=== PATIENT | male | born 1950 | race Hispanic/Latino ===

== ENCOUNTER → 2022-09-16 | Outpatient (CLI) | payer OTHER ==
[~2022-09-16] MED LIST: ATOR40TA71 PO; CARB1DRO40 OP; DIATR MEGLU/DIATRIZOATE SODIUM 30 ML BOTTLE ONE; ERGO500093 PO; FINA5TAB41 PO; IOHEXOL-350 50ML VIAL IV ONE; TAMS-1 PO
== END | disposition home or self-care (01) ==
LOC: RAH 10:24
PROVIDERS: ATTEND Internal Medicine
DX: K57.80 Diverticulitis of intestine, part unspecified, with perforation and abscess without bleeding (principal); K40.20 Bilateral inguinal hernia, without obstruction or gangrene, not specified as recurrent; N28.1 Cyst of kidney, acquired; M47.815 Spondylosis without myelopathy or radiculopathy, thoracolumbar region; Z90.49 Acquired absence of other specified parts of digestive tract
CPT/HCPCS: 74178; Q9963; Q9967

== ENCOUNTER 2024-11-08 08:50 | Inpatient (IN) | payer OTHER ==
[~2024-11-08] VITALS: Ht 167.6 cm; Wt 93.0 kg
[~2024-11-08 08:50] MED LIST changes: -CARB1DRO40 OP; +CARV3.12 PO; -DIATR MEGLU/DIATRIZOATE SODIUM 30 ML BOTTLE ONE; -ERGO500093 PO; -IOHEXOL-350 50ML VIAL IV ONE; -TAMS-1 PO; +TAMS-55 PO
--- NOTE | 2024-11-08 09:43 | ERN ---
ED Note History of Present Illness Stated Complaint: RLE AND FOOT PAIN Chief Complaint: Lower Extremity Pain/Injury Time Seen by MD: 08:53 Dictation: 74-year-old male with a history of DM and HTN presents to the ED for evaluation of chronic right foot ulcer. Patient reports right foot pain, erythema, but denies any other associated symptoms at this time. As per patient he has poor circulation to his right foot which has been causing a lot of pain and states he has had labs and radiology studies performed at the [facility] which are still pending results. Allergies: Coded Allergies: No Allergy Information Available (Verified Allergy, Unknown, 02/11/16) No Known Drug Allergies (Unverified Allergy, Unknown, 02/18/24) Home Meds Active Scripts Carvedilol (Carvedilol) 3.125 Mg Tablet, 3.125 MG PO BID, #60 TAB 0 Refills Prov:RICA ALANIZ 10/27/23 Reported Medications Tamsulosin HCl (Flomax) 0.4 Mg Cap.er.24h, 0.4 MG PO AM, CAPSULE.DR 08/24/22 Finasteride (Finasteride) 5 Mg Tablet, 5 MG PO DAILY, TAB 08/24/22 Atorvastatin Calcium (Atorvastatin Calcium) 40 Mg Tablet, 40 MG PO AM for CHOLESTEROL, TAB 08/24/22 Past Medical History Past Medical History: A-Fib, Diabetes-Type II, High Cholesterol, Heart Disease, Hypertension, Hypotension Additional Past Medical Hx: HARD OF HEARING Surgical History: None Surgical History Other: R FOOT AMPUTATION, L AKA Review of System Dictation Constitutional: Negative for fever,chills, and weight loss Eyes: Negative for injury, pain,redness, and discharge ENT: Negative for injury,pain or swelling Cardiovascular: Negative for chest pain, palpitations, and edema Respiratory: Negative for shortness of breath, cough, and wheezing, Abdomen/GI: Negative for abdominal pain, nausea, vomiting, diarrhea, and constipation Back: Negative for injury and pain : Negative for injury, bleeding and discharge MS/Extremity: Positive for right foot erythema, pain Skin: Negative for rash, and discoloration Neuro: Negative for headache, weakness, numbness, tingling, and seizure Psych: Negative for suicide ideation, homicidal ideation, and hallucinations Initial Vital Sign VS Vital Signs Date Time Temp Pulse Resp B/P (MAP) Pulse Ox O2 Delivery O2 Flow Rate FiO2 11/08/24 08:53 99.3 104 20 143/75 99 Room Air 11/08/24 09:01 0 21 Physical Exam Dictation General: awake, alert, NAD Head/Face: Normocephalic, atraumatic Eyes: PERRL, EOMI, vision at baseline ENT: oral cavity clear, TMs clear, no signs of infection Neck: Trachea midline, supple, no nuchal rigidity Cardiovascular: Borderline tachycardia No MRGs, no JVD Respiratory: CTAB, no respiratory distress, No rales or wheezes Abdomen: Soft, non-tender, non-distended, normal bowel sounds, no guarding or rebound. Skin: Warm, dry, normal turgor, no rash MS/Extremity: Left AKA, nonhealing ulcer to right foot, right transmetatarsal amputation Neuro: COAx4, GCS 15, strength 5/5, CN 2-12 intact, normal cerebellar exam, normal gait, Psych: Normal behavior, mood, and affect normal Results (Laboratory/Radiology) Laboratory/Radiology Laboratory Tests Test 11/08/24 09:28 White Blood Count 7.9 K/uL (4.8-10.8) Red Blood Count 4.22 MIL/uL (4.50-6.20) L Hemoglobin 11.2 g/dL (14.0-18.0) L Hematocrit 36.6 % (42-54) L Mean Corpuscular Volume 86.7 fL (79-99) Mean Corpuscular Hemoglobin 26.5 pg (27.0-33.0) L Mean Corpuscular Hemoglobin Concent 30.6 g/dL (32.0-36.0) L Red Cell Distribution Width 15.7 % (11.0-15.5) H Platelet Count 295 K/uL (130-400) Mean Platelet Volume 10.5 fL (7.5-10.5) Immature Granulocyte % (Auto) 0.9 % (0-1) Neutrophils (%) (Auto) 75.6 % (40.0-77.0) Lymphocytes (%) (Auto) 17.3 % (21.0-51.0) L Monocytes (%) (Auto) 5.2 % (3.0-13.0) Eosinophils (%) (Auto) 0.6 % (0.0-8.0) Basophils (%) (Auto) 0.4 % (0.0-5.0) Neutrophils # (Auto) 6.0 K/uL (1.8-7.7) Lymphocytes # (Auto) 1.4 K/uL (1.0-4.8) Monocytes # (Auto) 0.4 K/uL (0.1-1.0) Eosinophils # (Auto) 0.05 K/uL (0.00-0.70) Basophils # (Auto) 0.03 K/uL (0.00-0.20) Absolute Immature Granulocyte (auto 0.07 K/uL (0-1) Nucleated Red Blood Cells 0.0 % (0.0-0.19) Red Blood Cell Morphology See comments Prothrombin Time 10.8 SEC (9.6-11.6) Prothromb Time International Ratio 1.02 (0.85-1.15) Activated Partial Thromboplast Time 28.9 SEC (26.3-35.5) Urine Color LIGHT-YELLOW (YELLOW) Urine Appearance CLEAR (CLEAR) Urine pH 5.0 (5.0-8.0) Urine Specific [place] 1.028 (1.001-1.031) Urine Protein NEGATIVE mg/dL (NEGATIVE) Urine Glucose (UA) >=1000 mg/dL (NEGATIVE) H Urine Ketones NEGATIVE mg/dL (NEGATIVE) Urine Occult Blood NEGATIVE (NEGATIVE) Urine Nitrate NEGATIVE (NEGATIVE) Urine Bilirubin NEGATIVE mg/dL (NEGATIVE) Urine Urobilinogen 0.2 mg/dL (0.2-1.0) Urine Leukocyte Esterase NEGATIVE Mainor/uL Urine RBC 0-1 /HPF (0-1) Urine WBC 0-1 /HPF (0-1) Urine Bacteria None /HPF (None Seen) Sodium Level 141 mmol/L (136-145) Potassium Level 4.2 mmol/L (3.5-5.1) Chloride Level 103 mmol/L (101-111) Carbon Dioxide Level 27 mmol/L (21-32) Blood Urea Nitrogen 17 mg/dL (7-18) Creatinine 1.1 mg/dL (0.5-1.3) Glomerular Filtration Rate Calc 70 mL/min (>90) Random Glucose 242 mg/dL (70-105) H Lactic Acid Level 2.6 mmol/L (0.8-2.5) H Total Calcium 8.4 mg/dL (8.5-10.1) L Total Bilirubin 0.3 mg/dL (0.2-1.0) Direct Bilirubin 0.1 mg/dL (0.0-0.3) Aspartate Amino Transf (AST/SGOT) 22 U/L (10-37) Alanine Aminotransferase (ALT/SGPT) 22 U/L (12-78) Alkaline Phosphatase 145 U/L (50-136) H Troponin I High Sensitivity 7 ng/L (4-75) Total Protein 7.0 g/dL (6.0-8.3) Albumin 3.0 g/dL (3.5-5.0) L Labs Reviewed?: Yes EKG Comment: EKG 11/08/2024 time 9:46 a.m. ventricular rate 103, WA 188, QRS D 75, QT 397. Sinus or ectopic atrial tachycardia, sinus pause, left axis deviation, prolonged QT interval. No STEMI ED Course ED Course Orders Procedure Category Date Status Time 12 Lead Ekg Tracing- EKG 11/08/24 Complete Technical 09:23 Basic Metabolic Panel LAB 11/08/24 Complete 09:23 Blood Cult GHADA 11/08/24 In Process 09:23 Cbc With Differential LAB 11/08/24 Complete 09:23 Lactic Acid LAB 11/08/24 Complete 09:23 Hepatic Function Panel LAB 11/08/24 Complete 09:23 Pt And Ptt LAB 11/08/24 Complete 09:23 Urinalysis Profile LAB 11/08/24 Complete 09:23 Troponin I High LAB 11/08/24 Complete Sensitivity 09:23 Chest 1vw RAD 11/08/24 Resulted 09:23 Foot Comp 3+Vws Rt RAD 11/08/24 Resulted 09:23 Zosyn 3.375gm+Ns 50ml PHA 11/08/24 Complete (Zosyn 3.375gm+Ns 09:30 Morphine 4mg Syg PHA 11/08/24 Complete (Morphine 4mg Syg) 09:30 Ondansetron 4mg Inj PHA 11/08/24 Complete (Zofran 4mg Inj) 09:30 Aerobic Culture GHADA 11/08/24 In Process 09:40 Anaerobic Culture GHADA 11/08/24 In Process 09:40 Current Medications Medications (Trade) Dose Ordered Sig/Jermain Route PRN Reason Start Time Stop Time Status Last Admin Dose Admin Morphine Sulfate (morPHINE 4MG SYG) 4 mg ONCE ONCE IVP 4/16/25 09:30 11/08/24 09:31 DC 11/08/24 10:04 Ondansetron HCl (zoFRAN 4MG INJ) 4 mg ONCE ONCE IVP 11/08/24 09:30 11/08/24 09:31 DC 11/08/24 10:03 Piperacillin Sod/ Tazobactam Sod (Zosyn 3.375gm+NS 50ml) 3.375 gm ONCE ONCE IVPB 11/08/24 09:30 11/08/24 09:31 DC 11/08/24 10:03 Vital Signs Date Time Temp Pulse Resp B/P (MAP) Pulse Ox O2 Delivery O2 Flow Rate FiO2 11/08/24 09:01 99.3 104 20 143/75 99 Room Air* 0 21 11/08/24 08:53 99.3 104 20 143/75 99 Room Air Medical Decision Making MDM MDM: Differential diagnosis: Failure of outpatient therapy, Chronic cellulitis of right foot, osteomyelitis 1128- Hospitalist consult, accepts patient for admission Rationale: Tests considered and ordered secondary to shared decision making include: labs, ECG and radiology Risk of complication and/or morbidity or mortality of patient management: None Medications-Per medication reconciliation Need for hospitalization: Patient does meet criteria for hospitalization. Need for emergency major/minor surgery: No There are no social concerns with this patient. I independently interpreted the test that were performed, results were reviewed by me and considered findings on radiology if ordered. Medical management and examination interpretation discussions were had by me with other qualified healthcare professionals as indicated for the patient's care. DX & DISP Disposition: Inpatient Decision to Admit Date: Nov 08, 2024 Decision to Admit Time: 11:27 Departure Impression: Primary Impression: Chronic cellulitis of right foot Additional Impression: Failure of outpatient treatment Condition: Stable Referrals: SELF,REFERRAL (PCP) MARCELLUS WEST MD Nov 08, 2024 09:43
[2024-11-08 09:51] LABS: BASOPHILS # (AUTO) 0.03 K/uL (0.00-0.20); BASOPHILS % (AUTO) 0.4 % (0.0-5.0); EOSINOPHILS # (AUTO) 0.05 K/uL (0.00-0.70); EOSINOPHILS % (AUTO) 0.6 % (0.0-8.0); HEMATOCRIT 36.6 % (42-54); IMMATURE GRANULOCYTE ABSOLUTE 0.07 K/uL (0-1); LYMPHOCYTES # (AUTO) 1.4 K/uL (1.0-4.8); LYMPHOCYTES % (AUTO) 17.3 % (21.0-51.0); MEAN CORPUSCULAR HEMOGLOBIN 26.5 pg (27.0-33.0); MEAN CORPUSCULAR HGB CONC 30.6 g/dL (32.0-36.0); MEAN CORPUSCULAR VOLUME 86.7 fL (79-99); MONOCYTES # (AUTO) 0.4 K/uL (0.1-1.0); MONOCYTES % (AUTO) 5.2 % (3.0-13.0); NEUTROPHILS % (AUTO) 75.6 % (40.0-77.0); PLATELET COUNT (AUTO) 295 K/uL (130-400); RED BLOOD CELL COUNT(AUTO) 4.22 MIL/uL (4.50-6.20); RED CELL DISTRIBUTION WIDTH 15.7 % (11.0-15.5); WHITE BLOOD COUNT (AUTO) 7.9 K/uL (4.8-10.8)
[2024-11-08 09:59] LABS: CREATININE 1.1 mg/dL (0.5-1.3); POTASSIUM 4.2 mmol/L (3.5-5.1)
--- NOTE | 2024-11-08 09:59 | EKG ---
[facility] Test Date: 2024-11-08 Test Time: 09:46:56 Pat Name: MAGALI KEENAN Department: [facility] Room: 310 Gender: M Tour Escort: [id number] : 1950 Requested By: MARCELLUS WEST Order Number: [id number] Reading MD: Lynda Dow Measurements Intervals [place] Rate: 103 P: 208 NC: 198 QRS: -37 QRSD: 75 T: 45 QT: 397 QTc: 534 Interpretive Statements Sinus or ectopic atrial tachycardia Sinus pause Left axis deviation Prolonged QT interval Compared to ECG 07/02/2024 08:25:57 Sinus pause or arrest now present Left-axis deviation now present Prolonged QT interval now present Second-degree AV block, Mobitz type I (Wenckebach) no longer present Electronically Signed On 11-10-2024 09:32:56 CDT by Lynda Dow Please click the below link to view image of tracing.
[2024-11-08] MEDS: ZOSYN 3.375GM +NS 50ML IVPB ONE (10:03)
[2024-11-08] MEDS: ondanSETRON 4MG INJ IVP ONE (10:03)
[2024-11-08] MEDS: morPHINE 4 MG SYG IVP ONE (10:04)
[2024-11-08 10:09] LABS: BILIRUBIN,DIRECT 0.1 mg/dL (0.0-0.3); BILIRUBIN,TOTAL 0.3 mg/dL (0.2-1.0)
[2024-11-08 10:13] LABS: INR 1.02 (0.85-1.15); PROTHROMBIN TIME 10.8 SEC (9.6-11.6)
[2024-11-08 10:14] LABS: PARTIAL THROMBOPLASTIN TIME 28.9 SEC (26.3-35.5)
[2024-11-08 10:19] LABS: APPEARANCE,URINE CLEAR (CLEAR); BILIRUBIN,URINE NEGATIVE (NEGATIVE); COLOR,URINE LIGHT-YELLOW (YELLOW); GLUCOSE, URINE (UA) >=1000 mg/dL (NEGATIVE); KETONES,URINE NEGATIVE (NEGATIVE); LEUKOCYTE ESTERASE ,URINE NEGATIVE Leu/uL (NEGATIVE); NITRATE,URINE NEGATIVE (NEGATIVE); OCCULT BLOOD,URINE NEGATIVE (NEGATIVE); PROTEIN,URINE NEGATIVE (NEGATIVE); UROBILINOGEN,URINE 0.2 mg/dL (0.2-1.0)
[2024-11-08 10:31] LABS: ADD UA MICROSCOPIC YES
[2024-11-08 10:35] LABS: MUCUS,URINE RARE LPF (None Seen); RBC,URINE 0-1 /HPF (0-1); WBC,URINE 0-1 /HPF (0-1)
--- NOTE | 2024-11-08 10:47 | HMCIMG ---
RIGHT FOOT RADIOGRAPHS - 3 VIEWS INDICATION: GBW? COMPARISON: None FINDINGS: AP, lateral, and oblique views. Transmetatarsal amputation changes noted. No acute fracture or subluxation identified. No evidence for periosteal reaction, cortical erosive changes, or any abnormal subperiosteal bone resorption. Midfoot alignment is well maintained. 1 cm plantar calcaneal spur. Subcentimeter traction enthesophyte arises off the posterior calcaneus at the Achilles tendon attachment. Mild calcific plaque along the runoff arterial rivera and their respective branches. IMPRESSION: D degenerative changes and arteriosclerotic disease as described, without evidence for fracture or osteomyelitis.
--- NOTE | 2024-11-08 10:48 | HMCIMG ---
PORTABLE CHEST RADIOGRAPH INDICATION: gbw COMPARISON: 07/02/2024 FINDINGS: Shallow inspiration. Heart size is normal. The pulmonary vascularity and kelsey appear normal. No abnormal pulmonary parenchymal opacity or consolidation identified. No significant pleural effusion noted. No pneumothorax detected. IMPRESSION: Shallow inspiration without radiographic evidence for any acute cardiopulmonary process.
[2024-11-08] MEDS ORDERED: VANCOMYCIN KIT 1 GM/250 ML IV.KIT IV SCH (12:00)
[2024-11-08] MEDS ORDERED: PoTASSium chl 10% ELIXIR 20MEQ 20 MEQ/15 ML UDCUP PO PRN (12:00)
[2024-11-08] MEDS ORDERED: LACTULOSE 20 GM/30 ML UDCUP PO PRN (12:00)
--- NOTE | 2024-11-08 12:12 | HP ---
[facility] HISTORY AND PHYSICAL Date of Service: Nov 08, 2024 Time of Service: 11:41 HISTORY OF PRESENT ILLNESS: [ ] This is a 74-year-old male that presents in ED with chief complaints of right foot pain. Patient has a chronic open wound to his right foot status post TMA five years ago. Patient sees a marketing technology specialist outpatient setting. Pain scale 10/10. Aggravated factors movement, alleviating factors none. There is redness noted eschar to open wound with minimal drainage. there is no surrounding edema no foul odor noted. Reports having fevers subjective. Patient was seen in ED 14 patient is in severe pain To his right lower extremity. Patient stated that his family doctor told him most likely he will need amputation surgeon assistant consulted. All questions were addressed REVIEW OF SYSTEMS a 14 ROS obtained all relevant positive documented otherwise ROS negative PAST MEDICAL HISTORY: [ ] refer to HPI PAST SURGICAL HISTORY: [ ] Left AKA right TMA PAST SOCIAL HISTORY: [ ] Denies smoking tobacco products and alcohol use patient is a [place]. Lives with brother FAMILY HISTORY: [ ] noncontributory Coded Allergies: No Allergy Information Available (Verified Allergy, Unknown, 02/11/16) No Known Drug Allergies (Unverified Allergy, Unknown, 02/18/24) PHYSICAL EXAM GENERAL APPEARANCE: The patient is awake, alert, and oriented, in no acute cardiopulmonary distress. NEUROLOGICAL: Cranial nerves II-XII grossly intact. Motor is 5/5 in bilateral upper and lower extremities proximal to distal. No sensory deficits. HEENT: Face is symmetric. Pupils are equal and reactive. Extraocular movements are intact. NECK: Supple. No JVD. No thyromegaly. No submental, submandibular, pre- /postauricular, occipital or supraclavicular lymphadenopathy. CHEST: Normal chest expansion. No Telemetry. LUNGS: Absence of any rales, rhonchi or any wheezing. CARDIOVASCULAR: Regular. S1 and S2 normal. No appreciable rubs, murmurs or gallops. ABDOMEN: Soft, nontender, and nondistended. There is no rebound, voluntary guarding, or rigidity. : Deferred. No Jaramillo. EXTREMITIES: Non-edematous and not cyanotic. No clubbing. Good capillary refill. Right foot; TMA open wound with eschar, minimal drainage SKIN: No skin breakdown. Vital Sign (Last 24 Hours) 11/08/24 09:01 Temp 99.3 Pulse 104 Resp 20 B/P (MAP) 143/75 Pulse Ox 99 O2 Delivery Room Air* O2 Flow Rate 0 FiO2 21 LABS: Laboratory: Test 11/08/24 09:28 Range/Units White Blood Count 7.9 4.8-10.8 K/uL Red Blood Count 4.22 L 4.50-6.20 MIL/uL Hemoglobin 11.2 L 14.0-18.0 g/dL Hematocrit 36.6 L 42-54 % Mean Corpuscular Volume 86.7 79-99 fL Mean Corpuscular Hemoglobin 26.5 L 27.0-33.0 pg Mean Corpuscular Hemoglobin Concent 30.6 L 32.0-36.0 g/dL Red Cell Distribution Width 15.7 H 11.0-15.5 % Platelet Count 295 130-400 K/uL Mean Platelet Volume 10.5 7.5-10.5 fL Immature Granulocyte % (Auto) 0.9 0-1 % Neutrophils (%) (Auto) 75.6 40.0-77.0 % Lymphocytes (%) (Auto) 17.3 L 21.0-51.0 % Monocytes (%) (Auto) 5.2 3.0-13.0 % Eosinophils (%) (Auto) 0.6 0.0-8.0 % Basophils (%) (Auto) 0.4 0.0-5.0 % Neutrophils # (Auto) 6.0 1.8-7.7 K/uL Lymphocytes # (Auto) 1.4 1.0-4.8 K/uL Monocytes # (Auto) 0.4 0.1-1.0 K/uL Eosinophils # (Auto) 0.05 0.00-0.70 K/uL Basophils # (Auto) 0.03 0.00-0.20 K/uL Absolute Immature Granulocyte (auto 0.07 0-1 K/uL Nucleated Red Blood Cells 0.0 0.0-0.19 % Red Blood Cell Morphology See comments Prothrombin Time 10.8 9.6-11.6 SEC Prothromb Time International Ratio 1.02 0.85-1.15 Activated Partial Thromboplast Time 28.9 26.3-35.5 SEC Urine Color LIGHT-YELLOW YELLOW Urine Appearance CLEAR CLEAR Urine pH 5.0 5.0-8.0 Urine Specific [place] 1.028 1.001-1.031 Urine Protein NEGATIVE NEGATIVE mg/dL Urine Glucose (UA) >=1000 H NEGATIVE mg/dL Urine Ketones NEGATIVE NEGATIVE mg/dL Urine Occult Blood NEGATIVE NEGATIVE Urine Nitrate NEGATIVE NEGATIVE Urine Bilirubin NEGATIVE NEGATIVE mg/dL Urine Urobilinogen 0.2 0.2-1.0 mg/dL Urine Leukocyte Esterase NEGATIVE NEGATIVE Mainor/uL Urine RBC 0-1 0-1 /HPF Urine WBC 0-1 0-1 /HPF Urine Bacteria None None Seen /HPF Sodium Level 141 136-145 mmol/L Potassium Level 4.2 3.5-5.1 mmol/L Chloride Level 103 101-111 mmol/L Carbon Dioxide Level 27 21-32 mmol/L Blood Urea Nitrogen 17 7-18 mg/dL Creatinine 1.1 0.5-1.3 mg/dL Glomerular Filtration Rate Calc 70 >90 mL/min Random Glucose 242 H 70-105 mg/dL Lactic Acid Level 2.6 H 0.8-2.5 mmol/L Total Calcium 8.4 L 8.5-10.1 mg/dL Total Bilirubin 0.3 0.2-1.0 mg/dL Direct Bilirubin 0.1 0.0-0.3 mg/dL Aspartate Amino Transf (AST/SGOT) 22 10-37 U/L Alanine Aminotransferase (ALT/SGPT) 22 12-78 U/L Alkaline Phosphatase 145 H 50-136 U/L Troponin I High Sensitivity 7 4-75 ng/L Total Protein 7.0 6.0-8.3 g/dL Albumin 3.0 L 3.5-5.0 g/dL DIAGNOSTICS / RADIOLOGY: [ ] REASON: gbw ORDERING PHYSICIAN: MARCELLUS WEST MD PROCEDURE: FT 3VW RT - FOOT COMP 3+VWS RT RIGHT FOOT RADIOGRAPHS - 3 VIEWS INDICATION: GBW? COMPARISON: None FINDINGS: AP, lateral, and oblique views. Transmetatarsal amputation changes noted. No acute fracture or subluxation identified. No evidence for periosteal reaction, cortical erosive changes, or any abnormal subperiosteal bone resorption. Midfoot alignment is well maintained. 1 cm plantar calcaneal spur. Subcentimeter traction enthesophyte arises off the posterior calcaneus at the Achilles tendon attachment. Mild calcific plaque along the runoff arterial rivera and their respective branches. IMPRESSION: D degenerative changes and arteriosclerotic disease as described, without evidence for fracture or osteomyelitis. DICTATED BY: CARMELITA DUNBAR MD DATE: 11/08/24 104 ELECTRONICALLY SIGNED BY: CARMELITA DUNBAR MD DATE: 11/08/24 104 ASSESSMENT: Sepsis: POA 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, drainage POA intractable pain right foot POA Suspecting osteomyelitis POA Severe PAD Poa Uncontrolled diabetes type 2 POA Obesity BMI: 33 Immobility secondary to left AKA, and limited functional to right foot: POA PLAN: [ ] Admit: Medical-surgical condition: Guarded Status: Full code IVF: NS at 75 mL/hour Consultants surgeon assistant / marketing technology specialist Antibiotics: Zosyn 3.375 g IV every8 hours, vancomycin1 g every24 hours Imaging: xray right foot, venous doppler to right lower ext Test: Wound culture blood cultures obtained follow-up results ac/hs monitoring with SSRI coverage Labs cbc, cmp, mag+ Replace electrolytes as needed as per protocol to keep potassium above 4.0 magnesium 2.0. Home medications pending to be reviewed by RN nurse. PRN: MEDICATIONS Tylenol 650 mg po every 4 hrs for fever Zofran 4 mg IV every 6 hrs for n/v Hydralazine 5 mg IV every 4 hrs systolic pressure > 160 bowel regiment: lactulose 20 gm PO BID PRN constipation Pain management: Dilaudid 0.5 mg IV every 4 hours Supportive measures: DVT ppx, GI ppx all questions answered time spent: > 35 min Supervising MD: Dr. vicente c/d This document was generated in part using voice recognition software, occasional wrong word or sound alike substitutions may have occurred due to the inherent limitations of voice recognition software. Read the chart carefully and recognize using context, where the substitutions have occurred. Although every effort was made to edit the content, label cutter and typing errors may occur ATTESTATION BY PHYSICIAN I have seen and examined the patient. I reviewed the documentation, medical decision making, and treatment plan as noted by the mid-level provider above. I agree with the findings and plan of care. ANDREAS VICENTE MD, ELIZABETH NP Nov 08, 2024 12:12
[2024-11-08] MEDS: 0.9%NACL 1000ML 1,000 ML IV SCH (12:24)
[2024-11-08] MEDS: hydroMORPHone 0.5 MG SYG (0.5MG/0.5ML) IVP PRN (12:25)
[2024-11-08] MEDS: HEParin 5,000 UNIT VIAL SQ SCH (12:35)
--- NOTE | 2024-11-08 13:00 | NUR ---
PODIATRY DR MAHMOOD MADE AWARE OF PT.
--- NOTE | 2024-11-08 13:05 | NUR ---
[facility] MADE AWARE OF PT.
--- NOTE | 2024-11-08 13:10 | NUR ---
1ST ATTEMPT AT CALLING REPORT.
--- NOTE | 2024-11-08 13:12 | NUR ---
PT DOES NOT HAVE HIS HOME MEDICATIONS HERE.
--- NOTE | 2024-11-08 13:37 | NUR ---
REPORT GIVEN TO LEONOR RAO.PT IS GOING TO 310.
--- NOTE | 2024-11-08 13:52 | HMCIMG ---
ULTRASOUND VENOUS DOPPLER RIGHT LOWER EXTREMITY INDICATION: Pain and swelling. TECHNIQUE: Routine grayscale and color Doppler ultrasound of the right lower extremity veins performed. COMPARISON: None. FINDINGS: The demonstrated veins of the right lower extremity including the common femoral vein, femoral vein, and popliteal vein are associated with normal compressibility, augmentation, and flow. Normal respiratory variation was identified. No evidence for echogenic intraluminal thrombus. IMPRESSION: No evidence for deep venous thrombosis.
[2024-11-08 14:21] VITALS: BP 120/71; PULSE 99; RESP 17; TEMP 98.2
[2024-11-08 14:50] VITALS: O2SAT 98
--- NOTE | 2024-11-08 15:13 | HMCIMG ---
MRI RIGHT HINDFOOT/ANKLE WITHOUT CONTRAST INDICATION: Infected transmetatarsal indentation COMPARISON: None TECHNIQUE: Long and short axis fat and water weighted sequences were obtained through the right ankle. FINDINGS: Diagnostic sensitivity of this examination is limited by patient motion artifact. Transmetatarsal indentation changes identified. Subtle coalescent low T1 signal encroaches upon the second metatarsal stump and reactive marrow edema noted at the same level, but no significant obscuration of the cortices. Similar changes noted at the first metatarsal stump. No evidence for any organized/drainable fluid collection. Anterior and posterior talofibular ligaments are intact. Anterior and medial tendon group, including the posterior tibial tendon, are intact. Lateral peroneal complex is intact, and not subluxed. Achilles tendon and plantar fascia are intact. Kager's fat pad is well maintained. Miniscule plantar calcaneal spur without plantar fasciitis. No significant joint effusion identified. No abnormal soft tissue mass or ganglion noted. Talar dome is intact without osteochondral lesion. Ankle mortise and tibial plafond are well maintained. Sinus canal is patent. No evidence for coalition. Moderate talocalcaneal joint osteoarthropathy and mild tibiotalar joint osteoarthropathy. No evidence for muscle atrophy or myoedema. No evidence for fracture. IMPRESSION: Limitations as reported. Findings suggesting early acute osteomyelitis involving the first and second metatarsal stumps.
[2024-11-08 16:00] VITALS: BP 119/71; PULSE 98; RESP 17; TEMP 97.5
[2024-11-08] MEDS: INSULIN humuLIN R 100 UNIT/ML 3ML SQ SCH (16:30)
[2024-11-08] MEDS: ZOSYN 3.375GM +NS 50ML IVPB SCH (18:48)
[2024-11-08 19:09] VITALS: O2SAT 96
[2024-11-08 20:00] VITALS: BP 119/69; PULSE 64; RESP 18; TEMP 98.8
--- NOTE | 2024-11-08 20:20 | CONS ---
HISTORY OF PRESENT ILLNESS: The patient is a very pleasant 74-year-old diabetic, [place] male who has a [id number] amputation on the left. He has a transmetatarsal amputation on the right. He states 5 years ago, I performed a transmetatarsal amputation on the right and it is not healed. He states he has been followed by the [facility] and has been receiving local wound care, essentially for the past 5 years without improvement. He states he recently went to [place] and was told by the doctors in [place] that he had no circulation and needed a leg amputation, which he refused. He has a past medical history that significant for diabetes and peripheral vascular disease, status post transmetatarsal amputation on the right, now with a necrotic wound to the transmetatarsal amputation stump on the right and an MRI showing osteomyelitis of the stump of the first and second metatarsals. He has been followed for problems list that includes diabetes, peripheral vascular disease, chronic right transmetatarsal amputation stump osteomyelitis, peripheral vascular disease, peripheral neuropathy, obesity. White count 7.9, H and H of 11 and 36, platelets 295, neutrophils 75.6. The patient has a T-max of 99.3, pulse 94, respiration 17, blood pressure 119/71. X-ray is negative for osseous destructive changes. MRI positive for osteomyelitis to the stump of the first and second metatarsals on the right. Venous studies, no DVT. Arterial Doppler study is pending. FAMILY HISTORY: The patient's family history is unremarkable. ALLERGIES: No known drug allergies. MEDICATIONS: Including Zosyn, insulin, Dilaudid, lactulose. PHYSICAL EXAMINATION: Today shows I could not palpate his pedal pulses. He has pitting edema to the right foot. He has a necrotic wound to the stump of the transmetatarsal amputation 11 x 4 cm. There is fibrosis in the wound bed. There is exposed bone of the first and second metatarsal stumps in the wound bed. There is edema, erythema, foul-smelling drainage. There is localized cellulitis. ASSESSMENT: Chronic nonhealing wound to the transmetatarsal amputation on the right, osteomyelitis, first and second metatarsal stumps per MRI, intractable pain, suspected severe peripheral vascular disease, arterial Doppler studies pending, uncontrolled diabetes, obesity, immobility secondary to a left [id number] amputation. The patient does not have a prosthesis currently for the left lower extremity [id number] amputation. PLAN: Awaiting results of the arterial Doppler studies on that right side. I would recommend Cardiology evaluation of his circulation status. I feel the patient would benefit from a revision of his transmetatarsal amputation, possibly to a Chopart's level of amputation on the right side. The patient is currently refusing leg amputation on that right side. We will continue with the [place]. We will use Medihoney dressings to the right foot wound. We will continue to follow the patient closely while in-house. TID: [id number] RECEIPT: [id number]
[2024-11-08] MEDS ORDERED: 0.9%NACL 50ML IV SCH (21:00)
[2024-11-08] MEDS ORDERED: CARV3.12 PO (21:01)
[2024-11-08] MEDS ORDERED: TAMS-55 PO (21:01)
[2024-11-08] MEDS ORDERED: PIOG30TA70 PO (21:01)
[2024-11-08] MEDS ORDERED: METF-446 PO (21:01)
[2024-11-08] MEDS ORDERED: LISI5TAB21 PO (21:01)
[2024-11-08] MEDS ORDERED: CLOP75TA32 PO (21:01)
[2024-11-08] MEDS ORDERED: AEC81 PO (21:01)
[2024-11-08] MEDS ORDERED: ATOR40TA71 PO (21:01)
[2024-11-08] MEDS ORDERED: FINA1TAB13 PO (21:01)
[2024-11-08] MEDS ORDERED: EMPA25TA PO (21:01)
[2024-11-08] MEDS ORDERED: FERS325 PO (21:01)
[2024-11-08] MEDS: ondanSETRON 4MG INJ IVP PRN (23:06)
[2024-11-08 23:56] VITALS: BP 146/78; PULSE 98; RESP 20; TEMP 98.5
[2024-11-09] VITALS (7 sets, daily range): BP systolic 111–133; BP diastolic 56–73; PULSE 64–102; RESP 17–19; TEMP 98–98.3; O2SAT 97
--- NOTE | 2024-11-09 05:59 | PN ---
SUBJECTIVE: The patient is a very pleasant 74-year-old diabetic male who was seen and followed up for a diabetic ulcer, transmetatarsal amputation stump on the right, he states he has had for 5 years, been followed by the [place]. T-max 98.2, pulse 102, respirations 19, blood pressure 133/73. He has a white count that is 7.9, H and H 11.2 and 36.6, platelets 295. MRI suggested osteomyelitis to stump of the first and second metatarsals on the right. The patient's arterial Doppler studies are pending. Venous Doppler showed no DVT. REVIEW OF SYSTEMS: CONSTITUTIONAL: Having no chills, no fevers, no night sweats. No nausea, no vomiting, no diarrhea. HEENT: No problems with his eyes, ears, nose, or throat. CARDIOVASCULAR: Peripheral vascular disease. GENITOURINARY: He has a BUN and a creatinine level 17 and 1.1. PSYCHIATRIC: Denied any depression. MUSCULOSKELETAL: [id number] amputation on the left, transmetatarsal amputation on the right. INTEGUMENTARY: He has a wound to the transmetatarsal amputation stump on the right, it is measuring 11 x 4 cm. There is fibrosis in the wound bed. There is exposed bone in the first and second metatarsal stumps. There is necrosis of the soft tissue. There is edema, erythema, and foul smelling drainage. There is localized cellulitis. ASSESSMENT: Chronic nonhealing wound to the transverse metatarsal amputation stump on the right, osteomyelitis first and second metatarsal stumps per MRI. The patient with concern of severe pain, strong suspicion for peripheral vascular disease. Arterial Doppler studies pending. Uncontrolled diabetes, morbid obesity and mobility secondary to [id number] amputation on the left. The patient does not have a prosthesis currently for his left lower extremity [id number] amputation on that left side. PLAN: Awaiting arterial Doppler studies on the right. I would recommend Cardiology evaluation of his circulation status. I feel the patient would benefit from a revision of his transmetatarsal amputation to a possible Chopart's level of amputation. The patient is currently refusing leg amputation on the right side. We will continue with Zosyn, continue with Medihoney dressings to the right foot. We will follow the patient closely while in-house. TID: [id number] RECEIPT: [id number]
[2024-11-09 07:17] LABS: BASOPHILS # (AUTO) 0.01 K/uL (0.00-0.20); BASOPHILS % (AUTO) 0.1 % (0.0-5.0); EOSINOPHILS # (AUTO) 0.01 K/uL (0.00-0.70); EOSINOPHILS % (AUTO) 0.1 % (0.0-8.0); HEMATOCRIT 29.6 % (42-54); LYMPHOCYTES # (AUTO) 1.1 K/uL (1.0-4.8); LYMPHOCYTES % (AUTO) 13.5 % (21.0-51.0); MEAN CORPUSCULAR HEMOGLOBIN 26.7 pg (27.0-33.0); MEAN CORPUSCULAR HGB CONC 31.1 g/dL (32.0-36.0); MEAN CORPUSCULAR VOLUME 85.8 fL (79-99); MONOCYTES # (AUTO) 0.3 K/uL (0.1-1.0); NEUTROPHILS # (AUTO) 6.4 K/uL (1.8-7.7); PLATELET COUNT (AUTO) 233 K/uL (130-400); RED BLOOD CELL COUNT(AUTO) 3.45 MIL/uL (4.50-6.20); RED CELL DISTRIBUTION WIDTH 15.5 % (11.0-15.5); WHITE BLOOD COUNT (AUTO) 7.8 K/uL (4.8-10.8)
[2024-11-09 07:27] LABS: ALBUMIN 2.3 g/dL (3.5-5.0); BILIRUBIN,TOTAL 0.5 mg/dL (0.2-1.0); CREATININE 1.1 mg/dL (0.5-1.3); HEMOGLOBIN A1C 9.2 % (4.0-6.0); MAGNESIUM 1.6 mg/dL (1.80-2.40); POTASSIUM 3.9 mmol/L (3.5-5.1)
[2024-11-09 07:48] LABS: % IRON SATURATION 6.4 % (30-44)
[2024-11-09] MEDS: FAMOTIDINE 20MG VIAL IV SCH (08:05)
[2024-11-09] MEDS ORDERED: IRON sUCROse COMPLEX 100 MG/5 ML VIAL IV STA (11:20)
[2024-11-09] MEDS ORDERED: VANCOMYCIN PROTOCOL PER PHARMACY IV SCH (11:30)
[2024-11-09] MEDS: VANCOMYCIN 2GM/500 ML BAG 500 ML IV ONE (12:01)
--- NOTE | 2024-11-09 12:03 | PN ---
[facility] PROGRESS NOTE Date of Service: Nov 09, 2024 Time of Service: 11:39 SUBJECTIVE: This is a 74-year-old male with PMH of Left BKA , Rt TMA(5 years ) , PAD, DM, HTN, bowel perforation s/p bowel repair in 07/18 presented to ED with chief complaints of right foot pain. Patient has a chronic open wound to his right foot TMA stump. Pain scale 10/10. Aggravated factors movement, alleviating factors none. There is redness noted with eschar to open wound with minimal drainage. There is no surrounding edema but redness extending to mid leg level . No foul odor noted. Reports having fevers subjective. At the time of presentation , Vitals : T 99.3,HR 104, R 20, BP 143/75/99%RA.He was admitted for further evaluation and management of his wound . 11.09.24: Patient has low grade fevers. He denies pain at the rt TMA site. Wound dressing in place. MRI foot showed rt stump 1 and 2 osteomyelitis .Podiatry recommended possible amputation. LE artery doppler studies pending .ID and Cardiology consults placed. REVIEW OF SYSTEMS a 14 ROS obtained all relevant positive documented otherwise ROS negative PHYSICAL EXAM GENERAL APPEARANCE: The patient is awake, alert, and oriented, in no acute cardiopulmonary distress. NEUROLOGICAL: Cranial nerves II-XII grossly intact. Motor is 5/5 in bilateral upper and lower extremities proximal to distal. No sensory deficits. HEENT: Face is symmetric. Pupils are equal and reactive. Extraocular movements are intact. NECK: Supple. No JVD. No thyromegaly. No submental, submandibular, pre- /postauricular, occipital or supraclavicular lymphadenopathy. CHEST: Normal chest expansion. No Telemetry. LUNGS: Absence of any rales, rhonchi or any wheezing. CARDIOVASCULAR: Regular. S1 and S2 normal. No appreciable rubs, murmurs or gallops. ABDOMEN: Soft, nontender, and nondistended. There is no rebound, voluntary guarding, or rigidity. : Deferred. No Jaramillo. EXTREMITIES: Right foot; TMA open wound with eschar, minimal drainage,redness extending to mid leg, left BKA status SKIN: No skin breakdown. Vital Signs (last 8hr) Date Time Temp Pulse Resp B/P (MAP) Pulse Ox O2 Delivery O2 Flow Rate FiO2 11/09/24 11:13 98.1 64 18 128/65 97 Room Air 11/09/24 07:41 98.1 99 17 119/69 97 Room Air 11/09/24 03:50 98.2 102 19 133/73 95 Room Air LABS: Laboratory: Test 11/09/24 10:49 11/09/24 07:08 11/08/24 09:28 Range/Units Whole Blood Glucose 189 H 70-110 MG/DL White Blood Count 7.8 4.8-10.8 K/uL Red Blood Count 3.45 L 4.50-6.20 MIL/uL Hemoglobin 9.2 L 14.0-18.0 g/dL Hematocrit 29.6 L 42-54 % Mean Corpuscular Volume 85.8 79-99 fL Mean Corpuscular Hemoglobin 26.7 L 27.0-33.0 pg Mean Corpuscular Hemoglobin Concent 31.1 L 32.0-36.0 g/dL Red Cell Distribution Width 15.5 11.0-15.5 % Platelet Count 233 130-400 K/uL Mean Platelet Volume 10.1 7.5-10.5 fL Immature Granulocyte % (Auto) 1.3 H 0-1 % Neutrophils (%) (Auto) 81.0 H 40.0-77.0 % Lymphocytes (%) (Auto) 13.5 L 21.0-51.0 % Monocytes (%) (Auto) 4.0 3.0-13.0 % Eosinophils (%) (Auto) 0.1 0.0-8.0 % Basophils (%) (Auto) 0.1 0.0-5.0 % Neutrophils # (Auto) 6.4 1.8-7.7 K/uL Lymphocytes # (Auto) 1.1 1.0-4.8 K/uL Monocytes # (Auto) 0.3 0.1-1.0 K/uL Eosinophils # (Auto) 0.01 0.00-0.70 K/uL Basophils # (Auto) 0.01 0.00-0.20 K/uL Absolute Immature Granulocyte (auto 0.10 0-1 K/uL Nucleated Red Blood Cells 0.0 0.0-0.19 % Sodium Level 138 136-145 mmol/L Potassium Level 3.9 3.5-5.1 mmol/L Chloride Level 102 101-111 mmol/L Carbon Dioxide Level 27 21-32 mmol/L Blood Urea Nitrogen 17 7-18 mg/dL Creatinine 1.1 0.5-1.3 mg/dL Glomerular Filtration Rate Calc 70 >90 mL/min Random Glucose 192 H 70-105 mg/dL Hemoglobin A1c 9.2 H 4.0-6.0 % Estimated Average Glucose (eAG) 217 H 70-126 mg/dL Lactic Acid Level 0.8 0.8-2.5 mmol/L Total Calcium 7.7 L 8.5-10.1 mg/dL Magnesium Level 1.60 L 1.80-2.40 mg/dL Iron Level 19 L 65-175 mcg/dL Total Iron Binding Capacity 293 250-450 mcg/dL Percent Iron Saturation 6.4 L 30-44 % Total Bilirubin 0.5 # 0.2-1.0 mg/dL Aspartate Amino Transf (AST/SGOT) 14 10-37 U/L Alanine Aminotransferase (ALT/SGPT) 15 # 12-78 U/L Alkaline Phosphatase 92 # 50-136 U/L C-Reactive Protein, Quantitative 34.30 H 0.5-3.0 mg/L Total Protein 6.0 6.0-8.3 g/dL Albumin 2.3 #L 3.5-5.0 g/dL Red Blood Cell Morphology See comments Prothrombin Time 10.8 9.6-11.6 SEC Prothromb Time International Ratio 1.02 0.85-1.15 Activated Partial Thromboplast Time 28.9 26.3-35.5 SEC Urine Color LIGHT-YELLOW YELLOW Urine Appearance CLEAR CLEAR Urine pH 5.0 5.0-8.0 Urine Specific Metcalf 1.028 1.001-1.031 Urine Protein NEGATIVE NEGATIVE mg/dL Urine Glucose (UA) >=1000 H NEGATIVE mg/dL Urine Ketones NEGATIVE NEGATIVE mg/dL Urine Occult Blood NEGATIVE NEGATIVE Urine Nitrate NEGATIVE NEGATIVE Urine Bilirubin NEGATIVE NEGATIVE mg/dL Urine Urobilinogen 0.2 0.2-1.0 mg/dL Urine Leukocyte Esterase NEGATIVE NEGATIVE Mainor/uL Urine RBC 0-1 0-1 /HPF Urine WBC 0-1 0-1 /HPF Urine Bacteria None None Seen /HPF Direct Bilirubin 0.1 0.0-0.3 mg/dL Troponin I High Sensitivity 7 4-75 ng/L Current Medications Medications (Trade) Dose Ordered Sig/Jermain Route PRN Reason Start Time Stop Time Status Last Admin Dose Admin Acetaminophen (TYLenol 325MG TAB) 650 mg Q4H PRN PO TEMPERATURE GREATER THAN 101.5 11/08/24 12:00 12/08/24 11:59 Aspirin (Aspirin 81mg Ec Tab) 81 mg DAILY PO 11/10/24 09:00 12/10/24 08:59 Atorvastatin Calcium (LIPItor 40MG) 40 mg DAILY PO 11/10/24 09:00 12/10/24 08:59 Carvedilol (Coreg 3.125MG) 3.125 mg BID PO 11/09/24 21:00 12/09/24 20:59 Clopidogrel Bisulfate (plaVIX 75MG) 75 mg DAILY PO 11/10/24 09:00 12/10/24 08:59 Empaglifozin (Jardiance 25mg) 25 mg DAILY PO 11/10/24 09:00 12/10/24 08:59 Famotidine (Pepcid 20mg Vial) 20 mg DAILY IV 11/09/24 09:00 12/09/24 08:59 11/09/24 08:05 20 MG Ferrous Sulfate (Ferrous Sulfate) 325 mg QODAY PO 11/11/24 09:00 12/11/24 08:59 Heparin Sodium (Porcine) (HEParin 5,000 UNIT VIAL) 5,000 unit Q12H SQ 11/08/24 12:30 12/08/24 12:29 11/08/24 23:24 5,000 UNIT Home Med (Home Medication) (Finasteride 1 MG)- HAIR LOSS DAILY PO 11/10/24 09:00 12/10/24 08:59 Hydromorphone HCl (DiLAUDid 0.5MG INJ) 0.5 mg Q4H PRN IVP SEVERE PAIN (7-10) 11/08/24 12:00 11/13/24 11:59 11/08/24 18:53 0.5 MG Insulin Human Regular (humuLIN R 100 UNIT/ML 3ML) INSULIN SLIDING SCAL... ACHS SQ 11/08/24 16:30 12/08/24 16:29 11/09/24 07:35 4 UNIT Iron Sucrose (VenoFER) 200 mg ONCE STAT IV 11/09/24 11:20 11/09/24 11:21 UNV Lactulose (Constulose 20gm/ 30ml Udcup) 20 gm BID PRN PO CONSTIPATION 11/08/24 12:00 12/08/24 11:59 Lisinopril (Prinivil 5mg) 5 mg DAILY PO 11/10/24 09:00 12/10/24 08:59 Magnesium Sulfate 50 ml @ 0 mls/hr PROTOCOL PRN IV low mag level 11/08/24 12:00 12/08/24 11:59 Metformin HCl (glucoPHAGE) 1,000 mg BIDMEALS PO 11/09/24 17:00 12/09/24 16:59 Ondansetron HCl (zoFRAN 4MG INJ) 4 mg Q6H PRN IVP NAUSEA/VOMITING 11/08/24 12:00 12/08/24 11:59 11/08/24 23:06 4 MG Pioglitazone HCl (Actos 30mg) 30 mg DAILY PO 11/10/24 09:00 12/10/24 08:59 Piperacillin Sod/ Tazobactam Sod (Zosyn 3.375gm+NS 50ml) 3.375 gm Q8H IVPB 11/08/24 17:30 11/18/24 17:29 11/09/24 08:05 3.375 GM Potassium Chloride 100 ml @ 100 mls/hr AD PRN IV POTASSIUM PROTOCOL 11/08/24 12:00 12/08/24 11:59 Potassium Chloride (K-Dur/Klor-Con 20meq) 20 meq AD PRN PO POTASSIUM PROTOCOL 11/08/24 12:00 12/08/24 11:59 Potassium Chloride (KCl 10% Elixir 20meq/15ml) 20 meq AD PRN PO POTASSIUM PROTOCOL 11/08/24 12:00 12/08/24 11:59 Sodium Chloride 1,000 ml @ 75 mls/hr [id number] IV 11/08/24 12:00 12/08/24 11:59 11/09/24 02:51 75 MLS/HR Sodium Chloride (NS 50ml) 50 ml AD IV 11/08/24 21:00 11/08/24 11:59 DC Tamsulosin HCl (FloMAX) 0.4 mg DAILY PO 11/10/24 09:00 12/10/24 08:59 Vancomycin HCl (Vancomycin Protocol) 1 each AD IV 11/09/24 11:30 11/23/24 11:29 UNV Vancomycin HCl (Vancomycin 1g/ 250ml Kit) 1 gm Q12H IV 11/08/24 12:00 11/08/24 11:59 DC DIAGNOSTICS / RADIOLOGY: PROCEDURE: FT RT WO - MR FOOT RIGHT WO MRI RIGHT HINDFOOT/ANKLE WITHOUT CONTRAST INDICATION: Infected transmetatarsal indentation COMPARISON: None TECHNIQUE: Long and short axis fat and water weighted sequences were obtained through the right ankle. FINDINGS: Diagnostic sensitivity of this examination is limited by patient motion artifact. Transmetatarsal indentation changes identified. Subtle coalescent low T1 signal encroaches upon the second metatarsal stump and reactive marrow edema noted at the same level, but no significant obscuration of the cortices. Similar changes noted at the first metatarsal stump. No evidence for any organized/drainable fluid collection. Anterior and posterior talofibular ligaments are intact. Anterior and medial tendon group, including the posterior tibial tendon, are intact. Lateral peroneal complex is intact, and not subluxed. Achilles tendon and plantar fascia are intact. Kager's fat pad is well maintained. Miniscule plantar calcaneal spur without plantar fasciitis. No significant joint effusion identified. No abnormal soft tissue mass or ganglion noted. Talar dome is intact without osteochondral lesion. Ankle mortise and tibial plafond are well maintained. Sinus canal is patent. No evidence for coalition. Moderate talocalcaneal joint osteoarthropathy and mild tibiotalar joint osteoarthropathy. No evidence for muscle atrophy or myoedema. No evidence for fracture. IMPRESSION: Limitations as reported. Findings suggesting early acute osteomyelitis involving the first and second metatarsal stumps. DICTATED BY: CARMELITA DUNBAR MD DATE: 11/08/24 1507 ELECTRONICALLY SIGNED BY: CARMELITA DUNBAR MD DATE: 11/08/24 1513 ASSESSMENT: Sepsis: POA Rt foot tma stump osteomyelitis,poa 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, drainage POA intractable pain right foot POA Suspecting osteomyelitis POA Severe PAD Poa Iron deficiency anemia with drop in hemoglobin , POA Uncontrolled diabetes type 2 POA Obesity BMI: 33 Immobility secondary to left AKA, and limited functional to right foot: POA Hypomagnesemia,POA PLAN: Sepsis: POA Tachycardia, CRP elevated ,subjective fevers started on Zosyn, Vancomycin (pharmacy to dose) ID consult pending Blood cultures pending Rt foot TMA stump osteomyelitis ,POA 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, drainage with cellulitis , POA Intractable pain right foot POA patient treated with IV Zosyn and IV vancomycin Podiatry recommends surgical exploration vs amputation Cardiology consulted - cardiovascular evaluation pending USarterial doppler study pending Severe PAD Poa -Possible rt LE angiogram vs amputtaion - cardiology recs pending -pain management with hydromorphone Uncontrolled diabetes type 2 POA HbA1C 9.2 resumed home medications insulin as per sliding scale Iron deficiency anemia with drop in hemoglobin , POA Startedon IV iron Tsat 6.4% Hb dropped from 11.2 to 9.2 DVT ppx with Heparin GI ppx with Famotidine ATTESTATION BY PHYSICIAN I have seen and examined the patient. I reviewed the documentation, medical decision making, and treatment plan as noted by the resident provider above. I agree with the findings and plan of care. RESHMA MEDEIROS MD, MD Nov 09, 2024 12:03
--- NOTE | 2024-11-09 12:22 | HMCIMG ---
US ARTERIAL UNILA LOW EXT DUPL HISTORY: Right foot wound COMPARISON: None TECHNIQUE: Right lower extremity arterial Doppler ultrasound study was performed. FINDINGS: Abnormal monophasic arterial waveforms are noted in the right common femoral, deep femoral, superficial femoral, popliteal, posterior tibial and dorsalis pedal arteries. On the right, the peak systolic velocity of the common femoral artery is 58 cm/s, the proximal femoral artery is 36 cm/s, the mid femoral artery is 21 cm/s, the distal femoral artery is 18 cm/s, the proximal popliteal artery is 24 cm/s, the distal popliteal artery is 44 cm/s, the anterior tibial artery is 20 cm/s, the posterior tibial artery artery is 25 cm/s,and the dorsalis pedal artery is 17 cm/s. IMPRESSION: 1. Atherosclerotic disease. 2. Abnormal monophasic arterial waveforms are noted in the right common femoral, deep femoral, superficial femoral, popliteal, posterior tibial and dorsalis pedal arteries.
--- NOTE | 2024-11-09 13:00 | NUR ---
DCP Patient states lives with Roosevelt Rider Brother [phone]/Ghazal Rider Sister in Law [phone] in a house with a ramp entrance and walk in shower. States he is disabled and [employer] , makes his own decisions and does not drive. States he needs assistance to complete ADL's. States he has a shower chair, wheelchair and hospital bed. Denies home health services, home care provider or dialysis. PCP - [facility] and Thomas Guthrie MD Pharmacy - [facility]. Upon discharge, Fawad Smither [phone]/Ghazal Rider Sister in Law [phone] and assist with care, as needed. Addendum: 11/09/24 at 1305 by ANITHA DIAZ RN CM Amended: Links added.
--- NOTE | 2024-11-09 13:01 | CONS ---
[facility] CARDIOLOGY CONSULTATION REPORT CARDIOLOGY CONSULTATION NOTE DICTATED FOR TIANNA KESSLER MD Date Patient Seen: Nov 09, 2024 Requesting Physician: Salvador Domínguez MD Reason for Consultation: PAD, osteomyelitis of the right lower extremity History of Present Illness: This is a 74-year-old male with a past medical history of hypertension, diabetes mellitus type 2, PAD s/p left AKA, right TMA 5 years ago, RLE peripheral angiograms x2 (unknown date), and chronic non-healing right TMA surgical site who presented to the ED for further evaluation of RLE pain, erythema and edema that has progressed in the last five days. Cardiology has been consulted for recommendations. The patient states he has had two peripheral interventions on his right lower extremity and was told he would not tolerate another attempt due to thinned vessel rivera. He does not recall when he had these procedures done but recalls t he physician's name to be Dr. Escalona from [place], [place]. BLE arterial Doppler reported monophasic arterial waveforms in the right common femoral, deep femoral, superficial femoral, popliteal, posterior tibial and dorsalis pedal arteries. MRI of the RLE resulted with osteomyelitis involving the first and second metatarsal stumps. A right lower extremity venous Doppler was negative for DVT. Past Medical History: As per HPI and summarized below Past Surgical History: Left AKA Right TMA Family History: Refer to chart Social History: Refer to chart Habits: Refer to chart Home Meds: Aspirin 81 mg daily Atorvastatin 40 mg daily Clopidogrel 75 mg daily Carvedilol 3.125 mg b.i.d. Lisinopril 5 mg daily Jardiance 25 mg daily Ferrous sulfate 325 mg every other day Finasteride 1 mg daily Metformin 1000 mg b.i.d. Pioglitazone 30 mg daily Flomax 0.4 mg daily Current Meds: Current Medications Medications Dose Ordered Sig/Jermain Start Time Stop Time Status Last Admin Acetaminophen 650 mg Q4H PRN 11/08/24 12:00 12/08/24 11:59 Ondansetron HCl 4 mg Q6H PRN 11/08/24 12:00 12/08/24 11:59 11/08/24 23:06 Lactulose 20 gm BID PRN 11/08/24 12:00 12/08/24 11:59 Famotidine 20 mg DAILY 11/09/24 09:00 12/09/24 08:59 11/09/24 08:05 Piperacillin Sod/ Tazobactam Sod 3.375 gm Q8H 11/08/24 17:30 11/18/24 17:29 11/09/24 08:05 Hydromorphone HCl 0.5 mg Q4H PRN 11/08/24 12:00 11/13/24 11:59 11/08/24 18:53 Insulin Human Regular INSULIN SLIDING SCAL... ACHS 11/08/24 16:30 12/08/24 16:29 11/09/24 11:59 Potassium Chloride 100 ml @ 100 mls/hr AD PRN 11/08/24 12:00 12/08/24 11:59 Potassium Chloride 20 meq AD PRN 11/08/24 12:00 12/08/24 11:59 Potassium Chloride 20 meq AD PRN 11/08/24 12:00 12/08/24 11:59 Magnesium Sulfate 50 ml @ 0 mls/hr PROTOCOL PRN 11/08/24 12:00 12/08/24 11:59 Sodium Chloride 1,000 ml @ 75 mls/hr [id number] 11/08/24 12:00 12/08/24 11:59 11/09/24 02:51 Heparin Sodium (Porcine) 5,000 unit Q12H 11/08/24 12:30 12/08/24 12:29 11/09/24 12:00 Aspirin 81 mg DAILY 11/10/24 09:00 12/10/24 08:59 Atorvastatin Calcium 40 mg DAILY 11/10/24 09:00 12/10/24 08:59 Carvedilol 3.125 mg BID 11/09/24 21:00 12/09/24 20:59 Clopidogrel Bisulfate 75 mg DAILY 11/10/24 09:00 12/10/24 08:59 Empaglifozin 25 mg DAILY 11/10/24 09:00 12/10/24 08:59 Lisinopril 5 mg DAILY 11/10/24 09:00 12/10/24 08:59 Pioglitazone HCl 30 mg DAILY 11/10/24 09:00 12/10/24 08:59 Tamsulosin HCl 0.4 mg DAILY 11/10/24 09:00 12/10/24 08:59 Ferrous Sulfate 325 mg QODAY 11/11/24 09:00 12/11/24 08:59 Home Med (Finasteride 1 MG)- HAIR LOSS DAILY 11/10/24 09:00 12/10/24 08:59 Metformin HCl 1,000 mg BIDMEALS 11/09/24 17:00 12/09/24 16:59 Iron Sucrose 200 mg ONCE ONCE 11/10/24 11:30 11/10/24 11:31 Vancomycin HCl 1 each AD 11/09/24 11:30 11/23/24 11:29 Vancomycin HCl 500 ml @ 250 mls/hr ONCE ONCE 11/09/24 12:00 11/09/24 13:59 11/09/24 12:01 Vancomycin HCl 250 ml @ 125 mls/hr Q24H 11/10/24 12:00 11/20/24 11:59 Review of Systems: CONST: No fever, fatigue, or weight changes. EYES: No recent vision problems. ENT: No congestion, ear pain, or sore throat. C/V: No chest pain, palpitations, or edema. RESP: No cough, congestion, wheezing or shortness of breath. GI: No abdominal pain, nausea, vomiting, constipation, or diarrhea. : No incontinence or dysuria. SKIN: The patient admits to right lower extremity discomfort, erythema, and a nonhealing wound. NEURO: No headache, focal numbness or weakness, dizziness, or seizures. PSYCH: No depression or anxiety. HEME: No abnormal bruising or bleeding. LYMPH: No swollen glands. Physical Examination: GENERAL: No acute distress. HEAD: Normal with no signs of head trauma. EYES: PERRLA, EOMI, conjunctiva and sclera normal. ENT: Hearing grossly intact, normal oropharynx. NECK: Supple without JVD. There is no tenderness, lymphadenopathy, or masses. No thyromegaly. Normal carotid upstrokes without bruits. LUNGS: Clear breath sounds bilaterally. No wheezes, or rhonchi. HEART: Normal rate and rhythm. Normal S1 and S2 without murmurs, gallop or rub. VASC: Unable to palpate right DP or PT pulse due to dressing in place. ABD: Bowel sounds normal, soft, nontender, no masses, no organomegaly. No audible bruits. : Not examined LYMPH: No lymphadenopathy noted. EXT: No clubbing or cyanosis . Erythema noted to the RLE with trace edema. SKIN: No rashes or lesions noted. NEURO: Awake, alert, and oriented x3. No focal sensory or strength deficits noted. Vital Signs (last 8hr) Date Time Temp Pulse Resp B/P (MAP) Pulse Ox O2 Delivery O2 Flow Rate FiO2 11/09/24 11:13 98.1 64 18 128/65 97 Room Air 11/09/24 07:41 98.1 99 17 119/69 97 Room Air Laboratory: Hematology Labs: Test 11/09/24 07:08 11/08/24 09:28 Range/Units White Blood Count 7.8 4.8-10.8 K/uL Red Blood Count 3.45 L 4.50-6.20 MIL/uL Hemoglobin 9.2 L 14.0-18.0 g/dL Hematocrit 29.6 L 42-54 % Mean Corpuscular Volume 85.8 79-99 fL Mean Corpuscular Hemoglobin 26.7 L 27.0-33.0 pg Mean Corpuscular Hemoglobin Concent 31.1 L 32.0-36.0 g/dL Red Cell Distribution Width 15.5 11.0-15.5 % Platelet Count 233 130-400 K/uL Mean Platelet Volume 10.1 7.5-10.5 fL Immature Granulocyte % (Auto) 1.3 H 0-1 % Neutrophils (%) (Auto) 81.0 H 40.0-77.0 % Lymphocytes (%) (Auto) 13.5 L 21.0-51.0 % Monocytes (%) (Auto) 4.0 3.0-13.0 % Eosinophils (%) (Auto) 0.1 0.0-8.0 % Basophils (%) (Auto) 0.1 0.0-5.0 % Neutrophils # (Auto) 6.4 1.8-7.7 K/uL Lymphocytes # (Auto) 1.1 1.0-4.8 K/uL Monocytes # (Auto) 0.3 0.1-1.0 K/uL Eosinophils # (Auto) 0.01 0.00-0.70 K/uL Basophils # (Auto) 0.01 0.00-0.20 K/uL Absolute Immature Granulocyte (auto 0.10 0-1 K/uL Nucleated Red Blood Cells 0.0 0.0-0.19 % Red Blood Cell Morphology See comments Chemistry Labs: Test 11/09/24 10:49 11/09/24 07:08 11/08/24 09:28 Range/Units Whole Blood Glucose 189 H 70-110 MG/DL Sodium Level 138 136-145 mmol/L Potassium Level 3.9 3.5-5.1 mmol/L Chloride Level 102 101-111 mmol/L Carbon Dioxide Level 27 21-32 mmol/L Blood Urea Nitrogen 17 7-18 mg/dL Creatinine 1.1 0.5-1.3 mg/dL Glomerular Filtration Rate Calc 70 >90 mL/min Random Glucose 192 H 70-105 mg/dL Hemoglobin A1c 9.2 H 4.0-6.0 % Estimated Average Glucose (eAG) 217 H 70-126 mg/dL Lactic Acid Level 0.8 0.8-2.5 mmol/L Total Calcium 7.7 L 8.5-10.1 mg/dL Magnesium Level 1.60 L 1.80-2.40 mg/dL Iron Level 19 L 65-175 mcg/dL Total Iron Binding Capacity 293 250-450 mcg/dL Percent Iron Saturation 6.4 L 30-44 % Total Bilirubin 0.5 # 0.2-1.0 mg/dL Aspartate Amino Transf (AST/SGOT) 14 10-37 U/L Alanine Aminotransferase (ALT/SGPT) 15 # 12-78 U/L Alkaline Phosphatase 92 # 50-136 U/L C-Reactive Protein, Quantitative 34.30 H 0.5-3.0 mg/L Total Protein 6.0 6.0-8.3 g/dL Albumin 2.3 #L 3.5-5.0 g/dL Direct Bilirubin 0.1 0.0-0.3 mg/dL Troponin I High Sensitivity 7 4-75 ng/L Coagulation Labs: Test 11/08/24 09:28 Range/Units Prothrombin Time 10.8 9.6-11.6 SEC Prothromb Time International Ratio 1.02 0.85-1.15 Activated Partial Thromboplast Time 28.9 26.3-35.5 SEC Diagnostics / Radiology: Impression and Plan: PAD, Berry category V of the RT TMA site RLE cellulitis and osteomyelitis Anemia HTN DM type II S/p left AKA Right TMA 5 years ago RLE peripheral angiograms x2 (unknown date) PAD, Cm category V of the RT TMA site RLE cellulitis and osteomyelitis -Continue Aspirin, Atorvastatin, and Plavix -The patient is in agreement of amputation to the RLE if needed and for further workup with angiogram -arterial lower extremity doppler with Abnormal monophasic arterial waveforms are noted in the right common femoral, deep femoral, superficial femoral, popliteal, posterior tibial and dorsalis pedal arteries. -consulted Dr Reilly as a PAD specialist KAITLYNN BOCANEGRA Nov 09, 2024 13:01 TIANNA KESSLER MD Nov 09, 2024 18:32
[2024-11-09] MEDS: metFORmin HCL 500 MG TABLET PO SCH (17:27)
[2024-11-09] MEDS: carVEDIlol 3.125 MG TABLET PO SCH (20:25)
[2024-11-09] MEDS: MAGNESIUM 2GM PREMIX 50ML 50 ML IV PRN (21:39)
[2024-11-10] VITALS (13 sets, daily range): BP systolic 118–151; BP diastolic 57–76; PULSE 62–91; RESP 16–20; TEMP 98–99.5; O2SAT 95
[2024-11-10 06:39] LABS: BASOPHILS # (AUTO) 0.02 K/uL (0.00-0.20); BASOPHILS % (AUTO) 0.4 % (0.0-5.0); EOSINOPHILS # (AUTO) 0.07 K/uL (0.00-0.70); EOSINOPHILS % (AUTO) 1.3 % (0.0-8.0); HEMATOCRIT 27.4 % (42-54); IMMATURE GRANULOCYTE ABSOLUTE 0.04 K/uL (0-1); LYMPHOCYTES % (AUTO) 19.5 % (21.0-51.0); MEAN CORPUSCULAR HEMOGLOBIN 26.5 pg (27.0-33.0); MEAN CORPUSCULAR VOLUME 85.4 fL (79-99); MONOCYTES # (AUTO) 0.4 K/uL (0.1-1.0); MONOCYTES % (AUTO) 6.6 % (3.0-13.0); NEUTROPHILS # (AUTO) 3.8 K/uL (1.8-7.7); NEUTROPHILS % (AUTO) 71.5 % (40.0-77.0); PLATELET COUNT (AUTO) 222 K/uL (130-400); RED BLOOD CELL COUNT(AUTO) 3.21 MIL/uL (4.50-6.20); RED CELL DISTRIBUTION WIDTH 15.4 % (11.0-15.5); WHITE BLOOD COUNT (AUTO) 5.3 K/uL (4.8-10.8)
[2024-11-10 06:56] LABS: POTASSIUM 3.3 mmol/L (3.5-5.1)
[2024-11-10 08:13] LABS: RETICULOCYTE % (AUTO) 2.05 % (0.42-2.23)
[2024-11-10] MEDS: PIOGLITAZONE 30MG TAB PO SCH (08:49)
[2024-11-10] MEDS: ASPIRIN 81 MG EC TAB PO SCH (08:49)
[2024-11-10] MEDS: EMPAGLIFLOZIN 25MG TABLET PO SCH (08:50)
[2024-11-10] MEDS: FINASTERIDE 1 MG PO SCH (08:50)
[2024-11-10] MEDS: LISINOPRIL 5 MG TABLET PO SCH (08:50)
[2024-11-10] MEDS: atorVAStatin 40 MG TABLET PO SCH (08:50)
[2024-11-10] MEDS: tamSULOsin HCL 0.4 MG CAP.ER.24H PO SCH (08:50)
[2024-11-10] MEDS: cloPIDOgrel 75MG TAB PO SCH (08:50)
[2024-11-10] MEDS ORDERED: IODIXANOL 320 MG/ML 100 ML VIAL ONE (09:22)
[2024-11-10] MEDS ORDERED: LIDOCAINE HCL 400MG/20ML VIAL ONE (09:22)
[2024-11-10] MEDS ORDERED: HEParin-NS 1,000 UNIT/500 ML 1,000 ML IV ONE (09:23)
[2024-11-10] MEDS ORDERED: NITROGLYCERIN 50MG VIAL ONE (09:23)
[2024-11-10] MEDS ORDERED: niCARDIpine 25MG INJ IV ONE (09:23)
[2024-11-10] MEDS ORDERED: HEParin 10,000 UNIT/10ML (1,000 UNIT/ML) VIAL ONE (09:23)
[2024-11-10] MEDS ORDERED: ondanSETRON 4MG INJ ONE (09:46)
[2024-11-10] MEDS ORDERED: MIDAZOLAM HCL 1 MG/ML 2ML VIAL ONE (10:04)
[2024-11-10] MEDS ORDERED: FENTanyl CITRate PF 50 MCG/1 ML 2ML VIAL ONE (10:04)
[2024-11-10] MEDS ORDERED: HEParin-NS 1,000 UNIT/500 ML 500 ML IV ONE (10:45)
[2024-11-10] MEDS ORDERED: cloPIDOgrel 300MG TAB ONE (11:39)
[2024-11-10] MEDS ORDERED: ASPIRIN 325MG EC TAB PO ONE (11:39)
--- NOTE | 2024-11-10 12:25 | PRN ---
Procedure:Peripheral Angiogram Procedure Note Procedure Note: Peripheral Angiogram Date/Time of Service: 11/10/2024 Referring Physician: Dr. Dow Procedures Performed: Lower abdominal aortogram, peripheral angiogram with lower extremity arterial runoff, peripheral angiogram via 0.014 quick cross, balloon angioplasty, balloon lithotripsy, and drug coated balloon angioplasty, of the proximal, mid, and distal right superficial femoral artery, balloon angioplasty and balloon lithotripsy in the right tibioperoneal artery, proximal, mid, and distal right peroneal artery Indications for Procedure: PAD, Perry category 6 symptoms (right lower extremity) Nonhealing right-sided TMA PAD status post peripheral intervention with stent placement in the left SFA and mid right SFA done by the PAD specialists ([place], [place]) Left-sided AKA DM II HTN HLP Description of Procedure: [After informed consent was obtained the patient was prepped and draped in the u sual sterile fashion a 6 Egyptian arterial sheath with a hemostatic valve was inserted into the left common femoral artery using a modified Salinger technique on the first pass front wall puncture. A 5 Egyptian Omni Flush catheter was then advanced over a soft angled Glidewire into the abdominal aorta and a lower abdominal aortogram with runoff was obtained. The findings are listed below. The Omni flush catheter was then advanced to the right common femoral artery and a right lower extremity arterial runoff was obtained. The findings are listed below.] Findings: Lower Abdominal aorta: patent Right common iliac artery: 30% stenosis in the ostial segment of the artery Right external iliac artery: patent Right internal iliac artery: patent Right common femoral artery: patent Right profunda artery: patent Right superficial femoral artery: 80% stenosis in the proximal segments of the artery. There is a stent with 100% ISR seen within the mid segment of the artery. The artery reconstitutes distally via collateral blood flow. There is diffuse 80% stenosis in the distal segment of the artery Right popliteal artery: patent Right anterior tibial artery: 100% stenosis (COLLEGE ASSOCIATE = 250mm) in the proximal segment of the artery. The artery reconstitutes distally via collateral blood flow Right tibioperoneal artery: 70% stenosis in the proximal segment of the artery Right peroneal artery: 100% stenosis (COLLEGE ASSOCIATE = 150mm) in the proximal segment of the artery. The artery reconstitutes distally via collateral blood flow Right posterior tibial artery: 100% stenosis (COLLEGE ASSOCIATE = 150mm) in the proximal segment of the artery. The artery reconstitutes distally via collateral blood flow Right pedal arch: Incomplete, with slow two-vessel runoff supplying the anterior and posterior segments of the pedal arch Left common iliac artery: patent Left external iliac artery: patent Left internal iliac artery: patent Left common femoral artery: patent Left profunda artery: patent Intervention: After reviewing the above-mentioned findings the decision was made to intervene the right lower extremity. The soft angled glidewire was inserted into the Omni flush catheter was advanced to the mid right superficial femoral artery. The Omni flush catheter was then removed and the short six Egyptian arterial sheath was exchanged for a 65 cm six Egyptian destination arterial sheath, which was then placed in the proximal right superficial femoral artery. We then administered heparin 75 units/kg, clopidogrel 300 mg x 1 dose and aspirin 325 mg x 1 dose. We then advanced a 0.014 whisper guidewire and 0.014 quick cross catheter across multiple areas of stenosis and into the distal right peroneal artery. The whisper guidewire was then removed and contrast was injected into the quick cross catheter, which confirmed there were in the true lumen of the distal right peroneal artery. We then inserted a 0.014 Fielder XT into the quick cross catheter and advanced it into the distal right peroneal artery. We then removed the quick cross catheter and performed balloon angioplasty (1.5-2.0 x 210mm > 2.5 x 120mm) and balloon lithotripsy (shockwave 3.0 x 80 mm) in the right tibioperoneal artery, proximal, mid, and distal right peroneal artery. We then performed balloon lithotripsy (shockwave 6.0 x 80mm) and drug coated balloon a ngioplasty (Medtronic impact 6.0 x 60mm and 6.0 x 250mm) in the proximal, mid, and distal right superficial femoral artery. We then removed the balloons and performed repeat angiography which revealed a widely patent right superficial femoral artery, without dissection, or perforation, a patent stent in the mid right superficial femoral artery, widely patent right tibioperoneal artery and right peroneal artery, without dissection, or perforation, and brisk two-vessel runoff supplying the anterior and posterior segments of the right pedal arch. The 0.014 Fielder XT guidewire and 65 cm six Egyptian destination arterial sheath were then removed and the arteriotomy site in the left common femoral artery was successfully closed using a six Egyptian Angio-Seal device. The patient tolerated the procedure well without issue. Estimated Blood Loss: [40]mL Complications: [ None] Conclusion: 1. PAD, Perry category 6 symptoms (right lower extremity), diffuse 80% stenosis in the proximal and distal right superficial femoral artery, 100% ISR within the stent in the mid right superficial femoral artery status post successful treatment with balloon lithotripsy and drug coated balloon angioplasty, 70% stenosis in the right tibioperoneal artery, and 100% stenosis in the proximal, mid, and distal right peroneal artery status post successful treatment with balloon angioplasty and balloon lithotripsy, resulting in widely patent arteries, without dissection, perforation, and brisk two-vessel runoff supplying the anterior and posterior segments of the right pedal arch. 2. Residual PAD, 100% stenosis in the proximal right anterior tibial artery and 100% stenosis in the proximal right posterior tibial artery 3. Nonhealing right-sided TMA 4. PAD status post peripheral intervention with stent placement in the left SFA and mid right SFA done by the PAD specialists ([place], [place]) 5. Left-sided AKA 6. DM II 7. HTN 8. HLP Recommendations/Instructions: 1. Continue goal-directed medical therapy. 2. Continue aspirin 81 mg daily and clopidogrel 75 mg daily for a minimum of six months and optimally one year. 3. Groin precautions 4. 4 hours of bedrest 5. Start NS at 100 mL/hour x3 hours. 6. We will order TCOMs of the right foot to assess wound healing after the above-mentioned peripheral intervention 7. Continue with aggressive wound care GHAZALA DO MD Nov 10, 2024 12:25
[2024-11-10] MEDS ORDERED: DEXTROSE 50%-WATER 50 ML DISP.SYRIN IV PRN (12:30)
[2024-11-10] MEDS: 0.9%NACL 1000ML 1,000 ML IV SCH (12:30)
[2024-11-10] MEDS ORDERED: GLUCAGON 1MG KIT 1 MG ML IM PRN (12:30)
[2024-11-10] MEDS: IRON sUCROse COMPLEX 100 MG/5 ML VIAL IV ONE (13:38)
[2024-11-10] MEDS: VANCOMYCIN 1.75 GM/250 ML BAG 250 ML IV SCH (13:44)
--- NOTE | 2024-11-10 14:52 | PN ---
[facility] PROGRESS NOTE Date of Service: Nov 10, 2024 Time of Service: 14:43 SUBJECTIVE: This is a 74-year-old male with PMH of Left BKA , Rt TMA(5 years ) , PAD, DM, HTN, bowel perforation s/p bowel repair in 07/18 presented to ED with chief complaints of right foot pain. Patient has a chronic open wound to his right foot TMA stump. Pain scale 10/10. Aggravated factors movement, alleviating factors none. There is redness noted with eschar to open wound with minimal drainage. There is no surrounding edema but redness extending to mid leg level . No foul odor noted. Reports having fevers subjective. At the time of presentation , Vitals : T 99.3,HR 104, R 20, BP 143/75/99%RA.He was admitted for further evaluation and management of his wound . 25: Patient has low grade fevers. He denies pain at the rt TMA site. Wound dressing in place. MRI foot showed rt stump 1 and 2 osteomyelitis .Podiatry recommended possible amputation. LE artery doppler studies pending .ID and Cardiology consults placed. 11.10.24: Patient c/o pain in rt lower extremity . S/p peripheral angiogram by Dr Reilly- JUSTINE, Cm category 6 symptoms (right lower extremity), diffuse 80% stenosis in the proximal and distal right superficial femoral artery, 100% ISR within the stent in the mid right superficial femoral artery status post successful treatment with balloon lithotripsy and drug coated ba lloon angioplasty, 70% stenosis in the right tibioperoneal artery, and 100% stenosis in the proximal, mid, and distal right peroneal artery status post successful treatment with balloon angioplasty and balloon lithotripsy, resulting in widely patent arteries. There is residual PAD, 100% stenosis in the proximal right anterior tibial artery and 100% stenosis in the proximal right posterior tibial artery.Pending TCOM assessment .Patient tolerated the procedure well . REVIEW OF SYSTEMS a 14 ROS obtained all relevant positive documented otherwise ROS negative PHYSICAL EXAM GENERAL APPEARANCE: The patient is awake, alert, and oriented, in no acute cardiopulmonary distress. NEUROLOGICAL: Cranial nerves II-XII grossly intact. Motor is 5/5 in bilateral upper and lower extremities proximal to distal. No sensory deficits. HEENT: Face is symmetric. Pupils are equal and reactive. Extraocular movements are intact. NECK: Supple. No JVD. No thyromegaly. No submental, submandibular, pre- /postauricular, occipital or supraclavicular lymphadenopathy. CHEST: Normal chest expansion. No Telemetry. LUNGS: Absence of any rales, rhonchi or any wheezing. CARDIOVASCULAR: Regular. S1 and S2 normal. No appreciable rubs, murmurs or gallops. ABDOMEN: Soft, nontender, and nondistended. There is no rebound, voluntary guarding, or rigidity. : Deferred. No Jaramillo. EXTREMITIES: Right foot; TMA open wound with eschar, minimal drainage,redness extending to mid leg, left BKA status SKIN: No skin breakdown. Vital Signs (last 8hr) Date Time Temp Pulse Resp B/P (MAP) Pulse Ox O2 Delivery O2 Flow Rate FiO2 11/10/24 14:25 87 16 144/75 97 Room Air 11/10/24 13:55 98.2 77 16 137/75 93 Room Air 11/10/24 13:25 67 16 151/67 99 Room Air 11/10/24 13:10 68 16 119/68 99 Room Air 11/10/24 12:55 68 16 139/76 98 Room Air 11/10/24 12:40 98.1 67 16 143/69 98 Room Air 11/10/24 07:42 98.1 91 18 133/59 98 Room Air LABS: Laboratory: Test 11/10/24 12:41 11/10/24 06:29 11/10/24 06:23 11/09/24 07:08 Range/Units Whole Blood Glucose 184 H 70-110 MG/DL White Blood Count 5.3 # 4.8-10.8 K/uL Red Blood Count 3.21 L 4.50-6.20 MIL/uL Hemoglobin 8.5 L 14.0-18.0 g/dL Hematocrit 27.4 L 42-54 % Mean Corpuscular Volume 85.4 79-99 fL Mean Corpuscular Hemoglobin 26.5 L 27.0-33.0 pg Mean Corpuscular Hemoglobin Concent 31.0 L 32.0-36.0 g/dL Red Cell Distribution Width 15.4 11.0-15.5 % Platelet Count 222 130-400 K/uL Mean Platelet Volume 10.2 7.5-10.5 fL Immature Granulocyte % (Auto) 0.7 0-1 % Neutrophils (%) (Auto) 71.5 40.0-77.0 % Lymphocytes (%) (Auto) 19.5 L 21.0-51.0 % Monocytes (%) (Auto) 6.6 3.0-13.0 % Eosinophils (%) (Auto) 1.3 0.0-8.0 % Basophils (%) (Auto) 0.4 0.0-5.0 % Neutrophils # (Auto) 3.8 1.8-7.7 K/uL Lymphocytes # (Auto) 1.0 1.0-4.8 K/uL Monocytes # (Auto) 0.4 0.1-1.0 K/uL Eosinophils # (Auto) 0.07 0.00-0.70 K/uL Basophils # (Auto) 0.02 0.00-0.20 K/uL Absolute Immature Granulocyte (auto 0.04 0-1 K/uL Nucleated Red Blood Cells 0.0 0.0-0.19 % Sodium Level 141 136-145 mmol/L Potassium Level 3.3 L 3.5-5.1 mmol/L Chloride Level 107 101-111 mmol/L Carbon Dioxide Level 27 21-32 mmol/L Blood Urea Nitrogen 16 7-18 mg/dL Creatinine 1.0 0.5-1.3 mg/dL Glomerular Filtration Rate Calc 78 >90 mL/min Random Glucose 133 H 70-105 mg/dL Total Calcium 7.6 L 8.5-10.1 mg/dL Reticulocyte Count (auto) 2.88936 0.42-2.23 % Immature Reticulocyte Fraction 24.70 H 0.18-0.48 % Thyroid Stimulating Hormone (TSH) 2.24 0.36-3.74 uIU/mL Hemoglobin A1c 9.2 H 4.0-6.0 % Estimated Average Glucose (eAG) 217 H 70-126 mg/dL Lactic Acid Level 0.8 0.8-2.5 mmol/L Magnesium Level 1.60 L 1.80-2.40 mg/dL Iron Level 19 L 65-175 mcg/dL Total Iron Binding Capacity 293 250-450 mcg/dL Percent Iron Saturation 6.4 L 30-44 % Total Bilirubin 0.5 # 0.2-1.0 mg/dL Aspartate Amino Transf (AST/SGOT) 14 10-37 U/L Alanine Aminotransferase (ALT/SGPT) 15 # 12-78 U/L Alkaline Phosphatase 92 # 50-136 U/L C-Reactive Protein, Quantitative 34.30 H 0.5-3.0 mg/L Total Protein 6.0 6.0-8.3 g/dL Albumin 2.3 #L 3.5-5.0 g/dL Current Medications Medications (Trade) Dose Ordered Sig/Jermain Route PRN Reason Start Time Stop Time Status Last Admin Dose Admin Acetaminophen (TYLenol 325MG TAB) 650 mg Q4H PRN PO TEMPERATURE GREATER THAN 101.5 11/08/24 12:00 12/08/24 11:59 Aspirin (Aspirin 81mg Ec Tab) 81 mg DAILY PO 11/10/24 09:00 12/10/24 08:59 Atorvastatin Calcium (LIPItor 40MG) 40 mg DAILY PO 11/10/24 09:00 12/10/24 08:59 Carvedilol (Coreg 3.125MG) 3.125 mg BID PO 11/09/24 21:00 12/09/24 20:59 11/09/24 20:25 3.125 MG Clopidogrel Bisulfate (plaVIX 75MG) 75 mg DAILY PO 11/10/24 09:00 12/10/24 08:59 Dextrose (D50w) 50 ml AD PRN IV HYPOGLYCEMIA PROTOCOL 11/10/24 12:30 12/10/24 12:29 Empaglifozin (Jardiance 25mg) 25 mg DAILY PO 11/10/24 09:00 12/10/24 08:59 Famotidine (Pepcid 20mg Vial) 20 mg DAILY IV 11/09/24 09:00 12/09/24 08:59 11/10/24 08:49 20 MG Ferrous Sulfate (Ferrous Sulfate) 325 mg QODAY PO 11/11/24 09:00 12/11/24 08:59 Glucagon (Glucagon 1mg Kit) 1 mg AD PRN IM HYPOGLYCEMIA PROTOCOL 11/10/24 12:30 12/10/24 12:29 Heparin Sodium (Porcine) (HEParin 5,000 UNIT VIAL) 5,000 unit Q12H SQ 11/08/24 12:30 12/08/24 12:29 11/10/24 13:40 5,000 UNIT Home Med (Home Medication) (Finasteride 1 MG)- HAIR LOSS DAILY PO 11/10/24 09:00 12/10/24 08:59 Hydromorphone HCl (DiLAUDid 0.5MG INJ) 0.5 mg Q4H PRN IVP SEVERE PAIN (7-10) 11/08/24 12:00 11/13/24 11:59 11/09/24 18:25 0.5 MG Insulin Human Regular (humuLIN R 100 UNIT/ML 3ML) INSULIN SLIDING SCAL... ACHS SQ 11/08/24 16:30 12/08/24 16:29 11/10/24 13:41 4 UNIT Iron Sucrose (VenoFER) 200 mg ONCE STAT IV 11/09/24 11:20 11/09/24 11:35 DC Lactulose (Constulose 20gm/ 30ml Udcup) 20 gm BID PRN PO CONSTIPATION 11/08/24 12:00 12/08/24 11:59 Lisinopril (Prinivil 5mg) 5 mg DAILY PO 11/10/24 09:00 12/10/24 08:59 Magnesium Sulfate 50 ml @ 0 mls/hr PROTOCOL PRN IV low mag level 11/08/24 12:00 12/08/24 11:59 11/09/24 21:39 25 MLS/HR Metformin HCl (glucoPHAGE) 1,000 mg BIDMEALS PO 11/09/24 17:00 12/09/24 16:59 11/09/24 17:27 1,000 MG Ondansetron HCl (zoFRAN 4MG INJ) 4 mg Q6H PRN IVP NAUSEA/VOMITING 11/08/24 12:00 12/08/24 11:59 11/08/24 23:06 4 MG Pioglitazone HCl (Actos 30mg) 30 mg DAILY PO 11/10/24 09:00 12/10/24 08:59 Piperacillin Sod/ Tazobactam Sod (Zosyn 3.375gm+NS 50ml) 3.375 gm Q8H IVPB 11/08/24 17:30 11/18/24 17:29 11/10/24 08:49 3.375 GM Potassium Chloride 100 ml @ 100 mls/hr AD PRN IV POTASSIUM PROTOCOL 11/08/24 12:00 12/08/24 11:59 Potassium Chloride (K-Dur/Klor-Con 20meq) 20 meq AD PRN PO POTASSIUM PROTOCOL 11/08/24 12:00 12/08/24 11:59 Potassium Chloride (KCl 10% Elixir 20meq/15ml) 20 meq AD PRN PO POTASSIUM PROTOCOL 11/08/24 12:00 12/08/24 11:59 Sodium Chloride 1,000 ml @ 75 mls/hr [id number] IV 11/08/24 12:00 12/08/24 11:59 11/09/24 21:35 75 MLS/HR Sodium Chloride 1,000 ml @ 100 mls/hr Q10H IV 11/10/24 12:30 11/10/24 15:29 Sodium Chloride (NS 50ml) 50 ml AD IV 11/08/24 21:00 11/08/24 11:59 DC Tamsulosin HCl (FloMAX) 0.4 mg DAILY PO 11/10/24 09:00 12/10/24 08:59 Vancomycin HCl 250 ml @ 125 mls/hr Q24H IV 11/10/24 12:00 11/20/24 11:59 11/10/24 13:44 125 MLS/HR Vancomycin HCl (Vancomycin Protocol) 1 each AD IV 11/09/24 11:30 11/23/24 11:29 Vancomycin HCl (Vancomycin 1g/ 250ml Kit) 1 gm Q12H IV 11/08/24 12:00 11/08/24 11:59 DC DIAGNOSTICS / RADIOLOGY: [ ] ASSESSMENT: Sepsis: POA Rt foot tma stump osteomyelitis,poa 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, drainage POA intractable pain right foot POA Suspecting osteomyelitis POA Severe PAD Poa Iron deficiency anemia with drop in hemoglobin , POA Uncontrolled diabetes type 2 POA Obesity BMI: 33 Immobility secondary to left AKA, and limited functional to right foot: POA Hypomagnesemia,POA PLAN: Sepsis: POA Tachycardia, CRP elevated ,subjective fevers started on Zosyn, Vancomycin (pharmacy to dose) ID consult pending Blood cultures pending Rt foot TMA stump osteomyelitis ,POA 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 , POA Intractable pain right foot POA patient treated with IV Zosyn and IV vancomycin empirically Podiatry recommends surgical exploration vs amputation PAD, Paola category 6 symptoms (right lower extremity),POA -S/p peripheral angiogram by Dr Reilly- , diffuse 80% stenosis in the proximal and distal right superficial femoral artery, 100% ISR within the stent in the mid right superficial femoral artery status post successful treatment with balloon lithotripsy and drug coated balloon angioplasty, 70% stenosis in the right tibioperoneal artery, and 100% stenosis in the proximal, mid, and distal right peroneal artery status post successful treatment with balloon angioplasty and balloon lithotripsy, resulting in widely patent arteries. There is residual PAD, 100% stenosis in the proximal right anterior tibial artery and 100% stenosis in the proximal right posterior tibial artery. Pending TCOM assessment . Continue Aspirin 81 mg daily and clopidogrel 75 mg daily for a minimum of six mo nths and optimally one year. -pain management with hydromorphone Uncontrolled diabetes type 2 POA HbA1C 9.2 resumed home medications insulin as per sliding scale Iron deficiency anemia with drop in hemoglobin , POA Startedon IV iron Tsat 6.4% Hb dropped from 11.2 to 9.2 DVT ppx with Heparin GI ppx with Famotidine ATTESTATION BY PHYSICIAN I have seen and examined the patient. I reviewed the documentation, medical decision making, and treatment plan as noted by the resident provider above. I agree with the findings and plan of care. RESHMA MEDEIROS MD, MD Nov 10, 2024 14:52
[2024-11-10] MEDS: LIDOCAINE HCL MPF 1% 5ML VIAL ONE (17:32)
--- NOTE | 2024-11-10 18:24 | HMCIMG ---
PORTABLE CHEST RADIOGRAPH INDICATION: PICC LINE PLACEMENT COMPARISON: 11/08/2024 FINDINGS: Tip of left PICC within the SVC. Heart size is normal. The pulmonary vascularity and klesey appear normal. No abnormal pulmonary parenchymal opacity or consolidation identified. No significant pleural effusion noted. No pneumothorax detected. IMPRESSION: Tip of left PICC within the SVC. No radiographic evidence for any acute cardiopulmonary process.
--- NOTE | 2024-11-10 20:50 | NUR ---
MEDS SHIFT ASSESSMENT DONE, PLEASE REFER TO CHART. PT CLAIMS HE COULD NOT REMEMBER HOW AND WHEN HE GOT ADMITTED. TRIED TO RE-ORIENT TO TIME, AND SPACE. DUE MEDS ADMINISTERED, TOLERATED WELL. KEPT RESTED AND COMFORTABLE. CALL LIGHT WITHIN REACH. BED ALARM KEPT ACTIVATED. KEPT DOOR OPEN TO WATCH PT CLOSELY.
--- NOTE | 2024-11-10 22:45 | NUR ---
TELE PLACED PT ON TELE MONITORING FROM NOW ORDERED. SINUS RHYTHM WITH FIRST DEGREE BLOCK WITH HR=92.
--- NOTE | 2024-11-10 23:12 | PN ---
SUBJECTIVE: The patient is a very pleasant 74-year-old diabetic, Latin-Macedonian male with [id number] amputation on the left, being followed for a transmetatarsal amputation on the right, exposure of the first metatarsal stump, second metatarsal stump, documented osteomyelitis to the first metatarsal stump and the second metatarsal stump of the right foot, documented peripheral vascular disease. Per arterial Doppler studies with abnormal monophasic waveforms noted distal to the right common femoral artery. The patient went to the seed laboratory assistant today with the Cardiology Service. The results are as of yet still pending. The patient has documented osteomyelitis to the first and second metatarsal stumps on the right per his MRI. MRI results show osteomyelitis involving the first and second metatarsal stumps. REVIEW OF SYSTEMS: CONSTITUTIONAL: No chills. No fevers. No night sweats. No nausea, no vomiting, no diarrhea. HEENT: No problems with eyes, ears, nose or throat. CARDIOVASCULAR: Having no current chest pain status post successful revascularization procedure of the right lower extremity by the Cardiology Service with 2-vessel runoff with filling of the pedal arch. MUSCULOSKELETAL: [id number] amputation on the left. Transmetatarsal amputation on the right. INTEGUMENTARY: He has a wound to the transmetatarsal amputation on the right that is 11 x 4 cm. There is exposed bone of the first and second metatarsals in the stump. Necrosis of the soft tissue. There is edema, erythema and drainage. OBJECTIVE: On examination today shows his right foot is warm. He has nonpalpable pedal pulses. The patient is status post intervention with stent placement in the left SFA. The right SFA, the patient's right anterior tibial artery 100% stenosis with artery reconstitution distally, right tibioperoneal 70% stenosis, right peroneal artery 100% stenosis. Right pedal arch, the patient had intervention involving the superficial femoral artery. The patient had intervention in the right peroneal artery. Repeat of his angiography showed a widely patent SFA, a patent stent in the mid right SFA, wildly patent right tibial peroneal artery and right peroneal artery, 2-vessel brisk runoff supplying the anterior and posterior segments of the pedal arch. The patient tolerated the procedure well. ASSESSMENT: Chronic nonhealing wound to the transmetatarsal amputation on the right status post revascularization procedure, osteomyelitis of the first and second metatarsal stumps per MRI. The patient had a revascularization procedure with filling of the pedal arch via plantar and dorsal circulation. Transcutaneous oxygen measurements have been ordered to assess the patient's healing potential. PLAN: We will await transcutaneous oxygen measurements to assess the patient's healing potential. Continue with IV antibiotics and local wound care. I will consider revisional amputation from a transmetatarsal amputation to a Lisfranc or Chopart's level of amputation on that right side. Continue with the antibiotics, currently the vancomycin and the Zosyn for cultures that grew back Klebsiella pneumoniae to the right foot wound. TID: [id number] RECEIPT: [id number]
[2024-11-11] VITALS (8 sets, daily range): BP systolic 107–144; BP diastolic 47–70; PULSE 59–97; RESP 16–22; TEMP 97.9–99.1; O2SAT 96–99
--- NOTE | 2024-11-11 00:58 | CONS ---
INFECTIOUS DISEASE CONSULTATION DATE OF SERVICE: 11/10/2024 REQUESTING PHYSICIAN: Dr. Servin REASON FOR CONSULTATION: Right foot stump osteomyelitis. HISTORY OF PRESENT ILLNESS: A 74-year-old male with history of morbid obesity, left knee prosthetic infection, diabetes mellitus, hypertension, presents to the hospital with right foot pain, swelling, and redness. No fever or chills. The patient noticed ulcer to the right foot stump. MRI was done which shows osteomyelitis involving the right foot metatarsal stump. The patient was started on Zosyn, vancomycin and fluconazole. The patient was also found to have peripheral vascular disease. Had angiogram and intervention done today. No dysuria or urinary frequency. No bleeding tendency. No rashes or itchiness. PAST MEDICAL HISTORY: * Peripheral vascular disease. * Right foot osteomyelitis. * Left foot osteomyelitis. * Diabetes mellitus. * Hypertension. * Morbid obesity. * PVD. * . * Left knee prosthetic infection. PAST SURGICAL HISTORY: * Left above-knee amputation. * Right foot transmetatarsal amputation. * Multiple peripheral angiogram and intervention. ALLERGIES: No known drug allergies. CURRENT MEDICATIONS: Reviewed. SOCIAL HISTORY: No alcohol, tobacco or illicit drug use. FAMILY HISTORY: Positive for diabetes mellitus. REVIEW OF SYSTEMS: CONSTITUTIONAL: No fever or chills. No weight loss or night sweats. EYES: No eye pain. No photophobia or diplopia. HENT: No sore throat. No rhinorrhea or earache. NECK: No neck pain or neck swelling. RESPIRATORY: No cough. No hemoptysis or pleuritic pain. CARDIOVASCULAR: No chest pain. No palpitation or orthopnea. GASTROINTESTINAL: Denied nausea, vomiting or abdominal pain. GENITOURINARY: No dysuria, urgency or urinary frequency. CENTRAL NERVOUS SYSTEM: No headache, dyspnea or slurred speech. PSYCHIATRY: No depression. No suicidal ideation. EXTREMITIES: Positive for right foot transmetatarsal pain. PHYSICAL EXAMINATION: GENERAL: Elderly male, awake. VITAL SIGNS: Temperature 98.1, pulse 67, respirations 16, BP 142/69. EYES: No icterus. Pupils equal and reactive to light. HENT: No oral thrush seen. Moist oral mucosa. NECK: Supple. No JVD or thyromegaly. LUNGS: Good air entry. No rales. No rhonchi. CARDIOVASCULAR: S1, S2 regular. No murmur heard. ABDOMEN: Obese, soft, nontender. Bowel sound is present. CENTRAL NERVOUS SYSTEM: Awake, alert and oriented x 3. No focal deficits. SKIN: No rashes, no itchiness. LYMPHATIC: There is right inguinal lymphadenopathy. BACK: No deformity. No pressure ulcer. EXTREMITIES: Ulcer involving the right foot stump with . LABORATORY DATA: Sodium 145, potassium 3.3, BUN 16, creatinine 1.0. WBC 5.2, hemoglobin 8.5, platelets 122. Right foot wound culture growing Klebsiella pneumoniae. Blood culture, no growth for 2 days. RADIOLOGY: MRI of the right foot shows osteomyelitis. ASSESSMENT: A 74-year-old male presenting with right foot pain, swelling and redness. Current problems include: * Right foot stump osteomyelitis. * Diabetic foot ulcer. * Peripheral vascular disease, status post angiogram and intervention. * Morbid obesity. * Hypertension. * Diabetes mellitus. * Anemia. PLAN: * Continue pain management. * Continue wound care. * Continue Zosyn. * Continue vancomycin. * Follow up cultures. * Continue DVT prophylaxis. * Monitor electrolytes. * Continue GI prophylaxis. * The patient will be followed up closely. Thank you for allowing me to participate in the care of this patient. TID: [id number] RECEIPT: [id number] [facility]
[2024-11-11 04:24] LABS: BASOPHILS # (AUTO) 0.01 K/uL (0.00-0.20); BASOPHILS % (AUTO) 0.2 % (0.0-5.0); EOSINOPHILS # (AUTO) 0.06 K/uL (0.00-0.70); EOSINOPHILS % (AUTO) 1.1 % (0.0-8.0); HEMATOCRIT 27.8 % (42-54); IMMATURE GRANULOCYTE ABSOLUTE 0.07 K/uL (0-1); LYMPHOCYTES % (AUTO) 17.6 % (21.0-51.0); MEAN CORPUSCULAR HEMOGLOBIN 26.9 pg (27.0-33.0); MEAN CORPUSCULAR HGB CONC 30.9 g/dL (32.0-36.0); MEAN CORPUSCULAR VOLUME 86.9 fL (79-99); MONOCYTES # (AUTO) 0.4 K/uL (0.1-1.0); MONOCYTES % (AUTO) 6.5 % (3.0-13.0); NEUTROPHILS % (AUTO) 73.3 % (40.0-77.0); PLATELET COUNT (AUTO) 229 K/uL (130-400); RED CELL DISTRIBUTION WIDTH 15.1 % (11.0-15.5); WHITE BLOOD COUNT (AUTO) 5.5 K/uL (4.8-10.8)
[2024-11-11 04:38] LABS: MAGNESIUM 1.7 mg/dL (1.80-2.40); POTASSIUM 3.2 mmol/L (3.5-5.1)
[2024-11-11] MEDS: PoTASSium chloRIDE 20MEQ ER 20 MEQ ERTAB PO PRN (05:33)
--- NOTE | 2024-11-11 05:34 | NUR ---
REPLACE ELECTROLYTE REPLACEMENT STARTED, TOLERATED WELL. KEPT RESTED AND COMFORTABLE IN BED. CALL LIGHT WITHIN REACH. FOR MORE CARE.
--- NOTE | 2024-11-11 06:35 | NUR ---
MD DR MAHMOOD IN TO SEE PT. WOUND DRESSING DONE BY HIMSELF. NO NEW ORDERS GIVEN AT THIS TIME.
--- NOTE | 2024-11-11 07:05 | PN ---
[facility] PROGRESS NOTE Date of Service: Nov 11, 2024 Time of Service: 07:01 SUBJECTIVE: This is a 74-year-old male with PMH of Left BKA , Rt TMA(5 years ) , PAD, DM, HTN, bowel perforation s/p bowel repair in 07/18 presented to ED with chief complaints of right foot pain. Patient has a chronic open wound to his right foot TMA stump. Pain scale 10/10. Aggravated factors movement, alleviating factors none. There is redness noted with eschar to open wound with minimal drainage. There is no surrounding edema but redness extending to mid leg level . No foul odor noted. Reports having fevers subjective. At the time of presentation , Vitals : T 99.3,HR 104, R 20, BP 143/75/99%RA.He was admitted for further evaluation and management of his wound . 11.09.25: Patient has low grade fevers. He denies pain at the rt TMA site. Wound dressing in place. MRI foot showed rt stump 1 and 2 osteomyelitis .Podiatry recommended possible amputation. LE artery doppler studies pending . ID and Cardiology consults placed. 25: Patient c/o pain in rt lower extremity . S/p peripheral angiogram by Dr Reilly- JUSTINE, Nancy category 6 symptoms (right lower extremity), diffuse 80% stenosis in the proximal and distal right superficial femoral artery, 100% ISR within the stent in the mid right superficial femoral artery status post successful treatment with balloon lithotripsy and drug coated b alloon angioplasty, 70% stenosis in the right tibioperoneal artery, and 100% stenosis in the proximal, mid, and distal right peroneal artery status post successful treatment with balloon angioplasty and balloon lithotripsy, resulting in widely patent arteries. There is residual PAD, 100% stenosis in the proximal right anterior tibial artery and 100% stenosis in the proximal right posterior tibial artery.Pending TCOM assessment .Patient tolerated the procedure well . 25: Patient s/p rt LE peripheral artery angioplasty. Uneventful post procedure course. Hb dropping -asymptomatic: treated with IV iron .TCOM evaluation pending (not till Wednesday as wound center is close on weekend),Ortho evaluation for possible stump revision pending. REVIEW OF SYSTEMS a 14 ROS obtained all relevant positive documented otherwise ROS negative PHYSICAL EXAM GENERAL APPEARANCE: The patient is awake, alert, and oriented, in no acute cardiopulmonary distress. NEUROLOGICAL: Cranial nerves II-XII grossly intact. Motor is 5/5 in bilateral upper and lower extremities proximal to distal. No sensory deficits. HEENT: Face is symmetric. Pupils are equal and reactive. Extraocular movements are intact. NECK: Supple. No JVD. No thyromegaly. No submental, submandibular, pre- /postauricular, occipital or supraclavicular lymphadenopathy. CHEST: Normal chest expansion. No Telemetry. LUNGS: Absence of any rales, rhonchi or any wheezing. CARDIOVASCULAR: Regular. S1 and S2 normal. No appreciable rubs, murmurs or gallops. ABDOMEN: Soft, nontender, and nondistended. There is no rebound, voluntary guarding, or rigidity. : Deferred. No Jaramillo. EXTREMITIES: Right foot; TMA open wound with eschar, minimal drainage,redness extending to mid leg, left BKA status SKIN: No skin breakdown. Vital Signs (last 8hr) Date Time Temp Pulse Resp B/P (MAP) Pulse Ox O2 Delivery O2 Flow Rate FiO2 11/11/24 04:00 98.2 82 20 120/56 97 Room Air 11/11/24 00:00 98.6 97 20 110/70 96 Room Air LABS: Laboratory: Test 11/11/24 05:18 11/11/24 03:55 11/10/24 06:23 11/09/24 07:08 Range/Units Whole Blood Glucose 137 H 70-110 MG/DL White Blood Count 5.5 4.8-10.8 K/uL Red Blood Count 3.20 L 4.50-6.20 MIL/uL Hemoglobin 8.6 L 14.0-18.0 g/dL Hematocrit 27.8 L 42-54 % Mean Corpuscular Volume 86.9 79-99 fL Mean Corpuscular Hemoglobin 26.9 L 27.0-33.0 pg Mean Corpuscular Hemoglobin Concent 30.9 L 32.0-36.0 g/dL Red Cell Distribution Width 15.1 11.0-15.5 % Platelet Count 229 130-400 K/uL Mean Platelet Volume 10.5 7.5-10.5 fL Immature Granulocyte % (Auto) 1.3 H 0-1 % Neutrophils (%) (Auto) 73.3 40.0-77.0 % Lymphocytes (%) (Auto) 17.6 L 21.0-51.0 % Monocytes (%) (Auto) 6.5 3.0-13.0 % Eosinophils (%) (Auto) 1.1 0.0-8.0 % Basophils (%) (Auto) 0.2 0.0-5.0 % Neutrophils # (Auto) 4.0 1.8-7.7 K/uL Lymphocytes # (Auto) 1.0 1.0-4.8 K/uL Monocytes # (Auto) 0.4 0.1-1.0 K/uL Eosinophils # (Auto) 0.06 0.00-0.70 K/uL Basophils # (Auto) 0.01 0.00-0.20 K/uL Absolute Immature Granulocyte (auto 0.07 0-1 K/uL Nucleated Red Blood Cells 0.0 0.0-0.19 % Sodium Level 139 136-145 mmol/L Potassium Level 3.2 L 3.5-5.1 mmol/L Chloride Level 105 101-111 mmol/L Carbon Dioxide Level 24 21-32 mmol/L Blood Urea Nitrogen 13 7-18 mg/dL Creatinine 1.0 0.5-1.3 mg/dL Glomerular Filtration Rate Calc 78 >90 mL/min Random Glucose 142 H 70-105 mg/dL Total Calcium 7.5 L 8.5-10.1 mg/dL Magnesium Level 1.70 L 1.80-2.40 mg/dL Reticulocyte Count (auto) 2.33358 0.42-2.23 % Immature Reticulocyte Fraction 24.70 H 0.18-0.48 % Thyroid Stimulating Hormone (TSH) 2.24 0.36-3.74 uIU/mL Hemoglobin A1c 9.2 H 4.0-6.0 % Estimated Average Glucose (eAG) 217 H 70-126 mg/dL Lactic Acid Level 0.8 0.8-2.5 mmol/L Iron Level 19 L 65-175 mcg/dL Total Iron Binding Capacity 293 250-450 mcg/dL Percent Iron Saturation 6.4 L 30-44 % Total Bilirubin 0.5 # 0.2-1.0 mg/dL Aspartate Amino Transf (AST/SGOT) 14 10-37 U/L Alanine Aminotransferase (ALT/SGPT) 15 # 12-78 U/L Alkaline Phosphatase 92 # 50-136 U/L C-Reactive Protein, Quantitative 34.30 H 0.5-3.0 mg/L Total Protein 6.0 6.0-8.3 g/dL Albumin 2.3 #L 3.5-5.0 g/dL Current Medications Medications (Trade) Dose Ordered Sig/Jermain Route PRN Reason Start Time Stop Time Status Last Admin Dose Admin Acetaminophen (TYLenol 325MG TAB) 650 mg Q4H PRN PO TEMPERATURE GREATER THAN 101.5 11/08/24 12:00 12/08/24 11:59 Aspirin (Aspirin 81mg Ec Tab) 81 mg DAILY PO 11/10/24 09:00 12/10/24 08:59 Atorvastatin Calcium (LIPItor 40MG) 40 mg DAILY PO 11/10/24 09:00 12/10/24 08:59 Carvedilol (Coreg 3.125MG) 3.125 mg BID PO 11/09/24 21:00 12/09/24 20:59 11/10/24 20:48 3.125 MG Clopidogrel Bisulfate (plaVIX 75MG) 75 mg DAILY PO 11/10/24 09:00 12/10/24 08:59 Dextrose (D50w) 50 ml AD PRN IV HYPOGLYCEMIA PROTOCOL 11/10/24 12:30 12/10/24 12:29 Empaglifozin (Jardiance 25mg) 25 mg DAILY PO 11/10/24 09:00 12/10/24 08:59 Famotidine (Pepcid 20mg Vial) 20 mg DAILY IV 11/09/24 09:00 12/09/24 08:59 11/10/24 08:49 20 MG Ferrous Sulfate (Ferrous Sulfate) 325 mg QODAY PO 11/11/24 09:00 12/11/24 08:59 Glucagon (Glucagon 1mg Kit) 1 mg AD PRN IM HYPOGLYCEMIA PROTOCOL 11/10/24 12:30 12/10/24 12:29 Heparin Sodium (Porcine) (HEParin 5,000 UNIT VIAL) 5,000 unit Q12H SQ 11/08/24 12:30 12/08/24 12:29 11/11/24 00:27 5,000 UNIT Home Med (Home Medication) (Finasteride 1 MG)- HAIR LOSS DAILY PO 11/10/24 09:00 12/10/24 08:59 Hydromorphone HCl (DiLAUDid 0.5MG INJ) 0.5 mg Q4H PRN IVP SEVERE PAIN (7-10) 11/08/24 12:00 11/13/24 11:59 11/11/24 01:22 0.5 MG Insulin Human Regular (humuLIN R 100 UNIT/ML 3ML) INSULIN SLIDING SCAL... ACHS SQ 11/08/24 16:30 12/08/24 16:29 11/10/24 13:41 4 UNIT Iron Sucrose (VenoFER) 200 mg ONCE STAT IV 11/09/24 11:20 11/09/24 11:35 DC Lactulose (Constulose 20gm/ 30ml Udcup) 20 gm BID PRN PO CONSTIPATION 11/08/24 12:00 12/08/24 11:59 Lisinopril (Prinivil 5mg) 5 mg DAILY PO 11/10/24 09:00 12/10/24 08:59 Magnesium Sulfate 50 ml @ 0 mls/hr PROTOCOL PRN IV low mag level 11/08/24 12:00 12/08/24 11:59 11/11/24 05:34 25 MLS/HR Metformin HCl (glucoPHAGE) 1,000 mg BIDMEALS PO 11/09/24 17:00 12/09/24 16:59 11/09/24 17:27 1,000 MG Ondansetron HCl (zoFRAN 4MG INJ) 4 mg Q6H PRN IVP NAUSEA/VOMITING 11/08/24 12:00 12/08/24 11:59 11/08/24 23:06 4 MG Pioglitazone HCl (Actos 30mg) 30 mg DAILY PO 11/10/24 09:00 12/10/24 08:59 Piperacillin Sod/ Tazobactam Sod (Zosyn 3.375gm+NS 50ml) 3.375 gm Q8H IVPB 11/08/24 17:30 11/18/24 17:29 11/11/24 01:16 3.375 GM Potassium Chloride 100 ml @ 100 mls/hr AD PRN IV POTASSIUM PROTOCOL 11/08/24 12:00 12/08/24 11:59 Potassium Chloride (K-Dur/Klor-Con 20meq) 20 meq AD PRN PO POTASSIUM PROTOCOL 11/08/24 12:00 12/08/24 11:59 11/11/24 05:33 20 MEQ Potassium Chloride (KCl 10% Elixir 20meq/15ml) 20 meq AD PRN PO POTASSIUM PROTOCOL 11/08/24 12:00 12/08/24 11:59 Sodium Chloride 1,000 ml @ 75 mls/hr [id number] IV 11/08/24 12:00 12/08/24 11:59 11/09/24 21:35 75 MLS/HR Sodium Chloride 1,000 ml @ 100 mls/hr Q10H IV 11/10/24 12:30 11/10/24 15:29 DC Sodium Chloride (NS 50ml) 50 ml AD IV 11/08/24 21:00 11/08/24 11:59 DC Tamsulosin HCl (FloMAX) 0.4 mg DAILY PO 11/10/24 09:00 12/10/24 08:59 Vancomycin HCl 250 ml @ 125 mls/hr Q24H IV 11/10/24 12:00 11/20/24 11:59 11/10/24 13:44 125 MLS/HR Vancomycin HCl (Vancomycin Protocol) 1 each AD IV 11/09/24 11:30 11/23/24 11:29 Vancomycin HCl (Vancomycin 1g/ 250ml Kit) 1 gm Q12H IV 11/08/24 12:00 11/08/24 11:59 DC DIAGNOSTICS / RADIOLOGY: [ ] ASSESSMENT: Sepsis: POA Rt foot tma stump osteomyelitis,poa 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, drainage POA intractable pain right foot POA Suspecting osteomyelitis POA Severe PAD Poa Iron deficiency anemia with drop in hemoglobin , POA Uncontrolled diabetes type 2 POA Obesity BMI: 33 Immobility secondary to left AKA, and limited functional to right foot: POA Hypomagnesemia,POA PLAN: Sepsis: POA -resolved Tachycardia, CRP elevated ,subjective feversat the time pf admission started on Zosyn, Vancomycin (pharmacy to dose) ID on board Blood cultures negative Rt foot TMA stump osteomyelitis ,POA 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 , POA Intractable pain right foot POA wound cultures growing Klebsiella pneumoniae, Enterococcus faecalis, MRSA - sensitive to vancomycin patient treated with IV Zosyn and IV vancomycin empirically Podiatry recommends surgical exploration vs amputation revision PAD, Nancy category 6 symptoms (right lower extremity),POA -S/p peripheral angiogram by Dr Reilly- , diffuse 80% stenosis in the proximal and distal right superficial femoral artery, 100% ISR within the stent in the mid right superficial femoral artery status post successful treatment with balloon lithotripsy and drug coated balloon angioplasty, 70% stenosis in the right tibioperoneal artery, and 100% stenosis in the proximal, mid, and distal right peroneal artery status post successful treatment with balloon angioplasty and balloon lithotripsy, resulting in widely patent arteries. There is residual PAD, 100% stenosis in the proximal right anterior tibial artery and 100% stenosis in the proximal right posterior tibial artery. Pending TCOM assessment . Continue Aspirin 81 mg daily and clopidogrel 75 mg daily for a minimum of six months and optimally one year. -pain management with hydromorphone Uncontrolled diabetes type 2 POA HbA1C 9.2 resumed home medications insulin as per sliding scale Iron deficiency anemia with drop in hemoglobin , POA Started on IV iron Tsat 6.4% Hb dropped from 11.2 to 9.2-->8.6 DVT ppx with Heparin GI ppx with Famotidine ATTESTATION BY PHYSICIAN I have seen and examined the patient. I reviewed the documentation, medical decision making, and treatment plan as noted by the resident provider above. I agree with the findings and plan of care. RESHMA MEDEIROS MD, MD Nov 11, 2024 07:05
--- NOTE | 2024-11-11 07:46 | PN ---
SUBJECTIVE: The patient is a very pleasant 74-year-old diabetic, [place] male who is status post successful revascularization procedure of his right lower extremity by the Cardiology Service. I discussed treatment options with the patient, being conservative care, revision of his transmetatarsal amputation to a Lisfranc's or a Chopart's level of amputation versus a higher level of amputation. The patient states he is requesting now an [id number] amputation on the right. I informed him now that he has been revascularized, he does have a realistic chance to heal at the Lisfranc's or Chopart's level of amputation or even a wyxhs-yph-lnvd amputation, but he is requesting to be evaluated now for an kxjax-zfo-ldnr amputation on that right side. He has had an rnrpy-zpj-[id number] amputation on the left side. The patient is currently afebrile. His white count is 5.5, H and H 8.6 and 27.8, platelets 229. The patient is currently receiving IV vancomycin, IV Zosyn. He has had wound cultures that are growing back Klebsiella pneumoniae. Blood cultures are showing no growth. Dr. Cotter has been consulted from the Orthopedic Service for evaluation, for amputation surgery on that right side. REVIEW OF SYSTEMS: CONSTITUTIONAL: No chills, no fevers, no night sweats. No nausea, vomiting, no diarrhea. HEENT: No problems with his eyes, ears, nose, or throat. CARDIOVASCULAR: Having no current chest pain, status post successful revascularization procedures of the right lower extremity performed by the Cardiology Service yesterday. GENITOURINARY: He has a BUN and creatinine level 13 and 1.0. INTEGUMENTARY: He has an ulcer to the transmetatarsal amputation stump on the right, 11 x 4 cm, exposed bone of the first and the second metatarsal stumps, they are necrotic in nature. ASSESSMENT: Status post revascularization procedure on the right with 2-vessel brisk runoff, supplying the anterior and tibial and posterior tibial segments of the pedal arch. Chronic nonhealing transmetatarsal amputation on the right. Documented osteomyelitis to the stump of the first and second metatarsal on the right. Transcutaneous oxygen measurements have been ordered to assess the patient's healing potential. PLAN: I had a long discussion with the patient. He is now requesting an [id number]-jbc-[id number] amputation on the right. I will consult the Orthopedic Service for evaluation of the patient's request. We will continue with antibiotics. Continue with local wound care. Continue to follow the patient closely while in-house. TID: [id number] RECEIPT: [id number]
[2024-11-11] MEDS: IRON sUCROse COMPLEX 100 MG/5 ML VIAL IV ONE (08:12)
[2024-11-11] MEDS: FERROUS SULFATE 325 MG TABLET.DR PO SCH (08:13)
--- NOTE | 2024-11-11 09:32 | PN ---
[facility] CARDIOLOGY PROGRESS NOTE Date Patient Seen: Nov 11, 2024 Time of Visit: 09:26 Interval History: [pending TCOM ] Physical Examination: GENERAL: No acute distress. HEAD: Normal with no signs of head trauma. EYES: PERRLA, EOMI, conjunctiva and sclera normal. ENT: Hearing grossly intact, normal oropharynx. NECK: Supple without JVD. There is no tenderness, lymphadenopathy, or masses. No thyromegaly. Normal carotid upstrokes without bruits. LUNGS: Clear breath sounds bilaterally. No wheezes, or rhonchi. HEART: Normal rate and rhythm. Normal S1 and S2 without murmurs, gallop or rub. VASC: Unable to palpate right DP or PT pulse due to dressing in place. ABD: Bowel sounds normal, soft, nontender, no masses, no organomegaly. No audible bruits. : Not examined LYMPH: No lymphadenopathy noted. EXT: No clubbing or cyanosis . Erythema noted to the RLE with trace edema. SKIN: No rashes or lesions noted. NEURO: Awake, alert, and oriented x3. No focal sensory or strength deficits noted. Laboratory: [ ] Hematology Labs: Test 11/11/24 03:55 11/10/24 06:23 Range/Units White Blood Count 5.5 4.8-10.8 K/uL Red Blood Count 3.20 L 4.50-6.20 MIL/uL Hemoglobin 8.6 L 14.0-18.0 g/dL Hematocrit 27.8 L 42-54 % Mean Corpuscular Volume 86.9 79-99 fL Mean Corpuscular Hemoglobin 26.9 L 27.0-33.0 pg Mean Corpuscular Hemoglobin Concent 30.9 L 32.0-36.0 g/dL Red Cell Distribution Width 15.1 11.0-15.5 % Platelet Count 229 130-400 K/uL Mean Platelet Volume 10.5 7.5-10.5 fL Immature Granulocyte % (Auto) 1.3 H 0-1 % Neutrophils (%) (Auto) 73.3 40.0-77.0 % Lymphocytes (%) (Auto) 17.6 L 21.0-51.0 % Monocytes (%) (Auto) 6.5 3.0-13.0 % Eosinophils (%) (Auto) 1.1 0.0-8.0 % Basophils (%) (Auto) 0.2 0.0-5.0 % Neutrophils # (Auto) 4.0 1.8-7.7 K/uL Lymphocytes # (Auto) 1.0 1.0-4.8 K/uL Monocytes # (Auto) 0.4 0.1-1.0 K/uL Eosinophils # (Auto) 0.06 0.00-0.70 K/uL Basophils # (Auto) 0.01 0.00-0.20 K/uL Absolute Immature Granulocyte (auto 0.07 0-1 K/uL Nucleated Red Blood Cells 0.0 0.0-0.19 % Reticulocyte Count (auto) 2.42757 0.42-2.23 % Immature Reticulocyte Fraction 24.70 H 0.18-0.48 % Chemistry Labs: Test 11/11/24 05:18 11/11/24 03:55 11/10/24 06:23 Range/Units Whole Blood Glucose 137 H 70-110 MG/DL Sodium Level 139 136-145 mmol/L Potassium Level 3.2 L 3.5-5.1 mmol/L Chloride Level 105 101-111 mmol/L Carbon Dioxide Level 24 21-32 mmol/L Blood Urea Nitrogen 13 7-18 mg/dL Creatinine 1.0 0.5-1.3 mg/dL Glomerular Filtration Rate Calc 78 >90 mL/min Random Glucose 142 H 70-105 mg/dL Total Calcium 7.5 L 8.5-10.1 mg/dL Magnesium Level 1.70 L 1.80-2.40 mg/dL Thyroid Stimulating Hormone (TSH) 2.24 0.36-3.74 uIU/mL Diagnostics / Radiology: [Copy/Paste Echos/Imaging Report here] Impression and Plan: [PAD, Throckmorton category of the RT TMA site RLE cellulitis and osteomyelitis Anemia HTN hld DM type II S/p left AKA Right TMA 5 years ago Nonhealing right-sided TMA PAD status post peripheral intervention with stent placement in the left SFA and mid right SFA done by the PAD specialists ([place], [place]) #PAD, Cm category of the RT TMA site #RLE cellulitis and osteomyelitis -Continue Aspirin, Atorvastatin, and Plavix -The patient is in agreement of amputation to the RLE if needed and for further workup with angiogram -arterial lower extremity doppler with Abnormal monophasic arterial waveforms are noted in the right common femoral, deep femoral, superficial femoral, popliteal, posterior tibial and dorsalis pedal arteries. -consulted Dr Reilly as a PAD specialist and patient underwent peripheral angiogram showing ---- diffuse 80% stenosis in the proximal and distal right superficial femoral artery, 100% ISR within the stent in the mid right superficial femoral artery status post successful treatment with balloon lithotripsy and drug coated balloon angioplasty, 70% stenosis in the right tibioperoneal artery, and 100% stenosis in the proximal, mid, and distal right peroneal artery status post successful treatment with balloon angioplasty and balloon lithotripsy, resulting in widely patent arteries, without dissection, perforation, and brisk two- vessel runoff supplying the anterior and posterior segments of the right pedal arch. --- Residual PAD, 100% stenosis in the proximal right anterior tibial artery and 100% stenosis in the proximal right posterior tibial artery --We will order TCOMs of the right foot to assess wound healing after the above- mentioned peripheral intervention --Continue with aggressive wound care Lynda Dow MD ] LYNDA DOW MD Nov 11, 2024 09:32
[2024-11-12] VITALS: BP 147/70; PULSE 100; RESP 20; TEMP 98.9
[2024-11-12 04:00] VITALS: BP 141/61; PULSE 64; RESP 20; TEMP 98
[2024-11-12 05:41] LABS: POTASSIUM 3.3 mmol/L (3.5-5.1)
[2024-11-12 05:50] LABS: MEAN CORPUSCULAR HEMOGLOBIN 26.1 pg (27.0-33.0); MEAN CORPUSCULAR HGB CONC 30.6 g/dL (32.0-36.0); MEAN CORPUSCULAR VOLUME 85.4 fL (79-99); RED BLOOD CELL COUNT(AUTO) 4.1 MIL/uL (4.50-6.20); RED CELL DISTRIBUTION WIDTH 15.2 % (11.0-15.5); WHITE BLOOD COUNT (AUTO) 3.9 K/uL (4.8-10.8)
[2024-11-12 08:00] VITALS: O2SAT 100
[2024-11-12 08:15] VITALS: BP 117/70; PULSE 85; RESP 18; TEMP 98.2
--- NOTE | 2024-11-12 09:00 | PN ---
[facility] CARDIOLOGY PROGRESS NOTE Date Patient Seen: Nov 12, 2024 Time of Visit: 09:00 Interval History: [pending TCOM ] Physical Examination: GENERAL: No acute distress. HEAD: Normal with no signs of head trauma. EYES: PERRLA, EOMI, conjunctiva and sclera normal. ENT: Hearing grossly intact, normal oropharynx. NECK: Supple without JVD. There is no tenderness, lymphadenopathy, or masses. No thyromegaly. Normal carotid upstrokes without bruits. LUNGS: Clear breath sounds bilaterally. No wheezes, or rhonchi. HEART: Normal rate and rhythm. Normal S1 and S2 without murmurs, gallop or rub. VASC: Unable to palpate right DP or PT pulse due to dressing in place. ABD: Bowel sounds normal, soft, nontender, no masses, no organomegaly. No audible bruits. : Not examined LYMPH: No lymphadenopathy noted. EXT: No clubbing or cyanosis . Erythema noted to the RLE with trace edema. SKIN: No rashes or lesions noted. NEURO: Awake, alert, and oriented x3. No focal sensory or strength deficits noted. Laboratory: [ ] Hematology Labs: Test 11/12/24 05:17 11/11/24 03:55 Range/Units White Blood Count 3.9 L 4.8-10.8 K/uL Red Blood Count 4.10 L 4.50-6.20 MIL/uL Hemoglobin 10.7 #L 14.0-18.0 g/dL Hematocrit 35.0 #L 42-54 % Mean Corpuscular Volume 85.4 79-99 fL Mean Corpuscular Hemoglobin 26.1 L 27.0-33.0 pg Mean Corpuscular Hemoglobin Concent 30.6 L 32.0-36.0 g/dL Red Cell Distribution Width 15.2 11.0-15.5 % Platelet Count 197 130-400 K/uL Mean Platelet Volume 10.3 7.5-10.5 fL Nucleated Red Blood Cells 0.0 0.0-0.19 % Immature Granulocyte % (Auto) 1.3 H 0-1 % Neutrophils (%) (Auto) 73.3 40.0-77.0 % Lymphocytes (%) (Auto) 17.6 L 21.0-51.0 % Monocytes (%) (Auto) 6.5 3.0-13.0 % Eosinophils (%) (Auto) 1.1 0.0-8.0 % Basophils (%) (Auto) 0.2 0.0-5.0 % Neutrophils # (Auto) 4.0 1.8-7.7 K/uL Lymphocytes # (Auto) 1.0 1.0-4.8 K/uL Monocytes # (Auto) 0.4 0.1-1.0 K/uL Eosinophils # (Auto) 0.06 0.00-0.70 K/uL Basophils # (Auto) 0.01 0.00-0.20 K/uL Absolute Immature Granulocyte (auto 0.07 0-1 K/uL Chemistry Labs: Test 11/12/24 05:30 11/12/24 05:17 11/11/24 20:07 11/11/24 03:55 Range/Units Whole Blood Glucose 139 H 70-110 MG/DL Sodium Level 142 136-145 mmol/L Potassium Level 3.3 L 3.5-5.1 mmol/L Chloride Level 109 101-111 mmol/L Carbon Dioxide Level 26 21-32 mmol/L Blood Urea Nitrogen 9 7-18 mg/dL Creatinine 1.0 0.5-1.3 mg/dL Glomerular Filtration Rate Calc 78 >90 mL/min Random Glucose 123 H 70-105 mg/dL Total Calcium 7.7 L 8.5-10.1 mg/dL Bedside Glucose Comment Notified Nurse Magnesium Level 1.70 L 1.80-2.40 mg/dL Diagnostics / Radiology: [Copy/Paste Echos/Imaging Report here] Impression and Plan: [PAD, Cm category of the RT TMA site RLE cellulitis and osteomyelitis Anemia HTN hld DM type II S/p left AKA Right TMA 5 years ago Nonhealing right-sided TMA PAD status post peripheral intervention with stent placement in the left SFA and mid right SFA done by the PAD specialists ([place], [place]) #PAD, [place] category of the RT TMA site #RLE cellulitis and osteomyelitis -Continue Aspirin, Atorvastatin, and Plavix -The patient is in agreement of amputation to the RLE if needed and for further workup with angiogram -arterial lower extremity doppler with Abnormal monophasic arterial waveforms are noted in the right common femoral, deep femoral, superficial femoral, popliteal, posterior tibial and dorsalis pedal arteries. -consulted Dr Reilly as a PAD specialist and patient underwent peripheral angiogram showing ---- diffuse 80% stenosis in the proximal and distal right superficial femoral artery, 100% ISR within the stent in the mid right superficial femoral artery status post successful treatment with balloon lithotripsy and drug coated balloon angioplasty, 70% stenosis in the right tibioperoneal artery, and 100% stenosis in the proximal, mid, and distal right peroneal artery status post successful treatment with balloon angioplasty and balloon lithotripsy, resulting in widely patent arteries, without dissection, perforation, and brisk two- vessel runoff supplying the anterior and posterior segments of the right pedal arch. --- Residual PAD, 100% stenosis in the proximal right anterior tibial artery and 100% stenosis in the proximal right posterior tibial artery --We will order TCOMs of the right foot to assess wound healing after the above- mentioned peripheral intervention --Continue with aggressive wound care TIANNA Moralez MD, MD Nov 12, 2024 09:00
--- NOTE | 2024-11-12 11:37 | PN ---
[facility] PROGRESS NOTE Date of Service: Nov 12, 2024 Time of Service: 11:33 SUBJECTIVE: This is a 74-year-old male with PMH of Left BKA , Rt TMA(5 years ) , PAD, DM, HTN, bowel perforation s/p bowel repair in 07/18 presented to ED with chief complaints of right foot pain. Patient has a chronic open wound to his right foot TMA stump. Pain scale 10/10. Aggravated factors movement, alleviating factors none. There is redness noted with eschar to open wound with minimal drainage. There is no surrounding edema but redness extending to mid leg level . No foul odor noted. Reports having fevers subjective. At the time of presentation , Vitals : T 99.3,HR 104, R 20, BP 143/75/99%RA.He was admitted for further evaluation and management of his wound . 4..25: Patient has low grade fevers. He denies pain at the rt TMA site. Wound dressing in place. MRI foot showed rt stump 1 and 2 osteomyelitis .Podiatry recommended possible amputation. LE artery doppler studies pending . ID and Cardiology consults placed. 11.10.25: Patient c/o pain in rt lower extremity . S/p peripheral angiogram by Dr Reilly- JUSTINE, [place] category 6 symptoms (right lower extremity), diffuse 80% stenosis in the proximal and distal right superficial femoral artery, 100% ISR within the stent in the mid right superficial femoral artery status post successful treatment with balloon lithotripsy and drug coated b alloon angioplasty, 70% stenosis in the right tibioperoneal artery, and 100% stenosis in the proximal, mid, and distal right peroneal artery status post successful treatment with balloon angioplasty and balloon lithotripsy, resulting in widely patent arteries. There is residual PAD, 100% stenosis in the proximal right anterior tibial artery and 100% stenosis in the proximal right posterior tibial artery.Pending TCOM assessment .Patient tolerated the procedure well . 11.11.25: Patient s/p rt LE peripheral artery angioplasty. Uneventful post procedure course. Hb dropping -asymptomatic: treated with IV iron .TCOM evaluation pending (not till Wednesday as wound center is close on weekend),Ortho evaluation for possible stump revision pending. 11.12.25 : The patient is seen and examined today. No new complaints. His potassium is 3.3 And is being replaced. His hemoglobin went up from 8.6-10.7. The plan is for right above-knee amputation by Dr. Cotter tomorrow REVIEW OF SYSTEMS a 14 ROS obtained all relevant positive documented otherwise ROS negative PHYSICAL EXAM GENERAL APPEARANCE: The patient is awake, alert, and oriented, in no acute cardiopulmonary distress. NEUROLOGICAL: Cranial nerves II-XII grossly intact. Motor is 5/5 in bilateral upper and lower extremities proximal to distal. No sensory deficits. HEENT: Face is symmetric. Pupils are equal and reactive. Extraocular movements are intact. NECK: Supple. No JVD. No thyromegaly. No submental, submandibular, pre- /postauricular, occipital or supraclavicular lymphadenopathy. CHEST: Normal chest expansion. No Telemetry. LUNGS: Absence of any rales, rhonchi or any wheezing. CARDIOVASCULAR: Regular. S1 and S2 normal. No appreciable rubs, murmurs or gallops. ABDOMEN: Soft, nontender, and nondistended. There is no rebound, voluntary guarding, or rigidity. : Deferred. No Jaramillo. EXTREMITIES: Right foot; TMA open wound with eschar, minimal drainage,redness extending to mid leg, left BKA status SKIN: No skin breakdown. Vital Signs (last 8hr) Date Time Temp Pulse Resp B/P (MAP) Pulse Ox O2 Delivery O2 Flow Rate FiO2 11/12/24 08:36 117/70 11/12/24 08:15 98.2 85 18 117/70 100 11/12/24 04:00 98.1 64 20 141/61 95 Room Air LABS: Laboratory: Test 11/12/24 10:53 11/12/24 05:17 11/11/24 20:07 11/11/24 03:55 Range/Units Whole Blood Glucose 177 H 70-110 MG/DL White Blood Count 3.9 L 4.8-10.8 K/uL Red Blood Count 4.10 L 4.50-6.20 MIL/uL Hemoglobin 10.7 #L 14.0-18.0 g/dL Hematocrit 35.0 #L 42-54 % Mean Corpuscular Volume 85.4 79-99 fL Mean Corpuscular Hemoglobin 26.1 L 27.0-33.0 pg Mean Corpuscular Hemoglobin Concent 30.6 L 32.0-36.0 g/dL Red Cell Distribution Width 15.2 11.0-15.5 % Platelet Count 197 130-400 K/uL Mean Platelet Volume 10.3 7.5-10.5 fL Nucleated Red Blood Cells 0.0 0.0-0.19 % Sodium Level 142 136-145 mmol/L Potassium Level 3.3 L 3.5-5.1 mmol/L Chloride Level 109 101-111 mmol/L Carbon Dioxide Level 26 21-32 mmol/L Blood Urea Nitrogen 9 7-18 mg/dL Creatinine 1.0 0.5-1.3 mg/dL Glomerular Filtration Rate Calc 78 >90 mL/min Random Glucose 123 H 70-105 mg/dL Total Calcium 7.7 L 8.5-10.1 mg/dL Bedside Glucose Comment Notified Nurse Immature Granulocyte % (Auto) 1.3 H 0-1 % Neutrophils (%) (Auto) 73.3 40.0-77.0 % Lymphocytes (%) (Auto) 17.6 L 21.0-51.0 % Monocytes (%) (Auto) 6.5 3.0-13.0 % Eosinophils (%) (Auto) 1.1 0.0-8.0 % Basophils (%) (Auto) 0.2 0.0-5.0 % Neutrophils # (Auto) 4.0 1.8-7.7 K/uL Lymphocytes # (Auto) 1.0 1.0-4.8 K/uL Monocytes # (Auto) 0.4 0.1-1.0 K/uL Eosinophils # (Auto) 0.06 0.00-0.70 K/uL Basophils # (Auto) 0.01 0.00-0.20 K/uL Absolute Immature Granulocyte (auto 0.07 0-1 K/uL Magnesium Level 1.70 L 1.80-2.40 mg/dL Current Medications Medications (Trade) Dose Ordered Sig/Jermain Route PRN Reason Start Time Stop Time Status Last Admin Dose Admin Acetaminophen (TYLenol 325MG TAB) 650 mg Q4H PRN PO TEMPERATURE GREATER THAN 101.5 11/08/24 12:00 12/08/24 11:59 Aspirin (Aspirin 81mg Ec Tab) 81 mg DAILY PO 11/10/24 09:00 12/10/24 08:59 11/12/24 08:35 81 MG Atorvastatin Calcium (LIPItor 40MG) 40 mg DAILY PO 11/10/24 09:00 12/10/24 08:59 11/12/24 08:37 40 MG Carvedilol (Coreg 3.125MG) 3.125 mg BID PO 11/09/24 21:00 12/09/24 20:59 11/12/24 08:36 3.125 MG Clopidogrel Bisulfate (plaVIX 75MG) 75 mg DAILY PO 11/10/24 09:00 12/10/24 08:59 11/12/24 08:34 75 MG Dextrose (D50w) 50 ml AD PRN IV HYPOGLYCEMIA PROTOCOL 11/10/24 12:30 12/10/24 12:29 Empaglifozin (Jardiance 25mg) 25 mg DAILY PO 11/10/24 09:00 12/10/24 08:59 11/12/24 08:37 25 MG Famotidine (Pepcid 20mg Vial) 20 mg DAILY IV 11/09/24 09:00 12/09/24 08:59 11/12/24 08:38 20 MG Ferrous Sulfate (Ferrous Sulfate) 325 mg QODAY PO 11/11/24 09:00 12/11/24 08:59 11/11/24 08:13 325 MG Glucagon (Glucagon 1mg Kit) 1 mg AD PRN IM HYPOGLYCEMIA PROTOCOL 11/10/24 12:30 12/10/24 12:29 Heparin Sodium (Porcine) (HEParin 5,000 UNIT VIAL) 5,000 unit Q12H SQ 11/08/24 12:30 12/08/24 12:29 11/12/24 00:27 5,000 UNIT Home Med (Home Medication) (Finasteride 1 MG)- HAIR LOSS DAILY PO 11/10/24 09:00 12/10/24 08:59 Hydromorphone HCl (DiLAUDid 0.5MG INJ) 0.5 mg Q4H PRN IVP SEVERE PAIN (7-10) 11/08/24 12:00 11/13/24 11:59 11/11/24 18:34 0.5 MG Insulin Human Regular (humuLIN R 100 UNIT/ML 3ML) INSULIN SLIDING SCAL... ACHS SQ 11/08/24 16:30 12/08/24 16:29 11/11/24 20:59 8 UNIT Iron Sucrose (VenoFER) 200 mg ONCE STAT IV 11/09/24 11:20 11/09/24 11:35 DC Lactulose (Constulose 20gm/ 30ml Udcup) 20 gm BID PRN PO CONSTIPATION 11/08/24 12:00 12/08/24 11:59 Lisinopril (Prinivil 5mg) 5 mg DAILY PO 11/10/24 09:00 12/10/24 08:59 11/12/24 08:37 5 MG Magnesium Sulfate 50 ml @ 0 mls/hr PROTOCOL PRN IV low mag level 11/08/24 12:00 12/08/24 11:59 11/11/24 05:34 25 MLS/HR Metformin HCl (glucoPHAGE) 1,000 mg BIDMEALS PO 11/09/24 17:00 12/09/24 16:59 11/12/24 08:35 1,000 MG Ondansetron HCl (zoFRAN 4MG INJ) 4 mg Q6H PRN IVP NAUSEA/VOMITING 11/08/24 12:00 12/08/24 11:59 11/08/24 23:06 4 MG Pioglitazone HCl (Actos 30mg) 30 mg DAILY PO 11/10/24 09:00 12/10/24 08:59 11/12/24 08:38 30 MG Piperacillin Sod/ Tazobactam Sod (Zosyn 3.375gm+NS 50ml) 3.375 gm Q8H IVPB 11/08/24 17:30 11/18/24 17:29 11/12/24 10:02 3.375 GM Potassium Chloride 100 ml @ 100 mls/hr AD PRN IV POTASSIUM PROTOCOL 11/08/24 12:00 12/08/24 11:59 Potassium Chloride (K-Dur/Klor-Con 20meq) 20 meq AD PRN PO POTASSIUM PROTOCOL 11/08/24 12:00 12/08/24 11:59 11/12/24 08:38 20 MEQ Potassium Chloride (KCl 10% Elixir 20meq/15ml) 20 meq AD PRN PO POTASSIUM PROTOCOL 11/08/24 12:00 12/08/24 11:59 Sodium Chloride 1,000 ml @ 75 mls/hr [id number] IV 11/08/24 12:00 12/08/24 11:59 11/12/24 10:02 75 MLS/HR Sodium Chloride 1,000 ml @ 100 mls/hr Q10H IV 11/10/24 12:30 11/10/24 15:29 DC Sodium Chloride (NS 50ml) 50 ml AD IV 11/08/24 21:00 11/08/24 11:59 DC Tamsulosin HCl (FloMAX) 0.4 mg DAILY PO 11/10/24 09:00 12/10/24 08:59 11/12/24 08:35 0.4 MG Vancomycin HCl 250 ml @ 125 mls/hr Q24H IV 11/10/24 12:00 11/20/24 11:59 11/11/24 15:18 125 MLS/HR Vancomycin HCl (Vancomycin Protocol) 1 each AD IV 11/09/24 11:30 11/23/24 11:29 Vancomycin HCl (Vancomycin 1g/ 250ml Kit) 1 gm Q12H IV 11/08/24 12:00 11/08/24 11:59 DC DIAGNOSTICS / RADIOLOGY: [place] [address] [address] IMAGING REPORT Signed PATIENT: MAGALI KEENAN MR#: [id number] : 1950 SEX: M AGE: 74 LOCATION: [facility] ORDER 48 STATUS: ADM IN REPORT#: [id number] SERVICE 47 REASON: PICC LINE PLACEMENT ORDERING PHYSICIAN: EDUARDO MARIO MD PROCEDURE: CXR1VW - CHEST 1VW PORTABLE CHEST RADIOGRAPH INDICATION: PICC LINE PLACEMENT COMPARISON: 11/08/2024 FINDINGS: Tip of left PICC within the SVC. Heart size is normal. The pulmonary vascularity and kelsey appear normal. No abnormal pulmonary parenchymal opacity or consolidation identified. No significant pleural effusion noted. No pneumothorax detected. IMPRESSION: Tip of left PICC within the SVC. No radiographic evidence for any acute cardiopulmonary process. DICTATED BY: CARMELITA DUNBAR MD DATE: 11/10/241820 ELECTRONICALLY SIGNED BY: CARMELITA DUNBAR MD DATE: 11/10/241823 [place] [address] [id number] IMAGING REPORT Signed PATIENT: MAGALI KEENAN MR#: [id number] : 1950 SEX: M AGE: 74 LOCATION: [facility] ORDER 1316 STATUS: ADM IN REPORT#: [id number] SERVICE 1314 REASON: INFECTED R TMA ORDERING PHYSICIAN: HEIKE MAHMOOD DPM PROCEDURE: FT RT WO - MR FOOT RIGHT WO MRI RIGHT HINDFOOT/ANKLE WITHOUT CONTRAST INDICATION: Infected transmetatarsal indentation COMPARISON: None TECHNIQUE: Long and short axis fat and water weighted sequences were obtained through the right ankle. FINDINGS: Diagnostic sensitivity of this examination is limited by patient motion artifact. Transmetatarsal indentation changes identified. Subtle coalescent low T1 signal encroaches upon the second metatarsal stump and reactive marrow edema noted at the same level, but no significant obscuration of the cortices. Similar changes noted at the first metatarsal stump. No evidence for any organized/drainable fluid collection. Anterior and posterior talofibular ligaments are intact. Anterior and medial tendon group, including the posterior tibial tendon, are intact. Lateral peroneal complex is intact, and not subluxed. Achilles tendon and plantar fascia are intact. Kager's fat pad is well maintained. Miniscule plantar calcaneal spur without plantar fasciitis. No significant joint effusion identified. No abnormal soft tissue mass or ganglion noted. Talar dome is intact without osteochondral lesion. Ankle mortise and tibial plafond are well maintained. Sinus canal is patent. No evidence for coalition. Moderate talocalcaneal joint osteoarthropathy and mild tibiotalar joint osteoarthropathy. No evidence for muscle atrophy or myoedema. No evidence for fracture. IMPRESSION: Limitations as reported. Findings suggesting early acute osteomyelitis involving the first and second metatarsal stumps. DICTATED BY: CARMELITA DUNBAR MD DATE: 11/08/24 1507 ELECTRONICALLY SIGNED BY: CARMELITA DUNBAR MD DATE: 11/08/24 1510 ASSESSMENT: Sepsis: POA Rt foot tma stump osteomyelitis,poa 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, drainage POA intractable pain right foot POA Suspecting osteomyelitis POA Severe PAD Poa Iron deficiency anemia with drop in hemoglobin , POA Uncontrolled diabetes type 2 POA Obesity BMI: 33 Immobility secondary to left AKA, and limited functional to right foot: POA Hypomagnesemia,POA PLAN: Sepsis: POA -resolved Tachycardia, CRP elevated ,subjective feversat the time pf admission Continue on Zosyn, Vancomycin (pharmacy to dose) ID on board Blood cultures negative Rt foot TMA stump osteomyelitis ,POA 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 , POA Intractable pain right foot POA wound cultures growing Klebsiella pneumoniae, Enterococcus faecalis, MRSA - sensitive to vancomycin Continue with IV Zosyn and IV vancomycin empirically Podiatry recommends surgical exploration vs amputation revision PAD, [place] category 6 symptoms (right lower extremity),POA -S/p peripheral angiogram by Dr Reilly- , diffuse 80% stenosis in the proximal and distal right superficial femoral artery, 100% ISR within the stent in the mid right superficial femoral artery status post successful treatment with balloon lithotripsy and drug coated balloon angioplasty, 70% stenosis in the right tibioperoneal artery, and 100% stenosis in the proximal, mid, and distal right peroneal artery status post successful treatment with balloon angioplasty and balloon lithotripsy, resulting in widely patent arteries. There is residual PAD, 100% stenosis in the proximal right anterior tibial artery and 100% stenosis in the proximal right posterior tibial artery. Pending TCOM assessment . Continue Aspirin 81 mg daily and clopidogrel 75 mg daily for a minimum of six months and optimally one year. -pain management with hydromorphone -plan is for right emkbr-bjt-lwag amputation with Dr. Cotter tomorrow Uncontrolled diabetes type 2 POA HbA1C 9.2 resumed home medications insulin as per sliding scale Iron deficiency anemia with drop in hemoglobin , POA Started on IV iron Tsat 6.4% Hb up from 8.6-10.7 DVT ppx with Heparin GI ppx with Famotidine ATTESTATION BY PHYSICIAN I have seen and examined the patient. I reviewed the documentation, medical decision making, and treatment plan as noted by the resident provider above. I agree with the findings and plan of care. Kings Servin MD, KRUPALI P MD Nov 12, 2024 11:37
[2024-11-12] MEDS: VANCOMYCIN 2GM/500 ML BAG 500 ML IV SCH (12:43)
--- NOTE | 2024-11-12 15:53 | PN ---
SUBJECTIVE: The patient is a very pleasant 74-year-old diabetic Latin-Serbian male, who is seen on date of service 11/12/2024. He is remaining afebrile with a T-max of 98.2, pulse 85, respirations 18, blood pressure 117/70. He has a white count that is 3.9, H and H 10.7 and 35.0. He is scheduled for [id number] amputation on the right side tomorrow with the Orthopedic Service surgeon, Dr. Cotter. The patient is being followed for a right foot ulcer with osteomyelitis involving the stumps of the metatarsals from a previous transmetatarsal amputation. He is status post successful revascularization procedure. He is currently receiving IV vancomycin and IV Zosyn per his cultures and sensitivities that grew back Enterococcus faecalis, Klebsiella pneumoniae, and Staph aureus MRSA. Blood cultures, no growth x 4 days. REVIEW OF SYSTEMS: CONSTITUTIONAL: Having no constitutional symptoms. HEENT: No problems with eyes, ears, nose or throat. CARDIOVASCULAR: He has no chest pain status post revascularization of the right lower extremity by the Cardiology Service. GENITOURINARY: He has a BUN and creatinine level of 13 and 1.0. INTEGUMENTARY: He has an ulcerative transmetatarsal amputation stump, 11 x 4 cm exposed bone of the first and second metatarsal stumps in the wound bed. They are necrotic in nature. ASSESSMENT: Status post revascularization procedure on the right with 2-vessel brisk runoff supplying the anterior and posterior tibial segments of the pedal arch, chronic nonhealing transmetatarsal amputation on the right, documented osteomyelitis and polymicrobial wound infection. PLAN: After a long discussion with the patient, he is requesting an [id number] amputation on the right. Orthopedic Services has evaluated the patient and is planning on doing an lyshj-exu-lruu amputation on the right side tomorrow in the operating room. The patient will be n.p.o. after midnight tonight. TID: [id number] RECEIPT: [id number]
--- NOTE | 2024-11-12 17:53 | PN ---
INFECTIOUS DISEASE FOLLOWUP NOTE DATE OF SERVICE: 11/11/2024 SUBJECTIVE: The patient is seen and examined at bedside. No fever, no chills. Pain to the right foot is well controlled. tolerating antibiotics. No cough. No shortness of breath. No palpitations or orthopnea. No depression. No suicidal ideation. No dysuria or hematuria. No bleeding tendencies. No rashes or itchiness. PHYSICAL EXAMINATION: VITAL SIGNS: Temperature 97.3. EYES: No icterus. Pupils equal and reactive. HENT: No oral lesions seen. Moist oral mucosa. NECK: Supple. No JVD or thyromegaly. LUNGS: Good air entry. No rales. No rhonchi. CARDIOVASCULAR: S1 and S2, regular. No murmur heard. ABDOMEN: Full, soft. Bowel sound is present. Obese. No organomegaly. CENTRAL NERVOUS SYSTEM: Awake, alert, and oriented x 3. No focal deficits. SKIN: No rashes. No itchiness. LYMPHATIC: There is inguinal lymphadenopathy. BACK: No deformity. No pressure ulcer. EXTREMITIES: Ulcer involving the right foot stump where there is exposed bone. LABORATORY DATA: Right foot wound culture growing: * Enterococcus Faecalis. * Klebsiella pneumoniae. * MRSA. ASSESSMENT: A 74-year-old male with multiple problems which include: * Right foot stump infection and osteomyelitis. * Polymicrobial infection. * Peripheral vascular disease. * Obesity. * Diabetes mellitus. * Debility. PLAN: * Continue Zosyn. * Continue Vancomycin. * Continue wound care. * Continue pain management. * Continue nutritional support. * Continue DVT prophylaxis. * Monitor electrolytes. TID: [id number] RECEIPT: [id number] [facility]
[2024-11-12 20:00] VITALS: BP 142/60; PULSE 90; RESP 20; TEMP 99
[2024-11-12 20:05] VITALS: O2SAT 97
--- NOTE | 2024-11-12 20:05 | NUR ---
MEDS SHIFT ASSESSMENT DONE, PLEASE REFER TO CHART. ASSISTED WITH USE OF BEDPAN AND WAS ABLE TO HAVE A LOOSE BM. CLEANED PT AND RE-POSITIONED COMFORTABLY IN BED. DUE MEDS ADMINISTERED, TOLERATED WELL. CALL LIGHT WITHIN REACH. INSTRUCTED TO BE NPO POST MN FOR SX IN AM. PT VERBALIZES UNDERSTANDING.
[2024-11-13] VITALS (8 sets, daily range): BP systolic 131–152; BP diastolic 49–76; PULSE 56–87; RESP 18–20; TEMP 98–98.6; O2SAT 97–98
[2024-11-13 04:38] LABS: HEMATOCRIT 24.8 % (42-54); MEAN CORPUSCULAR HEMOGLOBIN 26.9 pg (27.0-33.0); MEAN CORPUSCULAR HGB CONC 30.6 g/dL (32.0-36.0); MEAN CORPUSCULAR VOLUME 87.6 fL (79-99); RED BLOOD CELL COUNT(AUTO) 2.83 MIL/uL (4.50-6.20); RED CELL DISTRIBUTION WIDTH 15.2 % (11.0-15.5); WHITE BLOOD COUNT (AUTO) 5.1 K/uL (4.8-10.8)
[2024-11-13 04:50] LABS: CREATININE 1.1 mg/dL (0.5-1.3); POTASSIUM 3.4 mmol/L (3.5-5.1)
[2024-11-13 04:51] LABS: INR 1.07 (0.85-1.15); PROTHROMBIN TIME 11.3 SEC (9.6-11.6)
[2024-11-13 04:52] LABS: PARTIAL THROMBOPLASTIN TIME 32.5 SEC (26.3-35.5)
[2024-11-13] MEDS: PoTASSium chloRIDE 20MEQ/100ML 100 ML IV PRN (05:30)
--- NOTE | 2024-11-13 05:31 | NUR ---
MEDS CHANGED PT'S SOILED PAD AND LINEN, PT HAD A BM. RE-POSITIONED COMFORTABLY IN BED WITH HOB ELEVATED. COREG DOSE GIVEN WITH SIP OF WATER. KCL IC REPLACEMENT STARTED. KEPT NPO FOR SX. FOR MORE CARE.
--- NOTE | 2024-11-13 06:20 | PN ---
SUBJECTIVE: The patient is a very pleasant 74-year-old diabetic, [place] male who was followed up on date of service of 11/13/2024. He is remaining afebrile with a T-max of 98.1, pulse 83, respirations 20, blood pressure 140/67. He has a white count 5.1, H and H 7.6 and 24.8. He is tentatively scheduled for a gbreu-etv-nthu amputation today with Dr. Cotter. He is status post successful revascularization procedure on the right. He is being followed for right foot ulcer with osteomyelitis. He has had cultures that grew back Enterococcus, fetalis, Klebsiella pneumoniae, Staph aureus, MRSA. Blood cultures, no growth x 5 days. He is currently receiving IV antibiotics per Dr. Todd (Infectious Disease) with vancomycin and Zosyn. REVIEW OF SYSTEMS: CONSTITUTIONAL: Pain to the right transmetatarsal amputation stump. No chills, no fevers or night sweats. No nausea or vomiting. No diarrhea. HEENT: No problems with eyes, ears, nose, or throat. CARDIOVASCULAR: No chest pain. Status post revascularization procedure on the right. He is being followed for anemia. GENITOURINARY: BUN and creatinine 13/1.0. INTEGUMENTARY: He has an ulcer at the transmetatarsal amputation stump right foot, 4 x 11 cm with exposed bone in the first and second metatarsals and a necrotic base. ASSESSMENT: Status post revascularization procedure on the right, 2-vessel brisk runoff supplying the anterior tibial and posterior tibial segments of the pedal arch, chronic nonhealing transmetatarsal amputation, documented osteomyelitis first and second metatarsals, polymicrobial wound infection, receiving IV vancomycin and ibuprofen. PLAN: I had a long discussion with the patient. I had a long discussion with the Cardiology Service and the General Surgery Service. Pending medical clearance, the patient is scheduled at his request to have an [id number] amputation on that right side. We will continue to follow the patient closely while in-house. TID: [id number] RECEIPT: [id number]
[2024-11-13 07:48] LABS: HEMATOCRIT 26.5 % (42-54)
--- NOTE | 2024-11-13 08:13 | PN ---
[facility] CARDIOLOGY PROGRESS NOTE Date Patient Seen: Nov 13, 2024 Time of Visit: 08:13 Interval History: [pending TCOM, above the knee amputation ] Physical Examination: GENERAL: No acute distress. HEAD: Normal with no signs of head trauma. EYES: PERRLA, EOMI, conjunctiva and sclera normal. ENT: Hearing grossly intact, normal oropharynx. NECK: Supple without JVD. There is no tenderness, lymphadenopathy, or masses. No thyromegaly. Normal carotid upstrokes without bruits. LUNGS: Clear breath sounds bilaterally. No wheezes, or rhonchi. HEART: Normal rate and rhythm. Normal S1 and S2 without murmurs, gallop or rub. VASC: Unable to palpate right DP or PT pulse due to dressing in place. ABD: Bowel sounds normal, soft, nontender, no masses, no organomegaly. No audible bruits. : Not examined LYMPH: No lymphadenopathy noted. EXT: No clubbing or cyanosis . Erythema noted to the RLE with trace edema. SKIN: No rashes or lesions noted. NEURO: Awake, alert, and oriented x3. No focal sensory or strength deficits noted. Laboratory: [ ] Hematology Labs: Test 11/13/24 07:40 11/13/24 04:05 Range/Units Hemoglobin 8.2 L 14.0-18.0 g/dL Hematocrit 26.5 L 42-54 % White Blood Count 5.1 # 4.8-10.8 K/uL Red Blood Count 2.83 #L 4.50-6.20 MIL/uL Mean Corpuscular Volume 87.6 79-99 fL Mean Corpuscular Hemoglobin 26.9 L 27.0-33.0 pg Mean Corpuscular Hemoglobin Concent 30.6 L 32.0-36.0 g/dL Red Cell Distribution Width 15.2 11.0-15.5 % Platelet Count 222 130-400 K/uL Mean Platelet Volume 10.5 7.5-10.5 fL Nucleated Red Blood Cells 0.0 0.0-0.19 % Chemistry Labs: Test 11/13/24 05:30 11/13/24 04:05 11/11/24 20:07 Range/Units Whole Blood Glucose 184 H 70-110 MG/DL Sodium Level 143 136-145 mmol/L Potassium Level 3.4 L 3.5-5.1 mmol/L Chloride Level 109 101-111 mmol/L Carbon Dioxide Level 24 21-32 mmol/L Blood Urea Nitrogen 10 7-18 mg/dL Creatinine 1.1 0.5-1.3 mg/dL Glomerular Filtration Rate Calc 70 >90 mL/min Random Glucose 169 H 70-105 mg/dL Total Calcium 7.4 L 8.5-10.1 mg/dL Bedside Glucose Comment Notified Nurse Coagulation Labs: Test 11/13/24 04:05 Range/Units Prothrombin Time 11.3 9.6-11.6 SEC Prothromb Time International Ratio 1.07 0.85-1.15 Activated Partial Thromboplast Time 32.5 26.3-35.5 SEC Diagnostics / Radiology: [Copy/Paste Echos/Imaging Report here] Impression and Plan: [PAD, [place] category of the RT TMA site RLE cellulitis and osteomyelitis Anemia HTN hld DM type II S/p left AKA Right TMA 5 years ago Nonhealing right-sided TMA PAD status post peripheral intervention with stent placement in the left SFA and mid right SFA done by the PAD specialists ([place], [place]) #PAD, [place] category of the RT TMA site #RLE cellulitis and osteomyelitis -Continue Aspirin, Atorvastatin, and Plavix -The patient is in agreement of amputation to the RLE if needed and for further workup with angiogram -arterial lower extremity doppler with Abnormal monophasic arterial waveforms are noted in the right common femoral, deep femoral, superficial femoral, popliteal, posterior tibial and dorsalis pedal arteries. -consulted Dr Reilly as a PAD specialist and patient underwent peripheral angiogram showing ---- diffuse 80% stenosis in the proximal and distal right superficial femoral artery, 100% ISR within the stent in the mid right superficial femoral artery status post successful treatment with balloon lithotripsy and drug coated balloon angioplasty, 70% stenosis in the right tibioperoneal artery, and 100% stenosis in the proximal, mid, and distal right peroneal artery status post successful treatment with balloon angioplasty and balloon lithotripsy, resulting in widely patent arteries, without dissection, perforation, and brisk two- vessel runoff supplying the anterior and posterior segments of the right pedal arch. --- Residual PAD, 100% stenosis in the proximal right anterior tibial artery and 100% stenosis in the proximal right posterior tibial artery --We will order TCOMs of the right foot to assess wound healing after the above- mentioned peripheral intervention, however, patient is requesting above the knee amputation --Continue with aggressive wound care Lynda Dow MD ] LYNDA DOW MD Nov 13, 2024 08:13
--- NOTE | 2024-11-13 12:45 | PN ---
[facility] PROGRESS NOTE Date of Service: Nov 13, 2024 Time of Service: 12:39 SUBJECTIVE: This is a 74-year-old male with PMH of Left BKA , Rt TMA(5 years ) , PAD, DM, HTN, bowel perforation s/p bowel repair in 07/18 presented to ED with chief complaints of right foot pain. Patient has a chronic open wound to his right foot TMA stump. Pain scale 10/10. Aggravated factors movement, alleviating factors none. There is redness noted with eschar to open wound with minimal drainage. There is no surrounding edema but redness extending to mid leg level . No foul odor noted. Reports having fevers subjective. At the time of presentation , Vitals : T 99.3,HR 104, R 20, BP 143/75/99%RA.He was admitted for further evaluation and management of his wound . 4.17.25: Patient has low grade fevers. He denies pain at the rt TMA site. Wound dressing in place. MRI foot showed rt stump 1 and 2 osteomyelitis .Podiatry recommended possible amputation. LE artery doppler studies pending . ID and Cardiology consults placed. 11.10.25: Patient c/o pain in rt lower extremity . S/p peripheral angiogram by Dr Reilly- JUSTINE, [place] category 6 symptoms (right lower extremity), diffuse 80% stenosis in the proximal and distal right superficial femoral artery, 100% ISR within the stent in the mid right superficial femoral artery status post successful treatment with balloon lithotripsy and drug coated balloon angioplasty, 70% stenosis in the right tibioperoneal artery, and 100% stenosis in the proximal, mid, and distal right peroneal artery status post successful treatment with balloon angioplasty and balloon lithotripsy, resulting in widely patent arteries. There is residual PAD, 100% stenosis in the proximal right anterior tibial artery and 100% stenosis in the proximal right posterior tibial artery.Pending TCOM assessment .Patient tolerated the procedure well . 11.11.25: Patient s/p rt LE peripheral artery angioplasty. Uneventful post procedure course. Hb dropping -asymptomatic: treated with IV iron .TCOM evaluation pending (not till Wednesday as wound center is close on weekend),Ortho evaluation for possible stump revision pending. 11.12.25 : The patient is seen and examined today. No new complaints. His potassium is 3.3 And is being replaced. His hemoglobin went up from 8.6-10.7. The plan is for right above-knee amputation by Dr. Cotter tomorrow. 11.13.24: Patient seen resting in bed. Pending Rt AKA scheduled for later today . Patient has no concerns at this time .Stool occult blood positive . Will consult gastroenterology for drop in hemoglobin and positive stool occult blood . Case management and social service assistant on board . REVIEW OF SYSTEMS a 14 ROS obtained all relevant positive documented otherwise ROS negative PHYSICAL EXAM GENERAL APPEARANCE: The patient is awake, alert, and oriented, in no acute cardiopulmonary distress. NEUROLOGICAL: Cranial nerves II-XII grossly intact. Motor is 5/5 in bilateral upper and lower extremities proximal to distal. No sensory deficits. HEENT: Face is symmetric. Pupils are equal and reactive. Extraocular movements are intact. NECK: Supple. No JVD. No thyromegaly. No submental, submandibular, pre- /postauricular, occipital or supraclavicular lymphadenopathy. CHEST: Normal chest expansion. No Telemetry. LUNGS: Absence of any rales, rhonchi or any wheezing. CARDIOVASCULAR: Regular. S1 and S2 normal. No appreciable rubs, murmurs or gallops. ABDOMEN: Soft, nontender, and nondistended. There is no rebound, voluntary guarding, or rigidity. : Deferred. No Jar[place]. EXTREMITIES: Right foot; TMA open wound with eschar, minimal drainage,redness extending to mid leg, left BKA status SKIN: No skin breakdown. Vital Signs (last 8hr) Date Time Temp Pulse Resp B/P (MAP) Pulse Ox O2 Delivery O2 Flow Rate FiO2 11/13/24 12:00 98.1 56 20 140/49 99 Room Air 11/13/24 07:43 98.1 64 19 152/76 97 Room Air 11/13/24 05:31 140/67 LABS: Laboratory: Test 11/13/24 11:18 11/13/24 07:40 11/13/24 04:05 11/12/24 20:10 Range/Units Whole Blood Glucose 140 H 70-110 MG/DL Hemoglobin 8.2 L 14.0-18.0 g/dL Hematocrit 26.5 L 42-54 % White Blood Count 5.1 # 4.8-10.8 K/uL Red Blood Count 2.83 #L 4.50-6.20 MIL/uL Mean Corpuscular Volume 87.6 79-99 fL Mean Corpuscular Hemoglobin 26.9 L 27.0-33.0 pg Mean Corpuscular Hemoglobin Concent 30.6 L 32.0-36.0 g/dL Red Cell Distribution Width 15.2 11.0-15.5 % Platelet Count 222 130-400 K/uL Mean Platelet Volume 10.5 7.5-10.5 fL Nucleated Red Blood Cells 0.0 0.0-0.19 % Prothrombin Time 11.3 9.6-11.6 SEC Prothromb Time International Ratio 1.07 0.85-1.15 Activated Partial Thromboplast Time 32.5 26.3-35.5 SEC Sodium Level 143 136-145 mmol/L Potassium Level 3.4 L 3.5-5.1 mmol/L Chloride Level 109 101-111 mmol/L Carbon Dioxide Level 24 21-32 mmol/L Blood Urea Nitrogen 10 7-18 mg/dL Creatinine 1.1 0.5-1.3 mg/dL Glomerular Filtration Rate Calc 70 >90 mL/min Random Glucose 169 H 70-105 mg/dL Total Calcium 7.4 L 8.5-10.1 mg/dL Stool Occult Blood POSITIVE H NEGATIVE Test 11/12/24 10:46 11/11/24 20:07 Range/Units Vancomycin Level Trough 11.3 # 10.0-20.0 UG/ML Bedside Glucose Comment Notified Nurse Current Medications Medications (Trade) Dose Ordered Sig/Jermain Route PRN Reason Start Time Stop Time Status Last Admin Dose Admin Acetaminophen (TYLenol 325MG TAB) 650 mg Q4H PRN PO TEMPERATURE GREATER THAN 101.5 11/08/24 12:00 12/08/24 11:59 Aspirin (Aspirin 81mg Ec Tab) 81 mg DAILY PO 11/10/24 09:00 12/10/24 08:59 11/12/24 08:35 81 MG Atorvastatin Calcium (LIPItor 40MG) 40 mg DAILY PO 11/10/24 09:00 12/10/24 08:59 11/12/24 08:37 40 MG Carvedilol (Coreg 3.125MG) 3.125 mg BID PO 11/09/24 21:00 12/09/24 20:59 11/13/24 05:31 3.125 MG Clopidogrel Bisulfate (plaVIX 75MG) 75 mg DAILY PO 11/10/24 09:00 12/10/24 08:59 11/12/24 08:34 75 MG Dextrose (D50w) 50 ml AD PRN IV HYPOGLYCEMIA PROTOCOL 11/10/24 12:30 12/10/24 12:29 Empaglifozin (Jardiance 25mg) 25 mg DAILY PO 11/10/24 09:00 12/10/24 08:59 11/12/24 08:37 25 MG Famotidine (Pepcid 20mg Vial) 20 mg DAILY IV 11/09/24 09:00 12/09/24 08:59 11/13/24 11:20 20 MG Ferrous Sulfate (Ferrous Sulfate) 325 mg QODAY PO 11/11/24 09:00 12/11/24 08:59 11/11/24 08:13 325 MG Glucagon (Glucagon 1mg Kit) 1 mg AD PRN IM HYPOGLYCEMIA PROTOCOL 11/10/24 12:30 12/10/24 12:29 Heparin Sodium (Porcine) (HEParin 5,000 UNIT VIAL) 5,000 unit Q12H SQ 11/08/24 12:30 12/08/24 12:29 11/13/24 00:18 5,000 UNIT Home Med (Home Medication) (Finasteride 1 MG)- HAIR LOSS DAILY PO 11/10/24 09:00 12/10/24 08:59 Hydromorphone HCl (DiLAUDid 0.5MG INJ) 0.5 mg Q4H PRN IVP SEVERE PAIN (7-10) 11/08/24 12:00 11/13/24 11:59 DC 11/11/24 18:34 0.5 MG Insulin Human Regular (humuLIN R 100 UNIT/ML 3ML) INSULIN SLIDING SCAL... ACHS SQ 11/08/24 16:30 12/08/24 16:29 11/12/24 20:04 10 UNIT Iron Sucrose (VenoFER) 200 mg ONCE STAT IV 11/09/24 11:20 11/09/24 11:35 DC Lactulose (Constulose 20gm/ 30ml Udcup) 20 gm BID PRN PO CONSTIPATION 11/08/24 12:00 12/08/24 11:59 Lisinopril (Prinivil 5mg) 5 mg DAILY PO 11/10/24 09:00 12/10/24 08:59 11/12/24 08:37 5 MG Magnesium Sulfate 50 ml @ 0 mls/hr PROTOCOL PRN IV low mag level 11/08/24 12:00 12/08/24 11:59 11/11/24 05:34 25 MLS/HR Metformin HCl (glucoPHAGE) 1,000 mg BIDMEALS PO 11/09/24 17:00 12/09/24 16:59 11/12/24 17:21 1,000 MG Ondansetron HCl (zoFRAN 4MG INJ) 4 mg Q6H PRN IVP NAUSEA/VOMITING 11/08/24 12:00 12/08/24 11:59 11/08/24 23:06 4 MG Pioglitazone HCl (Actos 30mg) 30 mg DAILY PO 11/10/24 09:00 12/10/24 08:59 11/12/24 08:38 30 MG Piperacillin Sod/ Tazobactam Sod (Zosyn 3.375gm+NS 50ml) 3.375 gm Q8H IVPB 11/08/24 17:30 11/18/24 17:29 11/13/24 11:20 3.375 GM Potassium Chloride 100 ml @ 100 mls/hr AD PRN IV POTASSIUM PROTOCOL 11/08/24 12:00 12/08/24 11:59 11/13/24 05:30 100 MLS/HR Potassium Chloride (K-Dur/Klor-Con 20meq) 20 meq AD PRN PO POTASSIUM PROTOCOL 11/08/24 12:00 12/08/24 11:59 11/12/24 19:14 20 MEQ Potassium Chloride (KCl 10% Elixir 20meq/15ml) 20 meq AD PRN PO POTASSIUM PROTOCOL 11/08/24 12:00 12/08/24 11:59 Sodium Chloride 1,000 ml @ 75 mls/hr [id number] IV 11/08/24 12:00 12/08/24 11:59 11/12/24 20:14 75 MLS/HR Sodium Chloride 1,000 ml @ 100 mls/hr Q10H IV 11/10/24 12:30 11/10/24 15:29 DC Sodium Chloride (NS 50ml) 50 ml AD IV 11/08/24 21:00 11/08/24 11:59 DC Tamsulosin HCl (FloMAX) 0.4 mg DAILY PO 11/10/24 09:00 12/10/24 08:59 11/12/24 08:35 0.4 MG Vancomycin HCl 250 ml @ 125 mls/hr Q24H IV 11/10/24 12:00 11/12/24 11:49 DC 11/11/24 15:18 125 MLS/HR Vancomycin HCl 500 ml @ 250 mls/hr Q24H IV 11/12/24 12:00 11/22/24 11:59 11/12/24 12:43 250 MLS/HR Vancomycin HCl (Vancomycin Protocol) 1 each AD IV 11/09/24 11:30 11/23/24 11:29 Vancomycin HCl (Vancomycin 1g/ 250ml Kit) 1 gm Q12H IV 11/08/24 12:00 11/08/24 11:59 DC DIAGNOSTICS / RADIOLOGY: [ ] ASSESSMENT: Sepsis: POA Rt foot tma stump osteomyelitis,poa 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, drainage POA intractable pain right foot POA Severe PAD Poa Iron deficiency anemia with drop in hemoglobin , POA Uncontrolled diabetes type 2 POA Obesity BMI: 33 Immobility secondary to left AKA, and limited functional to right foot: POA Hypomagnesemia,POA PLAN: Sepsis: POA -resolved Tachycardia, CRP elevated ,subjective feversat the time pf admission Continue on Zosyn, Vancomycin (pharmacy to dose) ID on board Blood cultures negative Rt foot TMA stump osteomyelitis ,POA 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 , POA Intractable pain right foot POA wound cultures growing Klebsiella pneumoniae, Enterococcus faecalis, MRSA - sensitive to vancomycin Continue with IV Zosyn and IV vancomycin empirically Podiatry on board PAD, [place] category 6 symptoms (right lower extremity),POA -S/p peripheral angiogram by Dr Reilly- , diffuse 80% stenosis in the proximal and distal right superficial femoral artery, 100% ISR within the stent in the mid right superficial femoral artery status post successful treatment with balloon lithotripsy and drug coated balloon angioplasty, 70% stenosis in the right tibioperoneal artery, and 100% stenosis in the proximal, mid, and distal right peroneal artery status post successful treatment with balloon angioplasty and balloon lithotripsy, resulting in widely patent arteries. There is residual PAD, 100% stenosis in the proximal right anterior tibial art omega and 100% stenosis in the proximal right posterior tibial artery. Pending TCOM assessment . Continue Aspirin 81 mg daily and clopidogrel 75 mg daily for a minimum of six months and optimally one year. -pain management with hydromorphone -plan is for right [id number]-[id number]-cgll amputation with Dr. Cotter today- patient is NPO . social service assistant and case management consulted Uncontrolled diabetes type 2 POA HbA1C 9.2 resumed home medications insulin as per sliding scale Iron deficiency anemia with drop in hemoglobin , POA Started on IV iron Tsat 6.4% Stool occult blood positive- will consult GI DVT ppx with Heparin GI ppx with Famotidine ATTESTATION BY PHYSICIAN I have seen and examined the patient. I reviewed the documentation, medical decision making, and treatment plan as noted by the resident provider above. I agree with the findings and plan of care. RESHMA MEDEIROS MD, MD Nov 13, 2024 12:45
--- NOTE | 2024-11-13 13:21 | CONS ---
GASTROENTEROLOGY CONSULTATION NOTE Date of Consultation: Nov 13, 2024 Time of Consultation: 13:20 History of Present Illness: This is a 74-year-old male with past medical history of hypertension, diabetes, PAD status post left AKA, right TMA 5 years ago, chronic nonhealing right TMA surgical site who presented due to right lower extremity pain, erythema and edema. We were consulted due to progressive drop in hemoglobin and positive FOBT. Hemoglobin on admission was 11.2 and trended down to 7.6 with a platelet count of 222. No overt GI bleeding. Patient is planned for right AKA tomorrow. Review of Systems: CONSTITUTIONAL: No malaise or change in sensation of wellbeing. ENMT: No rhinorrhea, otorrhea, sinus pain, ear ache. CARDIOVASCULAR: No angina, palpitations, orthopnea or paroxysmal dyspnea. RESPIRATORY: No SOB. GASTROINTESTINAL: No abdominal pain, nausea, vomiting, diarrhea, hematemesis, melena or change in the patient's habitual bowel movements consistency/number. GENITOURINARY: No dysuria, hematuria or change in bladder continence. MUSCULOSKELETAL: No new muscle pain or decrease in muscular strength. No new joint swelling, redness or tenderness. SKIN: No new rash. Past Medical History: [ ] Past Surgical History: [ ] Past Social History: [ ] Family History: [ ] Coded Allergies: No Allergy Information Available (Verified Allergy, Unknown, 02/11/16) No Known Drug Allergies (Unverified Allergy, Unknown, 02/18/24) Physical Exam: GEN: Awake, alert, oriented in person, time and place, and in no acute distress. HEENT: No sinus tenderness. Tympanic membranes were not examined. No rhinorrhea. Oral pharyngeal mucosa is pink, moist and within normal limits. Neck is supple with no cervical lymphadenopathy, thyromegaly or JVD. CHEST: Inspection, palpation and percussion of the chest were unremarkable. Lung auscultation revealed normal breath sounds bilaterally. CARDIAC: PMI is within normal limits. Heart sounds are regular. Normal S1, S2. No gallop or murmur. ABD: Soft, non-tender and not distended. No peritoneal signs on palpation. No organomegaly. Normal bowel sounds. EXT: No cyanosis or clubbing. No edema. SKIN: Intact. No rashes. JOINTS: No evidence of synovitis or acute arthritis. NEURO: Alert and oriented to name, place and person. Cranial nerve examination is unremarkable. No focal motor deficits. Normal speech. Gait is normal. Strength is normal. Vital Sign (Last 24 Hours) 11/12/24 11/13/24 11/13/24 20:05 04:30 12:00 Temp 98.1 Pulse 56 Resp 20 B/P (MAP) 140/49 Pulse Ox 99 O2 Delivery Room Air O2 Flow Rate 0 FiO2 21 Intake & Output (last 24hrs) 11/12/24 11/12/24 11/13/24 15:00 23:00 07:00 Intake Total 220 ml 370 ml 765.0 ml Output Total 400 ml 350 ml 120 ml Balance -180 ml 20 ml 645.0 ml Laboratory: [ ] Laboratory: Test 11/13/24 11:18 11/13/24 07:40 11/13/24 04:05 11/12/24 20:10 Range/Units Whole Blood Glucose 140 H 70-110 MG/DL Hemoglobin 8.2 L 14.0-18.0 g/dL Hematocrit 26.5 L 42-54 % White Blood Count 5.1 # 4.8-10.8 K/uL Red Blood Count 2.83 #L 4.50-6.20 MIL/uL Mean Corpuscular Volume 87.6 79-99 fL Mean Corpuscular Hemoglobin 26.9 L 27.0-33.0 pg Mean Corpuscular Hemoglobin Concent 30.6 L 32.0-36.0 g/dL Red Cell Distribution Width 15.2 11.0-15.5 % Platelet Count 222 130-400 K/uL Mean Platelet Volume 10.5 7.5-10.5 fL Nucleated Red Blood Cells 0.0 0.0-0.19 % Prothrombin Time 11.3 9.6-11.6 SEC Prothromb Time International Ratio 1.07 0.85-1.15 Activated Partial Thromboplast Time 32.5 26.3-35.5 SEC Sodium Level 143 136-145 mmol/L Potassium Level 3.4 L 3.5-5.1 mmol/L Chloride Level 109 101-111 mmol/L Carbon Dioxide Level 24 21-32 mmol/L Blood Urea Nitrogen 10 7-18 mg/dL Creatinine 1.1 0.5-1.3 mg/dL Glomerular Filtration Rate Calc 70 >90 mL/min Random Glucose 169 H 70-105 mg/dL Total Calcium 7.4 L 8.5-10.1 mg/dL Stool Occult Blood POSITIVE H NEGATIVE Test 11/12/24 10:46 11/11/24 20:07 Range/Units Vancomycin Level Trough 11.3 # 10.0-20.0 UG/ML Bedside Glucose Comment Notified Nurse Current Medications Medications (Trade) Dose Ordered Sig/Jermain Route PRN Reason Start Time Stop Time Status Last Admin Dose Admin Acetaminophen (TYLenol 325MG TAB) 650 mg Q4H PRN PO TEMPERATURE GREATER THAN 101.5 11/08/24 12:00 12/08/24 11:59 Aspirin (Aspirin 81mg Ec Tab) 81 mg DAILY PO 11/10/24 09:00 12/10/24 08:59 11/12/24 08:35 81 MG Atorvastatin Calcium (LIPItor 40MG) 40 mg DAILY PO 11/10/24 09:00 12/10/24 08:59 11/12/24 08:37 40 MG Carvedilol (Coreg 3.125MG) 3.125 mg BID PO 11/09/24 21:00 12/09/24 20:59 11/13/24 05:31 3.125 MG Clopidogrel Bisulfate (plaVIX 75MG) 75 mg DAILY PO 11/10/24 09:00 12/10/24 08:59 11/12/24 08:34 75 MG Dextrose (D50w) 50 ml AD PRN IV HYPOGLYCEMIA PROTOCOL 11/10/24 12:30 12/10/24 12:29 Empaglifozin (Jardiance 25mg) 25 mg DAILY PO 11/10/24 09:00 12/10/24 08:59 11/12/24 08:37 25 MG Famotidine (Pepcid 20mg Vial) 20 mg DAILY IV 11/09/24 09:00 12/09/24 08:59 11/13/24 11:20 20 MG Ferrous Sulfate (Ferrous Sulfate) 325 mg QODAY PO 11/11/24 09:00 12/11/24 08:59 11/11/24 08:13 325 MG Glucagon (Glucagon 1mg Kit) 1 mg AD PRN IM HYPOGLYCEMIA PROTOCOL 11/10/24 12:30 12/10/24 12:29 Heparin Sodium (Porcine) (HEParin 5,000 UNIT VIAL) 5,000 unit Q12H SQ 11/08/24 12:30 12/08/24 12:29 11/13/24 00:18 5,000 UNIT Home Med (Home Medication) (Finasteride 1 MG)- HAIR LOSS DAILY PO 11/10/24 09:00 12/10/24 08:59 Hydromorphone HCl (DiLAUDid 0.5MG INJ) 0.5 mg Q4H PRN IVP SEVERE PAIN (7-10) 11/08/24 12:00 11/13/24 11:59 DC 11/11/24 18:34 0.5 MG Insulin Human Regular (humuLIN R 100 UNIT/ML 3ML) INSULIN SLIDING SCAL... ACHS SQ 11/08/24 16:30 12/08/24 16:29 11/12/24 20:04 10 UNIT Iron Sucrose (VenoFER) 200 mg ONCE STAT IV 11/09/24 11:20 11/09/24 11:35 DC Lactulose (Constulose 20gm/ 30ml Udcup) 20 gm BID PRN PO CONSTIPATION 11/08/24 12:00 12/08/24 11:59 Lisinopril (Prinivil 5mg) 5 mg DAILY PO 11/10/24 09:00 12/10/24 08:59 11/12/24 08:37 5 MG Magnesium Sulfate 50 ml @ 0 mls/hr PROTOCOL PRN IV low mag level 11/08/24 12:00 12/08/24 11:59 11/11/24 05:34 25 MLS/HR Metformin HCl (glucoPHAGE) 1,000 mg BIDMEALS PO 11/09/24 17:00 12/09/24 16:59 11/12/24 17:21 1,000 MG Ondansetron HCl (zoFRAN 4MG INJ) 4 mg Q6H PRN IVP NAUSEA/VOMITING 11/08/24 12:00 12/08/24 11:59 11/08/24 23:06 4 MG Pioglitazone HCl (Actos 30mg) 30 mg DAILY PO 11/10/24 09:00 12/10/24 08:59 11/12/24 08:38 30 MG Piperacillin Sod/ Tazobactam Sod (Zosyn 3.375gm+NS 50ml) 3.375 gm Q8H IVPB 11/08/24 17:30 11/18/24 17:29 11/13/24 11:20 3.375 GM Potassium Chloride 100 ml @ 100 mls/hr AD PRN IV POTASSIUM PROTOCOL 11/08/24 12:00 12/08/24 11:59 11/13/24 05:30 100 MLS/HR Potassium Chloride (K-Dur/Klor-Con 20meq) 20 meq AD PRN PO POTASSIUM PROTOCOL 11/08/24 12:00 12/08/24 11:59 11/12/24 19:14 20 MEQ Potassium Chloride (KCl 10% Elixir 20meq/15ml) 20 meq AD PRN PO POTASSIUM PROTOCOL 11/08/24 12:00 12/08/24 11:59 Sodium Chloride 1,000 ml @ 75 mls/hr [id number] IV 11/08/24 12:00 12/08/24 11:59 11/12/24 20:14 75 MLS/HR Sodium Chloride 1,000 ml @ 100 mls/hr Q10H IV 11/10/24 12:30 11/10/24 15:29 DC Sodium Chloride (NS 50ml) 50 ml AD IV 11/08/24 21:00 11/08/24 11:59 DC Tamsulosin HCl (FloMAX) 0.4 mg DAILY PO 11/10/24 09:00 12/10/24 08:59 11/12/24 08:35 0.4 MG Vancomycin HCl 250 ml @ 125 mls/hr Q24H IV 11/10/24 12:00 11/12/24 11:49 DC 11/11/24 15:18 125 MLS/HR Vancomycin HCl 500 ml @ 250 mls/hr Q24H IV 11/12/24 12:00 11/22/24 11:59 11/12/24 12:43 250 MLS/HR Vancomycin HCl (Vancomycin Protocol) 1 each AD IV 11/09/24 11:30 11/23/24 11:29 Vancomycin HCl (Vancomycin 1g/ 250ml Kit) 1 gm Q12H IV 11/08/24 12:00 11/08/24 11:59 DC Diagnostics / Radiology: [COPY/PASTE HERE IF NO REPORTS PLEASE DELETE SECTION] Assessment: Positive FOBT Acute blood loss anemia PAD Plan: Anemia, likely multifactorial Will consider EGD in the next few days, pending clinical evolution Continue GI prophylaxis Advance diet as tolerated Avoid NSAIDs Antireflux measures Monitor H&H and transfuse as needed Call with questions, concerns or change in clinical status Patient to follow-up at clinic post discharge Thank you for this consult BEBO HERNANDEZ PROP SETTER Nov 13, 2024 13:21
--- NOTE | 2024-11-13 19:55 | NUR ---
MEDS SHIFT ASSESSMENT DONE, PLEASE REFER TO CHART. DUE MEDS ADMINISTERED, TOLERATED WELL. KEPT RESTED AND COMFORTABLE IN BED. INSTRUCTED TO BE NPO POST MN FOR SX IN AM. PT VERBALIZES UNDERSTANDING. CALL LIGHT WITHIN REACH. KEPT BED ALARM ACTIVATED.
--- NOTE | 2024-11-13 23:32 | PN ---
INFECTIOUS DISEASE PROGRESS NOTE Date of Service: Nov 13, 2024 SUBJECTIVE: This is a 74-year-old male patient who was seen and examined at bedside in room 310. Patient is awake, alert and able to answer basic questions. Patient with right foot TMA stump with polymicrobial infection and osteomyelitis. Patient is status post peripheral angiogram on 11/11/2023 with findings of peripheral artery disease. Patient has been scheduled for a possible right [id number] amputation. No fever, temperature is 98.1. We will continue on vancomycin and Zosyn. No episodes of emesis reported. PHYSICAL EXAM EYES: Anicteric. Pupils equal and reactive. HENT: No oral thrush seen, moist Oral mucosa NECK: Supple, no JVD or thyromegaly. LUNGS: Good air entry. No rales, no rhonchi. CARDIOVASCULAR: S1, S2 regular. No murmur heard. ABDOMEN: Soft, non tender, bowel sounds present, no organomegaly CENTRAL NERVOUS SYSTEM: Awake, alert, oriented x 2. SKIN: No rashes, no swelling. LYMPHATICS: No peripheral lymphadenopathy MUSCULOSKELETAL: No joint swelling, erythema or tenderness. EXTREMITIES: No cyanosis or clubbing. Right foot TMA stump infection and osteomyelitis. BACK: No deformity, no pressure ulcer. GENITOURINARY: No dysuria or hematuria. Vital Sign (Last 12 Hours) 11/13/24 11/13/24 11/13/24 11/13/24 12:00 16:00 19:51 19:55 Temp 98.1 98.1 Pulse 56 56 Resp 20 19 B/P (MAP) 140/49 149/68 149/68 Pulse Ox 99 99 98 O2 Delivery Room Air Room Air Room Air* O2 Flow Rate 0 FiO2 21 11/13/24 20:00 Temp 98.6 Pulse 86 Resp 18 B/P (MAP) 145/65 Pulse Ox 98 O2 Delivery Room Air Intake & Output (last 24hrs) 11/12/24 11/12/24 11/13/24 15:00 23:00 07:00 Intake Total 220 ml 370 ml 765.0 ml Output Total 400 ml 350 ml 120 ml Balance -180 ml 20 ml 645.0 ml LABS: Laboratory: Test 11/13/24 19:39 11/13/24 07:40 11/13/24 04:05 11/12/24 20:10 Range/Units Whole Blood Glucose 232 #H 70-110 MG/DL Hemoglobin 8.2 L 14.0-18.0 g/dL Hematocrit 26.5 L 42-54 % White Blood Count 5.1 # 4.8-10.8 K/uL Red Blood Count 2.83 #L 4.50-6.20 MIL/uL Mean Corpuscular Volume 87.6 79-99 fL Mean Corpuscular Hemoglobin 26.9 L 27.0-33.0 pg Mean Corpuscular Hemoglobin Concent 30.6 L 32.0-36.0 g/dL Red Cell Distribution Width 15.2 11.0-15.5 % Platelet Count 222 130-400 K/uL Mean Platelet Volume 10.5 7.5-10.5 fL Nucleated Red Blood Cells 0.0 0.0-0.19 % Prothrombin Time 11.3 9.6-11.6 SEC Prothromb Time International Ratio 1.07 0.85-1.15 Activated Partial Thromboplast Time 32.5 26.3-35.5 SEC Sodium Level 143 136-145 mmol/L Potassium Level 3.4 L 3.5-5.1 mmol/L Chloride Level 109 101-111 mmol/L Carbon Dioxide Level 24 21-32 mmol/L Blood Urea Nitrogen 10 7-18 mg/dL Creatinine 1.1 0.5-1.3 mg/dL Glomerular Filtration Rate Calc 70 >90 mL/min Random Glucose 169 H 70-105 mg/dL Total Calcium 7.4 L 8.5-10.1 mg/dL Stool Occult Blood POSITIVE H NEGATIVE Test 11/12/24 10:46 Range/Units Vancomycin Level Trough 11.3 # 10.0-20.0 UG/ML DIAGNOSTICS / RADIOLOGY: PATIENT: MAGALI KEENAN ACCT: [id number] LOC: [facility] U: [id number] AGE/SX: 74/M ROOM: 310 RE11/08/[address]: ANDREAS GARCIA MD : [id number] BED: 1 DIS: STATUS: ADM IN TLOC: SPEC: [id number] SHAYE: 11/08/24 STATUS: CJ REQ: [id number] RECD: 11/08/24-1003 [facility] DR: MARCELLUS WEST MD SOURCE: FOOT ENTR: 11/08/[address]: SELF,REFERRAL [facility]: FOOT RIGHT ORDERED: ANITHA CULTURE, AEROBIC CULTURE Procedure Result Todd Date-Time ANAEROBIC CULTURE Final 11/11/24-856 [facility] COLONY DESCRIPTION: REPORT 1: NO ANAEROBES AT 24-35 HOURS; STUDIES TO CONTINUE REPORT 2: NO ANAEROBES AT 48-59 HOURS; STUDIES TO CONTINUE REPORT 3: NO ANAEROBES AT 72-96 HOURS Test(s) performed by: [facility] [address] [place] [address] AEROBIC CULTURE Final 11/11/24-856 [facility] METHICILLIN-RESISTANT STAPHYLOCOCCUS AUREUS RESULT WAS CALLED BY STEPHANIE SIMPSON ON 11/11/24 AT 0815. CRITICAL VALUES WERE READ BACK AND ACKNOWLEDGED BY GABRIEL RIGGS [facility] COLONY DESCRIPTION: REPORT 1: 2+ GRAM NEGATIVE RODS IDENTIFICATION AND SENSITIVITY TO FOLLOW REPORT 2: 1+ GRAM POSITIVE COCCI IN CHAINS POSSIBLE ENTEROCOCCUS SPECIES . IDENTIFICATION AND SENSITIVITY TO FOLLOW REPORT 3: 1+ GRAM POSITIVE COCCI IN CLUSTERS STAPHYLOCOCCUS AUREUS SENSITIVITY TO FOLLOW MRSA: NOTE: THIS IS A METHICILLIN-RESISTANT STAPH AUREUS ENTEROCOCCUS FAECALIS KLEBSIELLA PNEUMONIAE STAPHYLOCOCCUS AUREUS-MRSA CONTINUED ON NEXT PAGE RUN DATE: 11/11/24 [facility] PAGE 2 RUN TIME: [id number] [address], [place] [address] Department of Constant Contact RAMIREZ # [id number] Media Relations Coordinator: Renata Goetz DO Specimen Report SPEC: [id number] PATIENT: MAGALI KEENAN [id number] (Continued) Procedure Result Todd Date-Time AEROBIC CULTURE Final (continued) 11/11/24-08 E FAECALIS K PNEUMO M.I.C. RX M.I.C. RX --------- ---- --------- ---- AMPICILLIN <=2 S AZTREONAM <=4 S CEFAZOLIN <=2 S CEFTAZIDIME/AVIBACTAM <=8 S CLINDAMYCIN ERYTHROMYCIN GENTAMICIN <=2 S LEVOFLOXACIN <=0.5 S VANCOMYCIN 2 S OXACILLIN GHADA RIFAMPIN TETRACYCLINE AMPICILLIN/SULBACTAM <=8/4 S GENTAMICIN Synergy Screen <=500 S MEROPENEM <=1 S PENICILLIN 2 S PIPERACILLIN/TAZOBACTAM <=8 S TRIMETHOPRIM/SUFLAMETHOXAZOLE <=2/38 S MRSA M.I.C. RX --------- ---- AMPICILLIN AZTREONAM CEFAZOLIN CEFTAZIDIME/AVIBACTAM CLINDAMYCIN >2 R ERYTHROMYCIN >4 R GENTAMICIN >8 R LEVOFLOXACIN VANCOMYCIN 2 S OXACILLIN GHADA >2 R RIFAMPIN <=1 S TETRACYCLINE >8 R AMPICILLIN/SULBACTAM GENTAMICIN Synergy Screen MEROPENEM PENICILLIN PIPERACILLIN/TAZOBACTAM TRIMETHOPRIM/SUFLAMETHOXAZOLE <=0.5/9.5 S ASSESSMENT: Right foot TMA stump infection and osteomyelitis. Polymicrobial infection. Anemia. Diabetes mellitus. Peripheral vascular disease, status post peripheral angiogram on 11/10/2024. Debility. PLAN: Continue vancomycin per pharmacy protocol. Continue Zosyn IV. Continue has been hemoglobin. Continue the diabetics. Continue pain management. Orthopedic surgeon has been consulted and patient has been scheduled for a right [id number]-[id number] amputation for today. This case was reviewed and discussed with my supervising physician and the above assessment and plan was formulated and agreed upon. ATTESTATION BY PHYSICIAN I have seen and examined the patient. I reviewed the documentation, medical decision making, and treatment plan as noted by the mid-level provider above. I agree with the findings and plan of care. EDUARDO MARIO MD, MIRTA L [facility] Nov 13, 2024 23:32
[2024-11-14] VITALS (24 sets, daily range): BP systolic 142–170; BP diastolic 55–89; PULSE 56–79; RESP 14–20; TEMP 97.4–98.1; O2SAT 98
--- NOTE | 2024-11-14 | NUR ---
PAIN PT CLAIMS OF PAINS TO BLE. MEDICATED WITH DILAUDID IV. KEPT RESTED AND COMFORTABLE IN BED. WILL RE-ASSESS PT. PLACED PT ON NPO FROM NOW. Addendum: 11/14/24 at 0017 by CONSUELO CARTER RN RN Amended: Links added.
[2024-11-14] MEDS: hydroMORPHone 0.5 MG SYG (0.5MG/0.5ML) IVP PRN (00:05)
[2024-11-14 04:26] LABS: BASOPHILS # (AUTO) 0.01 K/uL (0.00-0.20); BASOPHILS % (AUTO) 0.2 % (0.0-5.0); EOSINOPHILS % (AUTO) 2.2 % (0.0-8.0); HEMATOCRIT 26.2 % (42-54); IMMATURE GRANULOCYTE ABSOLUTE 0.09 K/uL (0-1); LYMPHOCYTES % (AUTO) 20.4 % (21.0-51.0); MEAN CORPUSCULAR HEMOGLOBIN 26.8 pg (27.0-33.0); MEAN CORPUSCULAR HGB CONC 31.3 g/dL (32.0-36.0); MEAN CORPUSCULAR VOLUME 85.6 fL (79-99); MONOCYTES # (AUTO) 0.3 K/uL (0.1-1.0); MONOCYTES % (AUTO) 6.7 % (3.0-13.0); NEUTROPHILS # (AUTO) 3.2 K/uL (1.8-7.7); NEUTROPHILS % (AUTO) 68.6 % (40.0-77.0); PLATELET COUNT (AUTO) 212 K/uL (130-400); RED BLOOD CELL COUNT(AUTO) 3.06 MIL/uL (4.50-6.20); RED CELL DISTRIBUTION WIDTH 15.4 % (11.0-15.5); WHITE BLOOD COUNT (AUTO) 4.7 K/uL (4.8-10.8)
[2024-11-14 04:41] LABS: CREATININE 0.9 mg/dL (0.5-1.3); POTASSIUM 3.4 mmol/L (3.5-5.1)
--- NOTE | 2024-11-14 05:27 | NUR ---
REPLACE PT'S POTASSIUM=3.4, STARTED ON IV REPLACEMENT PER PROTOCOL. KEPT NPO FOR SX. COREG DOSE ALREADY GIVEN WITH SIPS OF WATER. FOR MORE CARE.
[2024-11-14] MEDS: FAMOTIDINE 20MG VIAL IV ONE (06:23)
[2024-11-14] MEDS: acetaMINOPHEN 100 ML ONE (06:23)
[2024-11-14] MEDS ORDERED: ketaMINE 50MG/ML SYRINGE 50 MG/ML DISP.SYRIN ONE (06:26)
[2024-11-14] MEDS ORDERED: ROPivacaine 0.5% 5MG/ML 30ML ONE ×2 (06:26→16:49)
[2024-11-14] MEDS ORDERED: rocuRONium bROMide 10MG/1ML 5ML VL ONE ×2 (06:28→16:48)
[2024-11-14] MEDS ORDERED: LIDOCAINE PF 100MG/5ML (2%) SYRINGE 5ML ONE ×2 (06:28→16:47)
[2024-11-14] MEDS ORDERED: proPOFol 10 MG/ML 20ML VIAL IV ONE ×2 (06:28→16:47)
[2024-11-14] MEDS ORDERED: FENTanyl CITRate PF 50 MCG/1 ML 2ML VIAL ONE ×3 (06:29→18:23)
--- NOTE | 2024-11-14 06:37 | PN ---
SUBJECTIVE: The patient is a very pleasant 74-year-old diabetic, [place] male scheduled for right [id number]-[id number] amputation yesterday, canceled until today. Currently, the patient is afebrile. T-max is 97.7, pulse 72, respirations 18, blood pressure 151/71. He has a white count 4.7, H and H 8.2 and 26.2, platelets 212. BUN and creatinine 9 and 0.9, glucose 111. The patient is currently receiving Dilaudid for pain, vancomycin, and Zosyn. The patient is being followed by the GI Service due to his anemia, likely multifactorial, being followed by the Cardiology Service. The patient is status post successful revascularization procedure to the right lower extremity by the Cardiology Service. REVIEW OF SYSTEMS: CONSTITUTIONAL: Pain to the right transmetatarsal amputation stump. No constitutional symptoms. HEENT: No problems with his eyes, ears, nose, or throat. CARDIOVASCULAR: Having no chest pain. He is status post revascularization procedure on the right. He is being followed for anemia. GENITOURINARY: BUN and creatinine 9 and 0.9. INTEGUMENTARY: He has an ulcer to the transmetatarsal amputation on the right, 4.0 x 11.0 cm. Exposed bone of the first and second metatarsal stumps, necrotic wound bed. PHYSICAL EXAMINATION: Right foot warm. He does have palpable pedal pulses. Dry necrotic eschars with exposed bone of the first metatarsal stump, second metatarsal stump to the transmetatarsal amputation center on the right. Wound is measuring 11 x 4 cm. It is necrotic in nature. Edema, erythema, localized cellulitis. ASSESSMENT: Status post revascularization procedure on the right, 2-vessel brisk runoff via the anterior tibial and the posterior tibial segments of the pedal arch, chronic nonhealing transmetatarsal amputation, documented osteomyelitis first and second metatarsals, polymicrobial wound infection, receiving vancomycin and Zosyn. PLAN: We are awaiting evaluation for an [id number]-[id number] amputation on the right at the patient's request, tentatively scheduled for today. We will continue to follow the patient closely while in-house. Continue with IV vancomycin and IV Zosyn per Infectious Disease. TID: [id number] RECEIPT: [id number]
--- NOTE | 2024-11-14 09:45 | NUR ---
[place] Care Coordination Call Chart reviewed for [place] Care coordination call. Rescheduled for Sharad HARTMAN with Dr. Cotter today. Anticipate IRU if patient agreeable. CM to follow-up. Addendum: 11/14/24 at 0947 by VASHTI ROSENBAUM CM Amended: Links added.
--- NOTE | 2024-11-14 11:09 | PN ---
[facility] PROGRESS NOTE Date of Service: Nov 14, 2024 Time of Service: 11:06 SUBJECTIVE: This is a 74-year-old male with PMH of Left BKA , Rt TMA(5 years ) , PAD, DM, HTN, bowel perforation s/p bowel repair in 07/18 presented to ED with chief complaints of right foot pain. Patient has a chronic open wound to his right foot TMA stump. Pain scale 10/10. Aggravated factors movement, alleviating factors none. There is redness noted with eschar to open wound with minimal drainage. There is no surrounding edema but redness extending to mid leg level . No foul odor noted. Reports having fevers subjective. At the time of presentation , Vitals : T 99.3,HR 104, R 20, BP 143/75/99%RA.He was admitted for further evaluation and management of his wound . 4.25: Patient has low grade fevers. He denies pain at the rt TMA site. Wound dressing in place. MRI foot showed rt stump 1 and 2 osteomyelitis .Podiatry recommended possible amputation. LE artery doppler studies pending . ID and Cardiology consults placed. 25: Patient c/o pain in rt lower extremity . S/p peripheral angiogram by Dr Reilly- JUSTINE, Lumpkin category 6 symptoms (right lower extremity), diffuse 80% stenosis in the proximal and distal right superficial femoral artery, 100% ISR within the stent in the mid right superficial femoral artery status post successful treatment with balloon lithotripsy and drug coated balloon angioplasty, 70% stenosis in the right tibioperoneal artery, and 100% stenosis in the proximal, mid, and distal right peroneal artery status post successful treatment with balloon angioplasty and balloon lithotripsy, resulting in widely patent arteries. There is residual PAD, 100% stenosis in the proximal right anterior tibial artery and 100% stenosis in the proximal right posterior tibial artery.Pending TCOM assessment .Patient tolerated the procedure well . 25: Patient s/p rt LE peripheral artery angioplasty. Uneventful post procedure course. Hb dropping -asymptomatic: treated with IV iron .TCOM evaluation pending (not till Wednesday as wound center is close on weekend),Ortho evaluation for possible stump revision pending. 25 : The patient is seen and examined today. No new complaints. His potassium is 3.3 And is being replaced. His hemoglobin went up from 8.6-10.7. The plan is for right above-knee amputation by Dr. Cotter tomorrow. 11.13.24: Patient seen resting in bed. Pending Rt AKA scheduled for later today . Patient has no concerns at this time .Stool occult blood positive . Will consult gastroenterology for drop in hemoglobin and positive stool occult blood . Case management and director social service on board . 11.14.24: Patient is pending Rt AKA by Dr Cotter today. He is receiving 1 unit of RBC now and is tolerating blood transfusion ,. Case managemnt on board for rehabilitation and placement. He has no concerns at this time . REVIEW OF SYSTEMS a 14 ROS obtained all relevant positive documented otherwise ROS negative PHYSICAL EXAM GENERAL APPEARANCE: The patient is awake, alert, and oriented, in no acute cardiopulmonary distress. NEUROLOGICAL: Cranial nerves II-XII grossly intact. Motor is 5/5 in bilateral upper and lower extremities proximal to distal. No sensory deficits. HEENT: Face is symmetric. Pupils are equal and reactive. Extraocular movements are intact. NECK: Supple. No JVD. No thyromegaly. No submental, submandibular, pre- /postauricular, occipital or supraclavicular lymphadenopathy. CHEST: Normal chest expansion. No Telemetry. LUNGS: Absence of any rales, rhonchi or any wheezing. CARDIOVASCULAR: Regular. S1 and S2 normal. No appreciable rubs, murmurs or gallops. ABDOMEN: Soft, nontender, and nondistended. There is no rebound, voluntary guarding, or rigidity. : Deferred. No Jaramillo. EXTREMITIES: Right foot; TMA open wound with eschar, minimal drainage,redness extending to mid leg, left BKA status SKIN: No skin breakdown. Vital Signs (last 8hr) Date Time Temp Pulse Resp B/P (MAP) Pulse Ox O2 Delivery O2 Flow Rate FiO2 11/14/24 07:46 98.1 59 18 148/67 98 Room Air 11/14/24 05:08 142/55 11/14/24 04:13 97.3 79 18 142/55 97 Room Air LABS: Laboratory: Test 11/14/24 05:40 11/14/24 04:15 11/13/24 04:05 11/12/24 20:10 Range/Units Whole Blood Glucose 111 #H 70-110 MG/DL White Blood Count 4.7 L 4.8-10.8 K/uL Red Blood Count 3.06 L 4.50-6.20 MIL/uL Hemoglobin 8.2 L 14.0-18.0 g/dL Hematocrit 26.2 L 42-54 % Mean Corpuscular Volume 85.6 79-99 fL Mean Corpuscular Hemoglobin 26.8 L 27.0-33.0 pg Mean Corpuscular Hemoglobin Concent 31.3 L 32.0-36.0 g/dL Red Cell Distribution Width 15.4 11.0-15.5 % Platelet Count 212 130-400 K/uL Mean Platelet Volume 10.4 7.5-10.5 fL Immature Granulocyte % (Auto) 1.9 H 0-1 % Neutrophils (%) (Auto) 68.6 40.0-77.0 % Lymphocytes (%) (Auto) 20.4 L 21.0-51.0 % Monocytes (%) (Auto) 6.7 3.0-13.0 % Eosinophils (%) (Auto) 2.2 0.0-8.0 % Basophils (%) (Auto) 0.2 0.0-5.0 % Neutrophils # (Auto) 3.2 1.8-7.7 K/uL Lymphocytes # (Auto) 1.0 1.0-4.8 K/uL Monocytes # (Auto) 0.3 0.1-1.0 K/uL Eosinophils # (Auto) 0.10 0.00-0.70 K/uL Basophils # (Auto) 0.01 0.00-0.20 K/uL Absolute Immature Granulocyte (auto 0.09 0-1 K/uL Nucleated Red Blood Cells 0.0 0.0-0.19 % Sodium Level 142 136-145 mmol/L Potassium Level 3.4 L 3.5-5.1 mmol/L Chloride Level 108 101-111 mmol/L Carbon Dioxide Level 23 21-32 mmol/L Blood Urea Nitrogen 9 7-18 mg/dL Creatinine 0.9 0.5-1.3 mg/dL Glomerular Filtration Rate Calc 89 >90 mL/min Random Glucose 110 H 70-105 mg/dL Total Calcium 7.5 L 8.5-10.1 mg/dL Prothrombin Time 11.3 9.6-11.6 SEC Prothromb Time International Ratio 1.07 0.85-1.15 Activated Partial Thromboplast Time 32.5 26.3-35.5 SEC Stool Occult Blood POSITIVE H NEGATIVE Current Medications Medications (Trade) Dose Ordered Sig/Jermain Route PRN Reason Start Time Stop Time Status Last Admin Dose Admin Acetaminophen (TYLenol 325MG TAB) 650 mg Q4H PRN PO TEMPERATURE GREATER THAN 101.5 11/08/24 12:00 12/08/24 11:59 Aspirin (Aspirin 81mg Ec Tab) 81 mg DAILY PO 11/10/24 09:00 12/10/24 08:59 11/12/24 08:35 81 MG Atorvastatin Calcium (LIPItor 40MG) 40 mg DAILY PO 11/10/24 09:00 12/10/24 08:59 11/12/24 08:37 40 MG Carvedilol (Coreg 3.125MG) 3.125 mg BID PO 11/09/24 21:00 12/09/24 20:59 11/14/24 05:08 3.125 MG Clopidogrel Bisulfate (plaVIX 75MG) 75 mg DAILY PO 11/10/24 09:00 12/10/24 08:59 11/12/24 08:34 75 MG Dextrose (D50w) 50 ml AD PRN IV HYPOGLYCEMIA PROTOCOL 11/10/24 12:30 12/10/24 12:29 Empaglifozin (Jardiance 25mg) 25 mg DAILY PO 11/10/24 09:00 12/10/24 08:59 11/12/24 08:37 25 MG Famotidine (Pepcid 20mg Vial) 20 mg DAILY IV 11/09/24 09:00 12/09/24 08:59 11/14/24 09:13 20 MG Ferrous Sulfate (Ferrous Sulfate) 325 mg QODAY PO 11/11/24 09:00 12/11/24 08:59 11/11/24 08:13 325 MG Glucagon (Glucagon 1mg Kit) 1 mg AD PRN IM HYPOGLYCEMIA PROTOCOL 11/10/24 12:30 12/10/24 12:29 Heparin Sodium (Porcine) (HEParin 5,000 UNIT VIAL) 5,000 unit Q12H SQ 11/08/24 12:30 12/08/24 12:29 11/13/24 23:52 5,000 UNIT Home Med (Home Medication) (Finasteride 1 MG)- HAIR LOSS DAILY PO 11/10/24 09:00 12/10/24 08:59 Hydromorphone HCl (DiLAUDid 0.5MG INJ) 0.5 mg Q4H PRN IVP SEVERE PAIN (7-10) 11/08/24 12:00 11/13/24 11:59 DC 11/11/24 18:34 0.5 MG Hydromorphone HCl (DiLAUDid 0.5MG INJ) 0.5 mg Q4H PRN IVP SEVERE PAIN (7-10) 11/14/24 00:00 11/19/24 00:00 11/14/24 00:05 0.5 MG Insulin Human Regular (humuLIN R 100 UNIT/ML 3ML) INSULIN SLIDING SCAL... ACHS SQ 11/08/24 16:30 12/08/24 16:29 11/13/24 19:52 8 UNIT Iron Sucrose (VenoFER) 200 mg ONCE STAT IV 11/09/24 11:20 11/09/24 11:35 DC Lactulose (Constulose 20gm/ 30ml Udcup) 20 gm BID PRN PO CONSTIPATION 11/08/24 12:00 12/08/24 11:59 Lisinopril (Prinivil 5mg) 5 mg DAILY PO 11/10/24 09:00 12/10/24 08:59 11/12/24 08:37 5 MG Magnesium Sulfate 50 ml @ 0 mls/hr PROTOCOL PRN IV low mag level 11/08/24 12:00 12/08/24 11:59 11/11/24 05:34 25 MLS/HR Metformin HCl (glucoPHAGE) 1,000 mg BIDMEALS PO 11/09/24 17:00 12/09/24 16:59 11/13/24 19:03 1,000 MG Ondansetron HCl (zoFRAN 4MG INJ) 4 mg Q6H PRN IVP NAUSEA/VOMITING 11/08/24 12:00 12/08/24 11:59 11/08/24 23:06 4 MG Pioglitazone HCl (Actos 30mg) 30 mg DAILY PO 11/10/24 09:00 12/10/24 08:59 11/12/24 08:38 30 MG Piperacillin Sod/ Tazobactam Sod (Zosyn 3.375gm+NS 50ml) 3.375 gm Q8H IVPB 11/08/24 17:30 11/18/24 17:29 11/14/24 00:57 3.375 GM Potassium Chloride 100 ml @ 100 mls/hr AD PRN IV POTASSIUM PROTOCOL 11/08/24 12:00 12/08/24 11:59 11/14/24 05:27 100 MLS/HR Potassium Chloride (K-Dur/Klor-Con 20meq) 20 meq AD PRN PO POTASSIUM PROTOCOL 11/08/24 12:00 12/08/24 11:59 11/12/24 19:14 20 MEQ Potassium Chloride (KCl 10% Elixir 20meq/15ml) 20 meq AD PRN PO POTASSIUM PROTOCOL 11/08/24 12:00 12/08/24 11:59 Sodium Chloride 1,000 ml @ 75 mls/hr [id number] IV 11/08/24 12:00 12/08/24 11:59 11/14/24 00:57 75 MLS/HR Sodium Chloride 1,000 ml @ 100 mls/hr Q10H IV 11/10/24 12:30 11/10/24 15:29 DC Sodium Chloride (NS 50ml) 50 ml AD IV 11/08/24 21:00 11/08/24 11:59 DC Tamsulosin HCl (FloMAX) 0.4 mg DAILY PO 11/10/24 09:00 12/10/24 08:59 11/12/24 08:35 0.4 MG Vancomycin HCl 250 ml @ 125 mls/hr Q24H IV 11/10/24 12:00 11/12/24 11:49 DC 11/11/24 15:18 125 MLS/HR Vancomycin HCl 500 ml @ 250 mls/hr Q24H IV 11/12/24 12:00 11/22/24 11:59 11/13/24 15:57 250 MLS/HR Vancomycin HCl (Vancomycin Protocol) 1 each AD IV 11/09/24 11:30 11/23/24 11:29 Vancomycin HCl (Vancomycin 1g/ 250ml Kit) 1 gm Q12H IV 11/08/24 12:00 11/08/24 11:59 DC DIAGNOSTICS / RADIOLOGY: [ ] ASSESSMENT: Sepsis: POA Rt foot tma stump osteomyelitis,poa 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, drainage POA intractable pain right foot POA Severe PAD Poa Iron deficiency anemia with drop in hemoglobin , POA Uncontrolled diabetes type 2 POA Obesity BMI: 33 Immobility secondary to left AKA, and limited functional to right foot: POA Hypomagnesemia,POA PLAN: Sepsis: POA -resolved Tachycardia, CRP elevated ,subjective feversat the time pf admission Continue on Zosyn, Vancomycin (pharmacy to dose) ID on board Blood cultures negative Rt foot TMA stump osteomyelitis ,POA 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 , POA Intractable pain right foot POA wound cultures growing Klebsiella pneumoniae, Enterococcus faecalis, MRSA - sensitive to vancomycin Continue with IV Zosyn and IV vancomycin empirically Podiatry on board pending AKA by Dr Cotter today NSQIP surgical risk assessment score - below average risk for post surgical complications PAD, Lumpkin category 6 symptoms (right lower extremity),POA -S/p peripheral angiogram by Dr Reilly- , diffuse 80% stenosis in the proximal and distal right superficial femoral artery, 100% ISR within the stent in the mid right superficial femoral artery status post successful treatment with ballo on lithotripsy and drug coated balloon angioplasty, 70% stenosis in the right tibioperoneal artery, and 100% stenosis in the proximal, mid, and distal right peroneal artery status post successful treatment with balloon angioplasty and balloon lithotripsy, resulting in widely patent arteries. There is residual PAD, 100% stenosis in the proximal right anterior tibial artery and 100% stenosis in the proximal right posterior tibial artery. Pending TCOM assessment . Continue Aspirin 81 mg daily and clopidogrel 75 mg daily for a minimum of six months and optimally one year. -pain management with hydromorphone -plan is for right [id number] amputation with Dr. Cotter - patient is NPO . director social service and case management consulted Uncontrolled diabetes type 2 POA HbA1C 9.2 resumed home medications insulin as per sliding scale Iron deficiency anemia with drop in hemoglobin , POA Started on IV iron Tsat 6.4% Stool occult blood positive GI recommended EGD later DVT ppx with Heparin GI ppx with Famotidine ATTESTATION BY PHYSICIAN I have seen and examined the patient. I reviewed the documentation, medical decision making, and treatment plan as noted by the resident provider above. I agree with the findings and plan of care. RESHMA GUERRERO MD, MD Nov 14, 2024 11:09
--- NOTE | 2024-11-14 12:09 | PN ---
GASTROENTEROLOGY PROGRESS NOTE Date of Visit: Nov 14, 2024 Time of Visit: 12:09 Events / Notes: [ ] Review of Systems: CONSTITUTIONAL: No malaise or change in sensation of wellbeing. ENMT: No rhinorrhea, otorrhea, sinus pain, ear ache. CARDIOVASCULAR: No angina, palpitations, orthopnea or paroxysmal dyspnea. RESPIRATORY: No SOB. GASTROINTESTINAL: No abdominal pain, nausea, vomiting, diarrhea, hematemesis, melena or change in the patient's habitual bowel movements consistency/number. GENITOURINARY: No dysuria, hematuria or change in bladder continence. MUSCULOSKELETAL: No new muscle pain or decrease in muscular strength. No new joint swelling, redness or tenderness. SKIN: No new rash. Physical Exam: GEN: Awake, alert, oriented in person, time and place, and in no acute distress. HEENT: No sinus tenderness. Tympanic membranes were not examined. No rhinorrhea. Oral pharyngeal mucosa is pink, moist and within normal limits. Neck is supple with no cervical lymphadenopathy, thyromegaly or JVD. CHEST: Inspection, palpation and percussion of the chest were unremarkable. Lung auscultation revealed normal breath sounds bilaterally. CARDIAC: PMI is within normal limits. Heart sounds are regular. Normal S1, S2. No gallop or murmur. ABD: Soft, non-tender and not distended. No peritoneal signs on palpation. No organomegaly. Normal bowel sounds. EXT: No cyanosis or clubbing. No edema. SKIN: Intact. No rashes. JOINTS: No evidence of synovitis or acute arthritis. NEURO: Alert and oriented to name, place and person. Cranial nerve examination is unremarkable. No focal motor deficits. Normal speech. Gait is normal. Strength is normal. Vital Signs (last 8hr) Date Time Temp Pulse Resp B/P (MAP) Pulse Ox O2 Delivery O2 Flow Rate FiO2 11/14/24 07:46 98.1 59 18 148/67 98 Room Air 11/14/24 05:08 142/55 11/14/24 04:13 97.3 79 18 142/55 97 Room Air Laboratory: [ ] Laboratory: Test 11/14/24 11:21 11/14/24 04:15 11/13/24 04:05 11/12/24 20:10 Range/Units Whole Blood Glucose 149 H 70-110 MG/DL White Blood Count 4.7 L 4.8-10.8 K/uL Red Blood Count 3.06 L 4.50-6.20 MIL/uL Hemoglobin 8.2 L 14.0-18.0 g/dL Hematocrit 26.2 L 42-54 % Mean Corpuscular Volume 85.6 79-99 fL Mean Corpuscular Hemoglobin 26.8 L 27.0-33.0 pg Mean Corpuscular Hemoglobin Concent 31.3 L 32.0-36.0 g/dL Red Cell Distribution Width 15.4 11.0-15.5 % Platelet Count 212 130-400 K/uL Mean Platelet Volume 10.4 7.5-10.5 fL Immature Granulocyte % (Auto) 1.9 H 0-1 % Neutrophils (%) (Auto) 68.6 40.0-77.0 % Lymphocytes (%) (Auto) 20.4 L 21.0-51.0 % Monocytes (%) (Auto) 6.7 3.0-13.0 % Eosinophils (%) (Auto) 2.2 0.0-8.0 % Basophils (%) (Auto) 0.2 0.0-5.0 % Neutrophils # (Auto) 3.2 1.8-7.7 K/uL Lymphocytes # (Auto) 1.0 1.0-4.8 K/uL Monocytes # (Auto) 0.3 0.1-1.0 K/uL Eosinophils # (Auto) 0.10 0.00-0.70 K/uL Basophils # (Auto) 0.01 0.00-0.20 K/uL Absolute Immature Granulocyte (auto 0.09 0-1 K/uL Nucleated Red Blood Cells 0.0 0.0-0.19 % Sodium Level 142 136-145 mmol/L Potassium Level 3.4 L 3.5-5.1 mmol/L Chloride Level 108 101-111 mmol/L Carbon Dioxide Level 23 21-32 mmol/L Blood Urea Nitrogen 9 7-18 mg/dL Creatinine 0.9 0.5-1.3 mg/dL Glomerular Filtration Rate Calc 89 >90 mL/min Random Glucose 110 H 70-105 mg/dL Total Calcium 7.5 L 8.5-10.1 mg/dL Prothrombin Time 11.3 9.6-11.6 SEC Prothromb Time International Ratio 1.07 0.85-1.15 Activated Partial Thromboplast Time 32.5 26.3-35.5 SEC Stool Occult Blood POSITIVE H NEGATIVE Current Medications Medications (Trade) Dose Ordered Sig/Jermain Route PRN Reason Start Time Stop Time Status Last Admin Dose Admin Acetaminophen (TYLenol 325MG TAB) 650 mg Q4H PRN PO TEMPERATURE GREATER THAN 101.5 11/08/24 12:00 12/08/24 11:59 Aspirin (Aspirin 81mg Ec Tab) 81 mg DAILY PO 11/10/24 09:00 12/10/24 08:59 11/12/24 08:35 81 MG Atorvastatin Calcium (LIPItor 40MG) 40 mg DAILY PO 11/10/24 09:00 12/10/24 08:59 11/12/24 08:37 40 MG Carvedilol (Coreg 3.125MG) 3.125 mg BID PO 11/09/24 21:00 12/09/24 20:59 11/14/24 05:08 3.125 MG Clopidogrel Bisulfate (plaVIX 75MG) 75 mg DAILY PO 11/10/24 09:00 12/10/24 08:59 11/12/24 08:34 75 MG Dextrose (D50w) 50 ml AD PRN IV HYPOGLYCEMIA PROTOCOL 11/10/24 12:30 12/10/24 12:29 Empaglifozin (Jardiance 25mg) 25 mg DAILY PO 11/10/24 09:00 12/10/24 08:59 11/12/24 08:37 25 MG Famotidine (Pepcid 20mg Vial) 20 mg DAILY IV 11/09/24 09:00 12/09/24 08:59 11/14/24 09:13 20 MG Ferrous Sulfate (Ferrous Sulfate) 325 mg QODAY PO 11/11/24 09:00 12/11/24 08:59 11/11/24 08:13 325 MG Glucagon (Glucagon 1mg Kit) 1 mg AD PRN IM HYPOGLYCEMIA PROTOCOL 11/10/24 12:30 12/10/24 12:29 Heparin Sodium (Porcine) (HEParin 5,000 UNIT VIAL) 5,000 unit Q12H SQ 11/08/24 12:30 12/08/24 12:29 11/13/24 23:52 5,000 UNIT Home Med (Home Medication) (Finasteride 1 MG)- HAIR LOSS DAILY PO 11/10/24 09:00 12/10/24 08:59 Hydromorphone HCl (DiLAUDid 0.5MG INJ) 0.5 mg Q4H PRN IVP SEVERE PAIN (7-10) 11/08/24 12:00 11/13/24 11:59 DC 11/11/24 18:34 0.5 MG Hydromorphone HCl (DiLAUDid 0.5MG INJ) 0.5 mg Q4H PRN IVP SEVERE PAIN (7-10) 11/14/24 00:00 11/19/24 00:00 11/14/24 00:05 0.5 MG Insulin Human Regular (humuLIN R 100 UNIT/ML 3ML) INSULIN SLIDING SCAL... ACHS SQ 11/08/24 16:30 12/08/24 16:29 11/13/24 19:52 8 UNIT Iron Sucrose (VenoFER) 200 mg ONCE STAT IV 11/09/24 11:20 11/09/24 11:35 DC Lactulose (Constulose 20gm/ 30ml Udcup) 20 gm BID PRN PO CONSTIPATION 11/08/24 12:00 12/08/24 11:59 Lisinopril (Prinivil 5mg) 5 mg DAILY PO 11/10/24 09:00 12/10/24 08:59 11/12/24 08:37 5 MG Magnesium Sulfate 50 ml @ 0 mls/hr PROTOCOL PRN IV low mag level 11/08/24 12:00 12/08/24 11:59 11/11/24 05:34 25 MLS/HR Metformin HCl (glucoPHAGE) 1,000 mg BIDMEALS PO 11/09/24 17:00 12/09/24 16:59 11/13/24 19:03 1,000 MG Ondansetron HCl (zoFRAN 4MG INJ) 4 mg Q6H PRN IVP NAUSEA/VOMITING 11/08/24 12:00 12/08/24 11:59 11/08/24 23:06 4 MG Pioglitazone HCl (Actos 30mg) 30 mg DAILY PO 11/10/24 09:00 12/10/24 08:59 11/12/24 08:38 30 MG Piperacillin Sod/ Tazobactam Sod (Zosyn 3.375gm+NS 50ml) 3.375 gm Q8H IVPB 11/08/24 17:30 11/18/24 17:29 11/14/24 00:57 3.375 GM Potassium Chloride 100 ml @ 100 mls/hr AD PRN IV POTASSIUM PROTOCOL 11/08/24 12:00 12/08/24 11:59 11/14/24 05:27 100 MLS/HR Potassium Chloride (K-Dur/Klor-Con 20meq) 20 meq AD PRN PO POTASSIUM PROTOCOL 11/08/24 12:00 12/08/24 11:59 11/12/24 19:14 20 MEQ Potassium Chloride (KCl 10% Elixir 20meq/15ml) 20 meq AD PRN PO POTASSIUM PROTOCOL 11/08/24 12:00 12/08/24 11:59 Sodium Chloride 1,000 ml @ 75 mls/hr [id number] IV 11/08/24 12:00 12/08/24 11:59 11/14/24 00:57 75 MLS/HR Sodium Chloride 1,000 ml @ 100 mls/hr Q10H IV 11/10/24 12:30 11/10/24 15:29 DC Sodium Chloride (NS 50ml) 50 ml AD IV 11/08/24 21:00 11/08/24 11:59 DC Tamsulosin HCl (FloMAX) 0.4 mg DAILY PO 11/10/24 09:00 12/10/24 08:59 11/12/24 08:35 0.4 MG Vancomycin HCl 250 ml @ 125 mls/hr Q24H IV 11/10/24 12:00 11/12/24 11:49 DC 11/11/24 15:18 125 MLS/HR Vancomycin HCl 500 ml @ 250 mls/hr Q24H IV 11/12/24 12:00 11/22/24 11:59 11/13/24 15:57 250 MLS/HR Vancomycin HCl (Vancomycin Protocol) 1 each AD IV 11/09/24 11:30 11/23/24 11:29 Vancomycin HCl (Vancomycin 1g/ 250ml Kit) 1 gm Q12H IV 11/08/24 12:00 11/08/24 11:59 DC Diagnostics / Radiology: [COPY/PASTE HERE IF NO REPORTS PLEASE DELETE SECTION] Assessment: Positive FOBT Acute blood loss anemia PAD Plan: Anemia, likely multifactorial Will consider EGD in the next few days, pending clinical evolution Continue GI prophylaxis Advance diet as tolerated Avoid NSAIDs Antireflux measures Monitor H&H and transfuse as needed Call with questions, concerns or change in clinical status Patient to follow-up at clinic post discharge Thank you for this consult BEBO HERNANDEZ [employer] Nov 14, 2024 12:09
[2024-11-14] MEDS: ZOSYN 3.375GM +NS 50ML IVPB SCH (13:36)
[2024-11-14] MEDS ORDERED: MIDAZOLAM HCL 1 MG/ML 2ML VIAL ONE (16:47)
[2024-11-14] MEDS ORDERED: dexaMETHasone SOD PHOSPHATE 4 MG/ML 1ML VIAL ONE (16:47)
[2024-11-14] MEDS ORDERED: ondanSETRON 4MG INJ ONE (16:53)
[2024-11-14] MEDS ORDERED: phenylEPHRINE HCL 10 MG/ML 1ML VIAL IV ONE (16:53)
[2024-11-14] MEDS ORDERED: GLYCOPYRROLATE 0.2 MG/ML 5 ML VIAL ONE (18:22)
[2024-11-14] MEDS ORDERED: NEOSTIGMINE METHYLSULFATE 1MG/ML IV ONE (18:22)
--- NOTE | 2024-11-14 19:01 | PN ---
[facility] CARDIOLOGY PROGRESS NOTE Date Patient Seen: Nov 14, 2024 Time of Visit: 19:01 Interval History: [pending TCOM, above the knee amputation ] Physical Examination: GENERAL: No acute distress. HEAD: Normal with no signs of head trauma. EYES: PERRLA, EOMI, conjunctiva and sclera normal. ENT: Hearing grossly intact, normal oropharynx. NECK: Supple without JVD. There is no tenderness, lymphadenopathy, or masses. No thyromegaly. Normal carotid upstrokes without bruits. LUNGS: Clear breath sounds bilaterally. No wheezes, or rhonchi. HEART: Normal rate and rhythm. Normal S1 and S2 without murmurs, gallop or rub. VASC: Unable to palpate right DP or PT pulse due to dressing in place. ABD: Bowel sounds normal, soft, nontender, no masses, no organomegaly. No audible bruits. : Not examined LYMPH: No lymphadenopathy noted. EXT: No clubbing or cyanosis . Erythema noted to the RLE with trace edema. SKIN: No rashes or lesions noted. NEURO: Awake, alert, and oriented x3. No focal sensory or strength deficits noted. Laboratory: [ ] Hematology Labs: Test 11/14/24 04:15 Range/Units White Blood Count 4.7 L 4.8-10.8 K/uL Red Blood Count 3.06 L 4.50-6.20 MIL/uL Hemoglobin 8.2 L 14.0-18.0 g/dL Hematocrit 26.2 L 42-54 % Mean Corpuscular Volume 85.6 79-99 fL Mean Corpuscular Hemoglobin 26.8 L 27.0-33.0 pg Mean Corpuscular Hemoglobin Concent 31.3 L 32.0-36.0 g/dL Red Cell Distribution Width 15.4 11.0-15.5 % Platelet Count 212 130-400 K/uL Mean Platelet Volume 10.4 7.5-10.5 fL Immature Granulocyte % (Auto) 1.9 H 0-1 % Neutrophils (%) (Auto) 68.6 40.0-77.0 % Lymphocytes (%) (Auto) 20.4 L 21.0-51.0 % Monocytes (%) (Auto) 6.7 3.0-13.0 % Eosinophils (%) (Auto) 2.2 0.0-8.0 % Basophils (%) (Auto) 0.2 0.0-5.0 % Neutrophils # (Auto) 3.2 1.8-7.7 K/uL Lymphocytes # (Auto) 1.0 1.0-4.8 K/uL Monocytes # (Auto) 0.3 0.1-1.0 K/uL Eosinophils # (Auto) 0.10 0.00-0.70 K/uL Basophils # (Auto) 0.01 0.00-0.20 K/uL Absolute Immature Granulocyte (auto 0.09 0-1 K/uL Nucleated Red Blood Cells 0.0 0.0-0.19 % Chemistry Labs: Test 11/14/24 16:02 11/14/24 04:15 Range/Units Whole Blood Glucose 129 H 70-110 MG/DL Sodium Level 142 136-145 mmol/L Potassium Level 3.4 L 3.5-5.1 mmol/L Chloride Level 108 101-111 mmol/L Carbon Dioxide Level 23 21-32 mmol/L Blood Urea Nitrogen 9 7-18 mg/dL Creatinine 0.9 0.5-1.3 mg/dL Glomerular Filtration Rate Calc 89 >90 mL/min Random Glucose 110 H 70-105 mg/dL Total Calcium 7.5 L 8.5-10.1 mg/dL Coagulation Labs: Test 11/13/24 04:05 Range/Units Prothrombin Time 11.3 9.6-11.6 SEC Prothromb Time International Ratio 1.07 0.85-1.15 Activated Partial Thromboplast Time 32.5 26.3-35.5 SEC Diagnostics / Radiology: [Copy/Paste Echos/Imaging Report here] Impression and Plan: [PAD, Cm category of the RT TMA site RLE cellulitis and osteomyelitis Anemia HTN hld DM type II 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 -consulted Dr Reilly as a PAD specialist and patient underwent peripheral angiogram showing ---- diffuse 80% stenosis in the proximal and distal right superficial femoral artery, 100% ISR within the stent in the mid right superficial femoral artery status post successful treatment with balloon lithotripsy and drug coated balloon angioplasty, 70% stenosis in the right tibioperoneal artery, and 100% stenosis in the proximal, mid, and distal right peroneal artery status post successful treatment with balloon angioplasty and balloon lithotripsy, resulting in widely patent arteries, without dissection, perforation, and brisk two- vessel runoff supplying the anterior and posterior segments of the right pedal arch. --- Residual PAD, 100% stenosis in the proximal right anterior tibial artery and 100% stenosis in the proximal right posterior tibial artery --We will order TCOMs of the right foot to assess wound healing after the above- mentioned peripheral intervention, however, patient is requesting above the knee amputation --Continue with aggressive wound care Lynda Dow MD ] LYNDA DOW MD Nov 14, 2024 19:01
--- NOTE | 2024-11-14 20:45 | CONS ---
DATE OF SERVICE: 11/11/2024 CONSULTING PHYSICIAN: Thomas Guthrie MD and Marcelo Todd MD REASON FOR CONSULTATION: Possible right leg amputation. HISTORY OF PRESENT ILLNESS: This is a 74-year-old male patient with a history of multiple medical comorbidities, currently admitted for right foot infection. The patient has had right foot transmetatarsal amputation with nonhealing of the wound and gangrene present. The patient has already a history of left leg above the knee amputation done by me in the past, which has done well. The patient has noticed that the right foot wound after midfoot amputation has not been healing well and showing changes of gangrene. He complains of pain, swelling and redness also. The patient has been started on IV antibiotics. The patient has been evaluated by Cardiology in the past and they are unable to do any interventions to improve the circulation. PAST MEDICAL HISTORY: Positive for peripheral vascular disease, right foot osteomyelitis, left foot osteomyelitis, diabetes mellitus, hypertension, morbid obesity and peripheral vascular disease. PAST SURGICAL HISTORY: Including left leg above the knee amputation, right foot transmetatarsal amputation, multiple peripheral angiograms and interventions. ALLERGIES: None. MEDICATIONS: Reviewed. SOCIAL HISTORY: Does not smoke. Does not drink alcohol. No illegal drugs. FAMILY HISTORY: Positive for diabetes. REVIEW OF SYSTEMS: A 12-systems review of systems was obtained and is negative. PHYSICAL EXAMINATION: GENERAL: The patient is awake, alert and oriented x 3. VITAL SIGNS: Temperature 98.1, pulse 78, respiratory rate is 15 and blood pressure 148/73. HEENT: Normocephalic and atraumatic. NECK: No engorged vein. CHEST: Symmetric movement is seen. HEART: Regular rate and rhythm. ABDOMEN: Soft, nontender and nondistended. EXTREMITIES: Examination of the right foot, right lower extremity shows gangrene present along the stump of the right midfoot stump with transmetatarsal amputation present. Dorsalis pedis and posterior tibial absent. Right foot cool to touch. LABORATORY DATA: Investigations were reviewed. DIAGNOSTIC STUDIES: MRI of the right foot shows osteomyelitis of the multiple metatarsal bones. ASSESSMENT AND PLAN: The patient is a 74-year-old male patient with right foot stump osteomyelitis with acute peripheral vascular disease with nonhealing wound. I had a detailed conversation with the patient regarding his condition and told the treatment options available and the risks and benefits. All questions and concerns were answered in detail. The patient verbalized understanding and he preferred right leg above the knee amputation. All risks and benefits were explained in detail and informed consent was obtained. TID: [id number] RECEIPT: [id number] [id number]
[2024-11-14] MEDS: HYDROcodone/APAP 5/325 1 TAB TABLET PO PRN (21:37)
--- NOTE | 2024-11-14 22:20 | PN ---
INFECTIOUS DISEASE PROGRESS NOTE Date of Service: Nov 14, 2024 SUBJECTIVE: This is a 74-year-old male patient who was seen and examined at bedside in room 310. Patient is awake, alert and oriented x 2. Patient is s/p peripheral angiogram on 11/11/2023 with findings of peripheral artery disease. The right [id number] amputation was rescheduled for today and visit today procedure was still pending. Remains afebrile, temperature is 98.1. We will continue on vancomycin and Zosyn. PHYSICAL EXAM EYES: Anicteric. Pupils equal and reactive. HENT: No oral thrush seen, moist Oral mucosa. NECK: Supple, no JVD or thyromegaly. LUNGS: Good air entry. No rales, no rhonchi. CARDIOVASCULAR: S1, S2 regular. No murmur heard. ABDOMEN: Soft, non tender, bowel sounds present, no organomegaly. CENTRAL NERVOUS SYSTEM: Awake, alert, oriented x 3. SKIN: No rashes, no swelling. LYMPHATICS: No peripheral lymphadenopathy. MUSCULOSKELETAL: No joint swelling, erythema or tenderness. EXTREMITIES: No cyanosis or clubbing. BACK: No deformity, no pressure ulcer. GENITOURINARY: No dysuria or hematuria. Vital Sign (Last 12 Hours) 11/14/24 11/14/24 11/14/24 11/14/24 12:00 16:00 18:45 18:50 Temp 98.1 97.7 97.9 Pulse 56 65 56 59 Resp 19 20 15 16 B/P (MAP) 157/70 161/67 162/74 158/71 Pulse Ox 99 99 100 100 O2 Delivery Room Air Room Air Nonrebreathing Mask Nonrebreathing Mask O2 Flow Rate 10.0 10.0 FiO2 100 100 11/14/24 11/14/24 11/14/24 11/14/24 18:55 19:00 19:05 19:10 Pulse 60 59 59 62 Resp 16 15 15 14 B/P (MAP) 161/55 157/58 163/67 158/64 Pulse Ox 100 100 100 97 O2 Delivery Nonrebreathing Mask Nonrebreathing Mask Nonrebreathing Mask Nasal Cannula O2 Flow Rate 10.0 10.0 10.0 2.0 FiO2 100 100 100 24 11/14/24 11/14/24 11/14/24 11/14/24 19:15 19:20 19:25 19:30 Temp 98.1 Pulse 60 59 61 60 Resp 16 15 15 15 B/P (MAP) 162/70 161/67 157/73 159/68 Pulse Ox 97 97 96 96 O2 Delivery Nasal Cannula Nasal Cannula Nasal Cannula Nasal Cannula O2 Flow Rate 2.0 2.0 2.0 2.0 FiO2 24 24 24 24 11/14/24 11/14/24 11/14/24 11/14/24 19:35 19:50 20:05 20:19 Pulse 60 61 67 Resp 19 B/P (MAP) 165/81 152/71 152/77 152/71 Pulse Ox 96 97 98 O2 Delivery Nasal Cannula Nasal Cannula Nasal Cannula O2 Flow Rate 2.0 2.0 2.0 11/14/24 11/14/24 11/14/24 20:20 20:50 21:20 Pulse 61 63 63 B/P (MAP) 170/77 166/71 158/89 Pulse Ox 96 98 98 O2 Delivery Nasal Cannula Nasal Cannula Room Air O2 Flow Rate 2.0 2.0 Intake & Output (last 24hrs) 11/13/24 11/13/24 11/14/24 15:00 23:00 07:00 Intake Total 150 ml 1244.0 ml Output Total 200 ml 710 ml Balance -50 ml 534.0 ml LABS: Laboratory: Test 11/14/24 19:41 11/14/24 04:15 11/13/24 04:05 Range/Units Whole Blood Glucose 165 H 70-110 MG/DL White Blood Count 4.7 L 4.8-10.8 K/uL Red Blood Count 3.06 L 4.50-6.20 MIL/uL Hemoglobin 8.2 L 14.0-18.0 g/dL Hematocrit 26.2 L 42-54 % Mean Corpuscular Volume 85.6 79-99 fL Mean Corpuscular Hemoglobin 26.8 L 27.0-33.0 pg Mean Corpuscular Hemoglobin Concent 31.3 L 32.0-36.0 g/dL Red Cell Distribution Width 15.4 11.0-15.5 % Platelet Count 212 130-400 K/uL Mean Platelet Volume 10.4 7.5-10.5 fL Immature Granulocyte % (Auto) 1.9 H 0-1 % Neutrophils (%) (Auto) 68.6 40.0-77.0 % Lymphocytes (%) (Auto) 20.4 L 21.0-51.0 % Monocytes (%) (Auto) 6.7 3.0-13.0 % Eosinophils (%) (Auto) 2.2 0.0-8.0 % Basophils (%) (Auto) 0.2 0.0-5.0 % Neutrophils # (Auto) 3.2 1.8-7.7 K/uL Lymphocytes # (Auto) 1.0 1.0-4.8 K/uL Monocytes # (Auto) 0.3 0.1-1.0 K/uL Eosinophils # (Auto) 0.10 0.00-0.70 K/uL Basophils # (Auto) 0.01 0.00-0.20 K/uL Absolute Immature Granulocyte (auto 0.09 0-1 K/uL Nucleated Red Blood Cells 0.0 0.0-0.19 % Sodium Level 142 136-145 mmol/L Potassium Level 3.4 L 3.5-5.1 mmol/L Chloride Level 108 101-111 mmol/L Carbon Dioxide Level 23 21-32 mmol/L Blood Urea Nitrogen 9 7-18 mg/dL Creatinine 0.9 0.5-1.3 mg/dL Glomerular Filtration Rate Calc 89 >90 mL/min Random Glucose 110 H 70-105 mg/dL Total Calcium 7.5 L 8.5-10.1 mg/dL Prothrombin Time 11.3 9.6-11.6 SEC Prothromb Time International Ratio 1.07 0.85-1.15 Activated Partial Thromboplast Time 32.5 26.3-35.5 SEC ASSESSMENT: Right foot TMA stump infection and osteomyelitis. Polymicrobial infection. Anemia. Diabetes mellitus. Peripheral vascular disease, status post peripheral angiogram on 11/10/2024. Debility. PLAN: Continue vancomycin per pharmacy protocol. Continue Zosyn IV. Continue monitoring hemoglobin. Continue the diabetics. Continue pain management. Right [id number] amputation was rescheduled for today and pending. This case was reviewed and discussed with my supervising physician and the above assessment and plan was formulated and agreed upon. ATTESTATION BY PHYSICIAN I have seen and examined the patient. I reviewed the documentation, medical decision making, and treatment plan as noted by the mid-level provider above. I agree with the findings and plan of care. FABIANOEDUARDO ARRIAGA MD, [facility] Nov 14, 2024 22:20
[2024-11-14] MEDS: acetaMINOPHEN 325 MG TAB PO PRN (23:07)
[2024-11-15] VITALS (9 sets, daily range): BP systolic 133–172; BP diastolic 58–90; PULSE 62–95; RESP 18–20; TEMP 97.9–98.5; O2SAT 98–99
[2024-11-15 04:43] LABS: BASOPHILS # (AUTO) 0.03 K/uL (0.00-0.20); BASOPHILS % (AUTO) 0.3 % (0.0-5.0); EOSINOPHILS # (AUTO) 0.01 K/uL (0.00-0.70); EOSINOPHILS % (AUTO) 0.1 % (0.0-8.0); HEMATOCRIT 31.4 % (42-54); IMMATURE GRANULOCYTE ABSOLUTE 0.28 K/uL (0-1); LYMPHOCYTES % (AUTO) 8.7 % (21.0-51.0); MEAN CORPUSCULAR HEMOGLOBIN 27.2 pg (27.0-33.0); MEAN CORPUSCULAR HGB CONC 31.8 g/dL (32.0-36.0); MEAN CORPUSCULAR VOLUME 85.3 fL (79-99); MONOCYTES # (AUTO) 0.2 K/uL (0.1-1.0); MONOCYTES % (AUTO) 2.1 % (3.0-13.0); NEUTROPHILS # (AUTO) 9.5 K/uL (1.8-7.7); NEUTROPHILS % (AUTO) 86.2 % (40.0-77.0); PLATELET COUNT (AUTO) 254 K/uL (130-400); RED BLOOD CELL COUNT(AUTO) 3.68 MIL/uL (4.50-6.20); RED CELL DISTRIBUTION WIDTH 15.8 % (11.0-15.5)
[2024-11-15 05:06] LABS: POTASSIUM 4.1 mmol/L (3.5-5.1)
--- NOTE | 2024-11-15 08:58 | PN ---
GASTROENTEROLOGY PROGRESS NOTE Date of Visit: Nov 15, 2024 Time of Visit: 08:58 Events / Notes: [ ] Review of Systems: CONSTITUTIONAL: No malaise or change in sensation of wellbeing. ENMT: No rhinorrhea, otorrhea, sinus pain, ear ache. CARDIOVASCULAR: No angina, palpitations, orthopnea or paroxysmal dyspnea. RESPIRATORY: No SOB. GASTROINTESTINAL: No abdominal pain, nausea, vomiting, diarrhea, hematemesis, melena or change in the patient's habitual bowel movements consistency/number. GENITOURINARY: No dysuria, hematuria or change in bladder continence. MUSCULOSKELETAL: No new muscle pain or decrease in muscular strength. No new joint swelling, redness or tenderness. SKIN: No new rash. Physical Exam: GEN: Awake, alert, oriented in person, time and place, and in no acute distress. HEENT: No sinus tenderness. Tympanic membranes were not examined. No rhinorrhea. Oral pharyngeal mucosa is pink, moist and within normal limits. Neck is supple with no cervical lymphadenopathy, thyromegaly or JVD. CHEST: Inspection, palpation and percussion of the chest were unremarkable. Lung auscultation revealed normal breath sounds bilaterally. CARDIAC: PMI is within normal limits. Heart sounds are regular. Normal S1, S2. No gallop or murmur. ABD: Soft, non-tender and not distended. No peritoneal signs on palpation. No organomegaly. Normal bowel sounds. EXT: No cyanosis or clubbing. No edema. SKIN: Intact. No rashes. JOINTS: No evidence of synovitis or acute arthritis. NEURO: Alert and oriented to name, place and person. Cranial nerve examination is unremarkable. No focal motor deficits. Normal speech. Gait is normal. Strength is normal. Vital Signs (last 8hr) Date Time Temp Pulse Resp B/P (MAP) Pulse Ox O2 Delivery O2 Flow Rate FiO2 11/15/24 08:09 155/68 11/15/24 08:00 98.1 82 18 147/71 99 Nasal Cannula 2.0 11/15/24 04:00 97.9 62 19 153/63 100 Nasal Cannula 2.0 11/15/24 01:20 76 163/90 100 Nasal Cannula 2.0 Laboratory: [ ] Laboratory: Test 11/15/24 05:39 11/15/24 04:22 Range/Units Whole Blood Glucose 178 H 70-110 MG/DL White Blood Count 11.0 H 4.8-10.8 K/uL Red Blood Count 3.68 L 4.50-6.20 MIL/uL Hemoglobin 10.0 #L 14.0-18.0 g/dL Hematocrit 31.4 L 42-54 % Mean Corpuscular Volume 85.3 79-99 fL Mean Corpuscular Hemoglobin 27.2 27.0-33.0 pg Mean Corpuscular Hemoglobin Concent 31.8 L 32.0-36.0 g/dL Red Cell Distribution Width 15.8 H 11.0-15.5 % Platelet Count 254 130-400 K/uL Mean Platelet Volume 10.0 7.5-10.5 fL Immature Granulocyte % (Auto) 2.6 H 0-1 % Neutrophils (%) (Auto) 86.2 H 40.0-77.0 % Lymphocytes (%) (Auto) 8.7 L 21.0-51.0 % Monocytes (%) (Auto) 2.1 L 3.0-13.0 % Eosinophils (%) (Auto) 0.1 0.0-8.0 % Basophils (%) (Auto) 0.3 0.0-5.0 % Neutrophils # (Auto) 9.5 H 1.8-7.7 K/uL Lymphocytes # (Auto) 1.0 1.0-4.8 K/uL Monocytes # (Auto) 0.2 0.1-1.0 K/uL Eosinophils # (Auto) 0.01 0.00-0.70 K/uL Basophils # (Auto) 0.03 0.00-0.20 K/uL Absolute Immature Granulocyte (auto 0.28 0-1 K/uL Nucleated Red Blood Cells 0.0 0.0-0.19 % White Cell Morphology Comment See comments Sodium Level 137 136-145 mmol/L Potassium Level 4.1 3.5-5.1 mmol/L Chloride Level 102 101-111 mmol/L Carbon Dioxide Level 14 L 21-32 mmol/L Blood Urea Nitrogen 16 7-18 mg/dL Creatinine 1.0 0.5-1.3 mg/dL Glomerular Filtration Rate Calc 78 >90 mL/min Random Glucose 194 H 70-105 mg/dL Total Calcium 7.7 L 8.5-10.1 mg/dL Current Medications Medications (Trade) Dose Ordered Sig/Jermain Route PRN Reason Start Time Stop Time Status Last Admin Dose Admin Acetaminophen (TYLenol 325MG TAB) 650 mg Q4H PRN PO TEMPERATURE GREATER THAN 101.5 11/08/24 12:00 12/08/24 11:59 11/14/24 23:07 650 MG Acetaminophen/ Hydrocodone Bitart (NORco 5/325MG) 1 tab Q6H PRN PO MODERATE PAIN (4-6) 11/14/24 20:00 11/19/24 19:59 11/15/24 03:44 1 TAB Aspirin (Aspirin 81mg Ec Tab) 81 mg DAILY PO 11/10/24 09:00 12/10/24 08:59 11/15/24 08:10 81 MG Atorvastatin Calcium (LIPItor 40MG) 40 mg DAILY PO 11/10/24 09:00 12/10/24 08:59 11/15/24 08:09 40 MG Carvedilol (Coreg 3.125MG) 3.125 mg BID PO 11/09/24 21:00 12/09/24 20:59 11/15/24 08:09 3.125 MG Clopidogrel Bisulfate (plaVIX 75MG) 75 mg DAILY PO 11/10/24 09:00 12/10/24 08:59 11/15/24 08:10 75 MG Dextrose (D50w) 50 ml AD PRN IV HYPOGLYCEMIA PROTOCOL 11/10/24 12:30 12/10/24 12:29 Empaglifozin (Jardiance 25mg) 25 mg DAILY PO 11/10/24 09:00 12/10/24 08:59 11/15/24 08:10 25 MG Famotidine (Pepcid 20mg Vial) 20 mg DAILY IV 11/09/24 09:00 12/09/24 08:59 11/15/24 08:09 20 MG Ferrous Sulfate (Ferrous Sulfate) 325 mg QODAY PO 11/11/24 09:00 12/11/24 08:59 11/15/24 08:10 325 MG Glucagon (Glucagon 1mg Kit) 1 mg AD PRN IM HYPOGLYCEMIA PROTOCOL 11/10/24 12:30 12/10/24 12:29 Heparin Sodium (Porcine) (HEParin 5,000 UNIT VIAL) 5,000 unit Q12H SQ 11/08/24 12:30 12/08/24 12:29 11/13/24 23:52 5,000 UNIT Home Med (Home Medication) (Finasteride 1 MG)- HAIR LOSS DAILY PO 11/10/24 09:00 12/10/24 08:59 Hydromorphone HCl (DiLAUDid 0.5MG INJ) 0.5 mg Q4H PRN IVP SEVERE PAIN (7-10) 11/08/24 12:00 11/13/24 11:59 DC 11/11/24 18:34 0.5 MG Hydromorphone HCl (DiLAUDid 0.5MG INJ) 0.5 mg Q4H PRN IVP SEVERE PAIN (7-10) 11/14/24 00:00 11/19/24 00:00 11/14/24 13:46 0.5 MG Insulin Human Regular (humuLIN R 100 UNIT/ML 3ML) INSULIN SLIDING SCAL... ACHS SQ 11/08/24 16:30 12/08/24 16:29 11/15/24 06:08 4 UNIT Iron Sucrose (VenoFER) 200 mg ONCE STAT IV 11/09/24 11:20 11/09/24 11:35 DC Lactulose (Constulose 20gm/ 30ml Udcup) 20 gm BID PRN PO CONSTIPATION 11/08/24 12:00 12/08/24 11:59 Lisinopril (Prinivil 5mg) 5 mg DAILY PO 11/10/24 09:00 12/10/24 08:59 11/15/24 08:10 5 MG Magnesium Sulfate 50 ml @ 0 mls/hr PROTOCOL PRN IV low mag level 11/08/24 12:00 12/08/24 11:59 11/11/24 05:34 25 MLS/HR Metformin HCl (glucoPHAGE) 1,000 mg BIDMEALS PO 11/09/24 17:00 12/09/24 16:59 11/15/24 08:10 1,000 MG Ondansetron HCl (zoFRAN 4MG INJ) 4 mg Q6H PRN IVP NAUSEA/VOMITING 11/08/24 12:00 12/08/24 11:59 11/08/24 23:06 4 MG Pioglitazone HCl (Actos 30mg) 30 mg DAILY PO 11/10/24 09:00 12/10/24 08:59 11/15/24 08:10 30 MG Piperacillin Sod/ Tazobactam Sod (Zosyn 3.375gm+NS 50ml) 3.375 gm Q8H IVPB 11/08/24 17:30 11/14/24 13:27 DC 11/14/24 00:57 3.375 GM Piperacillin Sod/ Tazobactam Sod (Zosyn 3.375gm+NS 50ml) 3.375 gm Q8H IVPB 11/14/24 13:30 11/18/24 13:29 11/15/24 05:07 3.375 GM Potassium Chloride 100 ml @ 100 mls/hr AD PRN IV POTASSIUM PROTOCOL 11/08/24 12:00 12/08/24 11:59 11/14/24 05:27 100 MLS/HR Potassium Chloride (K-Dur/Klor-Con 20meq) 20 meq AD PRN PO POTASSIUM PROTOCOL 11/08/24 12:00 12/08/24 11:59 11/12/24 19:14 20 MEQ Potassium Chloride (KCl 10% Elixir 20meq/15ml) 20 meq AD PRN PO POTASSIUM PROTOCOL 11/08/24 12:00 12/08/24 11:59 Sodium Chloride 1,000 ml @ 75 mls/hr [id number] IV 11/08/24 12:00 12/08/24 11:59 11/15/24 02:15 75 MLS/HR Sodium Chloride 1,000 ml @ 100 mls/hr Q10H IV 11/10/24 12:30 11/10/24 15:29 DC Sodium Chloride (NS 50ml) 50 ml AD IV 11/08/24 21:00 11/08/24 11:59 DC Tamsulosin HCl (FloMAX) 0.4 mg DAILY PO 11/10/24 09:00 12/10/24 08:59 11/15/24 08:09 0.4 MG Vancomycin HCl 250 ml @ 125 mls/hr Q24H IV 11/10/24 12:00 11/12/24 11:49 DC 11/11/24 15:18 125 MLS/HR Vancomycin HCl 500 ml @ 250 mls/hr Q24H IV 11/12/24 12:00 11/22/24 11:59 11/14/24 13:36 250 MLS/HR Vancomycin HCl (Vancomycin Protocol) 1 each AD IV 11/09/24 11:30 5/1/25 11:29 Vancomycin HCl (Vancomycin 1g/ 250ml Kit) 1 gm Q12H IV 11/08/24 12:00 11/08/24 11:59 DC Diagnostics / Radiology: [COPY/PASTE HERE IF NO REPORTS PLEASE DELETE SECTION] Assessment: Positive FOBT Acute blood loss anemia PAD Plan: Anemia, likely multifactorial Will consider EGD in the next few days, pending clinical evolution Continue GI prophylaxis Advance diet as tolerated Avoid NSAIDs Antireflux measures Monitor H&H and transfuse as needed Call with questions, concerns or change in clinical status Patient to follow-up at clinic post discharge Thank you for this consult BEBO HERNANDEZ [employer] REVIEW [employer]ICER Nov 15, 2024 08:58
--- NOTE | 2024-11-15 09:10 | PN ---
[facility] PROGRESS NOTE Date of Service: Nov 15, 2024 Time of Service: 09:07 SUBJECTIVE: This is a 74-year-old male with PMH of Left BKA , Rt TMA(5 years ) , PAD, DM, HTN, bowel perforation s/p bowel repair in 07/18 presented to ED with chief complaints of right foot pain. Patient has a chronic open wound to his right foot TMA stump. Pain scale 10/10. Aggravated factors movement, alleviating factors none. There is redness noted with eschar to open wound with minimal drainage. There is no surrounding edema but redness extending to mid leg level . No foul odor noted. Reports having fevers subjective. At the time of presentation , Vitals : T 99.3,HR 104, R 20, BP 143/75/99%RA.He was admitted for further evaluation and management of his wound . 4.17.25: Patient has low grade fevers. He denies pain at the rt TMA site. Wound dressing in place. MRI foot showed rt stump 1 and 2 osteomyelitis .Podiatry recommended possible amputation. LE artery doppler studies pending . ID and Cardiology consults placed. 25: Patient c/o pain in rt lower extremity . S/p peripheral angiogram by Dr Reilly- JUSTINE, [place] category 6 symptoms (right lower extremity), diffuse 80% stenosis in the proximal and distal right superficial femoral artery, 100% ISR within the stent in the mid right superficial femoral artery status post successful treatment with balloon lithotripsy and drug coated balloon angioplasty, 70% stenosis in the right tibioperoneal artery, and 100% stenosis in the proximal, mid, and distal right peroneal artery status post successful treatment with balloon angioplasty and balloon lithotripsy, resulting in widely patent arteries. There is residual PAD, 100% stenosis in the proximal right anterior tibial artery and 100% stenosis in the proximal right posterior tibial artery.Pending TCOM assessment .Patient tolerated the procedure well . 11.11.25: Patient s/p rt LE peripheral artery angioplasty. Uneventful post procedure course. Hb dropping -asymptomatic: treated with IV iron .TCOM evaluation pending (not till Wednesday as wound center is close on weekend),Ortho evaluation for possible stump revision pending. 25 : The patient is seen and examined today. No new complaints. His potassium is 3.3 And is being replaced. His hemoglobin went up from 8.6-10.7. The plan is for right above-knee amputation by Dr. Cotter tomorrow. 11.13.24: Patient seen resting in bed. Pending Rt AKA scheduled for later today . Patient has no concerns at this time .Stool occult blood positive . Will consult gastroenterology for drop in hemoglobin and positive stool occult blood . Case management and psychotherapist social worker on board . 11.14.24: Patient is pending Rt AKA by Dr Cotter today. He is receiving 1 unit of RBC now and is tolerating blood transfusion ,. Case managemnt on board for rehabilitation and placement. He has no concerns at this time . 11.15.24: Patient s/p AKA by Dr cotter. His vitals and labs are stable. Surgical site dressing clean . Pain adequately controlled. Heis in NAD. Case management on board for rehabilitation and placement. REVIEW OF SYSTEMS a 14 ROS obtained all relevant positive documented otherwise ROS negative PHYSICAL EXAM GENERAL APPEARANCE: The patient is awake, alert, and oriented, in no acute cardiopulmonary distress. NEUROLOGICAL: Cranial nerves II-XII grossly intact. Motor is 5/5 in bilateral upper and lower extremities proximal to distal. No sensory deficits. HEENT: Face is symmetric. Pupils are equal and reactive. Extraocular movements are intact. NECK: Supple. No JVD. No thyromegaly. No submental, submandibular, pre- /postauricular, occipital or supraclavicular lymphadenopathy. CHEST: Normal chest expansion. No Telemetry. LUNGS: Absence of any rales, rhonchi or any wheezing. CARDIOVASCULAR: Regular. S1 and S2 normal. No appreciable rubs, murmurs or gallops. ABDOMEN: Soft, nontender, and nondistended. There is no rebound, voluntary guarding, or rigidity. : Deferred. No Jaramillo. EXTREMITIES: Right foot; TMA open wound with eschar, minimal drainage,redness extending to mid leg, left BKA status SKIN: No skin breakdown. Vital Signs (last 8hr) Date Time Temp Pulse Resp B/P (MAP) Pulse Ox O2 Delivery O2 Flow Rate FiO2 11/15/24 08:09 155/68 11/15/24 08:00 98.1 82 18 147/71 99 Nasal Cannula 2.0 11/15/24 04:00 97.9 62 19 153/63 100 Nasal Cannula 2.0 11/15/24 01:20 76 163/90 100 Nasal Cannula 2.0 LABS: Laboratory: Test 11/15/24 05:39 11/15/24 04:22 Range/Units Whole Blood Glucose 178 H 70-110 MG/DL White Blood Count 11.0 H 4.8-10.8 K/uL Red Blood Count 3.68 L 4.50-6.20 MIL/uL Hemoglobin 10.0 #L 14.0-18.0 g/dL Hematocrit 31.4 L 42-54 % Mean Corpuscular Volume 85.3 79-99 fL Mean Corpuscular Hemoglobin 27.2 27.0-33.0 pg Mean Corpuscular Hemoglobin Concent 31.8 L 32.0-36.0 g/dL Red Cell Distribution Width 15.8 H 11.0-15.5 % Platelet Count 254 130-400 K/uL Mean Platelet Volume 10.0 7.5-10.5 fL Immature Granulocyte % (Auto) 2.6 H 0-1 % Neutrophils (%) (Auto) 86.2 H 40.0-77.0 % Lymphocytes (%) (Auto) 8.7 L 21.0-51.0 % Monocytes (%) (Auto) 2.1 L 3.0-13.0 % Eosinophils (%) (Auto) 0.1 0.0-8.0 % Basophils (%) (Auto) 0.3 0.0-5.0 % Neutrophils # (Auto) 9.5 H 1.8-7.7 K/uL Lymphocytes # (Auto) 1.0 1.0-4.8 K/uL Monocytes # (Auto) 0.2 0.1-1.0 K/uL Eosinophils # (Auto) 0.01 0.00-0.70 K/uL Basophils # (Auto) 0.03 0.00-0.20 K/uL Absolute Immature Granulocyte (auto 0.28 0-1 K/uL Nucleated Red Blood Cells 0.0 0.0-0.19 % White Cell Morphology Comment See comments Sodium Level 137 136-145 mmol/L Potassium Level 4.1 3.5-5.1 mmol/L Chloride Level 102 101-111 mmol/L Carbon Dioxide Level 14 L 21-32 mmol/L Blood Urea Nitrogen 16 7-18 mg/dL Creatinine 1.0 0.5-1.3 mg/dL Glomerular Filtration Rate Calc 78 >90 mL/min Random Glucose 194 H 70-105 mg/dL Total Calcium 7.7 L 8.5-10.1 mg/dL Current Medications Medications (Trade) Dose Ordered Sig/Jermain Route PRN Reason Start Time Stop Time Status Last Admin Dose Admin Acetaminophen (TYLenol 325MG TAB) 650 mg Q4H PRN PO TEMPERATURE GREATER THAN 101.5 11/08/24 12:00 12/08/24 11:59 11/14/24 23:07 650 MG Acetaminophen/ Hydrocodone Bitart (NORco 5/325MG) 1 tab Q6H PRN PO MODERATE PAIN (4-6) 11/14/24 20:00 11/19/24 19:59 11/15/24 03:44 1 TAB Aspirin (Aspirin 81mg Ec Tab) 81 mg DAILY PO 11/10/24 09:00 12/10/24 08:59 11/15/24 08:10 81 MG Atorvastatin Calcium (LIPItor 40MG) 40 mg DAILY PO 11/10/24 09:00 12/10/24 08:59 11/15/24 08:09 40 MG Carvedilol (Coreg 3.125MG) 3.125 mg BID PO 11/09/24 21:00 12/09/24 20:59 11/15/24 08:09 3.125 MG Clopidogrel Bisulfate (plaVIX 75MG) 75 mg DAILY PO 11/10/24 09:00 12/10/24 08:59 11/15/24 08:10 75 MG Dextrose (D50w) 50 ml AD PRN IV HYPOGLYCEMIA PROTOCOL 11/10/24 12:30 12/10/24 12:29 Empaglifozin (Jardiance 25mg) 25 mg DAILY PO 11/10/24 09:00 12/10/24 08:59 11/15/24 08:10 25 MG Famotidine (Pepcid 20mg Vial) 20 mg DAILY IV 11/09/24 09:00 12/09/24 08:59 11/15/24 08:09 20 MG Ferrous Sulfate (Ferrous Sulfate) 325 mg QODAY PO 11/11/24 09:00 12/11/24 08:59 11/15/24 08:10 325 MG Glucagon (Glucagon 1mg Kit) 1 mg AD PRN IM HYPOGLYCEMIA PROTOCOL 11/10/24 12:30 12/10/24 12:29 Heparin Sodium (Porcine) (HEParin 5,000 UNIT VIAL) 5,000 unit Q12H SQ 11/08/24 12:30 12/08/24 12:29 11/13/24 23:52 5,000 UNIT Home Med (Home Medication) (Finasteride 1 MG)- HAIR LOSS DAILY PO 11/10/24 09:00 12/10/24 08:59 Hydromorphone HCl (DiLAUDid 0.5MG INJ) 0.5 mg Q4H PRN IVP SEVERE PAIN (7-10) 11/08/24 12:00 11/13/24 11:59 DC 11/11/24 18:34 0.5 MG Hydromorphone HCl (DiLAUDid 0.5MG INJ) 0.5 mg Q4H PRN IVP SEVERE PAIN (7-10) 11/14/24 00:00 11/19/24 00:00 11/14/24 13:46 0.5 MG Insulin Human Regular (humuLIN R 100 UNIT/ML 3ML) INSULIN SLIDING SCAL... ACHS SQ 11/08/24 16:30 12/08/24 16:29 11/15/24 06:08 4 UNIT Iron Sucrose (VenoFER) 200 mg ONCE STAT IV 11/09/24 11:20 11/09/24 11:35 DC Lactulose (Constulose 20gm/ 30ml Udcup) 20 gm BID PRN PO CONSTIPATION 11/08/24 12:00 12/08/24 11:59 Lisinopril (Prinivil 5mg) 5 mg DAILY PO 11/10/24 09:00 12/10/24 08:59 11/15/24 08:10 5 MG Magnesium Sulfate 50 ml @ 0 mls/hr PROTOCOL PRN IV low mag level 11/08/24 12:00 12/08/24 11:59 11/11/24 05:34 25 MLS/HR Metformin HCl (glucoPHAGE) 1,000 mg BIDMEALS PO 11/09/24 17:00 12/09/24 16:59 11/15/24 08:10 1,000 MG Ondansetron HCl (zoFRAN 4MG INJ) 4 mg Q6H PRN IVP NAUSEA/VOMITING 11/08/24 12:00 12/08/24 11:59 11/08/24 23:06 4 MG Pioglitazone HCl (Actos 30mg) 30 mg DAILY PO 11/10/24 09:00 12/10/24 08:59 11/15/24 08:10 30 MG Piperacillin Sod/ Tazobactam Sod (Zosyn 3.375gm+NS 50ml) 3.375 gm Q8H IVPB 11/08/24 17:30 11/14/24 13:27 DC 11/14/24 00:57 3.375 GM Piperacillin Sod/ Tazobactam Sod (Zosyn 3.375gm+NS 50ml) 3.375 gm Q8H IVPB 11/14/24 13:30 11/18/24 13:29 11/15/24 05:07 3.375 GM Potassium Chloride 100 ml @ 100 mls/hr AD PRN IV POTASSIUM PROTOCOL 11/08/24 12:00 12/08/24 11:59 11/14/24 05:27 100 MLS/HR Potassium Chloride (K-Dur/Klor-Con 20meq) 20 meq AD PRN PO POTASSIUM PROTOCOL 11/08/24 12:00 12/08/24 11:59 11/12/24 19:14 20 MEQ Potassium Chloride (KCl 10% Elixir 20meq/15ml) 20 meq AD PRN PO POTASSIUM PROTOCOL 11/08/24 12:00 12/08/24 11:59 Sodium Chloride 1,000 ml @ 75 mls/hr [id number] IV 11/08/24 12:00 12/08/24 11:59 11/15/24 02:15 75 MLS/HR Sodium Chloride 1,000 ml @ 100 mls/hr Q10H IV 11/10/24 12:30 11/10/24 15:29 DC Sodium Chloride (NS 50ml) 50 ml AD IV 11/08/24 21:00 11/08/24 11:59 DC Tamsulosin HCl (FloMAX) 0.4 mg DAILY PO 11/10/24 09:00 12/10/24 08:59 11/15/24 08:09 0.4 MG Vancomycin HCl 250 ml @ 125 mls/hr Q24H IV 11/10/24 12:00 11/12/24 11:49 DC 11/11/24 15:18 125 MLS/HR Vancomycin HCl 500 ml @ 250 mls/hr Q24H IV 11/12/24 12:00 11/22/24 11:59 11/14/24 13:36 250 MLS/HR Vancomycin HCl (Vancomycin Protocol) 1 each AD IV 11/09/24 11:30 11/23/24 11:29 Vancomycin HCl (Vancomycin 1g/ 250ml Kit) 1 gm Q12H IV 11/08/24 12:00 11/08/24 11:59 DC DIAGNOSTICS / RADIOLOGY: [ ] ASSESSMENT: Sepsis: POA Rt foot tma stump osteomyelitis,poa 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, drainage POA intractable pain right foot POA Severe PAD Poa Iron deficiency anemia with drop in hemoglobin , POA Uncontrolled diabetes type 2 POA Obesity BMI: 33 Immobility secondary to left AKA, and limited functional to right foot: POA Hypomagnesemia,POA PLAN: Sepsis: POA -resolved Tachycardia, CRP elevated ,subjective feversat the time pf admission Continue on Zosyn, Vancomycin (pharmacy to dose) ID on board Blood cultures negative Rt foot TMA stump osteomyelitis ,POA,s/p Right AKA by Dr Cotter on 11.14.24 Intractable pain right foot POA wound cultures growing Klebsiella pneumoniae, Enterococcus faecalis, MRSA - sen sitive to vancomycin Continue with IV Zosyn and IV vancomycin empirically Podiatry on board NSQIP surgical risk assessment score - below average risk for post surgical complications Patient stable PAD, [place] category 6 symptoms (right lower extremity),POA -S/p peripheral angiogram by Dr Reilly- , diffuse 80% stenosis in the proximal and distal right superficial femoral artery, 100% ISR within the stent in the mid right superficial femoral artery status post successful treatment with balloon lithotripsy and drug coated balloon angioplasty, 70% stenosis in the right tibioperoneal artery, and 100% stenosis in the proximal, mid, and distal right peroneal artery status post successful treatment with balloon angioplasty and balloon lithotripsy, resulting in widely patent arteries. There is residual PAD, 100% stenosis in the proximal right anterior tibial artery and 100% stenosis in the proximal right posterior tibial artery. Pending TCOM assessment . Continue Aspirin 81 mg daily and clopidogrel 75 mg daily for a minimum of six months and optimally one year. -pain management with hydromorphone -plan is for right [id number] amputation with Dr. Cotter - patient is NPO . psychotherapist social worker and case management consulted Uncontrolled diabetes type 2 POA HbA1C 9.2 resumed home medications insulin as per sliding scale Iron deficiency anemia with drop in hemoglobin , POA Started on IV iron Tsat 6.4% Stool occult blood positive GI recommended EGD later DVT ppx with Heparin GI ppx with Famotidine ATTESTATION BY PHYSICIAN I have seen and examined the patient. I reviewed the documentation, medical decision making, and treatment plan as noted by the resident provider above. I agree with the findings and plan of care. Marlon Nelson MD, ANCHU A MD Nov 15, 2024 09:10
--- NOTE | 2024-11-15 09:23 | PN ---
[facility] CARDIOLOGY PROGRESS NOTE Cardiology progress note dictated for Lynda Dow MD Date Patient Seen: Nov 15, 2024 Interval History: The patient is s/p Rt BKA on 11/14/2024. He denies RLE pain, dressing in place. Physical Examination: GENERAL: No acute distress. HEAD: Normal with no signs of head trauma. EYES: PERRLA, EOMI, conjunctiva and sclera normal. NECK: Supple without JVD. There is no tenderness, lymphadenopathy, or masses. No thyromegaly. Normal carotid upstrokes without bruits. LUNGS: Clear breath sounds bilaterally. No wheezes, or rhonchi. HEART: Normal rate and rhythm. Normal S1 and S2 without murmurs, gallop or rub. VASC: BLE AKA's. Right AKA with dressing in place. EXT: No clubbing, cyanosis or edema. NEURO: Awake, alert, and oriented x3. No focal neurological deficits noted. Laboratory: Hematology Labs: Test 11/15/24 04:22 Range/Units White Blood Count 11.0 H 4.8-10.8 K/uL Red Blood Count 3.68 L 4.50-6.20 MIL/uL Hemoglobin 10.0 #L 14.0-18.0 g/dL Hematocrit 31.4 L 42-54 % Mean Corpuscular Volume 85.3 79-99 fL Mean Corpuscular Hemoglobin 27.2 27.0-33.0 pg Mean Corpuscular Hemoglobin Concent 31.8 L 32.0-36.0 g/dL Red Cell Distribution Width 15.8 H 11.0-15.5 % Platelet Count 254 130-400 K/uL Mean Platelet Volume 10.0 7.5-10.5 fL Immature Granulocyte % (Auto) 2.6 H 0-1 % Neutrophils (%) (Auto) 86.2 H 40.0-77.0 % Lymphocytes (%) (Auto) 8.7 L 21.0-51.0 % Monocytes (%) (Auto) 2.1 L 3.0-13.0 % Eosinophils (%) (Auto) 0.1 0.0-8.0 % Basophils (%) (Auto) 0.3 0.0-5.0 % Neutrophils # (Auto) 9.5 H 1.8-7.7 K/uL Lymphocytes # (Auto) 1.0 1.0-4.8 K/uL Monocytes # (Auto) 0.2 0.1-1.0 K/uL Eosinophils # (Auto) 0.01 0.00-0.70 K/uL Basophils # (Auto) 0.03 0.00-0.20 K/uL Absolute Immature Granulocyte (auto 0.28 0-1 K/uL Nucleated Red Blood Cells 0.0 0.0-0.19 % White Cell Morphology Comment See comments Chemistry Labs: Test 11/15/24 05:39 11/15/24 04:22 Range/Units Whole Blood Glucose 178 H 70-110 MG/DL Sodium Level 137 136-145 mmol/L Potassium Level 4.1 3.5-5.1 mmol/L Chloride Level 102 101-111 mmol/L Carbon Dioxide Level 14 L 21-32 mmol/L Blood Urea Nitrogen 16 7-18 mg/dL Creatinine 1.0 0.5-1.3 mg/dL Glomerular Filtration Rate Calc 78 >90 mL/min Random Glucose 194 H 70-105 mg/dL Total Calcium 7.7 L 8.5-10.1 mg/dL Diagnostics / Radiology: Impression and Plan: PAD, [place] category of the RT TMA site RLE cellulitis and osteomyelitis Nonhealing right-sided TMA S/p Rt BKA on 11/14/2024 Anemia HTN HLD DM type II S/p left AKA Right TMA 5 years ago PAD status post peripheral intervention with stent placement in the left SFA and mid right SFA done by the PAD specialists ([place], [place]) #PAD, [place] category of the RT TMA site #RLE cellulitis and osteomyelitis -Continue Aspirin, Atorvastatin, and Plavix -The patient is in agreement of amputation to the RLE if needed and for further workup with angiogram -Arterial lower extremity Doppler with Abnormal monophasic arterial waveforms are noted in the right common femoral, deep femoral, superficial femoral, popliteal, posterior tibial and dorsalis pedal arteries. -Consulted Dr Reilly as a PAD specialist and patient underwent peripheral angiogram showing: diffuse 80% stenosis in the proximal and distal right superficial femoral artery, 100% ISR within the stent in the mid right superficial femoral artery status post successful treatment with balloon lithotripsy and drug coated balloon angioplasty, 70% stenosis in the right tibioperoneal artery, and 100% stenosis in the proximal, mid, and distal right peroneal artery status post successful treatment with balloon angioplasty and balloon lithotripsy, resulting in widely patent arteries, without dissection, perforation, and brisk two-vessel runoff supplying the anterior and posterior segments of the right pedal arch. -Residual PAD, 100% stenosis in the proximal right anterior tibial artery and 100% stenosis in the proximal right posterior tibial artery -Continue with aggressive wound care -patient is s/p R AKA HTN Sbp in the 150-170's -Will increase Lisinopril to 20 mg qd, goal is 130/80 or less, please titrate up accordingly I will sign off. He may follow up in clinic one week after discharge. KAITLYNN Sierra MD [facility] Nov 15, 2024 09:23 LYNDA DOW MD Nov 16, 2024 09:54
--- NOTE | 2024-11-15 12:36 | NUR ---
CM NOTE CM spoke to patient regarding d/c planning. Explained that nurse notified CM that his brother did not want [facility]. CM explained that there are also orders for placement at [facility]. Patient unable to recall which facility is preferred by his brother. Patient gave CM verbal consent to call his brother Roosevelt Rider [phone]. No answer, CM left voicemail for call back.
[2024-11-15] MEDS: VANCOMYCIN 1G/250ML KIT 250 ML IV SCH (12:40)
[2024-11-15] MEDS: LISINOPRIL 5 MG TABLET PO ONE (12:40)
--- NOTE | 2024-11-15 20:04 | PN ---
INFECTIOUS DISEASE PROGRESS NOTE Date of Service: Nov 15, 2024 SUBJECTIVE: This is a 74-year-old male patient who was seen and examined at bedside in room 310. Patient is awake and alert. Patient is s/p right [id number] amputation day #1. Patient is denying pain. The WBC is slightly elevated at 11.0 but no fever, temperature is 98.2. Plan is to discontinue all IV antibiotics tomorrow. PHYSICAL EXAM EYES: Anicteric. Pupils equal and reactive. HENT: No oral thrush seen, moist Oral mucosa. NECK: Supple, no JVD or thyromegaly. LUNGS: Good air entry. No rales, no rhonchi. CARDIOVASCULAR: S1, S2 regular. No murmur heard. ABDOMEN: Soft, non tender, bowel sounds present, no organomegaly. CENTRAL NERVOUS SYSTEM: Awake, alert, oriented x 2. SKIN: No rashes, no swelling. LYMPHATICS: No peripheral lymphadenopathy. MUSCULOSKELETAL: No joint swelling, erythema or tenderness. EXTREMITIES: No cyanosis or clubbing. Hx of Left AKA. Right foot TMA stump infection and osteomyelitis, s/p Right AKA. BACK: No deformity, no pressure ulcer. GENITOURINARY: No dysuria or hematuria. Vital Sign (Last 12 Hours) 11/15/24 11/15/24 11/15/24 11/15/24 08:00 08:09 10:50 12:00 Temp 98.1 98.2 Pulse 82 87 Resp 18 20 B/P (MAP) 147/71 155/68 133/58 Pulse Ox 99 99 100 O2 Delivery Nasal Cannula Room Air* Room Air O2 Flow Rate 2.0 0 FiO2 21 11/15/24 16:00 Temp 98.4 Pulse 90 Resp 20 B/P (MAP) 145/73 Pulse Ox 99 O2 Delivery Room Air Intake & Output (last 24hrs) 11/14/24 11/14/24 11/15/24 15:00 23:00 07:00 Output Total 700 ml Balance -700 ml LABS: Laboratory: Test 11/15/24 19:53 11/15/24 11:10 11/15/24 04:22 Range/Units Whole Blood Glucose 205 H 70-110 MG/DL Vancomycin Level Trough 12.7 10.0-20.0 UG/ML White Blood Count 11.0 H 4.8-10.8 K/uL Red Blood Count 3.68 L 4.50-6.20 MIL/uL Hemoglobin 10.0 #L 14.0-18.0 g/dL Hematocrit 31.4 L 42-54 % Mean Corpuscular Volume 85.3 79-99 fL Mean Corpuscular Hemoglobin 27.2 27.0-33.0 pg Mean Corpuscular Hemoglobin Concent 31.8 L 32.0-36.0 g/dL Red Cell Distribution Width 15.8 H 11.0-15.5 % Platelet Count 254 130-400 K/uL Mean Platelet Volume 10.0 7.5-10.5 fL Immature Granulocyte % (Auto) 2.6 H 0-1 % Neutrophils (%) (Auto) 86.2 H 40.0-77.0 % Lymphocytes (%) (Auto) 8.7 L 21.0-51.0 % Monocytes (%) (Auto) 2.1 L 3.0-13.0 % Eosinophils (%) (Auto) 0.1 0.0-8.0 % Basophils (%) (Auto) 0.3 0.0-5.0 % Neutrophils # (Auto) 9.5 H 1.8-7.7 K/uL Lymphocytes # (Auto) 1.0 1.0-4.8 K/uL Monocytes # (Auto) 0.2 0.1-1.0 K/uL Eosinophils # (Auto) 0.01 0.00-0.70 K/uL Basophils # (Auto) 0.03 0.00-0.20 K/uL Absolute Immature Granulocyte (auto 0.28 0-1 K/uL Nucleated Red Blood Cells 0.0 0.0-0.19 % White Cell Morphology Comment See comments Sodium Level 137 136-145 mmol/L Potassium Level 4.1 3.5-5.1 mmol/L Chloride Level 102 101-111 mmol/L Carbon Dioxide Level 14 L 21-32 mmol/L Blood Urea Nitrogen 16 7-18 mg/dL Creatinine 1.0 0.5-1.3 mg/dL Glomerular Filtration Rate Calc 78 >90 mL/min Random Glucose 194 H 70-105 mg/dL Total Calcium 7.7 L 8.5-10.1 mg/dL ASSESSMENT: Right foot TMA stump infection and osteomyelitis, status post right AKA. Polymicrobial infection. Anemia. Diabetes mellitus. Peripheral vascular disease, status post peripheral angiogram on 11/10/2024. Debility. PLAN: Continue vancomycin per pharmacy protocol. Continue Zosyn IV. Continue monitoring hemoglobin. Continue antidiabetics. Continue pain management. Plan is to discontinue all antibiotics tomorrow. This case was reviewed and discussed with my supervising physician and the above assessment and plan was formulated and agreed upon. ATTESTATION BY PHYSICIAN I have seen and examined the patient. I reviewed the documentation, medical decision making, and treatment plan as noted by the mid-level provider above. I agree with the findings and plan of care. EDUARDO MARIO MD, MIRTA L [employer] OPERATIONS SPECIALIST Nov 15, 2024 20:04
[2024-11-16] MEDS: PROMETHAZINE HCL 25 MG/ML 1ML AMPULE IM ONE (02:38)
[2024-11-16 03:56] LABS: AMPHET/METH SCREEN,URINE NEGATIVE (NEGATIVE); BARBITURATE SCREEN, URINE NEGATIVE (NEGATIVE); BENZODIAZEPINES SCREEN,URINE NEGATIVE (NEGATIVE); CANNABINOID SCREEN,URINE NEGATIVE (NEGATIVE); COCAINE SCREEN,URINE NEGATIVE (NEGATIVE); OPIATE SCREEN,URINE NEGATIVE (NEGATIVE); PHENCYCLIDINE SCREEN,URINE NEGATIVE (NEGATIVE)
[2024-11-16 04:00] VITALS: BP 166/79; PULSE 88; RESP 20; TEMP 98.5
[2024-11-16 05:01] LABS: HEMATOCRIT 33.1 % (42-54); MEAN CORPUSCULAR HEMOGLOBIN 26.8 pg (27.0-33.0); MEAN CORPUSCULAR HGB CONC 31.7 g/dL (32.0-36.0); MEAN CORPUSCULAR VOLUME 84.4 fL (79-99); RED BLOOD CELL COUNT(AUTO) 3.92 MIL/uL (4.50-6.20); RED CELL DISTRIBUTION WIDTH 16.6 % (11.0-15.5); WHITE BLOOD COUNT (AUTO) 11.9 K/uL (4.8-10.8)
[2024-11-16 05:17] LABS: CREATININE 1.1 mg/dL (0.5-1.3); POTASSIUM 3.3 mmol/L (3.5-5.1)
[2024-11-16 07:28] VITALS: O2SAT 98
[2024-11-16 08:08] VITALS: BP 155/80; PULSE 88; RESP 20; TEMP 98
[2024-11-16 08:18] LABS: ABG BASE EXCESS -9.5 mmol/L (-2.0-3.0); ABG HCO3 13.8 mmol/L (21.0-28.0); ABG OXYGEN SATURATION 97.8 % (94.0-98.0); ABG PCO2 25 mmHg (35-48); ABG PH 7.364 (7.350-7.450); DEVICE COMMENT RR 2LNC; PO2, ARTERIAL BG 105.2 mmHg (83.0-108.0)
[2024-11-16] MEDS ORDERED: LISINOPRIL 10 MG TABLET PO SCH (09:00)
--- NOTE | 2024-11-16 11:37 | NUR ---
Refused PT for "not getting pain medication" This writer producer asked the patient if he needed anything for pain and he voiced that he was not feeling any pain and did not need anything now.
--- NOTE | 2024-11-16 11:41 | PN ---
GASTROENTEROLOGY PROGRESS NOTE Date of Visit: Nov 16, 2024 Time of Visit: 11:40 Events / Notes: No acute events overnight. Patient underwent [id number] amputation. Patient has been having nausea and vomiting. Review of Systems: CONSTITUTIONAL: No malaise or change in sensation of wellbeing. ENMT: No rhinorrhea, otorrhea, sinus pain, ear ache. CARDIOVASCULAR: No angina, palpitations, orthopnea or paroxysmal dyspnea. RESPIRATORY: No SOB. GASTROINTESTINAL: No abdominal pain, nausea, vomiting, diarrhea, hematemesis, melena or change in the patient's habitual bowel movements consistency/number. GENITOURINARY: No dysuria, hematuria or change in bladder continence. MUSCULOSKELETAL: No new muscle pain or decrease in muscular strength. No new joint swelling, redness or tenderness. SKIN: No new rash. Physical Exam: GEN: Awake, alert, oriented in person, time and place, and in no acute distress. HEENT: No sinus tenderness. Tympanic membranes were not examined. No rhinorrhea. Oral pharyngeal mucosa is pink, moist and within normal limits. Neck is supple with no cervical lymphadenopathy, thyromegaly or JVD. CHEST: Inspection, palpation and percussion of the chest were unremarkable. Lung auscultation revealed normal breath sounds bilaterally. CARDIAC: PMI is within normal limits. Heart sounds are regular. Normal S1, S2. No gallop or murmur. ABD: Soft, non-tender and not distended. No peritoneal signs on palpation. No organomegaly. Normal bowel sounds. EXT: No cyanosis or clubbing. No edema. SKIN: Intact. No rashes. JOINTS: No evidence of synovitis or acute arthritis. NEURO: Alert and oriented to name, place and person. Cranial nerve examination is unremarkable. No focal motor deficits. Normal speech. Gait is normal. Strength is normal. Vital Signs (last 8hr) Date Time Temp Pulse Resp B/P (MAP) Pulse Ox O2 Delivery O2 Flow Rate FiO2 11/16/24 09:58 155/80 11/16/24 08:08 98.1 88 20 155/80 99 Nasal Cannula 2.0 11/16/24 07:28 98 Room Air* 0 21 11/16/24 04:00 98.4 88 20 166/79 98 Nasal Cannula 2.0 Laboratory: [ ] Laboratory: Test 11/16/24 11:17 11/16/24 08:50 11/16/24 08:16 11/16/24 04:27 Range/Units Whole Blood Glucose 180 H 70-110 MG/DL Lactic Acid Level 1.2 0.8-2.5 mmol/L Blood Gas Specimen Type Arterial Arterial Blood pH 7.364 7.350-7.450 Arterial Blood Partial Pressure CO2 25 L 35-48 mmHg Arterial Blood Partial Pressure O2 105.2 83.0-108.0 mmHg Arterial Blood HCO3 13.8 L 21.0-28.0 mmol/L Arterial Blood Oxygen Saturation 97.8 94.0-98.0 % Arterial Blood Base Excess -9.5 L -2.0-3.0 mmol/L Blood Gas Temperature 37.0 35.5-37.0 CELSIUS Blood Gas Flow-by 2.00 0.00-15.00 L/min FiO2 28.0 % Blood Gas Specimen Comment RR 2LNC White Blood Count 11.9 H 4.8-10.8 K/uL Red Blood Count 3.92 L 4.50-6.20 MIL/uL Hemoglobin 10.5 L 14.0-18.0 g/dL Hematocrit 33.1 L 42-54 % Mean Corpuscular Volume 84.4 79-99 fL Mean Corpuscular Hemoglobin 26.8 L 27.0-33.0 pg Mean Corpuscular Hemoglobin Concent 31.7 L 32.0-36.0 g/dL Red Cell Distribution Width 16.6 H 11.0-15.5 % Platelet Count 277 130-400 K/uL Mean Platelet Volume 10.1 7.5-10.5 fL Nucleated Red Blood Cells 0.0 0.0-0.19 % Sodium Level 138 136-145 mmol/L Potassium Level 3.3 L 3.5-5.1 mmol/L Chloride Level 103 101-111 mmol/L Carbon Dioxide Level 15 L 21-32 mmol/L Blood Urea Nitrogen 13 7-18 mg/dL Creatinine 1.1 0.5-1.3 mg/dL Glomerular Filtration Rate Calc 70 >90 mL/min Random Glucose 169 H 70-105 mg/dL Total Calcium 7.9 L 8.5-10.1 mg/dL Test 11/16/24 03:40 11/15/24 11:10 11/15/24 04:22 Range/Units Urine Opiates Screen NEGATIVE NEGATIVE Urine Barbiturates Screen NEGATIVE NEGATIVE Urine Phencyclidine Screen NEGATIVE NEGATIVE Urine Amphetamines Screen NEGATIVE NEGATIVE Urine Benzodiazepines Screen NEGATIVE NEGATIVE Urine Cocaine Screen NEGATIVE NEGATIVE Urine Marijuana (THC) Screen NEGATIVE NEGATIVE Vancomycin Level Trough 12.7 10.0-20.0 UG/ML Immature Granulocyte % (Auto) 2.6 H 0-1 % Neutrophils (%) (Auto) 86.2 H 40.0-77.0 % Lymphocytes (%) (Auto) 8.7 L 21.0-51.0 % Monocytes (%) (Auto) 2.1 L 3.0-13.0 % Eosinophils (%) (Auto) 0.1 0.0-8.0 % Basophils (%) (Auto) 0.3 0.0-5.0 % Neutrophils # (Auto) 9.5 H 1.8-7.7 K/uL Lymphocytes # (Auto) 1.0 1.0-4.8 K/uL Monocytes # (Auto) 0.2 0.1-1.0 K/uL Eosinophils # (Auto) 0.01 0.00-0.70 K/uL Basophils # (Auto) 0.03 0.00-0.20 K/uL Absolute Immature Granulocyte (auto 0.28 0-1 K/uL White Cell Morphology Comment See comments Current Medications Medications (Trade) Dose Ordered Sig/Jermain Route PRN Reason Start Time Stop Time Status Last Admin Dose Admin Acetaminophen (TYLenol 325MG TAB) 650 mg Q4H PRN PO TEMPERATURE GREATER THAN 101.5 11/08/24 12:00 12/08/24 11:59 11/14/24 23:07 650 MG Acetaminophen/ Hydrocodone Bitart (NORco 5/325MG) 1 tab Q6H PRN PO MODERATE PAIN (4-6) 11/14/24 20:00 11/19/24 19:59 11/15/24 15:40 1 TAB Aspirin (Aspirin 81mg Ec Tab) 81 mg DAILY PO 11/10/24 09:00 12/10/24 08:59 11/16/24 09:56 81 MG Atorvastatin Calcium (LIPItor 40MG) 40 mg DAILY PO 11/10/24 09:00 12/10/24 08:59 11/16/24 09:57 40 MG Carvedilol (Coreg 3.125MG) 3.125 mg BID PO 11/09/24 21:00 12/09/24 20:59 11/16/24 09:58 3.125 MG Clopidogrel Bisulfate (plaVIX 75MG) 75 mg DAILY PO 11/10/24 09:00 12/10/24 08:59 11/16/24 09:56 75 MG Dextrose (D50w) 50 ml AD PRN IV HYPOGLYCEMIA PROTOCOL 11/10/24 12:30 12/10/24 12:29 Empaglifozin (Jardiance 25mg) 25 mg DAILY PO 11/10/24 09:00 12/10/24 08:59 11/16/24 09:58 25 MG Famotidine (Pepcid 20mg Vial) 20 mg DAILY IV 11/09/24 09:00 12/09/24 08:59 11/16/24 09:56 20 MG Ferrous Sulfate (Ferrous Sulfate) 325 mg QODAY PO 11/11/24 09:00 12/11/24 08:59 11/15/24 08:10 325 MG Glucagon (Glucagon 1mg Kit) 1 mg AD PRN IM HYPOGLYCEMIA PROTOCOL 11/10/24 12:30 12/10/24 12:29 Heparin Sodium (Porcine) (HEParin 5,000 UNIT VIAL) 5,000 unit Q12H SQ 11/08/24 12:30 12/08/24 12:29 11/16/24 00:08 5,000 UNIT Home Med (Home Medication) (Finasteride 1 MG)- HAIR LOSS DAILY PO 11/10/24 09:00 12/10/24 08:59 Hydromorphone HCl (DiLAUDid 0.5MG INJ) 0.5 mg Q4H PRN IVP SEVERE PAIN (7-10) 11/08/24 12:00 11/13/24 11:59 DC 11/11/24 18:34 0.5 MG Hydromorphone HCl (DiLAUDid 0.5MG INJ) 0.5 mg Q4H PRN IVP SEVERE PAIN (7-10) 11/14/24 00:00 11/19/24 00:00 11/15/24 21:02 0.5 MG Insulin Human Regular (humuLIN R 100 UNIT/ML 3ML) INSULIN SLIDING SCAL... ACHS SQ 11/08/24 16:30 12/08/24 16:29 11/16/24 06:03 4 UNIT Iron Sucrose (VenoFER) 200 mg ONCE STAT IV 11/09/24 11:20 11/09/24 11:35 DC Lactulose (Constulose 20gm/ 30ml Udcup) 20 gm BID PRN PO CONSTIPATION 11/08/24 12:00 12/08/24 11:59 Lisinopril (Prinivil 10mg) 10 mg DAILY PO 11/16/24 09:00 11/16/24 09:53 DC Lisinopril (Prinivil 20mg) 20 mg DAILY PO 11/17/24 09:00 12/17/24 08:59 Lisinopril (Prinivil 5mg) 5 mg DAILY PO 11/10/24 09:00 11/15/24 09:21 DC 11/15/24 08:10 5 MG Magnesium Sulfate 50 ml @ 0 mls/hr PROTOCOL PRN IV low mag level 11/08/24 12:00 12/08/24 11:59 11/11/24 05:34 25 MLS/HR Metformin HCl (glucoPHAGE) 1,000 mg BIDMEALS PO 11/09/24 17:00 12/09/24 16:59 11/16/24 10:01 1,000 MG Ondansetron HCl (zoFRAN 4MG INJ) 4 mg Q6H PRN IVP NAUSEA/VOMITING 11/08/24 12:00 12/08/24 11:59 11/16/24 09:56 4 MG Pioglitazone HCl (Actos 30mg) 30 mg DAILY PO 11/10/24 09:00 12/10/24 08:59 11/16/24 09:56 30 MG Piperacillin Sod/ Tazobactam Sod (Zosyn 3.375gm+NS 50ml) 3.375 gm Q8H IVPB 11/08/24 17:30 11/14/24 13:27 DC 11/14/24 00:57 3.375 GM Piperacillin Sod/ Tazobactam Sod (Zosyn 3.375gm+NS 50ml) 3.375 gm Q8H IVPB 11/14/24 13:30 11/16/24 11:00 DC 11/16/24 05:41 3.375 GM Potassium Chloride 100 ml @ 100 mls/hr AD PRN IV POTASSIUM PROTOCOL 11/08/24 12:00 12/08/24 11:59 11/16/24 05:41 100 MLS/HR Potassium Chloride (K-Dur/Klor-Con 20meq) 20 meq AD PRN PO POTASSIUM PROTOCOL 11/08/24 12:00 12/08/24 11:59 11/12/24 19:14 20 MEQ Potassium Chloride (KCl 10% Elixir 20meq/15ml) 20 meq AD PRN PO POTASSIUM PROTOCOL 11/08/24 12:00 12/08/24 11:59 Sodium Chloride 1,000 ml @ 75 mls/hr [id number] IV 11/08/24 12:00 12/08/24 11:59 11/15/24 23:11 75 MLS/HR Sodium Chloride 1,000 ml @ 100 mls/hr Q10H IV 11/10/24 12:30 11/10/24 15:29 DC Sodium Chloride (NS 50ml) 50 ml AD IV 11/08/24 21:00 11/08/24 11:59 DC Tamsulosin HCl (FloMAX) 0.4 mg DAILY PO 11/10/24 09:00 12/10/24 08:59 11/16/24 09:57 0.4 MG Vancomycin HCl 250 ml @ 125 mls/hr Q12H IV 11/15/24 12:00 11/16/24 14:00 11/16/24 00:08 125 MLS/HR Vancomycin HCl 250 ml @ 125 mls/hr Q24H IV 11/10/24 12:00 11/12/24 11:49 DC 11/11/24 15:18 125 MLS/HR Vancomycin HCl 500 ml @ 250 mls/hr Q24H IV 11/12/24 12:00 11/15/24 11:42 DC 11/14/24 13:36 250 MLS/HR Vancomycin HCl (Vancomycin Protocol) 1 each AD IV 11/09/24 11:30 11/16/24 13:00 Vancomycin HCl (Vancomycin 1g/ 250ml Kit) 1 gm Q12H IV 11/08/24 12:00 11/08/24 11:59 DC Diagnostics / Radiology: [COPY/PASTE HERE IF NO REPORTS PLEASE DELETE SECTION] Assessment: Positive FOBT Acute blood loss anemia PAD Plan: EGD in am Continue GI prophylaxis Advance diet as tolerated Avoid NSAIDs Antireflux measures Monitor H&H and transfuse as needed Call with questions, concerns or change in clinical status Patient to follow-up at clinic post discharge Thank you for this consult BEBO HERNANDEZ [facility] Nov 16, 2024 11:41
[2024-11-16 11:42] VITALS: BP 145/70; PULSE 99; RESP 19; TEMP 98.1
--- NOTE | 2024-11-16 13:34 | NUR ---
Pre medicated pt for PT work and removed drain. The Hemovac drain is removed. The incisions site is redressed with vasaline gauze, 4x4 and kerlix. The pt got 0.5mg of IV Dilaudid before this. This was well tolerated.
--- NOTE | 2024-11-16 15:23 | PN ---
[facility] PROGRESS NOTE Date of Service: Nov 16, 2024 Time of Service: 15:19 SUBJECTIVE: This is a 74-year-old male with PMH of Left BKA , Rt TMA(5 years ) , PAD, DM, HTN, bowel perforation s/p bowel repair in 07/18 presented to ED with chief complaints of right foot pain. Patient has a chronic open wound to his right foot TMA stump. Pain scale 10/10. Aggravated factors movement, alleviating factors none. There is redness noted with eschar to open wound with minimal drainage. There is no surrounding edema but redness extending to mid leg level . No foul odor noted. Reports having fevers subjective. At the time of presentation , Vitals : T 99.3,HR 104, R 20, BP 143/75/99%RA.He was admitted for further evaluation and management of his wound . 25: Patient has low grade fevers. He denies pain at the rt TMA site. Wound dressing in place. MRI foot showed rt stump 1 and 2 osteomyelitis .Podiatry recommended possible amputation. LE artery doppler studies pending . ID and Cardiology consults placed. 25: Patient c/o pain in rt lower extremity . S/p peripheral angiogram by Dr Reilly- JUSTINE, [place] category 6 symptoms (right lower extremity), diffuse 80% stenosis in the proximal and distal right superficial femoral artery, 100% ISR within the stent in the mid right superficial femoral artery status post successful treatment with balloon lithotripsy and drug coated balloon angioplasty, 70% stenosis in the right tibioperoneal artery, and 100% stenosis in the proximal, mid, and distal right peroneal artery status post successful treatment with balloon angioplasty and balloon lithotripsy, resulting in widely patent arteries. There is residual PAD, 100% stenosis in the proximal right anterior tibial artery and 100% stenosis in the proximal right posterior tibial artery.Pending TCOM assessment .Patient tolerated the procedure well . 25: Patient s/p rt LE peripheral artery angioplasty. Uneventful post procedure course. Hb dropping -asymptomatic: treated with IV iron .TCOM evaluation pending (not till Wednesday as wound center is close on weekend),Ortho evaluation for possible stump revision pending. 25 : The patient is seen and examined today. No new complaints. His potassium is 3.3 And is being replaced. His hemoglobin went up from 8.6-10.7. The plan is for right above-knee amputation by Dr. Cotter tomorrow. 11.13.24: Patient seen resting in bed. Pending Rt AKA scheduled for later today . Patient has no concerns at this time .Stool occult blood positive . Will consult gastroenterology for drop in hemoglobin and positive stool occult blood . Case management and social services analyst on board . 11.14.24: Patient is pending Rt AKA by Dr Cotter today. He is receiving 1 unit of RBC now and is tolerating blood transfusion ,. Case managemnt on board for rehabilitation and placement. He has no concerns at this time . 11.15.24: Patient s/p AKA by Dr cotter. His vitals and labs are stable. Surgical site dressing clean . Pain adequately controlled. Heis in NAD. Case management on board for rehabilitation and placement. 11.16.24: Patient s/p AKA by Dr cotter. Surgical site dressing clean . Pain adequately controlled. Patient c/o vomiting, labs show CO2 14 -patient is on SGLT2 inhibitor- will continue to monitor . Case management on board for rehabil itation and placement. REVIEW OF SYSTEMS a 14 ROS obtained all relevant positive documented otherwise ROS negative PHYSICAL EXAM GENERAL APPEARANCE: The patient is awake, alert, and oriented, in no acute cardiopulmonary distress. NEUROLOGICAL: Cranial nerves II-XII grossly intact. Motor is 5/5 in bilateral upper and lower extremities proximal to distal. No sensory deficits. HEENT: Face is symmetric. Pupils are equal and reactive. Extraocular movements are intact. NECK: Supple. No JVD. No thyromegaly. No submental, submandibular, pre- /postauricular, occipital or supraclavicular lymphadenopathy. CHEST: Normal chest expansion. No Telemetry. LUNGS: Absence of any rales, rhonchi or any wheezing. CARDIOVASCULAR: Regular. S1 and S2 normal. No appreciable rubs, murmurs or gallops. ABDOMEN: Soft, nontender, and nondistended. There is no rebound, voluntary guarding, or rigidity. : Deferred. No Jaramillo. EXTREMITIES: Right foot; TMA open wound with eschar, minimal drainage,redness extending to mid leg, left BKA status SKIN: No skin breakdown. Vital Signs (last 8hr) Date Time Temp Pulse Resp B/P (MAP) Pulse Ox O2 Delivery O2 Flow Rate FiO2 11/16/24 11:42 98.1 99 19 145/70 98 Room Air 11/16/24 09:58 155/80 11/16/24 08:08 98.1 88 20 155/80 99 Nasal Cannula 2.0 11/16/24 07:28 98 Room Air* 0 21 LABS: Laboratory: Test 11/16/24 11:17 11/16/24 08:50 11/16/24 08:16 11/16/24 04:27 Range/Units Whole Blood Glucose 180 H 70-110 MG/DL Lactic Acid Level 1.2 0.8-2.5 mmol/L Blood Gas Specimen Type Arterial Arterial Blood pH 7.364 7.350-7.450 Arterial Blood Partial Pressure CO2 25 L 35-48 mmHg Arterial Blood Partial Pressure O2 105.2 83.0-108.0 mmHg Arterial Blood HCO3 13.8 L 21.0-28.0 mmol/L Arterial Blood Oxygen Saturation 97.8 94.0-98.0 % Arterial Blood Base Excess -9.5 L -2.0-3.0 mmol/L Blood Gas Temperature 37.0 35.5-37.0 CELSIUS Blood Gas Flow-by 2.00 0.00-15.00 L/min FiO2 28.0 % Blood Gas Specimen Comment RR 2LNC White Blood Count 11.9 H 4.8-10.8 K/uL Red Blood Count 3.92 L 4.50-6.20 MIL/uL Hemoglobin 10.5 L 14.0-18.0 g/dL Hematocrit 33.1 L 42-54 % Mean Corpuscular Volume 84.4 79-99 fL Mean Corpuscular Hemoglobin 26.8 L 27.0-33.0 pg Mean Corpuscular Hemoglobin Concent 31.7 L 32.0-36.0 g/dL Red Cell Distribution Width 16.6 H 11.0-15.5 % Platelet Count 277 130-400 K/uL Mean Platelet Volume 10.1 7.5-10.5 fL Nucleated Red Blood Cells 0.0 0.0-0.19 % Sodium Level 138 136-145 mmol/L Potassium Level 3.3 L 3.5-5.1 mmol/L Chloride Level 103 101-111 mmol/L Carbon Dioxide Level 15 L 21-32 mmol/L Blood Urea Nitrogen 13 7-18 mg/dL Creatinine 1.1 0.5-1.3 mg/dL Glomerular Filtration Rate Calc 70 >90 mL/min Random Glucose 169 H 70-105 mg/dL Total Calcium 7.9 L 8.5-10.1 mg/dL Test 11/16/24 03:40 11/15/24 11:10 11/15/24 04:22 Range/Units Urine Opiates Screen NEGATIVE NEGATIVE Urine Barbiturates Screen NEGATIVE NEGATIVE Urine Phencyclidine Screen NEGATIVE NEGATIVE Urine Amphetamines Screen NEGATIVE NEGATIVE Urine Benzodiazepines Screen NEGATIVE NEGATIVE Urine Cocaine Screen NEGATIVE NEGATIVE Urine Marijuana (THC) Screen NEGATIVE NEGATIVE Vancomycin Level Trough 12.7 10.0-20.0 UG/ML Immature Granulocyte % (Auto) 2.6 H 0-1 % Neutrophils (%) (Auto) 86.2 H 40.0-77.0 % Lymphocytes (%) (Auto) 8.7 L 21.0-51.0 % Monocytes (%) (Auto) 2.1 L 3.0-13.0 % Eosinophils (%) (Auto) 0.1 0.0-8.0 % Basophils (%) (Auto) 0.3 0.0-5.0 % Neutrophils # (Auto) 9.5 H 1.8-7.7 K/uL Lymphocytes # (Auto) 1.0 1.0-4.8 K/uL Monocytes # (Auto) 0.2 0.1-1.0 K/uL Eosinophils # (Auto) 0.01 0.00-0.70 K/uL Basophils # (Auto) 0.03 0.00-0.20 K/uL Absolute Immature Granulocyte (auto 0.28 0-1 K/uL White Cell Morphology Comment See comments Current Medications Medications (Trade) Dose Ordered Sig/Jermain Route PRN Reason Start Time Stop Time Status Last Admin Dose Admin Acetaminophen (TYLenol 325MG TAB) 650 mg Q4H PRN PO TEMPERATURE GREATER THAN 101.5 11/08/24 12:00 12/08/24 11:59 11/14/24 23:07 650 MG Acetaminophen/ Hydrocodone Bitart (NORco 5/325MG) 1 tab Q6H PRN PO MODERATE PAIN (4-6) 11/14/24 20:00 11/19/24 19:59 11/15/24 15:40 1 TAB Aspirin (Aspirin 81mg Ec Tab) 81 mg DAILY PO 11/10/24 09:00 12/10/24 08:59 11/16/24 09:56 81 MG Atorvastatin Calcium (LIPItor 40MG) 40 mg DAILY PO 11/10/24 09:00 12/10/24 08:59 11/16/24 09:57 40 MG Carvedilol (Coreg 3.125MG) 3.125 mg BID PO 11/09/24 21:00 12/09/24 20:59 11/16/24 09:58 3.125 MG Clopidogrel Bisulfate (plaVIX 75MG) 75 mg DAILY PO 11/10/24 09:00 12/10/24 08:59 11/16/24 09:56 75 MG Dextrose (D50w) 50 ml AD PRN IV HYPOGLYCEMIA PROTOCOL 11/10/24 12:30 12/10/24 12:29 Empaglifozin (Jardiance 25mg) 25 mg DAILY PO 11/10/24 09:00 11/16/24 15:14 DC 11/16/24 09:58 25 MG Famotidine (Pepcid 20mg Vial) 20 mg DAILY IV 11/09/24 09:00 12/09/24 08:59 11/16/24 09:56 20 MG Ferrous Sulfate (Ferrous Sulfate) 325 mg QODAY PO 11/11/24 09:00 12/11/24 08:59 11/15/24 08:10 325 MG Glucagon (Glucagon 1mg Kit) 1 mg AD PRN IM HYPOGLYCEMIA PROTOCOL 11/10/24 12:30 12/10/24 12:29 Heparin Sodium (Porcine) (HEParin 5,000 UNIT VIAL) 5,000 unit Q12H SQ 11/08/24 12:30 12/08/24 12:29 11/16/24 11:43 5,000 UNIT Home Med (Home Medication) (Finasteride 1 MG)- HAIR LOSS DAILY PO 11/10/24 09:00 12/10/24 08:59 Hydromorphone HCl (DiLAUDid 0.5MG INJ) 0.5 mg Q4H PRN IVP SEVERE PAIN (7-10) 11/08/24 12:00 11/13/24 11:59 DC 11/11/24 18:34 0.5 MG Hydromorphone HCl (DiLAUDid 0.5MG INJ) 0.5 mg Q4H PRN IVP SEVERE PAIN (7-10) 11/14/24 00:00 11/19/24 00:00 11/16/24 13:21 0.5 MG Insulin Human Regular (humuLIN R 100 UNIT/ML 3ML) INSULIN SLIDING SCAL... ACHS SQ 11/08/24 16:30 12/08/24 16:29 11/16/24 11:44 4 UNIT Iron Sucrose (VenoFER) 200 mg ONCE STAT IV 11/09/24 11:20 11/09/24 11:35 DC Lactulose (Constulose 20gm/ 30ml Udcup) 20 gm BID PRN PO CONSTIPATION 11/08/24 12:00 12/08/24 11:59 Lisinopril (Prinivil 10mg) 10 mg DAILY PO 11/16/24 09:00 11/16/24 09:53 DC Lisinopril (Prinivil 20mg) 20 mg DAILY PO 11/17/24 09:00 12/17/24 08:59 Lisinopril (Prinivil 5mg) 5 mg DAILY PO 11/10/24 09:00 11/15/24 09:21 DC 11/15/24 08:10 5 MG Magnesium Sulfate 50 ml @ 0 mls/hr PROTOCOL PRN IV low mag level 11/08/24 12:00 12/08/24 11:59 11/11/24 05:34 25 MLS/HR Metformin HCl (glucoPHAGE) 1,000 mg BIDMEALS PO 11/09/24 17:00 12/09/24 16:59 11/16/24 10:01 1,000 MG Ondansetron HCl (zoFRAN 4MG INJ) 4 mg Q6H PRN IVP NAUSEA/VOMITING 11/08/24 12:00 12/08/24 11:59 11/16/24 09:56 4 MG Pioglitazone HCl (Actos 30mg) 30 mg DAILY PO 11/10/24 09:00 12/10/24 08:59 11/16/24 09:56 30 MG Piperacillin Sod/ Tazobactam Sod (Zosyn 3.375gm+NS 50ml) 3.375 gm Q8H IVPB 11/08/24 17:30 11/14/24 13:27 DC 11/14/24 00:57 3.375 GM Piperacillin Sod/ Tazobactam Sod (Zosyn 3.375gm+NS 50ml) 3.375 gm Q8H IVPB 11/14/24 13:30 11/16/24 11:00 DC 11/16/24 05:41 3.375 GM Potassium Chloride 100 ml @ 50 mls/hr AD PRN IV POTASSIUM PROTOCOL 11/16/24 15:30 12/16/24 15:29 UNV Potassium Chloride 100 ml @ 100 mls/hr AD PRN IV POTASSIUM PROTOCOL 11/08/24 12:00 12/08/24 11:59 11/16/24 05:41 100 MLS/HR Potassium Chloride (K-Dur/Klor-Con 20meq) 20 meq AD PRN PO POTASSIUM PROTOCOL 11/08/24 12:00 11/16/24 15:14 DC 11/12/24 19:14 20 MEQ Potassium Chloride (KCl 10% Elixir 20meq/15ml) 20 meq AD PRN PO POTASSIUM PROTOCOL 11/08/24 12:00 11/16/24 15:14 DC Sodium Chloride 1,000 ml @ 100 mls/hr Q10H IV 11/08/24 12:00 12/08/24 11:59 11/15/24 23:11 75 MLS/HR Sodium Chloride 1,000 ml @ 100 mls/hr Q10H IV 11/10/24 12:30 11/10/24 15:29 DC Sodium Chloride (NS 50ml) 50 ml AD IV 11/08/24 21:00 11/08/24 11:59 DC Tamsulosin HCl (FloMAX) 0.4 mg DAILY PO 11/10/24 09:00 12/10/24 08:59 11/16/24 09:57 0.4 MG Vancomycin HCl 250 ml @ 125 mls/hr Q12H IV 11/15/24 12:00 11/16/24 14:00 DC 11/16/24 11:47 125 MLS/HR Vancomycin HCl 250 ml @ 125 mls/hr Q24H IV 11/10/24 12:00 11/12/24 11:49 DC 11/11/24 15:18 125 MLS/HR Vancomycin HCl 500 ml @ 250 mls/hr Q24H IV 11/12/24 12:00 11/15/24 11:42 DC 11/14/24 13:36 250 MLS/HR Vancomycin HCl (Vancomycin Protocol) 1 each AD IV 11/09/24 11:30 11/16/24 13:00 DC Vancomycin HCl (Vancomycin 1g/ 250ml Kit) 1 gm Q12H IV 11/08/24 12:00 11/08/24 11:59 DC DIAGNOSTICS / RADIOLOGY: [ ] ASSESSMENT: Sepsis: POA Rt foot tma stump osteomyelitis,poa 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, drainage POA intractable pain right foot POA Severe PAD Poa Iron deficiency anemia with drop in hemoglobin , POA Uncontrolled diabetes type 2 POA Obesity BMI: 33 Immobility secondary to left AKA, and limited functional to right foot: POA Hypomagnesemia,POA Vomiting , not POA PLAN: Sepsis: POA -resolved Tachycardia, CRP elevated ,subjective feversat the time pf admission Continue on Zosyn, Vancomycin (pharmacy to dose) ID on board Blood cultures negative Rt foot TMA stump osteomyelitis ,POA,s/p Right AKA by Dr Cotter on 11.14.24 Intractable pain right foot POA wound cultures growing Klebsiella pneumoniae, Enterococcus faecalis, MRSA - sensitive to vancomycin Continue with IV Zosyn and IV vancomycin empirically Podiatry on board NSQIP surgical risk assessment score - below average risk for post surgical complications Patient stable PAD, [place] category 6 symptoms (right lower extremity),POA -S/p peripheral angiogram by Dr Reilly- , diffuse 80% stenosis in the proximal and distal right superficial femoral artery, 100% ISR within the stent in the mid right superficial femoral artery status post successful treatment with balloon lithotripsy and drug coated balloon angioplasty, 70% stenosis in the right tibioperoneal artery, and 100% stenosis in the proximal, mid, and distal right peroneal artery status post successful treatment with balloon angioplasty and balloon lithotripsy, resulting in widely patent arteries. There is residual PAD, 100% stenosis in the proximal right anterior tibial artery and 100% stenosis in the proximal right posterior tibial artery. Pending TCOM assessment . Continue Aspirin 81 mg daily and clopidogrel 75 mg daily for a minimum of six months and optimally one year. -pain management with hydromorphone -plan is for right [id number] amputation with Dr. Cotter - patient is NPO . social services analyst and case management consulted Uncontrolled diabetes type 2 POA HbA1C 9.2 resumed home medications insulin as per sliding scale Iron deficiency anemia with drop in hemoglobin , POA Started on IV iron Tsat 6.4% Stool occult blood positive GI recommended EGD later Vomiting , not POA ?secondary to constipation will obtain an abdominal xray continue Zofran prn DVT ppx with Heparin GI ppx with Famotidine ATTESTATION BY PHYSICIAN I have seen and examined the patient. I reviewed the documentation, medical decision making, and treatment plan as noted by the resident provider above. I agree with the findings and plan of care. Marlon Nelson MD, ANCHU A MD Nov 16, 2024 15:23
[2024-11-16] MEDS ORDERED: PoTASSium chloRIDE 20MEQ/100ML 100 ML IV PRN (15:30)
[2024-11-16] MEDS: SODIUM BICARB 50MEQ 50ML VIAL IV ONE (15:38)
[2024-11-16 15:40] LABS: CREATININE 1.1 mg/dL (0.5-1.3); POTASSIUM 3.7 mmol/L (3.5-5.1)
[2024-11-16 16:00] VITALS: BP 187/72; PULSE 91; RESP 18; TEMP 98.3
--- NOTE | 2024-11-16 16:34 | HMCIMG ---
ABD 1VW HISTORY: Vomiting COMPARISON: None FINDINGS: A frontal projection of the abdomen was obtained. Post cholecystectomy changes are seen. Gastric distention is seen with gas or obstruction excluded. Fecal material is seen in the colon. Degenerative changes of the thoracolumbar spine are noted. IMPRESSION: 1. Gastric distention.
--- NOTE | 2024-11-16 18:12 | NUR ---
CM NOTE/[facility] CM sent requested updated clinical to [facility]. Brother named Roosevelt and patient agreeable to continue arrangements with placement at [facility]. Patient now pending EGD. Addendum: 11/16/24 at 1814 by KRISSY STILES CM Amended: Links added.
[2024-11-16] MEDS: metoCLOPRAmide 10 MG TABLET PO ONE (18:30)
[2024-11-16 20:00] VITALS: BP 156/69; PULSE 97; RESP 20; TEMP 98; O2SAT 97
--- NOTE | 2024-11-16 23:25 | PN ---
INFECTIOUS DISEASE PROGRESS NOTE Date of Service: Nov 16, 2024 SUBJECTIVE: This is a 74-year-old male patient who was seen and examined at bedside in room 310. Patient is awake and alert. Patient is s/p right [id number] amputation on 08/16/2024. Patient is afebrile, temperature is 98.1 and the WBC is 11.9. We will discontinue all antibiotics today. Case management working on placement to [facility] inpatient rehab unit. PHYSICAL EXAM EYES: Anicteric. Pupils equal and reactive. HENT: No oral thrush seen, moist Oral mucosa. NECK: Supple, no JVD or thyromegaly. LUNGS: Good air entry. No rales, no rhonchi. CARDIOVASCULAR: S1, S2 regular. No murmur heard. ABDOMEN: Soft, non tender, bowel sounds present, no organomegaly. CENTRAL NERVOUS SYSTEM: Awake, alert, oriented x 3. SKIN: No rashes, no swelling. LYMPHATICS: No peripheral lymphadenopathy. MUSCULOSKELETAL: No joint swelling, erythema or tenderness. EXTREMITIES: No cyanosis or clubbing. BACK: No deformity, no pressure ulcer. GENITOURINARY: No dysuria or hematuria. Vital Sign (Last 12 Hours) 11/16/24 11/16/24 11/16/24 11/16/24 11:42 16:00 20:00 21:22 Temp 98.1 98.2 98.1 Pulse 99 91 97 Resp 19 18 20 B/P (MAP) 145/70 187/72 156/69 156/69 Pulse Ox 98 97 97 O2 Delivery Room Air Room Air Room Air Intake & Output (last 24hrs) 11/15/24 11/15/24 11/16/24 15:00 23:00 07:00 Intake Total 350 ml 300 ml 1200.0 ml Output Total 500 ml 500 ml Balance -150 ml -200 ml 1200.0 ml LABS: Laboratory: Test 11/16/24 20:03 11/16/24 15:25 11/16/24 08:50 11/16/24 08:16 Range/Units Whole Blood Glucose 205 H 70-110 MG/DL Sodium Level 137 136-145 mmol/L Potassium Level 3.7 3.5-5.1 mmol/L Chloride Level 104 101-111 mmol/L Carbon Dioxide Level 13 L 21-32 mmol/L Blood Urea Nitrogen 14 7-18 mg/dL Creatinine 1.1 0.5-1.3 mg/dL Glomerular Filtration Rate Calc 70 >90 mL/min Random Glucose 210 H 70-105 mg/dL Total Calcium 7.9 L 8.5-10.1 mg/dL Lactic Acid Level 1.2 0.8-2.5 mmol/L Blood Gas Specimen Type Arterial Arterial Blood pH 7.364 7.350-7.450 Arterial Blood Partial Pressure CO2 25 L 35-48 mmHg Arterial Blood Partial Pressure O2 105.2 83.0-108.0 mmHg Arterial Blood HCO3 13.8 L 21.0-28.0 mmol/L Arterial Blood Oxygen Saturation 97.8 94.0-98.0 % Arterial Blood Base Excess -9.5 L -2.0-3.0 mmol/L Blood Gas Temperature 37.0 35.5-37.0 CELSIUS Blood Gas Flow-by 2.00 0.00-15.00 L/min FiO2 28.0 % Blood Gas Specimen Comment RR 2LNC Test 11/16/24 04:27 11/16/24 03:40 11/15/24 11:10 11/15/24 04:22 Range/Units White Blood Count 11.9 H 4.8-10.8 K/uL Red Blood Count 3.92 L 4.50-6.20 MIL/uL Hemoglobin 10.5 L 14.0-18.0 g/dL Hematocrit 33.1 L 42-54 % Mean Corpuscular Volume 84.4 79-99 fL Mean Corpuscular Hemoglobin 26.8 L 27.0-33.0 pg Mean Corpuscular Hemoglobin Concent 31.7 L 32.0-36.0 g/dL Red Cell Distribution Width 16.6 H 11.0-15.5 % Platelet Count 277 130-400 K/uL Mean Platelet Volume 10.1 7.5-10.5 fL Nucleated Red Blood Cells 0.0 0.0-0.19 % Urine Opiates Screen NEGATIVE NEGATIVE Urine Barbiturates Screen NEGATIVE NEGATIVE Urine Phencyclidine Screen NEGATIVE NEGATIVE Urine Amphetamines Screen NEGATIVE NEGATIVE Urine Benzodiazepines Screen NEGATIVE NEGATIVE Urine Cocaine Screen NEGATIVE NEGATIVE Urine Marijuana (THC) Screen NEGATIVE NEGATIVE Vancomycin Level Trough 12.7 10.0-20.0 UG/ML Immature Granulocyte % (Auto) 2.6 H 0-1 % Neutrophils (%) (Auto) 86.2 H 40.0-77.0 % Lymphocytes (%) (Auto) 8.7 L 21.0-51.0 % Monocytes (%) (Auto) 2.1 L 3.0-13.0 % Eosinophils (%) (Auto) 0.1 0.0-8.0 % Basophils (%) (Auto) 0.3 0.0-5.0 % Neutrophils # (Auto) 9.5 H 1.8-7.7 K/uL Lymphocytes # (Auto) 1.0 1.0-4.8 K/uL Monocytes # (Auto) 0.2 0.1-1.0 K/uL Eosinophils # (Auto) 0.01 0.00-0.70 K/uL Basophils # (Auto) 0.03 0.00-0.20 K/uL Absolute Immature Granulocyte (auto 0.28 0-1 K/uL White Cell Morphology Comment See comments ASSESSMENT: 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 Polymicrobial infection. Anemia. Diabetes mellitus. Peripheral vascular disease, status post peripheral angiogram on 11/10/2024. Debility. PLAN: Discontinue all Antibiotics today. Continue monitoring hemoglobin. Continue antidiabetics. Continue pain management. Case management working on placement to [facility] inpatient rehab unit. This case was reviewed and discussed with my supervising physician and the above assessment and plan was formulated and agreed upon. ATTESTATION BY PHYSICIAN I have seen and examined the patient. I reviewed the documentation, medical decision making, and treatment plan as noted by the mid-level provider above. I agree with the findings and plan of care. EDUARDO MARIO MD, MIRTA L WELDING PANTOGRAPH MACHINE OPERATOR Nov 16, 2024 23:25
[2024-11-17] VITALS (35 sets, daily range): BP systolic 114–169; BP diastolic 39–71; PULSE 61–98; RESP 11–25; TEMP 97.6–98.6; O2SAT 97–99
[2024-11-17] MEDS: VANCOMYCIN 1G/250ML KIT 250 ML IV SCH (01:34)
[2024-11-17 05:12] LABS: BASOPHILS # (AUTO) 0.03 K/uL (0.00-0.20); BASOPHILS % (AUTO) 0.3 % (0.0-5.0); EOSINOPHILS # (AUTO) 0.05 K/uL (0.00-0.70); EOSINOPHILS % (AUTO) 0.5 % (0.0-8.0); HEMATOCRIT 29.9 % (42-54); IMMATURE GRANULOCYTE ABSOLUTE 0.13 K/uL (0-1); LYMPHOCYTES # (AUTO) 1.5 K/uL (1.0-4.8); LYMPHOCYTES % (AUTO) 13.7 % (21.0-51.0); MEAN CORPUSCULAR HEMOGLOBIN 27.5 pg (27.0-33.0); MEAN CORPUSCULAR HGB CONC 31.8 g/dL (32.0-36.0); MEAN CORPUSCULAR VOLUME 86.7 fL (79-99); MONOCYTES # (AUTO) 0.7 K/uL (0.1-1.0); MONOCYTES % (AUTO) 6.9 % (3.0-13.0); NEUTROPHILS # (AUTO) 8.4 K/uL (1.8-7.7); NEUTROPHILS % (AUTO) 77.4 % (40.0-77.0); PLATELET COUNT (AUTO) 246 K/uL (130-400); RED BLOOD CELL COUNT(AUTO) 3.45 MIL/uL (4.50-6.20); RED CELL DISTRIBUTION WIDTH 16.8 % (11.0-15.5); WHITE BLOOD COUNT (AUTO) 10.8 K/uL (4.8-10.8)
[2024-11-17 05:40] LABS: BILIRUBIN,TOTAL 0.6 mg/dL (0.2-1.0); CREATININE 1.1 mg/dL (0.5-1.3); POTASSIUM 3.1 mmol/L (3.5-5.1); TOTAL PROTEIN, SERUM 5.8 g/dL (6.0-8.3)
[2024-11-17] MEDS ORDERED: LIDOCAINE PF 100MG/5ML (2%) SYRINGE 5ML ONE (09:51)
[2024-11-17] MEDS ORDERED: proPOFol 10 MG/ML 20ML VIAL IV ONE (09:51)
[2024-11-17] MEDS: PANTOPrazole 40 MG/VIAL IVP SCH (10:52)
[2024-11-17] MEDS: LISINOPRIL 20 MG TABLET PO SCH (10:52)
[2024-11-17] MEDS: metoCLOPRAmide 10 MG/2 ML VIAL IVP SCH (11:32)
[2024-11-17] MEDS: PoTASSium chloRIDE 20MEQ/100ML 100 ML IV ONE (11:32)
[2024-11-17 11:47] LABS: CREATININE 1.1 mg/dL (0.5-1.3); POTASSIUM 3.6 mmol/L (3.5-5.1); VANCOMYCIN TROUGH 19.7 UG/ML (10.0-20.0)
[2024-11-17] MEDS ORDERED: MANNITOL 20% 250ML IV.SOLN IV SCH (12:00)
[2024-11-17] MEDS ORDERED: DEXTROSE 5 %-0.45 % NACL 1,000 ML IV SCH (12:00)
[2024-11-17] MEDS ORDERED: PoTASSium chloRIDE 20MEQ/10ML 20 MEQ in 0.9%NACL 1000ML 1,000 ML IV SCH (12:00)
[2024-11-17 12:15] LABS: MAGNESIUM 1.6 mg/dL (1.80-2.40); PHOSPHORUS 2.3 mg/dL (2.5-4.9); POTASSIUM 3.2 mmol/L (3.5-5.1)
[2024-11-17 12:23] LABS: ABG BASE EXCESS -11.5 mmol/L (-2.0-3.0); ABG HCO3 12.5 mmol/L (21.0-28.0); ABG OXYGEN SATURATION 98.1 % (94.0-98.0); ABG PCO2 25 mmHg (35-48); ABG PH 7.323 (7.350-7.450); PO2, ARTERIAL BG 117.8 mmHg (83.0-108.0); VENT MODE, BG 2 L NC (ROOM AIR)
--- NOTE | 2024-11-17 13:02 | PN ---
[facility] PROGRESS NOTE Date of Service: Nov 17, 2024 Time of Service: 12:50 SUBJECTIVE: This is a 74-year-old male with PMH of Left BKA , Rt TMA(5 years ) , PAD, DM, HTN, bowel perforation s/p bowel repair in 07/18 presented to ED with chief complaints of right foot pain. Patient has a chronic open wound to his right foot TMA stump. Pain scale 10/10. Aggravated factors movement, alleviating factors none. There is redness noted with eschar to open wound with minimal drainage. There is no surrounding edema but redness extending to mid leg level . No foul odor noted. Reports having fevers subjective. At the time of presentation , Vitals : T 99.3,HR 104, R 20, BP 143/75/99%RA.He was admitted for further evaluation and management of his wound . 25: Patient has low grade fevers. He denies pain at the rt TMA site. Wound dressing in place. MRI foot showed rt stump 1 and 2 osteomyelitis .Podiatry recommended possible amputation. LE artery doppler studies pending . ID and Cardiology consults placed. 25: Patient c/o pain in rt lower extremity . S/p peripheral angiogram by Dr Reilly- JUSTINE, Wilson category 6 symptoms (right lower extremity), diffuse 80% stenosis in the proximal and distal right superficial femoral artery, 100% ISR within the stent in the mid right superficial femoral artery status post successful treatment with balloon lithotripsy and drug coated balloon angioplasty, 70% stenosis in the right tibioperoneal artery, and 100% stenosis in the proximal, mid, and distal right peroneal artery status post successful treatment with balloon angioplasty and balloon lithotripsy, resulting in widely patent arteries. There is residual PAD, 100% stenosis in the proximal right anterior tibial artery and 100% stenosis in the proximal right posterior tibial artery.Pending TCOM assessment .Patient tolerated the procedure well . 25: Patient s/p rt LE peripheral artery angioplasty. Uneventful post procedure course. Hb dropping -asymptomatic: treated with IV iron .TCOM evaluation pending (not till Wednesday as wound center is close on weekend),Ortho evaluation for possible stump revision pending. 25 : The patient is seen and examined today. No new complaints. His potassium is 3.3 And is being replaced. His hemoglobin went up from 8.6-10.7. The plan is for right above-knee amputation by Dr. Cotter tomorrow. 11.13.24: Patient seen resting in bed. Pending Rt AKA scheduled for later today . Patient has no concerns at this time .Stool occult blood positive . Will consult gastroenterology for drop in hemoglobin and positive stool occult blood . Case management and manager social on board . 11.14.24: Patient is pending Rt AKA by Dr Cotter today. He is receiving 1 unit of RBC now and is tolerating blood transfusion ,. Case managemnt on board for rehabilitation and placement. He has no concerns at this time . 11.15.24: Patient s/p AKA by Dr cotter. His vitals and labs are stable. Surgical site dressing clean . Pain adequately controlled. Heis in NAD. Case management on board for rehabilitation and placement. 11.16.24: Patient s/p AKA by Dr cotter. Surgical site dressing clean . Pain adequately controlled. Patient c/o vomiting, labs show CO2 14 -patient is on SGLT2 inhibitor- will continue to monitor . Case management on board for rehabil itation and placement. 11.17.24: Patient s/p AKA by Dr cotter. Surgical site dressing clean . Pain adequately controlled.Patient found to have euglycemic DKA with anion gap 20 decreased to 17 after 50 MEQ of NaHCO3 .Patient is asymptomatic .His vomiting s ubsided . Abdominal xray showed gastric distension. EGD showed chronic esophagitis with limited exam . Case management on board for rehabilitation and placement at inpatient rehab unit .Patient will be shifted to ICU for insulin drip and close monitoring . REVIEW OF SYSTEMS Denies chills fevers Denies SOB, cough Denies chest pain , palpitation Denies vomiting , abdominal pain, constipation , nausea Denies muscle pain, joint pain , weakness PHYSICAL EXAM GENERAL APPEARANCE: The patient is awake, alert, and oriented, in no acute cardiopulmonary distress. NEUROLOGICAL: Cranial nerves II-XII grossly intact. Motor is 5/5 in bilateral upper extremities .No sensory deficits. HEENT: Face is symmetric. Pupils are equal and reactive. Extraocular movements are intact. NECK: Supple. No JVD. No thyromegaly. No submental, submandibular, pre- /postauricular, occipital or supraclavicular lymphadenopathy. CHEST: Normal chest expansion. No Telemetry. LUNGS: Absence of any rales, rhonchi or any wheezing. CARDIOVASCULAR: Regular. S1 and S2 normal. No appreciable rubs, murmurs or gallops. ABDOMEN: Soft, nontender, and nondistended. There is no rebound, voluntary guarding, or rigidity. : Deferred. No Jaramillo. EXTREMITIES: s/o rt AKA- dressing in place ;left BKA status Vital Signs (last 8hr) Date Time Temp Pulse Resp B/P (MAP) Pulse Ox O2 Delivery O2 Flow Rate FiO2 11/17/24 10:52 147/63 11/17/24 10:40 97.5 91 17 134/62 97 Room Air 11/17/24 10:35 94 18 127/59 97 Room Air 11/17/24 10:30 92 17 139/57 97 Room Air 11/17/24 10:25 94 18 133/54 97 Room Air 11/17/24 10:20 92 18 132/57 97 Room Air 11/17/24 10:15 91 17 127/62 97 Room Air 11/17/24 10:10 97.7 95 16 125/48 99 Nonrebreathing Mask 10.0 11/17/24 09:45 Mask 11/17/24 09:45 Mask 10.0 11/17/24 08:00 97.9 94 20 142/70 97 Nasal Cannula 0.5 LABS: Laboratory: Test 11/17/24 12:21 11/17/24 11:13 11/17/24 11:10 11/17/24 04:55 Range/Units Blood Gas Specimen Type Arterial Arterial Blood pH 7.323 L 7.350-7.450 Arterial Blood Partial Pressure CO2 25 L 35-48 mmHg Arterial Blood Partial Pressure O2 117.8 H 83.0-108.0 mmHg Arterial Blood HCO3 12.5 L 21.0-28.0 mmol/L Arterial Blood Oxygen Saturation 98.1 H 94.0-98.0 % Arterial Blood Base Excess -11.5 L -2.0-3.0 mmol/L Blood Gas Temperature 37.0 35.5-37.0 CELSIUS Blood Gas Flow-by 2.00 0.00-15.00 L/min Blood Gas Vent Mode 2 L NC ROOM AIR FiO2 28.0 % Blood Gas Specimen Comment RR ARAMIS, RN Whole Blood Glucose 167 H 70-110 MG/DL Sodium Level 141 136-145 mmol/L Potassium Level 3.2 L 3.5-5.1 mmol/L Chloride Level 109 101-111 mmol/L Carbon Dioxide Level 14 L 21-32 mmol/L Blood Urea Nitrogen 16 7-18 mg/dL Creatinine 1.1 0.5-1.3 mg/dL Glomerular Filtration Rate Calc 70 >90 mL/min Random Glucose 177 H 70-105 mg/dL Total Calcium 7.9 L 8.5-10.1 mg/dL Phosphorus Level 2.3 L 2.5-4.9 mg/dL Magnesium Level 1.60 L 1.80-2.40 mg/dL Vancomycin Level Trough 19.7 # 10.0-20.0 UG/ML White Blood Count 10.8 4.8-10.8 K/uL Red Blood Count 3.45 L 4.50-6.20 MIL/uL Hemoglobin 9.5 L 14.0-18.0 g/dL Hematocrit 29.9 L 42-54 % Mean Corpuscular Volume 86.7 79-99 fL Mean Corpuscular Hemoglobin 27.5 27.0-33.0 pg Mean Corpuscular Hemoglobin Concent 31.8 L 32.0-36.0 g/dL Red Cell Distribution Width 16.8 H 11.0-15.5 % Platelet Count 246 130-400 K/uL Mean Platelet Volume 10.3 7.5-10.5 fL Immature Granulocyte % (Auto) 1.2 H 0-1 % Neutrophils (%) (Auto) 77.4 H 40.0-77.0 % Lymphocytes (%) (Auto) 13.7 L 21.0-51.0 % Monocytes (%) (Auto) 6.9 3.0-13.0 % Eosinophils (%) (Auto) 0.5 0.0-8.0 % Basophils (%) (Auto) 0.3 0.0-5.0 % Neutrophils # (Auto) 8.4 H 1.8-7.7 K/uL Lymphocytes # (Auto) 1.5 1.0-4.8 K/uL Monocytes # (Auto) 0.7 0.1-1.0 K/uL Eosinophils # (Auto) 0.05 0.00-0.70 K/uL Basophils # (Auto) 0.03 0.00-0.20 K/uL Absolute Immature Granulocyte (auto 0.13 0-1 K/uL Nucleated Red Blood Cells 0.0 0.0-0.19 % Whole Blood Ketones Quantitative 2.8 H 0.0-0.6 mmol/L Lactic Acid Level 1.3 0.8-2.5 mmol/L Total Bilirubin 0.6 0.2-1.0 mg/dL Aspartate Amino Transf (AST/SGOT) 14 10-37 U/L Alanine Aminotransferase (ALT/SGPT) 6 L 12-78 U/L Alkaline Phosphatase 59 50-136 U/L Total Protein 5.8 L 6.0-8.3 g/dL Albumin 2.0 L 3.5-5.0 g/dL Test 11/16/24 03:40 Range/Units Urine Opiates Screen NEGATIVE NEGATIVE Urine Barbiturates Screen NEGATIVE NEGATIVE Urine Phencyclidine Screen NEGATIVE NEGATIVE Urine Amphetamines Screen NEGATIVE NEGATIVE Urine Benzodiazepines Screen NEGATIVE NEGATIVE Urine Cocaine Screen NEGATIVE NEGATIVE Urine Marijuana (THC) Screen NEGATIVE NEGATIVE Current Medications Medications (Trade) Dose Ordered Sig/Jermain Route PRN Reason Start Time Stop Time Status Last Admin Dose Admin Acetaminophen (TYLenol 325MG TAB) 650 mg Q4H PRN PO TEMPERATURE GREATER THAN 101.5 11/08/24 12:00 12/08/24 11:59 11/14/24 23:07 650 MG Acetaminophen/ Hydrocodone Bitart (NORco 5/325MG) 1 tab Q6H PRN PO MODERATE PAIN (4-6) 11/14/24 20:00 11/16/24 18:09 DC 11/15/24 15:40 1 TAB Aspirin (Aspirin 81mg Ec Tab) 81 mg DAILY PO 11/10/24 09:00 12/10/24 08:59 11/17/24 10:52 81 MG Atorvastatin Calcium (LIPItor 40MG) 40 mg DAILY PO 11/10/24 09:00 12/10/24 08:59 11/17/24 10:52 40 MG Carvedilol (Coreg 3.125MG) 3.125 mg BID PO 11/09/24 21:00 12/09/24 20:59 11/17/24 10:52 3.125 MG Clopidogrel Bisulfate (plaVIX 75MG) 75 mg DAILY PO 11/10/24 09:00 12/10/24 08:59 11/17/24 10:53 75 MG Dextrose 1,000 ml @ 100 mls/hr Q10H IV 11/17/24 12:00 12/17/24 11:59 Dextrose (D50w) 50 ml AD PRN IV HYPOGLYCEMIA PROTOCOL 11/10/24 12:30 12/10/24 12:29 Dextrose/Sodium Chloride 1,000 ml @ 0 mls/hr AD IV 11/17/24 12:00 11/17/24 12:45 DC Empaglifozin (Jardiance 25mg) 25 mg DAILY PO 11/10/24 09:00 11/16/24 15:14 DC 11/16/24 09:58 25 MG Famotidine (Pepcid 20mg Vial) 20 mg DAILY IV 11/09/24 09:00 11/16/24 15:19 DC 11/16/24 09:56 20 MG Ferrous Sulfate (Ferrous Sulfate) 325 mg QODAY PO 11/11/24 09:00 12/11/24 08:59 11/17/24 10:52 325 MG Glucagon (Glucagon 1mg Kit) 1 mg AD PRN IM HYPOGLYCEMIA PROTOCOL 11/10/24 12:30 12/10/24 12:29 Heparin Sodium (Porcine) (HEParin 5,000 UNIT VIAL) 5,000 unit Q12H SQ 11/08/24 12:30 12/08/24 12:29 11/17/24 11:34 5,000 UNIT Home Med (Home Medication) (Finasteride 1 MG)- HAIR LOSS DAILY PO 11/10/24 09:00 12/10/24 08:59 Hydromorphone HCl (DiLAUDid 0.5MG INJ) 0.5 mg Q4H PRN IVP SEVERE PAIN (7-10) 11/08/24 12:00 11/13/24 11:59 DC 11/11/24 18:34 0.5 MG Hydromorphone HCl (DiLAUDid 0.5MG INJ) 0.5 mg Q4H PRN IVP SEVERE PAIN (7-10) 11/14/24 00:00 11/16/24 18:09 DC 11/16/24 13:21 0.5 MG Insulin Human Regular (humuLIN R 100 UNIT/ML 3ML) INSULIN SLIDING SCAL... ACHS SQ 11/08/24 16:30 12/08/24 16:29 11/16/24 21:27 6 UNIT Insulin Human Regular 100 unit/ Sodium Chloride 101 ml @ 0 mls/hr PROTOCOL IV 11/17/24 12:00 12/17/24 11:59 Iron Sucrose (VenoFER) 200 mg ONCE STAT IV 11/09/24 11:20 11/09/24 11:35 DC Lactulose (Constulose 20gm/ 30ml Udcup) 20 gm BID PRN PO CONSTIPATION 11/08/24 12:00 12/08/24 11:59 Lisinopril (Prinivil 10mg) 10 mg DAILY PO 11/16/24 09:00 11/16/24 09:53 DC Lisinopril (Prinivil 20mg) 20 mg DAILY PO 11/17/24 09:00 12/17/24 08:59 11/17/24 10:52 20 MG Lisinopril (Prinivil 5mg) 5 mg DAILY PO 11/10/24 09:00 11/15/24 09:21 DC 11/15/24 08:10 5 MG Magnesium Sulfate 50 ml @ 0 mls/hr PROTOCOL IV 11/17/24 12:00 12/17/24 11:59 Magnesium Sulfate 50 ml @ 0 mls/hr PROTOCOL IV 11/17/24 13:00 12/17/24 12:59 UNV Magnesium Sulfate 50 ml @ 0 mls/hr PROTOCOL PRN IV low mag level 11/08/24 12:00 12/08/24 11:59 11/11/24 05:34 25 MLS/HR Mannitol (Osmitrol 20% 250ml Bag) 47 gm AD IV 11/17/24 12:00 11/17/24 12:48 DC Metformin HCl (glucoPHAGE) 1,000 mg BIDMEALS PO 11/09/24 17:00 11/16/24 22:14 DC 11/16/24 17:40 1,000 MG Metoclopramide HCl (regLAN 10MG IV) 5 mg TIDAC IVP 11/17/24 11:30 12/17/24 11:29 11/17/24 11:32 5 MG Ondansetron HCl (zoFRAN 4MG INJ) 4 mg Q6H PRN IVP NAUSEA/VOMITING 11/08/24 12:00 12/08/24 11:59 11/16/24 09:56 4 MG Pantoprazole Sodium (PROTonix 40MG INJ) 40 mg DAILY IVP 11/17/24 09:00 12/17/24 08:59 11/17/24 10:52 40 MG Pioglitazone HCl (Actos 30mg) 30 mg DAILY PO 11/10/24 09:00 11/16/24 22:15 DC 11/16/24 09:56 30 MG Piperacillin Sod/ Tazobactam Sod (Zosyn 3.375gm+NS 50ml) 3.375 gm Q8H IVPB 11/08/24 17:30 11/14/24 13:27 DC 11/14/24 00:57 3.375 GM Piperacillin Sod/ Tazobactam Sod (Zosyn 3.375gm+NS 50ml) 3.375 gm Q8H IVPB 11/14/24 13:30 11/16/24 11:00 DC 11/16/24 05:41 3.375 GM Potassium Chloride 20 meq/ Sodium Chloride 1,010 ml @ 0 mls/hr PROTOCOL IV 11/17/24 12:00 11/17/24 12:45 DC Potassium Chloride/Dextrose/ Sod Cl 1,000 ml @ 0 mls/hr AD IV 11/17/24 12:00 12/17/24 11:59 Potassium Chloride 100 ml @ 50 mls/hr AD PRN IV POTASSIUM PROTOCOL 11/16/24 15:30 11/16/24 15:19 DC Potassium Chloride 100 ml @ 100 mls/hr AD PRN IV POTASSIUM PROTOCOL 11/08/24 12:00 12/08/24 11:59 11/17/24 08:48 100 MLS/HR Potassium Chloride 100 ml @ 0 mls/hr PROTOCOL PRN IV DKA POTASSIUM REPLACEMENT 11/17/24 13:00 12/17/24 12:59 UNV Potassium Chloride (K-Dur/Klor-Con 20meq) 20 meq AD PRN PO POTASSIUM PROTOCOL 11/08/24 12:00 11/16/24 15:14 DC 11/12/24 19:14 20 MEQ Potassium Chloride (KCl 10% Elixir 20meq/15ml) 20 meq AD PRN PO POTASSIUM PROTOCOL 11/08/24 12:00 11/16/24 15:14 DC Sodium Chloride 1,000 ml @ 100 mls/hr Q10H IV 11/08/24 12:00 11/17/24 12:39 DC 11/17/24 05:38 100 MLS/HR Sodium Chloride 1,000 ml @ 100 mls/hr Q10H IV 11/10/24 12:30 11/10/24 15:29 DC Sodium Chloride (NS 50ml) 50 ml AD IV 11/08/24 21:00 11/08/24 11:59 DC Tamsulosin HCl (FloMAX) 0.4 mg DAILY PO 11/10/24 09:00 12/10/24 08:59 11/17/24 10:52 0.4 MG Vancomycin HCl 250 ml @ 125 mls/hr Q12H IV 11/15/24 12:00 11/16/24 14:00 DC 11/16/24 11:47 125 MLS/HR Vancomycin HCl 250 ml @ 125 mls/hr Q12H IV 11/17/24 00:30 11/17/24 11:42 DC 11/17/24 01:34 125 MLS/HR Vancomycin HCl 250 ml @ 125 mls/hr Q24H IV 11/10/24 12:00 11/12/24 11:49 DC 11/11/24 15:18 125 MLS/HR Vancomycin HCl 500 ml @ 250 mls/hr Q24H IV 11/12/24 12:00 11/15/24 11:42 DC 11/14/24 13:36 250 MLS/HR Vancomycin HCl (Vancomycin Protocol) 1 each AD IV 11/09/24 11:30 11/16/24 13:00 DC Vancomycin HCl (Vancomycin 1g/ 250ml Kit) 1 gm Q12H IV 11/08/24 12:00 11/08/24 11:59 DC DIAGNOSTICS / RADIOLOGY: PROCEDURE: ABD 1VW - ABD 1VW ABD 1VW HISTORY: Vomiting COMPARISON: None FINDINGS: A frontal projection of the abdomen was obtained. Post cholecystectomy changes are seen. Gastric distention is seen with gas or obstruction excluded. Fecal material is seen in the colon. Degenerative changes of the thoracolumbar spine are noted. IMPRESSION: 1. Gastric distention. DICTATED BY: RAULITO SCHMID MD DATE: 11/16/241627 ELECTRONICALLY SIGNED BY: RAULITO SCHMID MD DATE: 11/16/241633 ASSESSMENT: Sepsis: POA Rt foot TMA stump osteomyelitis,poa s/p Right AKA by Dr Cotter on 11.14.24 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, drainage POA intractable pain right foot POA Severe PAD Poa Iron deficiency anemia with drop in hemoglobin , POA Uncontrolled diabetes type 2 POA Obesity BMI: 33 Immobility secondary to left AKA, and limited functional to right foot: POA Hypomagnesemia,POA Vomiting , not POA Euglycemic DKA secondry to Jardiance and postoperative stress , Anion gap 20- improving to 17 today , not POA PLAN: Sepsis: POA -resolved Tachycardia, CRP elevated ,subjective feversat the time pf admission Continue on Zosyn, Vancomycin (pharmacy to dose) ID on board Blood cultures negative Rt foot TMA stump osteomyelitis ,POA,s/p Right AKA by Dr Cotter on 11.14.24 Intractable pain right foot POA wound cultures growing Klebsiella pneumoniae, Enterococcus faecalis, MRSA Continue with IV Zosyn and IV vancomycin Podiatry and ID on board Patient stable PAD, Cm category 6 symptoms (right lower extremity),POA -S\P Right AKA on 11.14.24 Continue Aspirin 81 mg daily and clopidogrel 75 mg daily for a minimum of six months and optimally one year. -pain management with hydromorphone manager social and case management consulted Uncontrolled diabetes type 2 POA HbA1C 9.2 Euglycemic DKA secondary to Jardiance and postoperative stress not POA Vomiting , not POA Lactic acid 1.3 Anion gap 20- improving to 17 today stopped Metformin , Jardiance, Pioglitozaone Abdominal xray shows gastric distension will start on insulin drip as per DKA protocol continue Metoclopramide and Pantoprazole as recommended by GI BMP Q4h,will monitor phosphorous , magnesium and blood sugars Iron deficiency anemia with drop in hemoglobin , POA Started on IV iron x 2 Tsat 6.4% Stool occult blood positive EGD- poor examination, chronic esophagitis + DVT ppx with Heparin GI ppx with Protonix ATTESTATION BY PHYSICIAN I have seen and examined the patient. I reviewed the documentation, medical decision making, and treatment plan as noted by the resident provider above. I agree with the findings and plan of care. RESHMA MEDEIROS MD, MD Nov 17, 2024 13:02
[2024-11-17 15:48] LABS: CREATININE 1.1 mg/dL (0.5-1.3); POTASSIUM 3.7 mmol/L (3.5-5.1)
--- NOTE | 2024-11-17 15:51 | NUR ---
transferred from [address] [place] [address]. Addendum: 11/17/24 at 1846 by Karen Faria RN transferred to [facility]
[2024-11-17] MEDS: INSULIN REGULAR, HUMAN 3ML 100 UNIT in 0.9%NACL 100ML 100 ML IV SCH (16:06)
[2024-11-17] MEDS: PoTASSium chloRIDE 10MEQ/100ML 100 ML IV PRN (16:07)
[2024-11-17] MEDS: D5W-1/2 NS/20MEQ KCL 1,000 ML IV SCH (16:35)
--- NOTE | 2024-11-17 18:56 | NUR ---
RUI CUSTOMER SUCCESS ASSOCIATE MADE AWARE OF CONSULT ORDER AND RHYTHM 1ST DEGREE AVB AND OCCASIONAL 2ND DEGREE AVB
--- NOTE | 2024-11-17 19:08 | CONS ---
[facility] CONSULTATION NOTE Date Patient Seen: Nov 17, 2024 Time of Visit: 19:06 Supervising Physician: Dr. 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 Hypokalemia Electrolyte abnormality Acute postoperative pain PLAN: Continue ICU routine care NPO for now Continue cardiac monitoring Keep potassium level above four, magnesium level above two Multimodal pain relief Endocrinology consult Nutrition consult Antibiotic management per primary Continue insulin drip per DKA protocol Replete electrolytes per protocol Serial labs per DKA protocol We will transition to subcutaneous insulin once anion gap is closed and bicarb level is normal Hold Jardiance and metformin for now HPI: 74-year-old male with past medical history of hypertension, DM type 2, PVD status post right TMA, who initially presented to ER last 11/08/24 with complaint of nonhealing wound to right foot. Apparently five years ago patient underwent right foot TMA and since then developed chronic open wound and was being seen by wound care hospitalist as outpatient. His condition worsened now with severe pain and periodic fever prompting ER visit. Patient underwent MRI of the foot and showed early signs of acute osteomyelitis. Patient also underwent arterial ultrasound of his right extremity and showed monophasic flow. Patient was then referred to orthopedic surgeon and subsequently underwent right AKA last 11/14/24 and was initially admitted to the nursing tower. Earlier today patient was noted to have worsening acidosis concerning for possible euglycemic DKA. Patient was then transferred to ICU and started on insulin drip. [facility] is consulted for critical care evaluation and DKA management. Patient was seen and examined in his room with no relatives present at bedside. At present patient is currently hemodynamically stable, on oxygen appropriate oxygen saturation, denies any headache, chest pain, shortness of breath, abdominal pain, fever, or flu-like symptoms. All pertinent labs and imaging reviewed and noted. PAST MEDICAL HX: see above PAST SURGICAL HX: See HPI SOCIAL HISTORY: No tobacco, ETOH, or illicit drug use Coded Allergies: No Allergy Information Available (Verified Allergy, Unknown, 7/19/16) No Known Drug Allergies (Unverified Allergy, Unknown, 02/18/24) REVIEW OF SYSTEMS: 12 point ROS reviewed with patient. Pertinent positives mentioned above. Otherwise negative. PHYSICAL EXAM: GENERAL: alert, weak, awake oriented x 3 HEENT: EOMI, Sclera non icteric, moist mucosa NECK: Supple, no JVD, trachea midline LUNGS: Clear breath sounds bilaterally. No wheezes HEART: Regular rate and rhythm. Normal S1 and S2, without murmurs ABD: Abdomen soft, nontender. Bowel sounds present EXT: No clubbing cyanosis or edema, bilateral AKA NEURO: Alert and oriented to person, follows commands Vital Signs (last 8hr) Date Time Temp Pulse Resp B/P (MAP) Pulse Ox O2 Delivery O2 Flow Rate FiO2 11/17/24 16:25 61 130/65 98 Room Air 11/17/24 16:00 93 20 99 Room Air 11/17/24 15:44 98.6 94 22 138/67 99 Room Air 11/17/24 15:30 99 Room Air* 0 21 11/17/24 15:27 83 24 133/61 99 Room Air 11/17/24 15:25 68 118/57 98 Room Air 11/17/24 14:25 67 124/50 98 Room Air 11/17/24 13:25 79 129/60 98 Room Air 11/17/24 12:25 85 169/61 98 Room Air 11/17/24 11:55 91 156/67 97 Room Air 11/17/24 11:25 87 148/71 96 Room Air 11/17/24 11:10 94 134/39 98 Room Air LABS: Hematology Labs: Test 11/17/24 04:55 Range/Units White Blood Count 10.8 4.8-10.8 K/uL Red Blood Count 3.45 L 4.50-6.20 MIL/uL Hemoglobin 9.5 L 14.0-18.0 g/dL Hematocrit 29.9 L 42-54 % Mean Corpuscular Volume 86.7 79-99 fL Mean Corpuscular Hemoglobin 27.5 27.0-33.0 pg Mean Corpuscular Hemoglobin Concent 31.8 L 32.0-36.0 g/dL Red Cell Distribution Width 16.8 H 11.0-15.5 % Platelet Count 246 130-400 K/uL Mean Platelet Volume 10.3 7.5-10.5 fL Immature Granulocyte % (Auto) 1.2 H 0-1 % Neutrophils (%) (Auto) 77.4 H 40.0-77.0 % Lymphocytes (%) (Auto) 13.7 L 21.0-51.0 % Monocytes (%) (Auto) 6.9 3.0-13.0 % Eosinophils (%) (Auto) 0.5 0.0-8.0 % Basophils (%) (Auto) 0.3 0.0-5.0 % Neutrophils # (Auto) 8.4 H 1.8-7.7 K/uL Lymphocytes # (Auto) 1.5 1.0-4.8 K/uL Monocytes # (Auto) 0.7 0.1-1.0 K/uL Eosinophils # (Auto) 0.05 0.00-0.70 K/uL Basophils # (Auto) 0.03 0.00-0.20 K/uL Absolute Immature Granulocyte (auto 0.13 0-1 K/uL Nucleated Red Blood Cells 0.0 0.0-0.19 % Chemistry Labs: Test 11/17/24 18:00 11/17/24 15:30 11/17/24 11:10 11/17/24 04:55 Range/Units Whole Blood Glucose 165 H 70-110 MG/DL Sodium Level 138 136-145 mmol/L Potassium Level 3.7 3.5-5.1 mmol/L Chloride Level 106 101-111 mmol/L Carbon Dioxide Level 13 L 21-32 mmol/L Blood Urea Nitrogen 17 7-18 mg/dL Creatinine 1.1 0.5-1.3 mg/dL Glomerular Filtration Rate Calc 70 >90 mL/min Random Glucose 199 H 70-105 mg/dL Total Calcium 8.0 L 8.5-10.1 mg/dL Phosphorus Level 2.3 L 2.5-4.9 mg/dL Magnesium Level 1.60 L 1.80-2.40 mg/dL Whole Blood Ketones Quantitative 2.8 H 0.0-0.6 mmol/L Lactic Acid Level 1.3 0.8-2.5 mmol/L Total Bilirubin 0.6 0.2-1.0 mg/dL Aspartate Amino Transf (AST/SGOT) 14 10-37 U/L Alanine Aminotransferase (ALT/SGPT) 6 L 12-78 U/L Alkaline Phosphatase 59 50-136 U/L Total Protein 5.8 L 6.0-8.3 g/dL Albumin 2.0 L 3.5-5.0 g/dL DIAGNOSTICS / RADIOLOGY RESULTS: ABD 1VW HISTORY: Vomiting COMPARISON: None FINDINGS: A frontal projection of the abdomen was obtained. Post cholecystectomy changes are seen. Gastric distention is seen with gas or obstruction excluded. Fecal material is seen in the colon. Degenerative changes of the thoracolumbar spine are noted. IMPRESSION: 1. Gastric distention. PORTABLE CHEST RADIOGRAPH INDICATION: PICC LINE PLACEMENT COMPARISON: 11/08/2024 FINDINGS: Tip of left PICC within the SVC. Heart size is normal. The pulmonary vascularity and kelsey appear normal. No abnormal pulmonary parenchymal opacity or consolidation identified. No significant pleural effusion noted. No pneumothorax detected. IMPRESSION: Tip of left PICC within the SVC. No radiographic evidence for any acute cardiopulmonary process. PLAN NEURO: Minimize central acting medications as possible. Fall Precautions. Well lighted room through the day and minimize interruptions through the night to prevent acute delirium. PULMONARY: Supplemental 02 as needed Titrate Fio2 to keep Spo2 > or = 90% DuoNebs and CPT as needed IS hourly while awake for pulmonary hygiene CARDIOVASCULAR: Follow hemodynamics. Titrate vasopressor to keep MAP >65 or systolic blood pressure >95mmHg DIPS: Insulin LINES: PIV GI & NUTRITION: NPO Continue nutritional support Aspirations precautions Prokinetic agents and laxatives as needed KIDNEYS & ELECTROLYTES: Strict monitoring of intake and output Daily weights Avoid nephrotoxic agents Monitor electrolytes and replace as needed Goal urine output of 30mL/hr or 0.5mL/kg/hr ENDOCRINE: Maintain blood glucose between 100-180 at all times. Insulin sliding scale for blood glucose management INFECTIOUS DISEASE: Trend temperature. House-culture if febrile. Micro: [ ] Antibiotics: Vancomycin and Zosyn HEMATOLOGY & COAGULATION: Monitor H&H. Keep Hgb > 7 Transfuse 1 unit of PRBC for Hgb < 7 Transfuse 1 pack of platelets of platelets < 20, 000 Watch for any signs and symptoms of bleeding SKIN: Pressure ulcer prevention per facility protocol Rehab: PT/OT Prophylaxis: GI: PPI DVT: We will defer to primary Code Status: Full Resuscitation Disposition: ICU Other: Total patient care time exceeds 35 minutes excluding all procedures. Supervising physician: RUI Simms APRN Nov 17, 2024 19:08
--- NOTE | 2024-11-17 19:40 | NUR ---
RUI EMPLOYEE SERVICES MANAGER IN TO SEE PATIENT.
[2024-11-17 19:54] LABS: ABG BASE EXCESS -8.2 mmol/L (-2.0-3.0); ABG HCO3 15.5 mmol/L (21.0-28.0); ABG PCO2 28 mmHg (35-48); ABG PH 7.361 (7.350-7.450); DEVICE COMMENT RR RN JAMES; PO2, ARTERIAL BG 110.6 mmHg (83.0-108.0); VENT MODE, BG NC (ROOM AIR)
[2024-11-17 20:25] LABS: CREATININE 1.1 mg/dL (0.5-1.3); MAGNESIUM 1.5 mg/dL (1.80-2.40); PHOSPHORUS 1.6 mg/dL (2.5-4.9); POTASSIUM 3.3 mmol/L (3.5-5.1)
--- NOTE | 2024-11-17 20:34 | OP ---
DATE OF PROCEDURE: 11/14/2024 PREOPERATIVE DIAGNOSES: Right leg acute peripheral vascular disease and right foot gangrene. POSTOPERATIVE DIAGNOSES: Right leg acute peripheral vascular disease and right foot gangrene. PROCEDURE PERFORMED: Right leg above-knee amputation. INTRAVENOUS FLUIDS: As per anesthesia. ESTIMATED BLOOD LOSS: 200 mL. COMPLICATIONS: None. SPECIMENS: None. IMPLANTS USED: None. ANESTHESIA: General anesthesia. INDICATIONS FOR THE PROCEDURE: This is a 74-year-old gentleman with history of multiple medical comorbidities including uncontrolled diabetes, has been diagnosed with acute peripheral vascular disease, nonhealing wounds to the right foot and gangrene and acute peripheral vascular disease with chronic claudication pain. Ortho has been called for possible amputation. I explained the risks and benefits of the procedure. I answered all questions and concerns. The patient was cleared by the hospitalist and coil cutter for undergoing the procedure. Informed consent was obtained. DESCRIPTION OF PROCEDURE: The patient was correctly identified in the preoperative holding area and the correct patient and correct procedure site, correct extremity and correct plan was confirmed and marked and the patient was taken to the operating room, placed in a supine position, underwent general anesthesia by the anesthetic team. After that, the right lower extremity was then prepped and draped in a sterile fashion. A repeat timeout was then identifying the correct patient, type procedure, site, correct extremity, correct time. We then started our procedure by exaggerating the right lower extremity and elevating the tourniquet cuff pressure to 300 mmHg. We planned to do an above-knee amputation as the patient already has had a left leg above-knee amputation to improve the chance of healing and circulation. We planned to do a fish[place]-based incision. The skin markings were made and skin and subcutaneous tissues were incised. Blunt dissection was carried out. All bleeding points were cauterized. Then anteriorly, we went through the quadriceps muscles and we reached the femur shaft. We isolated the great saphenous vein, doubly ligated it and cut it. I isolated the saphenous nerve, pulled sharply and cut it. We osteotomized the femur shaft and did an osteotomy at the planned site at the middle third. We then completed the amputation with the amputation arc. The popliteal vessels were identified and doubly ligated and cut. The sciatic nerve was also identified and pulled sharply and cut. Then, we did a chamfer cuts of the femur shaft anteriorly. Then, we washed the wound thoroughly, released the tourniquet. All bleeding points were cauterized. We inserted the drain and closed the wound in layers with 0 Vicryl, 2-0 Vicryl, and marcela. The patient tolerated the procedure well. No complications encountered. TID: [id number] RECEIPT: [id number] [facility]
[2024-11-17] MEDS: DEXTROSE 5%-WATER 1,000 ML IV SCH (20:51)
--- NOTE | 2024-11-17 21:03 | PN ---
DATE OF SERVICE: 11/15/2024 SUBJECTIVE: The patient is status post right leg above-knee amputation. The patient was doing well, has been transferred now to the ICU because of diabetic ketoacidosis. Otherwise, the patient is awake, alert, and oriented x 3. His pain is under control. No fevers or chills. PHYSICAL EXAMINATION: GENERAL: The patient is awake, alert and oriented x 3. LATEST VITAL SIGNS: Heart rate 88, blood pressure is 142/73, oxygen saturation on room air 100% and temperature is 98.5. EXTREMITIES: Examination of the right leg above-knee amputation stump shows mild swelling present at the above-knee amputation stump. The incision looks clean and dry. No obvious signs of infection noted. ASSESSMENT AND PLAN: The patient will continue medical management. When the patient is stable, the patient is okay for discharge from Orthopedics standpoint. Follow up in about 3 weeks to our clinic. Any problems, come back and see us immediately. Please keep the incision clean and dry, 4 x 4's and Desmond wrap on p.r.n. basis. The patient also agrees with the above plan. TID: [id number] RECEIPT: [id number] [facility]
--- NOTE | 2024-11-17 23:43 | PN ---
INFECTIOUS DISEASE PROGRESS NOTE Date of Service: Nov 17, 2024 SUBJECTIVE: This is a 74-year-old male patient who was seen and examined at bedside in room 310. Patient is awake and alert. Patient is s/p right [id number] amputation on 08/16/2024. All antibiotics has been been continued. No antibiotics needed on discharge. Patient has been referred to [facility] inpatient rehab unit and pending insurance approval.. PHYSICAL EXAM EYES: Anicteric. Pupils equal and reactive. HENT: No oral thrush seen, moist Oral mucosa. NECK: Supple, no JVD or thyromegaly. LUNGS: Good air entry. No rales, no rhonchi. CARDIOVASCULAR: S1, S2 regular. No murmur heard. ABDOMEN: Soft, non tender, bowel sounds present, no organomegaly. CENTRAL NERVOUS SYSTEM: Awake, alert, oriented x 3. SKIN: No rashes, no swelling. LYMPHATICS: No peripheral lymphadenopathy. MUSCULOSKELETAL: No joint swelling, erythema or tenderness. EXTREMITIES: No cyanosis or clubbing. BACK: No deformity, no pressure ulcer. GENITOURINARY: No dysuria or hematuria. Vital Sign (Last 12 Hours) 11/17/24 11/17/24 11/17/24 11/17/24 11:55 12:25 13:25 14:25 Pulse 91 85 79 67 B/P (MAP) 156/67 169/61 129/60 124/50 Pulse Ox 97 98 98 98 O2 Delivery Room Air Room Air Room Air Room Air 11/17/24 11/17/24 11/17/24 11/17/24 15:25 15:27 15:27 15:30 Pulse 68 83 83 Resp 24 24 B/P (MAP) 118/57 133/61 133/61 (85) Pulse Ox 98 99 99 99 O2 Delivery Room Air Room Air Room Air* O2 Flow Rate 0 FiO2 21 11/17/24 11/17/24 11/17/24 11/17/24 15:44 15:44 16:00 16:25 Temp 98.6 Pulse 94 94 93 61 Resp 22 22 20 B/P (MAP) 138/67 138/67 (90) 130/65 Pulse Ox 99 99 99 98 O2 Delivery Room Air Room Air Room Air 11/17/24 11/17/24 11/17/24 11/17/24 16:44 17:44 18:44 20:58 Pulse 81 80 91 Resp 20 21 18 B/P (MAP) 137/54 (81) 124/60 (81) 130/62 (84) 120/47 Pulse Ox 99 99 99 11/17/24 22:36 Pulse 81 Resp 18 O2 Delivery N/Cannula Low lpm O2 Flow Rate 2.0 FiO2 28 Intake & Output (last 24hrs) 11/16/24 11/16/24 11/17/24 15:00 23:00 07:00 Intake Total 250.0 ml Output Total 250 ml Balance -250 ml 250.0 ml LABS: Laboratory: Test 11/17/24 23:33 11/17/24 19:52 11/17/24 19:45 11/17/24 11:10 Range/Units Whole Blood Glucose 199 H 70-110 MG/DL Blood Gas Specimen Type Arterial Arterial Blood pH 7.361 7.350-7.450 Arterial Blood Partial Pressure CO2 28 L 35-48 mmHg Arterial Blood Partial Pressure O2 110.6 H 83.0-108.0 mmHg Arterial Blood HCO3 15.5 L 21.0-28.0 mmol/L Arterial Blood Oxygen Saturation 98.0 94.0-98.0 % Arterial Blood Base Excess -8.2 L -2.0-3.0 mmol/L Blood Gas Temperature 37.0 35.5-37.0 CELSIUS Blood Gas Flow-by 2.00 0.00-15.00 L/min Blood Gas Vent Mode NC ROOM AIR FiO2 28.0 % Blood Gas Specimen Comment RR RN KD Sodium Level 136 136-145 mmol/L Potassium Level 3.3 L 3.5-5.1 mmol/L Chloride Level 106 101-111 mmol/L Carbon Dioxide Level 17 L 21-32 mmol/L Blood Urea Nitrogen 16 7-18 mg/dL Creatinine 1.1 0.5-1.3 mg/dL Glomerular Filtration Rate Calc 70 >90 mL/min Random Glucose 199 H 70-105 mg/dL Total Calcium 7.6 L 8.5-10.1 mg/dL Phosphorus Level 1.6 L 2.5-4.9 mg/dL Magnesium Level 1.50 L 1.80-2.40 mg/dL Vancomycin Level Trough 19.7 # 10.0-20.0 UG/ML Test 11/17/24 04:55 11/16/24 03:40 Range/Units White Blood Count 10.8 4.8-10.8 K/uL Red Blood Count 3.45 L 4.50-6.20 MIL/uL Hemoglobin 9.5 L 14.0-18.0 g/dL Hematocrit 29.9 L 42-54 % Mean Corpuscular Volume 86.7 79-99 fL Mean Corpuscular Hemoglobin 27.5 27.0-33.0 pg Mean Corpuscular Hemoglobin Concent 31.8 L 32.0-36.0 g/dL Red Cell Distribution Width 16.8 H 11.0-15.5 % Platelet Count 246 130-400 K/uL Mean Platelet Volume 10.3 7.5-10.5 fL Immature Granulocyte % (Auto) 1.2 H 0-1 % Neutrophils (%) (Auto) 77.4 H 40.0-77.0 % Lymphocytes (%) (Auto) 13.7 L 21.0-51.0 % Monocytes (%) (Auto) 6.9 3.0-13.0 % Eosinophils (%) (Auto) 0.5 0.0-8.0 % Basophils (%) (Auto) 0.3 0.0-5.0 % Neutrophils # (Auto) 8.4 H 1.8-7.7 K/uL Lymphocytes # (Auto) 1.5 1.0-4.8 K/uL Monocytes # (Auto) 0.7 0.1-1.0 K/uL Eosinophils # (Auto) 0.05 0.00-0.70 K/uL Basophils # (Auto) 0.03 0.00-0.20 K/uL Absolute Immature Granulocyte (auto 0.13 0-1 K/uL Nucleated Red Blood Cells 0.0 0.0-0.19 % Whole Blood Ketones Quantitative 2.8 H 0.0-0.6 mmol/L Lactic Acid Level 1.3 0.8-2.5 mmol/L Total Bilirubin 0.6 0.2-1.0 mg/dL Aspartate Amino Transf (AST/SGOT) 14 10-37 U/L Alanine Aminotransferase (ALT/SGPT) 6 L 12-78 U/L Alkaline Phosphatase 59 50-136 U/L Total Protein 5.8 L 6.0-8.3 g/dL Albumin 2.0 L 3.5-5.0 g/dL Urine Opiates Screen NEGATIVE NEGATIVE Urine Barbiturates Screen NEGATIVE NEGATIVE Urine Phencyclidine Screen NEGATIVE NEGATIVE Urine Amphetamines Screen NEGATIVE NEGATIVE Urine Benzodiazepines Screen NEGATIVE NEGATIVE Urine Cocaine Screen NEGATIVE NEGATIVE Urine Marijuana (THC) Screen NEGATIVE NEGATIVE ASSESSMENT: 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 Polymicrobial infection. Anemia. Diabetes mellitus. Peripheral vascular disease, status post peripheral angiogram on 11/10/2024. Debility. PLAN: Discontinue all Antibiotics today. Continue monitoring hemoglobin. Continue antidiabetics. Continue pain management. Case management working on placement to [facility] inpatient rehab unit. This case was reviewed and discussed with my supervising physician and the above assessment and plan was formulated and agreed upon. ARTURO SOSA ASSISTANT BASKETBALL COACH Nov 17, 2024 23:43
[2024-11-17 23:45] LABS: CREATININE 1.1 mg/dL (0.5-1.3); POTASSIUM 3.2 mmol/L (3.5-5.1)
[2024-11-18] VITALS (23 sets, daily range): BP systolic 92–153; BP diastolic 50–92; PULSE 75–101; RESP 11–24; TEMP 98.2–99.6; O2SAT 96–99
[2024-11-18 03:57] LABS: BASOPHILS # (AUTO) 0.02 K/uL (0.00-0.20); BASOPHILS % (AUTO) 0.2 % (0.0-5.0); EOSINOPHILS # (AUTO) 0.09 K/uL (0.00-0.70); EOSINOPHILS % (AUTO) 1.1 % (0.0-8.0); HEMATOCRIT 26.1 % (42-54); LYMPHOCYTES # (AUTO) 1.3 K/uL (1.0-4.8); MEAN CORPUSCULAR HEMOGLOBIN 27.5 pg (27.0-33.0); MEAN CORPUSCULAR HGB CONC 33.3 g/dL (32.0-36.0); MEAN CORPUSCULAR VOLUME 82.6 fL (79-99); MONOCYTES # (AUTO) 0.6 K/uL (0.1-1.0); MONOCYTES % (AUTO) 7.5 % (3.0-13.0); NEUTROPHILS # (AUTO) 5.9 K/uL (1.8-7.7); PLATELET COUNT (AUTO) 196 K/uL (130-400); RED BLOOD CELL COUNT(AUTO) 3.16 MIL/uL (4.50-6.20); RED CELL DISTRIBUTION WIDTH 16.3 % (11.0-15.5)
[2024-11-18 04:31] LABS: MAGNESIUM 1.5 mg/dL (1.80-2.40)
[2024-11-18] MEDS: MAGNESIUM 2GM PREMIX 50ML 50 ML IV SCH (04:41)
[2024-11-18] MEDS: LACTATED RINGERS 1000ML 1,000 ML IV SCH (05:06)
[2024-11-18] MEDS: INSULIN GLARgine 100 UNITS/ML 10 ML VIAL SQ SCH (05:06)
[2024-11-18] MEDS ORDERED: COMPOUND IV MISC 1 EACH IVSOLN MISC PRN (05:30)
[2024-11-18] MEDS: poTASSium PHOS 15 mMOL+NS250ML 250 ML IV PRN (05:36)
[2024-11-18 06:06] LABS: POTASSIUM 3.7 mmol/L (3.5-5.1)
[2024-11-18] MEDS ORDERED: poTASSium PHOS 15 mMOL+NS250ML 250 ML IV PRN (07:30)
--- NOTE | 2024-11-18 08:37 | PN ---
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 No major overnight events. Patient denies nausea vomiting does report some occasional loose stools. Patient denies any shortness of breath or palpitations. He denies any pain at this time. Anion gap has closed and ketones are negative today. Started sodium bicarb 650 mg p.o. b.i.d. due to serum CO2 of 19. Communicated this with primary team and they will follow up on urine anion gap. For now DKA has resolved therefore insulin drip has been stopped and patient may be downgraded back to the medical-surgical floor. Discontinue Jardiance due to likely source of euglycemic DKA. From pulmonary standpoint patient is stable at this time. We will sign off. Please reach to us should the need arise. On behalf of [facility] we are thankful for your team to let us participate in the care of this patient. We will be available if assistance in pulmonary critical care needed. REVIEW OF SYSTEMS: 12 point ROS reviewed with patient. Pertinent positives mentioned above. Otherwise negative. PHYSICAL EXAM: GENERAL: alert, weak, awake oriented x 3 HEENT: EOMI, Sclera non icteric, moist mucosa NECK: Supple, no JVD, trachea midline LUNGS: Clear breath sounds bilaterally. No wheezes HEART: Regular rate and rhythm. Normal S1 and S2, without murmurs ABD: Abdomen soft, nontender. Bowel sounds present EXT: No clubbing cyanosis or edema, bilateral AKA NEURO: Alert and oriented to person, follows commands Vital Signs (last 8hr) Date Time Temp Pulse Resp B/P (MAP) Pulse Ox O2 Delivery O2 Flow Rate FiO2 11/18/24 08:32 132/92 11/18/24 05:43 82 15 133/53 (79) 99 11/18/24 04:44 88 19 131/50 (77) 100 11/18/24 04:00 98.6 11/18/24 04:00 97 Room Air* 0 21 11/18/24 03:44 77 18 126/62 (83) 100 11/18/24 02:45 91 20 131/72 (91) 99 11/18/24 01:44 78 17 92/62 (72) 100 11/18/24 00:44 89 20 120/60 (80) 98 LABS: Hematology Labs: Test 11/18/24 03:43 Range/Units White Blood Count 8.0 # 4.8-10.8 K/uL Red Blood Count 3.16 L 4.50-6.20 MIL/uL Hemoglobin 8.7 L 14.0-18.0 g/dL Hematocrit 26.1 L 42-54 % Mean Corpuscular Volume 82.6 79-99 fL Mean Corpuscular Hemoglobin 27.5 27.0-33.0 pg Mean Corpuscular Hemoglobin Concent 33.3 32.0-36.0 g/dL Red Cell Distribution Width 16.3 H 11.0-15.5 % Platelet Count 196 130-400 K/uL Mean Platelet Volume 9.5 7.5-10.5 fL Immature Granulocyte % (Auto) 1.2 H 0-1 % Neutrophils (%) (Auto) 74.0 40.0-77.0 % Lymphocytes (%) (Auto) 16.0 L 21.0-51.0 % Monocytes (%) (Auto) 7.5 3.0-13.0 % Eosinophils (%) (Auto) 1.1 0.0-8.0 % Basophils (%) (Auto) 0.2 0.0-5.0 % Neutrophils # (Auto) 5.9 1.8-7.7 K/uL Lymphocytes # (Auto) 1.3 1.0-4.8 K/uL Monocytes # (Auto) 0.6 0.1-1.0 K/uL Eosinophils # (Auto) 0.09 0.00-0.70 K/uL Basophils # (Auto) 0.02 0.00-0.20 K/uL Absolute Immature Granulocyte (auto 0.10 0-1 K/uL Nucleated Red Blood Cells 0.0 0.0-0.19 % Chemistry Labs: Test 11/18/24 08:02 11/18/24 05:53 11/18/24 03:43 11/17/24 04:55 Range/Units Whole Blood Glucose 157 H 70-110 MG/DL Potassium Level 3.7 3.5-5.1 mmol/L Magnesium Level 2.00 1.80-2.40 mg/dL Sodium Level 137 136-145 mmol/L Chloride Level 107 101-111 mmol/L Carbon Dioxide Level 19 L 21-32 mmol/L Blood Urea Nitrogen 12 7-18 mg/dL Creatinine 1.0 0.5-1.3 mg/dL Glomerular Filtration Rate Calc 78 >90 mL/min Random Glucose 206 H 70-105 mg/dL Whole Blood Ketones Quantitative 0.5 0.0-0.6 mmol/L Lactic Acid Level 1.2 0.8-2.5 mmol/L Total Calcium 7.2 L 8.5-10.1 mg/dL Phosphorus Level 1.0 *L 2.5-4.9 mg/dL Total Bilirubin 0.6 0.2-1.0 mg/dL Aspartate Amino Transf (AST/SGOT) 14 10-37 U/L Alanine Aminotransferase (ALT/SGPT) 6 L 12-78 U/L Alkaline Phosphatase 59 50-136 U/L Total Protein 5.8 L 6.0-8.3 g/dL Albumin 2.0 L 3.5-5.0 g/dL DIAGNOSTICS / RADIOLOGY RESULTS: [ ] PLAN NEURO: Minimize central acting medications as possible. Fall Precautions. Well lighted room through the day and minimize interruptions through the night to prevent acute delirium. PULMONARY: Supplemental 02 as needed Titrate Fio2 to keep Spo2 > or = 90% DuoNebs and CPT as needed IS hourly while awake for pulmonary hygiene CARDIOVASCULAR: Follow hemodynamics. Titrate vasopressor to keep MAP >65 or systolic blood pressure >95mmHg DIPS: none LINES: PIV GI & NUTRITION: NPO Continue nutritional support Aspirations precautions Prokinetic agents and laxatives as needed KIDNEYS & ELECTROLYTES: Strict monitoring of intake and output Daily weights Avoid nephrotoxic agents Monitor electrolytes and replace as needed Goal urine output of 30mL/hr or 0.5mL/kg/hr ENDOCRINE: Maintain blood glucose between 100-180 at all times. Insulin sliding scale for blood glucose management INFECTIOUS DISEASE: Trend temperature. House-culture if febrile. Micro: [ ] Antibiotics: Vancomycin and Zosyn HEMATOLOGY & COAGULATION: Monitor H&H. Keep Hgb > 7 Transfuse 1 unit of PRBC for Hgb < 7 Transfuse 1 pack of platelets of platelets < 20, 000 Watch for any signs and symptoms of bleeding SKIN: Pressure ulcer prevention per facility protocol Rehab: PT/OT Prophylaxis: GI: PPI DVT: We will defer to primary Code Status: Full Resuscitation Disposition: Medical -surgical floor. Other: Total patient care time exceeds 35 minutes excluding all procedures. ATTESTATION BY PHYSICIAN I attest that I reviewed and discussed the case with the Physician Machine Tool Technician Instructor as well as agree with the Physician Machine Tool Technician Instructor's findings, plans of care, and documentation above. Burt Beckford MD, [facility] Nov 18, 2024 08:37
[2024-11-18] MEDS ORDERED: IpraTROPium 0.5 MG/2.5 ML INH IH PRN (10:30)
[2024-11-18] MEDS: IpraTROPium 0.5 MG/2.5 ML INH IH ONE (10:55)
[2024-11-18] MEDS: furoSEMIDE 20MG VIAL IV ONE (11:29)
[2024-11-18] MEDS: SODIUM BICARBONATE 650 MG TAB PO SCH (11:29)
--- NOTE | 2024-11-18 11:53 | PN ---
[facility] PROGRESS NOTE Date of Service: Nov 18, 2024 Time of Service: 11:43 SUBJECTIVE: This is a 74-year-old male with PMH of Left BKA , Rt TMA(5 years ) , PAD, DM, HTN, bowel perforation s/p bowel repair in 07/18 presented to ED with chief complaints of right foot pain. Patient has a chronic open wound to his right foot TMA stump. Pain scale 10/10. Aggravated factors movement, alleviating factors none. There is redness noted with eschar to open wound with minimal drainage. There is no surrounding edema but redness extending to mid leg level . No foul odor noted. Reports having fevers subjective. At the time of presentation , Vitals : T 99.3,HR 104, R 20, BP 143/75/99%RA.He was admitted for further evaluation and management of his wound . 4.17.25: Patient has low grade fevers. He denies pain at the rt TMA site. Wound dressing in place. MRI foot showed rt stump 1 and 2 osteomyelitis .Podiatry recommended possible amputation. LE artery doppler studies pending . ID and Cardiology consults placed. 11.10.25: Patient c/o pain in rt lower extremity . S/p peripheral angiogram by Dr Reilly- JUSTINE, [place] category 6 symptoms (right lower extremity), diffuse 80% stenosis in the proximal and distal right superficial femoral artery, 100% ISR within the stent in the mid right superficial femoral artery status post successful treatment with balloon lithotripsy and drug coated balloon angioplasty, 70% stenosis in the right tibioperoneal artery, and 100% stenosis in the proximal, mid, and distal right peroneal artery status post successful treatment with balloon angioplasty and balloon lithotripsy, resulting in widely patent arteries. There is residual PAD, 100% stenosis in the proximal right anterior tibial artery and 100% stenosis in the proximal right posterior tibial artery.Pending TCOM assessment .Patient tolerated the procedure well . 11.11.25: Patient s/p rt LE peripheral artery angioplasty. Uneventful post procedure course. Hb dropping -asymptomatic: treated with IV iron .TCOM evaluation pending (not till Wednesday as wound center is close on weekend),Ortho evaluation for possible stump revision pending. 11.12.25 : The patient is seen and examined today. No new complaints. His potassium is 3.3 And is being replaced. His hemoglobin went up from 8.6-10.7. The plan is for right above-knee amputation by Dr. Cotter tomorrow. 11.13.24: Patient seen resting in bed. Pending Rt AKA scheduled for later today . Patient has no concerns at this time .Stool occult blood positive . Will consult gastroenterology for drop in hemoglobin and positive stool occult blood . Case management and director of social media marketing on board . 11.14.24: Patient is pending Rt AKA by Dr Cotter today. He is receiving 1 unit of RBC now and is tolerating blood transfusion ,. Case managemnt on board for rehabilitation and placement. He has no concerns at this time . 11.15.24: Patient s/p AKA by Dr cotter. His vitals and labs are stable. Surgical site dressing clean . Pain adequately controlled. Heis in NAD. Case management on board for rehabilitation and placement. 11.16.24: Patient s/p AKA by Dr cotter. Surgical site dressing clean . Pain adequately controlled. Patient c/o vomiting, labs show CO2 14 -patient is on SGLT2 inhibitor- will continue to monitor . Case management on board for rehabilitation and placement. 11.17.24: Patient s/p AKA by Dr cotter. Surgical site dressing clean . Pain adequately controlled.Patient found to have euglycemic DKA with anion gap 20 decreased to 17 after 50 MEQ of NaHCO3 .Patient is asymptomatic .His vomiting subsided . Abdominal xray showed gastric distension. EGD showed chronic esophagitis with limited exam . Case management on board for rehabilitation and placement at inpatient rehab unit .Patient will be shifted to ICU for insulin drip and close monitoring . 11/18/2024. Patient was seen and examined along with RN. In ICU. His anion gap is closed. He is off insulin drip phosphorous was low at one he will be getting IV potassium phosphate with a repeat phosphorus level in 6 hour. He will be downgraded to floor. He does have NAGMA, we will get urine electrolytes and calculate urine anion gap. Likely Q two RTA. REVIEW OF SYSTEMS Denies chills fevers Denies SOB, cough Denies chest pain , palpitation Denies vomiting , abdominal pain, constipation , nausea Denies muscle pain, joint pain , weakness PHYSICAL EXAM GENERAL APPEARANCE: The patient is awake, alert, and oriented, in no acute cardiopulmonary distress. NEUROLOGICAL: Motor is 5/5 in bilateral upper extremities .No sensory deficits. HEENT: Face is symmetric. Pupils are equal and reactive. Extraocular movements are intact. NECK: Supple. No JVD. No thyromegaly. No submental, submandibular, pre-/postauricular, occipital or supraclavicular lymphadenopathy. CHEST: Normal chest expansion. No Telemetry. LUNGS: Absence of any rales, rhonchi or any wheezing. CARDIOVASCULAR: Regular. S1 and S2 normal. No appreciable rubs, murmurs or gallops. ABDOMEN: Soft, nontender, and nondistended. There is no rebound, voluntary guarding, or rigidity. : Deferred. No Jaramillo. EXTREMITIES: s/o rt AKA- dressing in place ;left BKA status Vital Signs (last 8hr) Date Time Temp Pulse Resp B/P (MAP) Pulse Ox O2 Delivery O2 Flow Rate FiO2 11/18/24 10:55 79 18 11/18/24 09:41 80 18 N/Cannula Low lpm 2.0 28 11/18/24 09:30 90 20 99 Nasal Cannula 2.0 11/18/24 09:15 91 11 99 11/18/24 09:00 75 19 99 11/18/24 08:44 85 21 140/65 100 Nasal Cannula 2.0 11/18/24 08:32 132/92 11/18/24 07:44 99.0 77 16 132/92 100 Nasal Cannula 2.0 11/18/24 05:43 82 15 133/53 (79) 99 11/18/24 04:44 88 19 131/50 (77) 100 11/18/24 04:00 98.6 11/18/24 04:00 97 Room Air* 0 21 11/18/24 03:44 77 18 126/62 (83) 100 LABS: Laboratory: Test 11/18/24 11:01 11/18/24 05:53 11/18/24 03:43 11/17/24 19:52 Range/Units Whole Blood Glucose 218 H 70-110 MG/DL Potassium Level 3.7 3.5-5.1 mmol/L Magnesium Level 2.00 1.80-2.40 mg/dL White Blood Count 8.0 # 4.8-10.8 K/uL Red Blood Count 3.16 L 4.50-6.20 MIL/uL Hemoglobin 8.7 L 14.0-18.0 g/dL Hematocrit 26.1 L 42-54 % Mean Corpuscular Volume 82.6 79-99 fL Mean Corpuscular Hemoglobin 27.5 27.0-33.0 pg Mean Corpuscular Hemoglobin Concent 33.3 32.0-36.0 g/dL Red Cell Distribution Width 16.3 H 11.0-15.5 % Platelet Count 196 130-400 K/uL Mean Platelet Volume 9.5 7.5-10.5 fL Immature Granulocyte % (Auto) 1.2 H 0-1 % Neutrophils (%) (Auto) 74.0 40.0-77.0 % Lymphocytes (%) (Auto) 16.0 L 21.0-51.0 % Monocytes (%) (Auto) 7.5 3.0-13.0 % Eosinophils (%) (Auto) 1.1 0.0-8.0 % Basophils (%) (Auto) 0.2 0.0-5.0 % Neutrophils # (Auto) 5.9 1.8-7.7 K/uL Lymphocytes # (Auto) 1.3 1.0-4.8 K/uL Monocytes # (Auto) 0.6 0.1-1.0 K/uL Eosinophils # (Auto) 0.09 0.00-0.70 K/uL Basophils # (Auto) 0.02 0.00-0.20 K/uL Absolute Immature Granulocyte (auto 0.10 0-1 K/uL Nucleated Red Blood Cells 0.0 0.0-0.19 % Sodium Level 137 136-145 mmol/L Chloride Level 107 101-111 mmol/L Carbon Dioxide Level 19 L 21-32 mmol/L Blood Urea Nitrogen 12 7-18 mg/dL Creatinine 1.0 0.5-1.3 mg/dL Glomerular Filtration Rate Calc 78 >90 mL/min Random Glucose 206 H 70-105 mg/dL Whole Blood Ketones Quantitative 0.5 0.0-0.6 mmol/L Lactic Acid Level 1.2 0.8-2.5 mmol/L Total Calcium 7.2 L 8.5-10.1 mg/dL Phosphorus Level 1.0 *L 2.5-4.9 mg/dL Blood Gas Specimen Type Arterial Arterial Blood pH 7.361 7.350-7.450 Arterial Blood Partial Pressure CO2 28 L 35-48 mmHg Arterial Blood Partial Pressure O2 110.6 H 83.0-108.0 mmHg Arterial Blood HCO3 15.5 L 21.0-28.0 mmol/L Arterial Blood Oxygen Saturation 98.0 94.0-98.0 % Arterial Blood Base Excess -8.2 L -2.0-3.0 mmol/L Blood Gas Temperature 37.0 35.5-37.0 CELSIUS Blood Gas Flow-by 2.00 0.00-15.00 L/min Blood Gas Vent Mode NC ROOM AIR FiO2 28.0 % Blood Gas Specimen Comment RR RN KD Test 11/17/24 11:10 11/17/24 04:55 Range/Units Vancomycin Level Trough 19.7 # 10.0-20.0 UG/ML Total Bilirubin 0.6 0.2-1.0 mg/dL Aspartate Amino Transf (AST/SGOT) 14 10-37 U/L Alanine Aminotransferase (ALT/SGPT) 6 L 12-78 U/L Alkaline Phosphatase 59 50-136 U/L Total Protein 5.8 L 6.0-8.3 g/dL Albumin 2.0 L 3.5-5.0 g/dL Current Medications Medications (Trade) Dose Ordered Sig/Jermain Route PRN Reason Start Time Stop Time Status Last Admin Dose Admin Acetaminophen (TYLenol 325MG TAB) 650 mg Q4H PRN PO TEMPERATURE GREATER THAN 101.5 11/08/24 12:00 12/08/24 11:59 11/14/24 23:07 650 MG Acetaminophen/ Hydrocodone Bitart (NORco 5/325MG) 1 tab Q6H PRN PO MODERATE PAIN (4-6) 11/14/24 20:00 11/16/24 18:09 DC 11/15/24 15:40 1 TAB Aspirin (Aspirin 81mg Ec Tab) 81 mg DAILY PO 11/10/24 09:00 12/10/24 08:59 11/18/24 08:31 81 MG Atorvastatin Calcium (LIPItor 40MG) 40 mg DAILY PO 11/10/24 09:00 12/10/24 08:59 11/18/24 08:32 40 MG Carvedilol (Coreg 3.125MG) 3.125 mg BID PO 11/09/24 21:00 12/09/24 20:59 11/18/24 08:32 3.125 MG Clopidogrel Bisulfate (plaVIX 75MG) 75 mg DAILY PO 11/10/24 09:00 12/10/24 08:59 11/18/24 08:32 75 MG Dextrose 1,000 ml @ 100 mls/hr Q10H IV 11/17/24 12:00 11/18/24 04:59 DC Dextrose (D50w) 50 ml AD PRN IV HYPOGLYCEMIA PROTOCOL 11/10/24 12:30 12/10/24 12:29 Dextrose/Sodium Chloride 1,000 ml @ 0 mls/hr AD IV 11/17/24 12:00 11/17/24 12:45 DC Empaglifozin (Jardiance 25mg) 25 mg DAILY PO 11/10/24 09:00 11/16/24 15:14 DC 11/16/24 09:58 25 MG Famotidine (Pepcid 20mg Vial) 20 mg DAILY IV 11/09/24 09:00 11/16/24 15:19 DC 11/16/24 09:56 20 MG Ferrous Sulfate (Ferrous Sulfate) 325 mg QODAY PO 11/11/24 09:00 12/11/24 08:59 11/17/24 10:52 325 MG Glucagon (Glucagon 1mg Kit) 1 mg AD PRN IM HYPOGLYCEMIA PROTOCOL 11/10/24 12:30 12/10/24 12:29 Heparin Sodium (Porcine) (HEParin 5,000 UNIT VIAL) 5,000 unit Q12H SQ 11/08/24 12:30 12/08/24 12:29 11/18/24 11:30 5,000 UNIT Home Med (Home Medication) (Finasteride 1 MG)- HAIR LOSS DAILY PO 11/10/24 09:00 12/10/24 08:59 Hydromorphone HCl (DiLAUDid 0.5MG INJ) 0.5 mg Q4H PRN IVP SEVERE PAIN (7-10) 11/08/24 12:00 11/13/24 11:59 DC 11/11/24 18:34 0.5 MG Hydromorphone HCl (DiLAUDid 0.5MG INJ) 0.5 mg Q4H PRN IVP SEVERE PAIN (7-10) 11/14/24 00:00 11/16/24 18:09 DC 11/16/24 13:21 0.5 MG Insulin Glargine (LANtus 100 UNITS/ML 10 ML VIAL) 15 units Q12H SQ 11/18/24 06:00 12/18/24 05:59 11/18/24 05:06 15 UNITS Insulin Human Regular (humuLIN R 100 UNIT/ML 3ML) INSULIN SLIDING SCAL... ACHS SQ 11/08/24 16:30 12/08/24 16:29 11/18/24 11:31 6 UNIT Insulin Human Regular 100 unit/ Sodium Chloride 101 ml @ 0 mls/hr PROTOCOL IV 11/17/24 12:00 11/18/24 04:59 DC 11/17/24 16:06 4.65 MLS/HR Ipratropium [place] (AtrovENT UD) 0.5 MG Q4H PRN IH SHORTNESS OF BREATH 11/18/24 10:30 12/18/24 10:29 Iron Sucrose (VenoFER) 200 mg ONCE STAT IV 11/09/24 11:20 11/09/24 11:35 DC Lactated Ringer's 1,000 ml @ 100 mls/hr Q10H IV 11/18/24 05:00 11/18/24 08:46 DC 11/18/24 05:06 100 MLS/HR Lactulose (Constulose 20gm/ 30ml Udcup) 20 gm BID PRN PO CONSTIPATION 11/08/24 12:00 12/08/24 11:59 Lisinopril (Prinivil 10mg) 10 mg DAILY PO 11/16/24 09:00 11/16/24 09:53 DC Lisinopril (Prinivil 20mg) 20 mg DAILY PO 11/17/24 09:00 12/17/24 08:59 11/18/24 08:33 20 MG Lisinopril (Prinivil 5mg) 5 mg DAILY PO 11/10/24 09:00 11/15/24 09:21 DC 11/15/24 08:10 5 MG Magnesium Sulfate 50 ml @ 0 mls/hr PROTOCOL IV 11/17/24 12:00 11/18/24 07:32 DC 11/18/24 04:41 25 MLS/HR Magnesium Sulfate 50 ml @ 0 mls/hr PROTOCOL IV 11/17/24 13:00 12/17/24 12:59 Magnesium Sulfate 50 ml @ 0 mls/hr PROTOCOL PRN IV low mag level 11/08/24 12:00 11/18/24 07:32 DC 11/11/24 05:34 25 MLS/HR Mannitol (Osmitrol 20% 250ml Bag) 47 gm AD IV 11/17/24 12:00 11/17/24 12:48 DC Metformin HCl (glucoPHAGE) 1,000 mg BIDMEALS PO 11/09/24 17:00 11/16/24 22:14 DC 11/16/24 17:40 1,000 MG Metoclopramide HCl (regLAN 10MG IV) 5 mg TIDAC IVP 11/17/24 11:30 11/18/24 08:31 DC 11/17/24 16:07 5 MG Ondansetron HCl (zoFRAN 4MG INJ) 4 mg Q6H PRN IVP NAUSEA/VOMITING 11/08/24 12:00 12/08/24 11:59 11/16/24 09:56 4 MG Pantoprazole Sodium (PROTonix 40MG INJ) 40 mg DAILY IVP 11/17/24 09:00 12/17/24 08:59 11/18/24 08:31 40 MG Pioglitazone HCl (Actos 30mg) 30 mg DAILY PO 11/10/24 09:00 11/16/24 22:15 DC 11/16/24 09:56 30 MG Piperacillin Sod/ Tazobactam Sod (Zosyn 3.375gm+NS 50ml) 3.375 gm Q8H IVPB 11/08/24 17:30 11/14/24 13:27 DC 11/14/24 00:57 3.375 GM Piperacillin Sod/ Tazobactam Sod (Zosyn 3.375gm+NS 50ml) 3.375 gm Q8H IVPB 11/14/24 13:30 11/16/24 11:00 DC 11/16/24 05:41 3.375 GM Potassium Chloride 20 meq/ Sodium Chloride 1,010 ml @ 0 mls/hr PROTOCOL IV 11/17/24 12:00 11/17/24 12:45 DC Potassium Chloride/Dextrose/ Sod Cl 1,000 ml @ 0 mls/hr AD IV 11/17/24 12:00 11/18/24 04:59 DC 11/18/24 04:43 300 MLS/HR Potassium Phosphate 250 ml @ 42 mls/hr PROTOCOL PRN IV PROTOCOL 11/18/24 05:00 11/18/24 07:33 DC 11/18/24 05:36 42 MLS/HR Potassium Phosphate 250 ml @ 42 mls/hr PROTOCOL PRN IV PROTOCOL 11/18/24 07:30 12/18/24 07:29 Potassium Chloride 100 ml @ 50 mls/hr AD PRN IV POTASSIUM PROTOCOL 11/16/24 15:30 11/16/24 15:19 DC Potassium Chloride 100 ml @ 100 mls/hr AD PRN IV POTASSIUM PROTOCOL 11/08/24 12:00 12/08/24 11:59 11/18/24 03:18 100 MLS/HR Potassium Chloride 100 ml @ 0 mls/hr PROTOCOL PRN IV DKA POTASSIUM REPLACEMENT 11/17/24 13:00 12/17/24 12:59 11/17/24 16:07 50 MLS/HR Potassium Chloride (K-Dur/Klor-Con 20meq) 20 meq AD PRN PO POTASSIUM PROTOCOL 11/08/24 12:00 11/16/24 15:14 DC 11/12/24 19:14 20 MEQ Potassium Chloride (KCl 10% Elixir 20meq/15ml) 20 meq AD PRN PO POTASSIUM PROTOCOL 11/08/24 12:00 11/16/24 15:14 DC Sodium Bicarbonate (Sodium Bicarbonate) 650 mg BID PO 11/18/24 09:00 12/18/24 08:59 11/18/24 11:29 650 MG Sodium Chloride 1,000 ml @ 100 mls/hr Q10H IV 11/08/24 12:00 11/17/24 12:39 DC 11/17/24 05:38 100 MLS/HR Sodium Chloride 1,000 ml @ 100 mls/hr Q10H IV 11/10/24 12:30 11/10/24 15:29 DC Sodium Chloride (NS 50ml) 50 ml AD IV 11/08/24 21:00 11/08/24 11:59 DC Tamsulosin HCl (FloMAX) 0.4 mg DAILY PO 11/10/24 09:00 12/10/24 08:59 11/18/24 08:32 0.4 MG Vancomycin HCl 250 ml @ 125 mls/hr Q12H IV 11/15/24 12:00 11/16/24 14:00 DC 11/16/24 11:47 125 MLS/HR Vancomycin HCl 250 ml @ 125 mls/hr Q12H IV 11/17/24 00:30 11/17/24 11:42 DC 11/17/24 01:34 125 MLS/HR Vancomycin HCl 250 ml @ 125 mls/hr Q24H IV 11/10/24 12:00 11/12/24 11:49 DC 11/11/24 15:18 125 MLS/HR Vancomycin HCl 500 ml @ 250 mls/hr Q24H IV 11/12/24 12:00 11/15/24 11:42 DC 11/14/24 13:36 250 MLS/HR Vancomycin HCl (Vancomycin Protocol) 1 each AD IV 11/09/24 11:30 11/16/24 13:00 DC Vancomycin HCl (Vancomycin 1g/ 250ml Kit) 1 gm Q12H IV 11/08/24 12:00 11/08/24 11:59 DC DIAGNOSTICS / RADIOLOGY: [ ] ASSESSMENT: Sepsis: POA Rt foot TMA stump osteomyelitis,poa s/p Right AKA by Dr Cotter on 11.14.24 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, drainage POA intractable pain right foot POA Severe PAD Poa Iron deficiency anemia with drop in hemoglobin , POA Uncontrolled diabetes type 2 POA Obesity BMI: 33 Immobility secondary to left AKA, and limited functional to right foot: POA Hypomagnesemia,POA Vomiting , not POA Euglycemic DKA secondry to Jardiance and postoperative stress , Anion gap 20- improving to 17 today , not POA Bed-bound status POA Non-anion gap metabolic acidosis PLAN: DKA: Resolved anion gap is closed. Insulin drip is off. Patient is back to Lantus and sliding scale. Metformin was discontinued SGLT2 was discontinued. Patient has developed non anion gap metabolic acidosis we will replace bicarb p.o.. We will get urine anion gap determine the etiology of non-anion gap metabolic acidosis. Sepsis: POA -resolved Tachycardia, CRP elevated ,subjective feversat the time pf admission Continue on Zosyn, Vancomycin (pharmacy to dose) ID on board Blood cultures negative Rt foot TMA stump osteomyelitis ,POA,s/p Right AKA by Dr Cotter on 11.14.24 Intractable pain right foot POA wound cultures growing Klebsiella pneumoniae, Enterococcus faecalis, MRSA Continue with IV Zosyn and IV vancomycin Podiatry and ID on board Patient stable PAD, [place] category 6 symptoms (right lower extremity),POA -S\P Right AKA on 11.14.24 Continue Aspirin 81 mg daily and clopidogrel 75 mg daily for a minimum of six months and optimally one year. -pain management with hydromorphone director of social media marketing and case management consulted Uncontrolled diabetes type 2 POA HbA1C 9.2 Iron deficiency anemia with drop in hemoglobin , POA Started on IV iron x 2 Tsat 6.4% Stool occult blood positive EGD- poor examination, chronic esophagitis + DVT ppx with Heparin GI ppx with Protonix YOUNG CHUNG MD Nov 18, 2024 11:53
--- NOTE | 2024-11-18 12:44 | NUR ---
CM update: Patient was transferred to ICU yesterday for DKA, started on insulin drip. Patient transferred back this morning to room #332. EGD report and latest PT [facility] Pt. is still pending insurance auth.
[2024-11-18 14:10] LABS: CREATININE 0.9 mg/dL (0.5-1.3); MAGNESIUM 1.8 mg/dL (1.80-2.40); POTASSIUM 3.4 mmol/L (3.5-5.1)
[2024-11-18] MEDS: NEUtra-PHOS PACKET 1 EACH PO SCH (15:02)
[2024-11-18 18:24] LABS: CHLORIDE,URINE RANDOM 129 mmol/L (110-250); POTASSIUM,URINE RANDOM 10 mmol/L (25-125); SODIUM,URINE RANDOM 107 mmol/l (40-220)
--- NOTE | 2024-11-18 21:10 | NUR ---
MEDS SHIFT ASSESSMENT DONE, PLEASE REFER TO CHART. DUE MEDS ADMINISTERED, TOLERATED WELL. KEPT RESTED AND COMFORTABLE IN BED. CALL LIGHT WITHIN REACH. BED ALARM KEPT ACTIVATED.
[2024-11-19] VITALS (10 sets, daily range): BP systolic 116–154; BP diastolic 58–78; PULSE 71–103; RESP 16–20; TEMP 97.5–99.5; O2SAT 95–99
[2024-11-19 04:22] LABS: BASOPHILS # (AUTO) 0.02 K/uL (0.00-0.20); BASOPHILS % (AUTO) 0.4 % (0.0-5.0); EOSINOPHILS # (AUTO) 0.09 K/uL (0.00-0.70); EOSINOPHILS % (AUTO) 1.8 % (0.0-8.0); HEMATOCRIT 28.4 % (42-54); IMMATURE GRANULOCYTE ABSOLUTE 0.05 K/uL (0-1); LYMPHOCYTES # (AUTO) 1.1 K/uL (1.0-4.8); LYMPHOCYTES % (AUTO) 22.6 % (21.0-51.0); MEAN CORPUSCULAR HEMOGLOBIN 26.9 pg (27.0-33.0); MEAN CORPUSCULAR HGB CONC 32.4 g/dL (32.0-36.0); MONOCYTES # (AUTO) 0.4 K/uL (0.1-1.0); NEUTROPHILS # (AUTO) 3.2 K/uL (1.8-7.7); NEUTROPHILS % (AUTO) 66.2 % (40.0-77.0); PLATELET COUNT (AUTO) 176 K/uL (130-400); RED BLOOD CELL COUNT(AUTO) 3.42 MIL/uL (4.50-6.20); RED CELL DISTRIBUTION WIDTH 15.9 % (11.0-15.5); WHITE BLOOD COUNT (AUTO) 4.9 K/uL (4.8-10.8)
[2024-11-19 04:40] LABS: ASPARTATE AMINOTRANSFERASE 10 U/L (10-37); BILIRUBIN,TOTAL 0.6 mg/dL (0.2-1.0); CARBON DIOXIDE 26 mmol/L (21-32); CHLORIDE 104 mmol/L (101-111); CREATININE 0.8 mg/dL (0.5-1.3); GLOMERULAR FILTR. RATE CALC 92 mL/min (>90); GLUCOSE,RANDOM 126 mg/dL (70-105); PHOSPHORUS 2.9 mg/dL (2.5-4.9); SODIUM SERUM 140 mmol/L (136-145); TOTAL PROTEIN, SERUM 5.8 g/dL (6.0-8.3); UREA NITROGEN, BLOOD 6 mg/dL (7-18)
[2024-11-19 04:41] LABS: ALANINE AMINOTRANSFERASE < 6 U/L (12-78)
[2024-11-19 04:42] LABS: POTASSIUM 2.6 mmol/L (3.5-5.1)
[2024-11-19] MEDS: MAGNESIUM 2GM PREMIX 50ML 50 ML IV SCH (05:03)
--- NOTE | 2024-11-19 05:03 | NUR ---
CRITICAL PT HAS CRITICAL VALUE KCL=2.6. STARTED PT ON IV AND MG INFUSIONS FOR REPLACEMENT. KEPT RESTED AND COMFORTABLE IN BED. CALL LIGHT WITHIN REACH. FOR MORE CARE.
[2024-11-19] MEDS ORDERED: PoTASSium chl 10% ELIXIR 20MEQ 20 MEQ/15 ML UDCUP PO PRN (05:30)
[2024-11-19] MEDS: PoTASSium chloRIDE 20MEQ ER 20 MEQ ERTAB PO PRN (05:43)
--- NOTE | 2024-11-19 07:13 | PN ---
INFECTIOUS DISEASE FOLLOWUP NOTE DATE OF SERVICE: 11/18/2024 SUBJECTIVE: The patient is seen and examined at bedside today. The patient has no fever, no chills. No nausea, no vomiting, no abdominal pain. No cough, no shortness of breath. No palpitations or orthopnea. No depression. No suicidal ideation. The patient was temporarily transferred to ICU due to metabolic acidosis. PHYSICAL EXAMINATION: VITAL SIGNS: Temperature today 97.4. EYES: No icterus. Pupils are equal and reactive. HENT: No oral thrush seen. Moist oral mucosa. NECK: Supple. No JVD or thyromegaly. LUNGS: Good air entry. No rales. No rhonchi. CARDIOVASCULAR: No S1, S2 regular. No murmur heard. ABDOMEN: Obese, soft, nontender. Bowel sound is present. CENTRAL NERVOUS SYSTEM: Awake, alert and oriented x 3. Bedbound debility. SKIN: No rashes. No itchiness. LYMPHATICS: No peripheral lymphadenopathy. BACK: No deformity. No pressure ulcer. EXTREMITIES: Status post right above knee amputation. Intact incision with marcela. LABORATORY DATA: WBC 8.0, hemoglobin 8.7, platelets 196. Sodium 137, potassium 3.0. ASSESSMENT: A 74-year-old male with multiple problems which include: * Right foot gangrene with osteomyelitis, status post above-knee amputation. * Hypokalemia. * Hypertension. * Diabetes mellitus. * Morbid obesity. * Peripheral vascular disease. * Debility. PLAN: * Continue pain management. * Continue wound care. * Continue antidiabetic. * Continue antiemetic. * Continue antiplatelet. * Monitor electrolytes. * The patient will be followed up closely. TID: [id number] RECEIPT: [id number]
[2024-11-19] MEDS: PoTASSium chloRIDE 20MEQ/100ML 100 ML IV PRN (07:37)
[2024-11-19] MEDS: SPIRONOLACTONE 25 MG TAB PO SCH (07:39)
--- NOTE | 2024-11-19 10:16 | PN ---
[facility] PROGRESS NOTE Date of Service: Nov 19, 2024 Time of Service: 10:14 SUBJECTIVE: This is a 74-year-old male with PMH of Left BKA , Rt TMA(5 years ) , PAD, DM, HTN, bowel perforation s/p bowel repair in 07/18 presented to ED with chief complaints of right foot pain. Patient has a chronic open wound to his right foot TMA stump. Pain scale 10/10. Aggravated factors movement, alleviating factors none. There is redness noted with eschar to open wound with minimal drainage. There is no surrounding edema but redness extending to mid leg level . No foul odor noted. Reports having fevers subjective. At the time of presentation , Vitals : T 99.3,HR 104, R 20, BP 143/75/99%RA.He was admitted for further evaluation and management of his wound . 4.17.25: Patient has low grade fevers. He denies pain at the rt TMA site. Wound dressing in place. MRI foot showed rt stump 1 and 2 osteomyelitis .Podiatry recommended possible amputation. LE artery doppler studies pending . ID and Cardiology consults placed. 11.10.25: Patient c/o pain in rt lower extremity . S/p peripheral angiogram by Dr Reilly- JUSTINE, Harvey category 6 symptoms (right lower extremity), diffuse 80% stenosis in the proximal and distal right superficial femoral artery, 100% ISR within the stent in the mid right superficial femoral artery status post successful treatment with balloon lithotripsy and drug coated balloon angioplasty, 70% stenosis in the right tibioperoneal artery, and 100% stenosis in the proximal, mid, and distal right peroneal artery status post successful treatment with balloon angioplasty and balloon lithotripsy, resulting in widely patent arteries. There is residual PAD, 100% stenosis in the proximal right anterior tibial artery and 100% stenosis in the proximal right posterior tibial artery.Pending TCOM assessment .Patient tolerated the procedure well . 11.11.25: Patient s/p rt LE peripheral artery angioplasty. Uneventful post procedure course. Hb dropping -asymptomatic: treated with IV iron .TCOM evaluation pending (not till Wednesday as wound center is close on weekend),Ortho evaluation for possible stump revision pending. 11.12.25 : The patient is seen and examined today. No new complaints. His potassium is 3.3 And is being replaced. His hemoglobin went up from 8.6-10.7. The plan is for right above-knee amputation by Dr. Cotter tomorrow. 11.13.24: Patient seen resting in bed. Pending Rt AKA scheduled for later today . Patient has no concerns at this time .Stool occult blood positive . Will consult gastroenterology for drop in hemoglobin and positive stool occult blood . Case management and social sciences lecturer on board . 11.14.24: Patient is pending Rt AKA by Dr Cotter today. He is receiving 1 unit of RBC now and is tolerating blood transfusion ,. Case managemnt on board for rehabilitation and placement. He has no concerns at this time . 11.15.24: Patient s/p AKA by Dr cotter. His vitals and labs are stable. Surgical site dressing clean . Pain adequately controlled. Heis in NAD. Case management on board for rehabilitation and placement. 11.16.24: Patient s/p AKA by Dr cotter. Surgical site dressing clean . Pain adequately controlled. Patient c/o vomiting, labs show CO2 14 -patient is on SGLT2 inhibitor- will continue to monitor . Case management on board for rehabilitation and placement. 11.17.24: Patient s/p AKA by Dr cotter. Surgical site dressing clean . Pain adequately controlled.Patient found to have euglycemic DKA with anion gap 20 decreased to 17 after 50 MEQ of NaHCO3 .Patient is asymptomatic .His vomiting subsided . Abdominal xray showed gastric distension. EGD showed chronic esophagitis with limited exam . Case management on board for rehabilitation and placement at inpatient rehab unit .Patient will be shifted to ICU for insulin drip and close monitoring . 11/18/2024. Patient was seen and examined along with RN. In ICU. His anion gap is closed. He is off insulin drip phosphorous was low at one he will be getting IV potassium phosphate with a repeat phosphorus level in 6 hour. He will be downgraded to floor. He does have NAGMA, we will get urine electrolytes and calculate urine anion gap. Likely Q two RTA. 24: Patient is seen resting in his bed . He stated that he feel sleepy- we will continue to monitor . His metabolic acidosis is corrected . Potassium was 2.6 today morning-after correction the repeat potassium levels are 3.6. He is started on spironolactone . Pending approval for Rehab . REVIEW OF SYSTEMS Denies chills fevers Denies SOB, cough Denies chest pain , palpitation Denies vomiting , abdominal pain, constipation , nausea Denies muscle pain, joint pain , weakness PHYSICAL EXAM GENERAL APPEARANCE: The patient is awake, alert, and oriented, in no acute cardiopulmonary distress. NEUROLOGICAL: Motor is 5/5 in bilateral upper extremities .No sensory deficits. HEENT: Face is symmetric. Pupils are equal and reactive. Extraocular movements are intact. NECK: Supple. No JVD. No thyromegaly. No submental, submandibular, pre- /postauricular, occipital or supraclavicular lymphadenopathy. CHEST: Normal chest expansion. No Telemetry. LUNGS: Absence of any rales, rhonchi or any wheezing. CARDIOVASCULAR: Regular. S1 and S2 normal. No appreciable rubs, murmurs or ga llops. ABDOMEN: Soft, nontender, and nondistended. There is no rebound, voluntary guarding, or rigidity. : Deferred. No Jaramillo. EXTREMITIES: s/o rt AKA- dressing in place ;left BKA status Vital Signs (last 8hr) Date Time Temp Pulse Resp B/P (MAP) Pulse Ox O2 Delivery O2 Flow Rate FiO2 11/19/24 07:38 129/58 11/19/24 07:35 97.9 76 19 129/58 100 Nasal Cannula 1.0 11/19/24 07:34 71 18 N/Cannula Low lpm 2.0 28 11/19/24 03:24 98.6 97 16 116/62 99 Nasal Cannula 1.0 LABS: Laboratory: Test 11/19/24 04:58 11/19/24 04:05 11/18/24 18:09 11/18/24 03:43 Range/Units Whole Blood Glucose 134 H 70-110 MG/DL White Blood Count 4.9 4.8-10.8 K/uL Red Blood Count 3.42 L 4.50-6.20 MIL/uL Hemoglobin 9.2 L 14.0-18.0 g/dL Hematocrit 28.4 L 42-54 % Mean Corpuscular Volume 83.0 79-99 fL Mean Corpuscular Hemoglobin 26.9 L 27.0-33.0 pg Mean Corpuscular Hemoglobin Concent 32.4 32.0-36.0 g/dL Red Cell Distribution Width 15.9 H 11.0-15.5 % Platelet Count 176 130-400 K/uL Mean Platelet Volume 10.4 7.5-10.5 fL Immature Granulocyte % (Auto) 1.0 0-1 % Neutrophils (%) (Auto) 66.2 40.0-77.0 % Lymphocytes (%) (Auto) 22.6 21.0-51.0 % Monocytes (%) (Auto) 8.0 3.0-13.0 % Eosinophils (%) (Auto) 1.8 0.0-8.0 % Basophils (%) (Auto) 0.4 0.0-5.0 % Neutrophils # (Auto) 3.2 1.8-7.7 K/uL Lymphocytes # (Auto) 1.1 1.0-4.8 K/uL Monocytes # (Auto) 0.4 0.1-1.0 K/uL Eosinophils # (Auto) 0.09 0.00-0.70 K/uL Basophils # (Auto) 0.02 0.00-0.20 K/uL Absolute Immature Granulocyte (auto 0.05 0-1 K/uL Nucleated Red Blood Cells 0.0 0.0-0.19 % Sodium Level 140 136-145 mmol/L Potassium Level 2.6 *L 3.5-5.1 mmol/L Chloride Level 104 101-111 mmol/L Carbon Dioxide Level 26 21-32 mmol/L Blood Urea Nitrogen 6 L 7-18 mg/dL Creatinine 0.8 0.5-1.3 mg/dL Glomerular Filtration Rate Calc 92 >90 mL/min Random Glucose 126 H 70-105 mg/dL Total Calcium 7.5 L 8.5-10.1 mg/dL Phosphorus Level 2.9 2.5-4.9 mg/dL Magnesium Level 1.70 L 1.80-2.40 mg/dL Total Bilirubin 0.6 0.2-1.0 mg/dL Aspartate Amino Transf (AST/SGOT) 10 10-37 U/L Alanine Aminotransferase (ALT/SGPT) < 6 L 12-78 U/L Alkaline Phosphatase 56 50-136 U/L Total Protein 5.8 L 6.0-8.3 g/dL Albumin 2.0 L 3.5-5.0 g/dL Urine Random Sodium 107 40-220 mmol/l Urine Random Potassium 10 L 25-125 mmol/L Urine Random Chloride 129 110-250 mmol/L Whole Blood Ketones Quantitative 0.5 0.0-0.6 mmol/L Lactic Acid Level 1.2 0.8-2.5 mmol/L Test 11/17/24 19:52 11/17/24 11:10 Range/Units Blood Gas Specimen Type Arterial Arterial Blood pH 7.361 7.350-7.450 Arterial Blood Partial Pressure CO2 28 L 35-48 mmHg Arterial Blood Partial Pressure O2 110.6 H 83.0-108.0 mmHg Arterial Blood HCO3 15.5 L 21.0-28.0 mmol/L Arterial Blood Oxygen Saturation 98.0 94.0-98.0 % Arterial Blood Base Excess -8.2 L -2.0-3.0 mmol/L Blood Gas Temperature 37.0 35.5-37.0 CELSIUS Blood Gas Flow-by 2.00 0.00-15.00 L/min Blood Gas Vent Mode NC ROOM AIR FiO2 28.0 % Blood Gas Specimen Comment RR RN KD Vancomycin Level Trough 19.7 # 10.0-20.0 UG/ML Current Medications Medications (Trade) Dose Ordered Sig/Jermain Route PRN Reason Start Time Stop Time Status Last Admin Dose Admin Acetaminophen (TYLenol 325MG TAB) 650 mg Q4H PRN PO TEMPERATURE GREATER THAN 101.5 11/08/24 12:00 12/08/24 11:59 11/14/24 23:07 650 MG Acetaminophen/ Hydrocodone Bitart (NORco 5/325MG) 1 tab Q6H PRN PO MODERATE PAIN (4-6) 11/14/24 20:00 11/16/24 18:09 DC 11/15/24 15:40 1 TAB Aspirin (Aspirin 81mg Ec Tab) 81 mg DAILY PO 11/10/24 09:00 12/10/24 08:59 11/19/24 07:38 81 MG Atorvastatin Calcium (LIPItor 40MG) 40 mg DAILY PO 11/10/24 09:00 12/10/24 08:59 11/19/24 07:38 40 MG Carvedilol (Coreg 3.125MG) 3.125 mg BID PO 11/09/24 21:00 12/09/24 20:59 11/19/24 07:38 3.125 MG Clopidogrel Bisulfate (plaVIX 75MG) 75 mg DAILY PO 11/10/24 09:00 12/10/24 08:59 11/19/24 07:39 75 MG Dextrose 1,000 ml @ 100 mls/hr Q10H IV 11/17/24 12:00 11/18/24 04:59 DC Dextrose (D50w) 50 ml AD PRN IV HYPOGLYCEMIA PROTOCOL 11/10/24 12:30 12/10/24 12:29 Dextrose/Sodium Chloride 1,000 ml @ 0 mls/hr AD IV 11/17/24 12:00 11/17/24 12:45 DC Empaglifozin (Jardiance 25mg) 25 mg DAILY PO 11/10/24 09:00 11/16/24 15:14 DC 11/16/24 09:58 25 MG Famotidine (Pepcid 20mg Vial) 20 mg DAILY IV 11/09/24 09:00 11/16/24 15:19 DC 11/16/24 09:56 20 MG Ferrous Sulfate (Ferrous Sulfate) 325 mg QODAY PO 11/11/24 09:00 12/11/24 08:59 11/19/24 07:44 325 MG Glucagon (Glucagon 1mg Kit) 1 mg AD PRN IM HYPOGLYCEMIA PROTOCOL 11/10/24 12:30 12/10/24 12:29 Heparin Sodium (Porcine) (HEParin 5,000 UNIT VIAL) 5,000 unit Q12H SQ 11/08/24 12:30 12/08/24 12:29 11/18/24 23:13 5,000 UNIT Home Med (Home Medication) (Finasteride 1 MG)- HAIR LOSS DAILY PO 11/10/24 09:00 12/10/24 08:59 Hydromorphone HCl (DiLAUDid 0.5MG INJ) 0.5 mg Q4H PRN IVP SEVERE PAIN (7-10) 11/08/24 12:00 11/13/24 11:59 DC 11/11/24 18:34 0.5 MG Hydromorphone HCl (DiLAUDid 0.5MG INJ) 0.5 mg Q4H PRN IVP SEVERE PAIN (7-10) 11/14/24 00:00 11/16/24 18:09 DC 11/16/24 13:21 0.5 MG Insulin Glargine (LANtus 100 UNITS/ML 10 ML VIAL) 15 units Q12H SQ 11/18/24 06:00 12/18/24 05:59 11/19/24 05:44 15 UNITS Insulin Human Regular (humuLIN R 100 UNIT/ML 3ML) INSULIN SLIDING SCAL... ACHS SQ 11/08/24 16:30 12/08/24 16:29 11/18/24 21:13 8 UNIT Insulin Human Regular 100 unit/ Sodium Chloride 101 ml @ 0 mls/hr PROTOCOL IV 11/17/24 12:00 11/18/24 04:59 DC 11/17/24 16:06 4.65 MLS/HR Ipratropium [place] (AtrovENT UD) 0.5 MG Q4H PRN IH SHORTNESS OF BREATH 11/18/24 10:30 12/18/24 10:29 Iron Sucrose (VenoFER) 200 mg ONCE STAT IV 11/09/24 11:20 11/09/24 11:35 DC Lactated Ringer's 1,000 ml @ 100 mls/hr Q10H IV 11/18/24 05:00 11/18/24 08:46 DC 11/18/24 05:06 100 MLS/HR Lactulose (Constulose 20gm/ 30ml Udcup) 20 gm BID PRN PO CONSTIPATION 11/08/24 12:00 12/08/24 11:59 Lisinopril (Prinivil 10mg) 10 mg DAILY PO 11/16/24 09:00 11/16/24 09:53 DC Lisinopril (Prinivil 20mg) 20 mg DAILY PO 11/17/24 09:00 12/17/24 08:59 11/19/24 07:37 20 MG Lisinopril (Prinivil 5mg) 5 mg DAILY PO 11/10/24 09:00 11/15/24 09:21 DC 11/15/24 08:10 5 MG Magnesium Oxide (Mag-Ox) 400 mg BID PO 11/19/24 21:00 11/22/24 07:00 Magnesium Sulfate 50 ml @ 0 mls/hr PROTOCOL IV 11/17/24 12:00 11/18/24 07:32 DC 11/18/24 04:41 25 MLS/HR Magnesium Sulfate 50 ml @ 0 mls/hr PROTOCOL IV 11/17/24 13:00 12/17/24 12:59 11/19/24 05:03 25 MLS/HR Magnesium Sulfate 50 ml @ 0 mls/hr PROTOCOL PRN IV low mag level 11/08/24 12:00 11/18/24 07:32 DC 11/11/24 05:34 25 MLS/HR Mannitol (Osmitrol 20% 250ml Bag) 47 gm AD IV 11/17/24 12:00 11/17/24 12:48 DC Metformin HCl (glucoPHAGE) 1,000 mg BIDMEALS PO 11/09/24 17:00 11/16/24 22:14 DC 11/16/24 17:40 1,000 MG Metoclopramide HCl (regLAN 10MG IV) 5 mg TIDAC IVP 11/17/24 11:30 11/18/24 08:31 DC 11/17/24 16:07 5 MG Ondansetron HCl (zoFRAN 4MG INJ) 4 mg Q6H PRN IVP NAUSEA/VOMITING 11/08/24 12:00 12/08/24 11:59 11/16/24 09:56 4 MG Pantoprazole Sodium (PROTonix 40MG INJ) 40 mg DAILY IVP 11/17/24 09:00 12/17/24 08:59 11/19/24 07:39 40 MG Pioglitazone HCl (Actos 30mg) 30 mg DAILY PO 11/10/24 09:00 11/16/24 22:15 DC 11/16/24 09:56 30 MG Piperacillin Sod/ Tazobactam Sod (Zosyn 3.375gm+NS 50ml) 3.375 gm Q8H IVPB 11/08/24 17:30 11/14/24 13:27 DC 11/14/24 00:57 3.375 GM Piperacillin Sod/ Tazobactam Sod (Zosyn 3.375gm+NS 50ml) 3.375 gm Q8H IVPB 11/14/24 13:30 11/16/24 11:00 DC 11/16/24 05:41 3.375 GM Potassium Chloride 20 meq/ Sodium Chloride 1,010 ml @ 0 mls/hr PROTOCOL IV 11/17/24 12:00 11/17/24 12:45 DC Potassium Chloride/Dextrose/ Sod Cl 1,000 ml @ 0 mls/hr AD IV 11/17/24 12:00 11/18/24 04:59 DC 11/18/24 04:43 300 MLS/HR Potassium Phosphate 250 ml @ 42 mls/hr PROTOCOL PRN IV PROTOCOL 11/18/24 05:00 11/18/24 07:33 DC 11/18/24 05:36 42 MLS/HR Potassium Phosphate 250 ml @ 42 mls/hr PROTOCOL PRN IV PROTOCOL 11/18/24 07:30 12/18/24 07:29 Potassium Chloride 100 ml @ 50 mls/hr AD PRN IV POTASSIUM PROTOCOL 11/16/24 15:30 11/16/24 15:19 DC Potassium Chloride 100 ml @ 100 mls/hr AD PRN IV POTASSIUM PROTOCOL 11/08/24 12:00 11/19/24 05:21 DC 11/19/24 05:03 100 MLS/HR Potassium Chloride 100 ml @ 100 mls/hr AD PRN IV POTASSIUM PROTOCOL 11/19/24 05:30 12/19/24 05:29 11/19/24 07:37 100 MLS/HR Potassium Chloride 100 ml @ 0 mls/hr PROTOCOL PRN IV DKA POTASSIUM REPLACEMENT 11/17/24 13:00 11/19/24 05:21 DC 11/17/24 16:07 50 MLS/HR Potassium Chloride (K-Dur/Klor-Con 20meq) 20 meq AD PRN PO POTASSIUM PROTOCOL 11/08/24 12:00 11/16/24 15:14 DC 11/12/24 19:14 20 MEQ Potassium Chloride (K-Dur/Klor-Con 20meq) 20 meq AD PRN PO POTASSIUM PROTOCOL 11/19/24 05:30 12/19/24 05:29 11/19/24 09:47 20 MEQ Potassium Chloride (KCl 10% Elixir 20meq/15ml) 20 meq AD PRN PO POTASSIUM PROTOCOL 11/08/24 12:00 11/16/24 15:14 DC Potassium Chloride (KCl 10% Elixir 20meq/15ml) 20 meq AD PRN PO POTASSIUM PROTOCOL 11/19/24 05:30 12/19/24 05:29 Potassium Phos/ Sodium Phos (PHOS-NaK PACKET 1 EACH) 1 packet TID PO 11/18/24 14:00 11/19/24 14:00 11/19/24 07:45 1 PACKET Sodium Bicarbonate (Sodium Bicarbonate) 650 mg BID PO 11/18/24 09:00 11/19/24 07:09 DC 11/18/24 21:09 650 MG Sodium Chloride 1,000 ml @ 100 mls/hr Q10H IV 11/08/24 12:00 11/17/24 12:39 DC 11/17/24 05:38 100 MLS/HR Sodium Chloride 1,000 ml @ 100 mls/hr Q10H IV 11/10/24 12:30 11/10/24 15:29 DC Sodium Chloride (NS 50ml) 50 ml AD IV 11/08/24 21:00 11/08/24 11:59 DC Spironolactone (Aldactone 25mg) 25 mg DAILY PO 11/19/24 09:00 12/19/24 08:59 11/19/24 07:39 25 MG Tamsulosin HCl (FloMAX) 0.4 mg DAILY PO 11/10/24 09:00 12/10/24 08:59 11/19/24 07:39 0.4 MG Vancomycin HCl 250 ml @ 125 mls/hr Q12H IV 11/15/24 12:00 11/16/24 14:00 DC 11/16/24 11:47 125 MLS/HR Vancomycin HCl 250 ml @ 125 mls/hr Q12H IV 11/17/24 00:30 11/17/24 11:42 DC 11/17/24 01:34 125 MLS/HR Vancomycin HCl 250 ml @ 125 mls/hr Q24H IV 11/10/24 12:00 11/12/24 11:49 DC 11/11/24 15:18 125 MLS/HR Vancomycin HCl 500 ml @ 250 mls/hr Q24H IV 11/12/24 12:00 11/15/24 11:42 DC 11/14/24 13:36 250 MLS/HR Vancomycin HCl (Vancomycin Protocol) 1 each AD IV 11/09/24 11:30 11/16/24 13:00 DC Vancomycin HCl (Vancomycin 1g/ 250ml Kit) 1 gm Q12H IV 11/08/24 12:00 11/08/24 11:59 DC DIAGNOSTICS / RADIOLOGY: [ ] ASSESSMENT: Sepsis: POA Rt foot TMA stump osteomyelitis,poa s/p Right AKA by Dr Cotter on 11.14.24 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 Resolved -anion gap is closed. Insulin drip is off. Patient is back to Lantus and sliding scale. Metformin was discontinued SGLT2 was discontinued. NAGMA resolved. Will continue monitor BMP, blood sugars Sepsis: POA -resolved Tachycardia, CRP elevated ,subjective fevers at the time pf admission Continue on Zosyn, Vancomycin (pharmacy to dose) ID on board Blood cultures negative Rt foot TMA stump osteomyelitis ,POA,s/p Right AKA by Dr Cotter on 11.14.24 Intractable pain right foot POA wound cultures growing Klebsiella pneumoniae, Enterococcus faecalis, MRSA Continue with IV Zosyn and IV vancomycin Podiatry and ID on board Patient stable pending placement to IRU PAD, Harvey category 6 symptoms (right lower extremity),POA -S\P Right AKA on 11.14.24 Continue Aspirin 81 mg daily and clopidogrel 75 mg daily for a minimum of six months and optimally one year. -pain management with hydromorphone social sciences lecturer and case management consulted Uncontrolled diabetes type 2 POA HbA1C 9.2 continue Lantus and sliding scale Iron deficiency anemia with drop in hemoglobin , POA S/p IV iron x 2 Tsat 6.4% Stool occult blood positive EGD- poor examination, chronic esophagitis + DVT ppx with Heparin GI ppx with Protonix ATTESTATION BY PHYSICIAN I have seen and examined the patient. I reviewed the documentation, medical decision making, and treatment plan as noted by the resident provider above. I agree with the findings and plan of care. RESHMA MEDEIROS MD, MD Nov 19, 2024 10:16
[2024-11-19 10:35] LABS: CREATININE 0.8 mg/dL (0.5-1.3); POTASSIUM 3.3 mmol/L (3.5-5.1)
[2024-11-19 18:26] LABS: CREATININE 0.9 mg/dL (0.5-1.3); POTASSIUM 3.5 mmol/L (3.5-5.1)
[2024-11-19] MEDS: MAGNESIUM OXIDE 400 MG TABLET PO SCH (20:14)
--- NOTE | 2024-11-19 20:15 | NUR ---
MEDS SHIFT ASSESSMENT DONE, PLEASE REFER TO CHART. DUE MEDS ADMINISTERED, TOLERATED WELL. KEPT RESTED AND COMFORTABLE IN BED. CALL LIGHT WITHIN REACH. KEPT BED ALARM ON. PM SNACKS PROVIDED FOR PT TO TAKE.
--- NOTE | 2024-11-19 21:47 | PN ---
INFECTIOUS DISEASE FOLLOWUP NOTE DATE OF SERVICE: 11/19/2024 SUBJECTIVE: The patient is seen and examined at bedside. No fever or chills. No nausea and no vomiting. No cough, no shortness of breath. No chest pain, palpitations, or orthopnea. . Denied depression or suicidal ideation. No trauma. No dysuria or hematuria. Appetite is good. PHYSICAL EXAMINATION: VITAL SIGNS: Temperature 98.5. EYES: No icterus. Pupils equal and reactive. HENT: No oral thrush seen. Moist oral mucosa. NECK: Supple. No JVD or thyromegaly. LUNGS: Good air entry. No rales, no rhonchi. CARDIOVASCULAR: S1, S2 regular. ABDOMEN: Obese, soft, and nontender. Bowel sound is present. CENTRAL NERVOUS SYSTEM: Awake, alert, and oriented x 3. No focal deficits. SKIN: No rashes, no itchiness. LYMPHATIC: No peripheral lymphadenopathy. BACK: No deformity, no pressure ulcer. EXTREMITIES: Status post right above-knee amputation, that incision is stable. ASSESSMENT: A 74-year-old male with multiple problems which include, * Right foot gangrene with osteomyelitis, status post above-knee amputation. * Peripheral vascular disease. * Obesity. * Hypertension. * Diabetes mellitus. * Anemia. * Hypokalemia. PLAN: * . * Continue wound care. * Continue antihypertensive. * Continue antidiabetic. * Continue pain management. * Monitor electrolytes. * Continue nutritional support. * The patient will be followed up closely. TID: [id number] RECEIPT: [id number]
[2024-11-20] VITALS (9 sets, daily range): BP systolic 118–138; BP diastolic 48–70; PULSE 89–113; RESP 18–24; TEMP 97.9–99; O2SAT 96–99
[2024-11-20 04:49] LABS: CREATININE 0.9 mg/dL (0.5-1.3); MAGNESIUM 1.8 mg/dL (1.80-2.40); POTASSIUM 3.6 mmol/L (3.5-5.1)
--- NOTE | 2024-11-20 05:45 | NUR ---
MEDS WHITE PORT OF PICC LINE SLUGGISH TO FLUSH AND PINK PORT UNABLE TO FLUSH AT ALL. ELECTROLYTE REPLACEMENTS FOR KCL AND MG STARTED. DUE INSULIN DOSES ADMINISTERED. KEPT COMFORTABLE IN BED. FOR MORE CARE.
[2024-11-20 06:11] LABS: HEMATOCRIT 28.9 % (42-54); MEAN CORPUSCULAR HEMOGLOBIN 27.2 pg (27.0-33.0); MEAN CORPUSCULAR HGB CONC 33.2 g/dL (32.0-36.0); MEAN CORPUSCULAR VOLUME 81.9 fL (79-99); RED BLOOD CELL COUNT(AUTO) 3.53 MIL/uL (4.50-6.20); RED CELL DISTRIBUTION WIDTH 16.1 % (11.0-15.5); WHITE BLOOD COUNT (AUTO) 4.9 K/uL (4.8-10.8)
--- NOTE | 2024-11-20 09:43 | PN ---
GASTROENTEROLOGY PROGRESS NOTE Date of Visit: Nov 20, 2024 Time of Visit: 09:43 Events / Notes: No acute events overnight. Patient underwent [id number] amputation. Patient has been having nausea and vomiting. Review of Systems: CONSTITUTIONAL: No malaise or change in sensation of wellbeing. ENMT: No rhinorrhea, otorrhea, sinus pain, ear ache. CARDIOVASCULAR: No angina, palpitations, orthopnea or paroxysmal dyspnea. RESPIRATORY: No SOB. GASTROINTESTINAL: No abdominal pain, nausea, vomiting, diarrhea, hematemesis, melena or change in the patient's habitual bowel movements consistency/number. GENITOURINARY: No dysuria, hematuria or change in bladder continence. MUSCULOSKELETAL: No new muscle pain or decrease in muscular strength. No new joint swelling, redness or tenderness. SKIN: No new rash. Physical Exam: GEN: Awake, alert, oriented in person, time and place, and in no acute distress. HEENT: No sinus tenderness. Tympanic membranes were not examined. No rhinorrhea. Oral pharyngeal mucosa is pink, moist and within normal limits. Neck is supple with no cervical lymphadenopathy, thyromegaly or JVD. CHEST: Inspection, palpation and percussion of the chest were unremarkable. Lung auscultation revealed normal breath sounds bilaterally. CARDIAC: PMI is within normal limits. Heart sounds are regular. Normal S1, S2. No gallop or murmur. ABD: Soft, non-tender and not distended. No peritoneal signs on palpation. No organomegaly. Normal bowel sounds. EXT: No cyanosis or clubbing. No edema. SKIN: Intact. No rashes. JOINTS: No evidence of synovitis or acute arthritis. NEURO: Alert and oriented to name, place and person. Cranial nerve examination is unremarkable. No focal motor deficits. Normal speech. Gait is normal. Strength is normal. Vital Signs (last 8hr) Date Time Temp Pulse Resp B/P (MAP) Pulse Ox O2 Delivery O2 Flow Rate FiO2 11/20/24 07:43 97.9 98 18 128/66 97 Room Air 11/20/24 06:46 92 18 N/A Room Air 21 11/20/24 04:00 98.8 99 24 125/64 98 Room Air Laboratory: [ ] Laboratory: Test 11/20/24 06:03 11/20/24 05:05 11/20/24 04:23 11/19/24 12:45 Range/Units White Blood Count 4.9 4.8-10.8 K/uL Red Blood Count 3.53 L 4.50-6.20 MIL/uL Hemoglobin 9.6 L 14.0-18.0 g/dL Hematocrit 28.9 L 42-54 % Mean Corpuscular Volume 81.9 79-99 fL Mean Corpuscular Hemoglobin 27.2 27.0-33.0 pg Mean Corpuscular Hemoglobin Concent 33.2 32.0-36.0 g/dL Red Cell Distribution Width 16.1 H 11.0-15.5 % Platelet Count 181 130-400 K/uL Mean Platelet Volume 10.5 7.5-10.5 fL Nucleated Red Blood Cells 0.0 0.0-0.19 % Whole Blood Glucose 187 H 70-110 MG/DL Sodium Level 138 136-145 mmol/L Potassium Level 3.6 3.5-5.1 mmol/L Chloride Level 105 101-111 mmol/L Carbon Dioxide Level 23 21-32 mmol/L Blood Urea Nitrogen 10 7-18 mg/dL Creatinine 0.9 0.5-1.3 mg/dL Glomerular Filtration Rate Calc 89 >90 mL/min Random Glucose 183 H 70-105 mg/dL Total Calcium 7.7 L 8.5-10.1 mg/dL Magnesium Level 1.80 1.80-2.40 mg/dL Urine Random Creatinine 75.99 30-135 mg/dL Test 11/19/24 04:05 11/18/24 18:09 Range/Units Immature Granulocyte % (Auto) 1.0 0-1 % Neutrophils (%) (Auto) 66.2 40.0-77.0 % Lymphocytes (%) (Auto) 22.6 21.0-51.0 % Monocytes (%) (Auto) 8.0 3.0-13.0 % Eosinophils (%) (Auto) 1.8 0.0-8.0 % Basophils (%) (Auto) 0.4 0.0-5.0 % Neutrophils # (Auto) 3.2 1.8-7.7 K/uL Lymphocytes # (Auto) 1.1 1.0-4.8 K/uL Monocytes # (Auto) 0.4 0.1-1.0 K/uL Eosinophils # (Auto) 0.09 0.00-0.70 K/uL Basophils # (Auto) 0.02 0.00-0.20 K/uL Absolute Immature Granulocyte (auto 0.05 0-1 K/uL Phosphorus Level 2.9 2.5-4.9 mg/dL Total Bilirubin 0.6 0.2-1.0 mg/dL Aspartate Amino Transf (AST/SGOT) 10 10-37 U/L Alanine Aminotransferase (ALT/SGPT) < 6 L 12-78 U/L Alkaline Phosphatase 56 50-136 U/L Total Protein 5.8 L 6.0-8.3 g/dL Albumin 2.0 L 3.5-5.0 g/dL Urine Random Sodium 107 40-220 mmol/l Urine Random Potassium 10 L 25-125 mmol/L Urine Random Chloride 129 110-250 mmol/L Current Medications Medications (Trade) Dose Ordered Sig/Jermain Route PRN Reason Start Time Stop Time Status Last Admin Dose Admin Acetaminophen (TYLenol 325MG TAB) 650 mg Q4H PRN PO TEMPERATURE GREATER THAN 101.5 11/08/24 12:00 12/08/24 11:59 11/14/24 23:07 650 MG Acetaminophen/ Hydrocodone Bitart (NORco 5/325MG) 1 tab Q6H PRN PO MODERATE PAIN (4-6) 11/14/24 20:00 11/16/24 18:09 DC 11/15/24 15:40 1 TAB Aspirin (Aspirin 81mg Ec Tab) 81 mg DAILY PO 11/10/24 09:00 12/10/24 08:59 11/19/24 07:38 81 MG Atorvastatin Calcium (LIPItor 40MG) 40 mg DAILY PO 11/10/24 09:00 12/10/24 08:59 11/19/24 07:38 40 MG Carvedilol (Coreg 3.125MG) 3.125 mg BID PO 11/09/24 21:00 12/09/24 20:59 11/19/24 20:15 3.125 MG Clopidogrel Bisulfate (plaVIX 75MG) 75 mg DAILY PO 11/10/24 09:00 12/10/24 08:59 11/19/24 07:39 75 MG Dextrose 1,000 ml @ 100 mls/hr Q10H IV 11/17/24 12:00 11/18/24 04:59 DC Dextrose (D50w) 50 ml AD PRN IV HYPOGLYCEMIA PROTOCOL 11/10/24 12:30 12/10/24 12:29 Dextrose/Sodium Chloride 1,000 ml @ 0 mls/hr AD IV 11/17/24 12:00 11/17/24 12:45 DC Empaglifozin (Jardiance 25mg) 25 mg DAILY PO 11/10/24 09:00 11/16/24 15:14 DC 11/16/24 09:58 25 MG Famotidine (Pepcid 20mg Vial) 20 mg DAILY IV 11/09/24 09:00 11/16/24 15:19 DC 11/16/24 09:56 20 MG Ferrous Sulfate (Ferrous Sulfate) 325 mg QODAY PO 11/11/24 09:00 12/11/24 08:59 11/19/24 07:44 325 MG Glucagon (Glucagon 1mg Kit) 1 mg AD PRN IM HYPOGLYCEMIA PROTOCOL 11/10/24 12:30 12/10/24 12:29 Heparin Sodium (Porcine) (HEParin 5,000 UNIT VIAL) 5,000 unit Q12H SQ 11/08/24 12:30 12/08/24 12:29 11/19/24 23:24 5,000 UNIT Home Med (Home Medication) (Finasteride 1 MG)- HAIR LOSS DAILY PO 11/10/24 09:00 12/10/24 08:59 Hydromorphone HCl (DiLAUDid 0.5MG INJ) 0.5 mg Q4H PRN IVP SEVERE PAIN (7-10) 11/08/24 12:00 11/13/24 11:59 DC 11/11/24 18:34 0.5 MG Hydromorphone HCl (DiLAUDid 0.5MG INJ) 0.5 mg Q4H PRN IVP SEVERE PAIN (7-10) 11/14/24 00:00 11/16/24 18:09 DC 11/16/24 13:21 0.5 MG Insulin Glargine (LANtus 100 UNITS/ML 10 ML VIAL) 15 units Q12H SQ 11/18/24 06:00 12/18/24 05:59 11/20/24 05:42 15 UNITS Insulin Human Regular (humuLIN R 100 UNIT/ML 3ML) INSULIN SLIDING SCAL... ACHS SQ 11/08/24 16:30 12/08/24 16:29 11/20/24 05:43 4 UNIT Insulin Human Regular 100 unit/ Sodium Chloride 101 ml @ 0 mls/hr PROTOCOL IV 11/17/24 12:00 11/18/24 04:59 DC 11/17/24 16:06 4.65 MLS/HR Ipratropium [place] (AtrovENT UD) 0.5 MG Q4H PRN IH SHORTNESS OF BREATH 11/18/24 10:30 12/18/24 10:29 Iron Sucrose (VenoFER) 200 mg ONCE STAT IV 11/09/24 11:20 11/09/24 11:35 DC Lactated Ringer's 1,000 ml @ 100 mls/hr Q10H IV 11/18/24 05:00 11/18/24 08:46 DC 11/18/24 05:06 100 MLS/HR Lactulose (Constulose 20gm/ 30ml Udcup) 20 gm BID PRN PO CONSTIPATION 11/08/24 12:00 12/08/24 11:59 Lisinopril (Prinivil 10mg) 10 mg DAILY PO 11/16/24 09:00 11/16/24 09:53 DC Lisinopril (Prinivil 20mg) 20 mg DAILY PO 11/17/24 09:00 12/17/24 08:59 11/19/24 07:37 20 MG Lisinopril (Prinivil 5mg) 5 mg DAILY PO 11/10/24 09:00 11/15/24 09:21 DC 11/15/24 08:10 5 MG Magnesium Oxide (Mag-Ox) 400 mg BID PO 11/19/24 21:00 11/22/24 07:00 11/19/24 20:14 400 MG Magnesium Sulfate 50 ml @ 0 mls/hr PROTOCOL IV 11/17/24 12:00 11/18/24 07:32 DC 11/18/24 04:41 25 MLS/HR Magnesium Sulfate 50 ml @ 0 mls/hr PROTOCOL IV 11/17/24 13:00 12/17/24 12:59 11/20/24 05:41 25 MLS/HR Magnesium Sulfate 50 ml @ 0 mls/hr PROTOCOL PRN IV low mag level 11/08/24 12:00 11/18/24 07:32 DC 11/11/24 05:34 25 MLS/HR Mannitol (Osmitrol 20% 250ml Bag) 47 gm AD IV 11/17/24 12:00 11/17/24 12:48 DC Metformin HCl (glucoPHAGE) 1,000 mg BIDMEALS PO 11/09/24 17:00 11/16/24 22:14 DC 11/16/24 17:40 1,000 MG Metoclopramide HCl (regLAN 10MG IV) 5 mg TIDAC IVP 11/17/24 11:30 11/18/24 08:31 DC 11/17/24 16:07 5 MG Ondansetron HCl (zoFRAN 4MG INJ) 4 mg Q6H PRN IVP NAUSEA/VOMITING 11/08/24 12:00 12/08/24 11:59 11/16/24 09:56 4 MG Pantoprazole Sodium (PROTonix 40MG INJ) 40 mg DAILY IVP 11/17/24 09:00 12/17/24 08:59 11/19/24 07:39 40 MG Pioglitazone HCl (Actos 30mg) 30 mg DAILY PO 11/10/24 09:00 11/16/24 22:15 DC 11/16/24 09:56 30 MG Piperacillin Sod/ Tazobactam Sod (Zosyn 3.375gm+NS 50ml) 3.375 gm Q8H IVPB 11/08/24 17:30 11/14/24 13:27 DC 11/14/24 00:57 3.375 GM Piperacillin Sod/ Tazobactam Sod (Zosyn 3.375gm+NS 50ml) 3.375 gm Q8H IVPB 11/14/24 13:30 11/16/24 11:00 DC 11/16/24 05:41 3.375 GM Potassium Chloride 20 meq/ Sodium Chloride 1,010 ml @ 0 mls/hr PROTOCOL IV 11/17/24 12:00 11/17/24 12:45 DC Potassium Chloride/Dextrose/ Sod Cl 1,000 ml @ 0 mls/hr AD IV 11/17/24 12:00 11/18/24 04:59 DC 11/18/24 04:43 300 MLS/HR Potassium Phosphate 250 ml @ 42 mls/hr PROTOCOL PRN IV PROTOCOL 11/18/24 05:00 11/18/24 07:33 DC 11/18/24 05:36 42 MLS/HR Potassium Phosphate 250 ml @ 42 mls/hr PROTOCOL PRN IV PROTOCOL 11/18/24 07:30 12/18/24 07:29 Potassium Chloride 100 ml @ 50 mls/hr AD PRN IV POTASSIUM PROTOCOL 11/16/24 15:30 11/16/24 15:19 DC Potassium Chloride 100 ml @ 100 mls/hr AD PRN IV POTASSIUM PROTOCOL 11/08/24 12:00 11/19/24 05:21 DC 11/19/24 05:03 100 MLS/HR Potassium Chloride 100 ml @ 100 mls/hr AD PRN IV POTASSIUM PROTOCOL 11/19/24 05:30 12/19/24 05:29 11/19/24 07:37 100 MLS/HR Potassium Chloride 100 ml @ 0 mls/hr PROTOCOL PRN IV DKA POTASSIUM REPLACEMENT 11/17/24 13:00 11/19/24 05:21 DC 11/17/24 16:07 50 MLS/HR Potassium Chloride (K-Dur/Klor-Con 20meq) 20 meq AD PRN PO POTASSIUM PROTOCOL 11/08/24 12:00 11/16/24 15:14 DC 11/12/24 19:14 20 MEQ Potassium Chloride (K-Dur/Klor-Con 20meq) 20 meq AD PRN PO POTASSIUM PROTOCOL 11/19/24 05:30 12/19/24 05:29 11/20/24 05:43 20 MEQ Potassium Chloride (K-Dur/Klor-Con 20meq) 20 meq DAILY PO 11/20/24 09:00 12/20/24 08:59 Potassium Chloride (KCl 10% Elixir 20meq/15ml) 20 meq AD PRN PO POTASSIUM PROTOCOL 11/08/24 12:00 11/16/24 15:14 DC Potassium Chloride (KCl 10% Elixir 20meq/15ml) 20 meq AD PRN PO POTASSIUM PROTOCOL 11/19/24 05:30 12/19/24 05:29 Potassium Phos/ Sodium Phos (PHOS-NaK PACKET 1 EACH) 1 packet TID PO 11/18/24 14:00 11/19/24 14:00 DC 11/19/24 14:07 1 PACKET Sodium Bicarbonate (Sodium Bicarbonate) 650 mg BID PO 11/18/24 09:00 11/19/24 07:09 DC 11/18/24 21:09 650 MG Sodium Chloride 1,000 ml @ 100 mls/hr Q10H IV 11/08/24 12:00 11/17/24 12:39 DC 11/17/24 05:38 100 MLS/HR Sodium Chloride 1,000 ml @ 100 mls/hr Q10H IV 11/10/24 12:30 11/10/24 15:29 DC Sodium Chloride (NS 50ml) 50 ml AD IV 11/08/24 21:00 11/08/24 11:59 DC Spironolactone (Aldactone 25mg) 25 mg DAILY PO 11/19/24 09:00 12/19/24 08:59 11/19/24 07:39 25 MG Tamsulosin HCl (FloMAX) 0.4 mg DAILY PO 11/10/24 09:00 12/10/24 08:59 11/19/24 07:39 0.4 MG Vancomycin HCl 250 ml @ 125 mls/hr Q12H IV 11/15/24 12:00 11/16/24 14:00 DC 11/16/24 11:47 125 MLS/HR Vancomycin HCl 250 ml @ 125 mls/hr Q12H IV 11/17/24 00:30 11/17/24 11:42 DC 11/17/24 01:34 125 MLS/HR Vancomycin HCl 250 ml @ 125 mls/hr Q24H IV 11/10/24 12:00 11/12/24 11:49 DC 11/11/24 15:18 125 MLS/HR Vancomycin HCl 500 ml @ 250 mls/hr Q24H IV 11/12/24 12:00 11/15/24 11:42 DC 11/14/24 13:36 250 MLS/HR Vancomycin HCl (Vancomycin Protocol) 1 each AD IV 11/09/24 11:30 11/16/24 13:00 DC Vancomycin HCl (Vancomycin 1g/ 250ml Kit) 1 gm Q12H IV 11/08/24 12:00 11/08/24 11:59 DC Diagnostics / Radiology: [COPY/PASTE HERE IF NO REPORTS PLEASE DELETE SECTION] Assessment: Positive FOBT Acute blood loss anemia PAD Plan: Continue GI prophylaxis Advance diet as tolerated Avoid NSAIDs Antireflux measures Monitor H&H and transfuse as needed Call with questions, concerns or change in clinical status Patient to follow-up at clinic post discharge Thank you for this consult BEBO HERNANDEZ [facility] Nov 20, 2024 09:43
[2024-11-20] MEDS: PoTASSium chloRIDE 20MEQ ER 20 MEQ ERTAB PO SCH (09:45)
[2024-11-20] MEDS: ketOROlac 15MG/ML VIAL (15MG/ML) IM ONE (12:40)
--- NOTE | 2024-11-20 13:59 | DS ---
Discharge Summary Hospital Course Summary: 74-year-old male with PMH of Left BKA ,Rt TMA(5 years ) , PAD, DM, HTN, bowel perforation s/p bowel repair in 07/18 presented to ED with chief complaints of right foot pain and subjective fevers. Patient has a chronic open wound to his right foot TMA stump. Pain scale 10/10. Aggravated factors movement, alleviating factors none. There is redness noted with eschar to open wound with minimal drainage with redness extending to mid leg level . No foul odor noted. At the time of presentation , Vitals : T 99.3,HR 104, R 20, BP 143/75/99%RA. Labs were unremarkable except for moderate anemia . He was admitted for further evaluation and management of his wound . MRI foot showed rt foot stump osteomyelitis .Cardiology , Orthopedics and Podiatry were consulted. peripheral angiogram by Dr Do showed PAD, [place] category 6 symptoms (right lower extremity), diffuse 80% stenosis in the proximal and distal right superficial femoral artery, 100% ISR within the stent in the mid right superficial femoral artery status post successful treatment with balloon lithotripsy and drug coated balloon angioplasty, 70% stenosis in the right tibioperoneal artery, and 100% stenosis in the proximal, mid, and distal right peroneal artery status post successful treatment with balloon angioplasty and balloon lithotripsy, resulting in widely patent arteries. There is residual PAD, 100% stenosis in the proximal right anterior tibial artery and 100% stenosis in the proximal right posterior tibial artery..Patient tolerated the procedure well .How ever, patient suggested he wanted to undergo Rt AKA .His hemoglobin dropped to 7.6 and stool occult blood was positive. Iron panel suggested iron deficiency anemia. He was treated with 1 unit PRBC, IV iron .Gastroenterology was consulted.Patient had vomiting episodes. Abdominal xray showed gastric distension. EGD showed chronic esophagitis with limited exam .Patient is required to follow up with [facility] as outpatient .His hemoglobin remained stable. He underwent Rt AKA by Dr Cotter on 11.14.24. On Post operative day 3, Patient was found to have euglycemic DKA with anion gap 20 decreased to 17 after 50 MEQ of NaHCO3 .Patient is asymptomatic . Patient was shifted to ICU for insulin drip and close monitoring . His anion gap closed next day am. Jardiance and other oral diabetic medications were discontinued . His insulin doses were adjusted . He was started on Spironolactone for persistent hypokalemia . He is tolerating physical therapy services well. He complained of rt AKA stump pain and is started on Gabapentin 100 mg tid .He is clinically stable at the time of discharge . Weekend Receptionist(s): THOMAS MAHMOOD DPM [facility] [address] [place] [address] HISTORY OF PRESENT ILLNESS: The patient is a very pleasant 74-year-old diabetic, Latin-[place]ese male who has a wppce-hrs-ezcp amputation on the left. He has a transmetatarsal amputation on the right. He states 5 years ago, I performed a transmetatarsal amputation on the right and it is not healed. He states he has been followed by the [place] and has been receiving local wound care, essentially for the past 5 years without improvement. He states he recently went to [place] and was told by the doctors in [place] that he had no circulation and needed a leg amputation, which he refused. He has a past medical history that significant for diabetes and peripheral vascular disease, status post transmetatarsal amputation on the right, now with a necrotic wound to the transmetatarsal amputation stump on the right and an MRI showing osteomyelitis of the stump of the first and second metatarsals. He has been followed for problems list that includes diabetes, peripheral vascular disease, chronic right transmetatarsal amputation stump osteomyelitis, peripheral vascular disease, peripheral neuropathy, obesity. White count 7.9, H and H of 11 and 36, platelets 295, neutrophils 75.6. The patient has a T-max of 99.3, pulse 94, respiration 17, blood pressure 119/71. X-ray is negative for osseous destructive changes. MRI positive for osteomyelitis to the stump of the first and second metatarsals on the right. Venous studies, no DVT. Arterial Doppler study is pending. FAMILY HISTORY: The patient's family history is unremarkable. ALLERGIES: No known drug allergies. MEDICATIONS: Including Zosyn, insulin, Dilaudid, lactulose. PHYSICAL EXAMINATION: Today shows I could not palpate his pedal pulses. He has pitting edema to the right foot. He has a necrotic wound to the stump of the transmetatarsal amputation 11 x 4 cm. There is fibrosis in the wound bed. There is exposed bone of the first and second metatarsal stumps in the wound bed. There is edema, erythema, foul-smelling drainage. There is localized cellulitis. ASSESSMENT: Chronic nonhealing wound to the transmetatarsal amputation on the right, osteomyelitis, first and second metatarsal stumps per MRI, intractable pain, suspected severe peripheral vascular disease, arterial Doppler studies pending, uncontrolled diabetes, obesity, immobility secondary to a left igoyo-kuh-kwky amputation. The patient does not have a prosthesis currently for the left lower extremity oulim-ndo-[id number] amputation. PLAN: Awaiting results of the arterial Doppler studies on that right side. I would recommend Cardiology evaluation of his circulation status. I feel the patient would benefit from a revision of his transmetatarsal amputation, possibly to a Chopart's level of amputation on the right side. The patient is currently refusing leg amputation on that right side. We will continue with the Zosyn. We will use Medihoney dressings to the right foot wound. We will continue to follow the patient closely while in-house. TID: [id number] RECEIPT: [id number] Electronically Signed by: THOMAS MAHMOOD [id number] Electronically Co-Signed by: INFECTIOUS DISEASE CONSULTATION DATE OF SERVICE: 11/10/2024 REQUESTING PHYSICIAN: Dr. Servin REASON FOR CONSULTATION: Right foot stump osteomyelitis. HISTORY OF PRESENT ILLNESS: A 74-year-old male with history of morbid obesity, left knee prosthetic infection, diabetes mellitus, hypertension, presents to the hospital with right foot pain, swelling, and redness. No fever or chills. The patient noticed ulcer to the right foot stump. MRI was done which shows osteomyelitis involving the right foot metatarsal stump. The patient was started on Zosyn, vancomycin and fluconazole. The patient was also found to have peripheral vascular disease. Had angiogram and intervention done today. No dysuria or urinary frequency. No bleeding tendency. No rashes or itchiness. PAST MEDICAL HISTORY: * Peripheral vascular disease. * Right foot osteomyelitis. * Left foot osteomyelitis. * Diabetes mellitus. * Hypertension. * Morbid obesity. * PVD. * . * Left knee prosthetic infection. PAST SURGICAL HISTORY: * Left above-knee amputation. * Right foot transmetatarsal amputation. * Multiple peripheral angiogram and intervention. ALLERGIES: No known drug allergies. CURRENT MEDICATIONS: Reviewed. SOCIAL HISTORY: No alcohol, tobacco or illicit drug use. FAMILY HISTORY: Positive for diabetes mellitus. REVIEW OF SYSTEMS: CONSTITUTIONAL: No fever or chills. No weight loss or night sweats. EYES: No eye pain. No photophobia or diplopia. HENT: No sore throat. No rhinorrhea or earache. NECK: No neck pain or neck swelling. RESPIRATORY: No cough. No hemoptysis or pleuritic pain. CARDIOVASCULAR: No chest pain. No palpitation or orthopnea. GASTROINTESTINAL: Denied nausea, vomiting or abdominal pain. GENITOURINARY: No dysuria, urgency or urinary frequency. CENTRAL NERVOUS SYSTEM: No headache, dyspnea or slurred speech. PSYCHIATRY: No depression. No suicidal ideation. EXTREMITIES: Positive for right foot transmetatarsal pain. PHYSICAL EXAMINATION: GENERAL: Elderly male, awake. VITAL SIGNS: Temperature 98.1, pulse 67, respirations 16, BP 142/69. EYES: No icterus. Pupils equal and reactive to light. HENT: No oral thrush seen. Moist oral mucosa. NECK: Supple. No JVD or thyromegaly. LUNGS: Good air entry. No rales. No rhonchi. CARDIOVASCULAR: S1, S2 regular. No murmur heard. ABDOMEN: Obese, soft, nontender. Bowel sound is present. CENTRAL NERVOUS SYSTEM: Awake, alert and oriented x 3. No focal deficits. SKIN: No rashes, no itchiness. LYMPHATIC: There is right inguinal lymphadenopathy. BACK: No deformity. No pressure ulcer. EXTREMITIES: Ulcer involving the right foot stump with . LABORATORY DATA: Sodium 145, potassium 3.3, BUN 16, creatinine 1.0. WBC 5.2, hemoglobin 8.5, platelets 122. Right foot wound culture growing Klebsiella pneumoniae. Blood culture, no growth for 2 days. RADIOLOGY: MRI of the right foot shows osteomyelitis. ASSESSMENT: A 74-year-old male presenting with right foot pain, swelling and redness. Current problems include: * Right foot stump osteomyelitis. * Diabetic foot ulcer. * Peripheral vascular disease, status post angiogram and intervention. * Morbid obesity. * Hypertension. * Diabetes mellitus. * Anemia. PLAN: * Continue pain management. * Continue wound care. * Continue Zosyn. * Continue vancomycin. * Follow up cultures. * Continue DVT prophylaxis. * Monitor electrolytes. * Continue GI prophylaxis. * The patient will be followed up closely. Thank you for allowing me to participate in the care of this patient. TID: [id number] RECEIPT: [id number] Electronically Signed by: EDUARDO MARIO MD11/12/24 0911 Electronically Co-Signed by: CARDIOLOGY CONSULTATION NOTE DICTATED FOR TIANNA DOW MD Date Patient Seen: Nov 09, 2024 Requesting Physician: Salvador Domínguez MD Reason for Consultation: PAD, osteomyelitis of the right lower extremity History of Present Illness: This is a 74-year-old male with a past medical history of hypertension, diabetes mellitus type 2, PAD s/p left AKA, right TMA 5 years ago, RLE peripheral angiograms x2 (unknown date), and chronic non-healing right TMA surgical site who presented to the ED for further evaluation of RLE pain, erythema and edema that has progressed in the last five days. Cardiology has been consulted for recommendations. The patient states he has had two peripheral interventions on his right lower extremity and was told he would not tolerate another attempt due to thinned vessel rivera. He does not recall when he had these procedures done but recalls the physician's name to be Dr. Escalona from [place], [place]. BLE arterial Doppler reported monophasic arterial waveforms in the right common femoral, deep femoral, superficial femoral, popliteal, posterior tibial and dorsalis pedal arteries. MRI of the RLE resulted with osteomyelitis involving the first and second metatarsal stumps. A right lower extremity venous Doppler was negative for DVT. Past Medical History: As per HPI and summarized below Past Surgical History: Left AKA Right TMA Family History: Refer to chart Social History: Refer to chart Habits: Refer to chart Home Meds: Aspirin 81 mg daily Atorvastatin 40 mg daily Clopidogrel 75 mg daily Carvedilol 3.125 mg b.i.d. Lisinopril 5 mg daily Jardiance 25 mg daily Ferrous sulfate 325 mg every other day Finasteride 1 mg daily Metformin 1000 mg b.i.d. Pioglitazone 30 mg daily Flomax 0.4 mg daily Current Meds: Current Medications Medications Dose Ordered Sig/Jermain Start Time Stop Time Status Last Admin Acetaminophen 650 mg Q4H PRN 11/08/24 12:00 12/08/24 11:59 Ondansetron HCl 4 mg Q6H PRN 11/08/24 12:00 12/08/24 11:59 11/08/24 23:06 Lactulose 20 gm BID PRN 11/08/24 12:00 12/08/24 11:59 Famotidine 20 mg DAILY 11/09/24 09:00 12/09/24 08:59 11/09/24 08:05 Piperacillin Sod/ Tazobactam Sod 3.375 gm Q8H 11/08/24 17:30 11/18/24 17:29 11/09/24 08:05 Hydromorphone HCl 0.5 mg Q4H PRN 11/08/24 12:00 11/13/24 11:59 11/08/24 18:53 Insulin Human Regular INSULIN SLIDING SCAL... ACHS 11/08/24 16:30 12/08/24 16:29 11/09/24 11:59 Potassium Chloride 100 ml @ 100 mls/hr AD PRN 11/08/24 12:00 12/08/24 11:59 Potassium Chloride 20 meq AD PRN 11/08/24 12:00 12/08/24 11:59 Potassium Chloride 20 meq AD PRN 11/08/24 12:00 12/08/24 11:59 Magnesium Sulfate 50 ml @ 0 mls/hr PROTOCOL PRN 11/08/24 12:00 12/08/24 11:59 Sodium Chloride 1,000 ml @ 75 mls/hr [id number] 11/08/24 12:00 12/08/24 11:59 11/09/24 02:51 Heparin Sodium (Porcine) 5,000 unit Q12H 11/08/24 12:30 12/08/24 12:29 11/09/24 12:00 Aspirin 81 mg DAILY 11/10/24 09:00 12/10/24 08:59 Atorvastatin Calcium 40 mg DAILY 11/10/24 09:00 12/10/24 08:59 Carvedilol 3.125 mg BID 11/09/24 21:00 12/09/24 20:59 Clopidogrel Bisulfate 75 mg DAILY 11/10/24 09:00 12/10/24 08:59 Empaglifozin 25 mg DAILY 11/10/24 09:00 12/10/24 08:59 Lisinopril 5 mg DAILY 11/10/24 09:00 12/10/24 08:59 Pioglitazone HCl 30 mg DAILY 11/10/24 09:00 12/10/24 08:59 Tamsulosin HCl 0.4 mg DAILY 11/10/24 09:00 12/10/24 08:59 Ferrous Sulfate 325 mg QODAY 11/11/24 09:00 12/11/24 08:59 Home Med (Finasteride 1 MG)- HAIR LOSS DAILY 11/10/24 09:00 12/10/24 08:59 Metformin HCl 1,000 mg BIDMEALS 11/09/24 17:00 12/09/24 16:59 Iron Sucrose 200 mg ONCE ONCE 11/10/24 11:30 11/10/24 11:31 Vancomycin HCl 1 each AD 11/09/24 11:30 11/23/24 11:29 Vancomycin HCl 500 ml @ 250 mls/hr ONCE ONCE 11/09/24 12:00 11/09/24 13:59 11/09/24 12:01 Vancomycin HCl 250 ml @ 125 mls/hr Q24H 11/10/24 12:00 11/20/24 11:59 Review of Systems: CONST: No fever, fatigue, or weight changes. EYES: No recent vision problems. ENT: No congestion, ear pain, or sore throat. C/V: No chest pain, palpitations, or edema. RESP: No cough, congestion, wheezing or shortness of breath. GI: No abdominal pain, nausea, vomiting, constipation, or diarrhea. : No incontinence or dysuria. SKIN: The patient admits to right lower extremity discomfort, erythema, and a nonhealing wound. NEURO: No headache, focal numbness or weakness, dizziness, or seizures. PSYCH: No depression or anxiety. HEME: No abnormal bruising or bleeding. LYMPH: No swollen glands. Physical Examination: GENERAL: No acute distress. HEAD: Normal with no signs of head trauma. EYES: PERRLA, EOMI, conjunctiva and sclera normal. ENT: Hearing grossly intact, normal oropharynx. NECK: Supple without JVD. There is no tenderness, lymphadenopathy, or masses. No thyromegaly. Normal carotid upstrokes without bruits. LUNGS: Clear breath sounds bilaterally. No wheezes, or rhonchi. HEART: Normal rate and rhythm. Normal S1 and S2 without murmurs, gallop or rub. VASC: Unable to palpate right DP or PT pulse due to dressing in place. ABD: Bowel sounds normal, soft, nontender, no masses, no organomegaly. No audible bruits. : Not examined LYMPH: No lymphadenopathy noted. EXT: No clubbing or cyanosis . Erythema noted to the RLE with trace edema. SKIN: No rashes or lesions noted. NEURO: Awake, alert, and oriented x3. No focal sensory or strength deficits noted. Vital Signs (last 8hr) Date Time Temp Pulse Resp B/P (MAP) Pulse Ox O2 Delivery O2 Flow Rate FiO2 11/09/24 11:13 98.1 64 18 128/65 97 Room Air 11/09/24 07:41 98.1 99 17 119/69 97 Room Air Laboratory: Hematology Labs: Test 11/09/24 07:08 11/08/24 09:28 Range/Units White Blood Count 7.8 4.8-10.8 K/uL Red Blood Count 3.45 L 4.50-6.20 MIL/uL Hemoglobin 9.2 L 14.0-18.0 g/dL Hematocrit 29.6 L 42-54 % Mean Corpuscular Volume 85.8 79-99 fL Mean Corpuscular Hemoglobin 26.7 L 27.0-33.0 pg Mean Corpuscular Hemoglobin Concent 31.1 L 32.0-36.0 g/dL Red Cell Distribution Width 15.5 11.0-15.5 % Platelet Count 233 130-400 K/uL Mean Platelet Volume 10.1 7.5-10.5 fL Immature Granulocyte % (Auto) 1.3 H 0-1 % Neutrophils (%) (Auto) 81.0 H 40.0-77.0 % Lymphocytes (%) (Auto) 13.5 L 21.0-51.0 % Monocytes (%) (Auto) 4.0 3.0-13.0 % Eosinophils (%) (Auto) 0.1 0.0-8.0 % Basophils (%) (Auto) 0.1 0.0-5.0 % Neutrophils # (Auto) 6.4 1.8-7.7 K/uL Lymphocytes # (Auto) 1.1 1.0-4.8 K/uL Monocytes # (Auto) 0.3 0.1-1.0 K/uL Eosinophils # (Auto) 0.01 0.00-0.70 K/uL Basophils # (Auto) 0.01 0.00-0.20 K/uL Absolute Immature Granulocyte (auto 0.10 0-1 K/uL Nucleated Red Blood Cells 0.0 0.0-0.19 % Red Blood Cell Morphology See comments Chemistry Labs: Test 11/09/24 10:49 11/09/24 07:08 11/08/24 09:28 Range/Units Whole Blood Glucose 189 H 70-110 MG/DL Sodium Level 138 136-145 mmol/L Potassium Level 3.9 3.5-5.1 mmol/L Chloride Level 102 101-111 mmol/L Carbon Dioxide Level 27 21-32 mmol/L Blood Urea Nitrogen 17 7-18 mg/dL Creatinine 1.1 0.5-1.3 mg/dL Glomerular Filtration Rate Calc 70 >90 mL/min Random Glucose 192 H 70-105 mg/dL Hemoglobin A1c 9.2 H 4.0-6.0 % Estimated Average Glucose (eAG) 217 H 70-126 mg/dL Lactic Acid Level 0.8 0.8-2.5 mmol/L Total Calcium 7.7 L 8.5-10.1 mg/dL Magnesium Level 1.60 L 1.80-2.40 mg/dL Iron Level 19 L 65-175 mcg/dL Total Iron Binding Capacity 293 250-450 mcg/dL Percent Iron Saturation 6.4 L 30-44 % Total Bilirubin 0.5 # 0.2-1.0 mg/dL Aspartate Amino Transf (AST/SGOT) 14 10-37 U/L Alanine Aminotransferase (ALT/SGPT) 15 # 12-78 U/L Alkaline Phosphatase 92 # 50-136 U/L C-Reactive Protein, Quantitative 34.30 H 0.5-3.0 mg/L Total Protein 6.0 6.0-8.3 g/dL Albumin 2.3 #L 3.5-5.0 g/dL Direct Bilirubin 0.1 0.0-0.3 mg/dL Troponin I High Sensitivity 7 4-75 ng/L Coagulation Labs: Test 11/08/24 09:28 Range/Units Prothrombin Time 10.8 9.6-11.6 SEC Prothromb Time International Ratio 1.02 0.85-1.15 Activated Partial Thromboplast Time 28.9 26.3-35.5 SEC Diagnostics / Radiology: Impression and Plan: PAD, [place] category V of the RT TMA site RLE cellulitis and osteomyelitis Anemia HTN DM type II S/p left AKA Right TMA 5 years ago RLE peripheral angiograms x2 (unknown date) PAD, [place] category V of the RT TMA site RLE cellulitis and osteomyelitis -Continue Aspirin, Atorvastatin, and Plavix -The patient is in agreement of amputation to the RLE if needed and for further workup with angiogram -arterial lower extremity doppler with Abnormal monophasic arterial waveforms are noted in the right common femoral, deep femoral, superficial femoral, popliteal, posterior tibial and dorsalis pedal arteries. -consulted Dr Do as a PAD specialist KAITLYNN BOCANEGRA Nov 09, 2024 13:01 TIANNA DOW MD Nov 09, 2024 18:32 Electronically Signed by: KAITLYNN HARRINGTON11/09/24 1301 Electronically Co-Signed by: TIANNA DOW MD11/09/24 1832 CONSULTING PHYSICIAN: Thomas Mahmood MD and Eduardo Mario MD REASON FOR CONSULTATION: Possible right leg amputation. HISTORY OF PRESENT ILLNESS: This is a 74-year-old male patient with a history of multiple medical comorbidities, currently admitted for right foot infection. The patient has had right foot transmetatarsal amputation with nonhealing of the wound and gangrene present. The patient has already a history of left leg above the knee amputation done by me in the past, which has done well. The patient has noticed that the right foot wound after midfoot amputation has not been healing well and showing changes of gangrene. He complains of pain, swelling and redness also. The patient has been started on IV antibiotics. The patient has been evaluated by Cardiology in the past and they are unable to do any interventions to improve the circulation. PAST MEDICAL HISTORY: Positive for peripheral vascular disease, right foot osteomyelitis, left foot osteomyelitis, diabetes mellitus, hypertension, morbid obesity and peripheral vascular disease. PAST SURGICAL HISTORY: Including left leg above the knee amputation, right foot transmetatarsal amputation, multiple peripheral angiograms and interventions. ALLERGIES: None. MEDICATIONS: Reviewed. SOCIAL HISTORY: Does not smoke. Does not drink alcohol. No illegal drugs. FAMILY HISTORY: Positive for diabetes. REVIEW OF SYSTEMS: A 12-systems review of systems was obtained and is negative. PHYSICAL EXAMINATION: GENERAL: The patient is awake, alert and oriented x 3. VITAL SIGNS: Temperature 98.1, pulse 78, respiratory rate is 15 and blood pressure 148/73. HEENT: Normocephalic and atraumatic. NECK: No engorged vein. CHEST: Symmetric movement is seen. HEART: Regular rate and rhythm. ABDOMEN: Soft, nontender and nondistended. EXTREMITIES: Examination of the right foot, right lower extremity shows gangrene present along the stump of the right midfoot stump with transmetatarsal amputation present. Dorsalis pedis and posterior tibial absent. Right foot cool to touch. LABORATORY DATA: Investigations were reviewed. DIAGNOSTIC STUDIES: MRI of the right foot shows osteomyelitis of the multiple metatarsal bones. ASSESSMENT AND PLAN: The patient is a 74-year-old male patient with right foot stump osteomyelitis with acute peripheral vascular disease with nonhealing wound. I had a detailed conversation with the patient regarding his condition and told the treatment options available and the risks and benefits. All questions and concerns were answered in detail. The patient verbalized understanding and he preferred right leg above the knee amputation. All risks and benefits were explained in detail and informed consent was obtained. TID: [id number] RECEIPT: [id number] Electronically Signed by: Electronically Co-Signed by: Procedure(s): Procedure Note: Peripheral Angiogram Date/Time of Service: 11/10/2024 Referring Physician: Dr. Dow Procedures Performed: Lower abdominal aortogram, peripheral angiogram with lower extremity arterial runoff, peripheral angiogram via 0.014 quick cross, balloon angioplasty, balloon lithotripsy, and drug coated balloon angioplasty, of the proximal, mid, and distal right superficial femoral artery, balloon angioplasty and balloon lithotripsy in the right tibioperoneal artery, proximal, mid, and distal right peroneal artery Indications for Procedure: PAD, Cm category 6 symptoms (right lower extremity) Nonhealing right-sided TMA PAD status post peripheral intervention with stent placement in the left SFA and mid right SFA done by the PAD specialists ([place], [place]) Left-sided AKA DM II HTN HLP Description of Procedure: [After informed consent was obtained the patient was prepped and draped in the usual sterile fashion a 6 Macedonian arterial sheath with a hemostatic valve was inserted into the left common femoral artery using a modified Salinger technique on the first pass front wall puncture. A 5 Macedonian Omni Flush catheter was then advanced over a soft angled Glidewire into the abdominal aorta and a lower abdominal aortogram with runoff was obtained. The findings are listed below. The Omni flush catheter was then advanced to the right common femoral artery and a right lower extremity arterial runoff was obtained. The findings are listed below.] Findings: Lower Abdominal aorta: patent Right common iliac artery: 30% stenosis in the ostial segment of the artery Right external iliac artery: patent Right internal iliac artery: patent Right common femoral artery: patent Right profunda artery: patent Right superficial femoral artery: 80% stenosis in the proximal segments of the artery. There is a stent with 100% ISR seen within the mid segment of the artery. The artery reconstitutes distally via collateral blood flow. There is diffuse 80% stenosis in the distal segment of the artery Right popliteal artery: patent Right anterior tibial artery: 100% stenosis (PATTERN REPAIR PERSON = 250mm) in the proximal segment of the artery. The artery reconstitutes distally via collateral blood flow Right tibioperoneal artery: 70% stenosis in the proximal segment of the artery Right peroneal artery: 100% stenosis (PATTERN REPAIR PERSON = 150mm) in the proximal segment of the artery. The artery reconstitutes distally via collateral blood flow Right posterior tibial artery: 100% stenosis (PATTERN REPAIR PERSON = 150mm) in the proximal segment of the artery. The artery reconstitutes distally via collateral blood flow Right pedal arch: Incomplete, with slow two-vessel runoff supplying the anterior and posterior segments of the pedal arch Left common iliac artery: patent Left external iliac artery: patent Left internal iliac artery: patent Left common femoral artery: patent Left profunda artery: patent Intervention: After reviewing the above-mentioned findings the decision was made to intervene the right lower extremity. The soft angled glidewire was inserted into the Omni flush catheter was advanced to the mid right superficial femoral artery. The Omni flush catheter was then removed and the short six Macedonian arterial sheath was exchanged for a 65 cm six Macedonian destination arterial sheath, which was then placed in the proximal right superficial femoral artery. We then administered heparin 75 units/kg, clopidogrel 300 mg x 1 dose and aspirin 325 mg x 1 dose. We then advanced a 0.014 whisper guidewire and 0.014 quick cross catheter across multiple areas of stenosis and into the distal right peroneal artery. The whisper guidewire was then removed and contrast was injected into the quick cross catheter, which confirmed there were in the true lumen of the distal right peroneal artery. We then inserted a 0.014 Fielder XT into the quick cross catheter and advanced it into the distal right peroneal artery. We then removed the quick cross catheter and performed balloon angioplasty (1.5-2.0 x 210mm > 2.5 x 120mm) and balloon lithotripsy (shockwave 3.0 x 80 mm) in the right tibioperoneal artery, proximal, mid, and distal right peroneal artery. We then performed balloon lithotripsy (shockwave 6.0 x 80mm) and drug coated balloon ang ioplasty (Medtronic impact 6.0 x 60mm and 6.0 x 250mm) in the proximal, mid, and distal right superficial femoral artery. We then removed the balloons and performed repeat angiography which revealed a widely patent right superficial femoral artery, without dissection, or perforation, a patent stent in the mid right superficial femoral artery, widely patent right tibioperoneal artery and right peroneal artery, without dissection, or perforation, and brisk two-vessel runoff supplying the anterior and posterior segments of the right pedal arch. The 0.014 Fielder XT guidewire and 65 cm six Macedonian destination arterial sheath were then removed and the arteriotomy site in the left common femoral artery was successfully closed using a six Macedonian Angio-Seal device. The patient tolerated the procedure well without issue. Estimated Blood Loss: [40]mL Complications: [ None] Conclusion: 1. PAD, Cm category 6 symptoms (right lower extremity), diffuse 80% stenosis in the proximal and distal right superficial femoral artery, 100% ISR within the stent in the mid right superficial femoral artery status post successful treatment with balloon lithotripsy and drug coated balloon angioplasty, 70% stenosis in the right tibioperoneal artery, and 100% stenosis in the proximal, mid, and distal right peroneal artery status post successful treatment with balloon angioplasty and balloon lithotripsy, resulting in widely patent arteries, without dissection, perforation, and brisk two-vessel runoff supplying the anterior and posterior segments of the right pedal arch. 2. Residual PAD, 100% stenosis in the proximal right anterior tibial artery and 100% stenosis in the proximal right posterior tibial artery 3. Nonhealing right-sided TMA 4. PAD status post peripheral intervention with stent placement in the left SFA and mid right SFA done by the PAD specialists ([place], [place]) 5. Left-sided AKA 6. DM II 7. HTN 8. HLP Recommendations/Instructions: 1. Continue goal-directed medical therapy. 2. Continue aspirin 81 mg daily and clopidogrel 75 mg daily for a minimum of six months and optimally one year. 3. Groin precautions 4. 4 hours of bedrest 5. Start NS at 100 mL/hour x3 hours. 6. We will order TCOMs of the right foot to assess wound healing after the above-mentioned peripheral intervention 7. Continue with aggressive wound care GHAZALA DO MD Nov 10, 2024 12:25 Electronically Signed by: GHAZALA DO MD11/10/24 1225 Electronically Co-Signed by: GRECIA COTTER MD [place] [id number] [id number] DATE OF PROCEDURE: 11/17/2024 PREOPERATIVE DIAGNOSES: Right leg acute peripheral vascular disease and right foot gangrene. POSTOPERATIVE DIAGNOSES: Right leg acute peripheral vascular disease and right foot gangrene. PROCEDURE PERFORMED: Right leg above-knee amputation. INTRAVENOUS FLUIDS: As per anesthesia. ESTIMATED BLOOD LOSS: 200 mL. COMPLICATIONS: None. SPECIMENS: None. IMPLANTS USED: None. ANESTHESIA: General anesthesia. INDICATIONS FOR THE PROCEDURE: This is a 74-year-old gentleman with history of multiple medical comorbidities including uncontrolled diabetes, has been diagnosed with acute peripheral vascular disease, nonhealing wounds to the right foot and gangrene and acute peripheral vascular disease with chronic claudication pain. Ortho has been called for possible amputation. I explained the risks and benefits of the procedure. I answered all questions and concerns. The patient was cleared by the hospitalist and core rescuer for undergoing the procedure. Informed consent was obtained. DESCRIPTION OF PROCEDURE: The patient was correctly identified in the preoperative holding area and the correct patient and correct procedure site, correct extremity and correct plan was confirmed and marked and the patient was taken to the operating room, placed in a supine position, underwent general anesthesia by the anesthetic team. After that, the right lower extremity was then prepped and draped in a sterile fashion. A repeat timeout was then identifying the correct patient, type procedure, site, correct extremity, correct time. We then started our procedure by exaggerating the right lower extremity and elevating the tourniquet cuff pressure to 300 mmHg. We planned to do an above-knee amputation as the patient already has had a left leg above-knee amputation to improve the chance of healing and circulation. We planned to do a fishmouth-based incision. The skin markings were made and skin and subcutaneous tissues were incised. Blunt dissection was carried out. All bleeding points were cauterized. Then anteriorly, we went through the quadriceps muscles and we reached the femur shaft. We isolated the great saphenous vein, doubly ligated it and cut it. I isolated the saphenous nerve, pulled sharply and cut it. We osteotomized the femur shaft and did an osteotomy at the planned site at the middle third. We then completed the amputation with the amputation arc. The popliteal vessels were identified and doubly ligated and cut. The sciatic nerve was also identified and pulled sharply and cut. Then, we did a chamfer cuts of the femur shaft anteriorly. Then, we washed the wound thoroughly, released the tourniquet. All bleeding points were cauterized. We inserted the drain and closed the wound in layers with 0 Vicryl, 2-0 Vicryl, and marcela. The patient tolerated the procedure well. No complications encountered. TID: [id number] RECEIPT: [id number] Electronically Signed by: Electronically Co-Signed by: Assessment/Plan: DISCHARGE DIAGNOSIS : Sepsis: POA -resolved Rt foot TMA stump osteomyelitis,poa s/p Right AKA by Dr Cotter on 11.14.24 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, drainage POA intractable pain right foot POA Severe PAD Poa Iron deficiency anemia with drop in hemoglobin , POA Uncontrolled diabetes type 2 POA Obesity BMI: 33 Complete Inability to move secondary to physical disability s/p bilateral AKA, : POA Hypomagnesemia, POA Vomiting , not POA Euglycemic DKA secondary to Jardiance and postoperative stress ,resolved , not POA Bed-bound status POA Assessment : DKA: Euglycemic DKA secondary to Jardiance and postoperative stress ; secondary to his comorbidities . Resolved -anion gap is closed. Insulin drip is off. Patient is back to Lantus and sliding scale. Metformin was discontinued SGLT2 was discontinued. Sepsis: POA -resolved Tachycardia, CRP elevated ,subjective fevers at the time of admission completed Zosyn, Vancomycin (pharmacy to dose) ID recommendations appreciated Blood cultures negative Rt foot TMA stump osteomyelitis ,POA,s/p Right AKA by Dr Cotter on 11.14.24 Intractable pain right foot POA wound cultures growing Klebsiella pneumoniae, Enterococcus faecalis, MRSA completed IV Zosyn and IV vancomycin patient underwent rt AKA PAD, Cm category 6 symptoms (right lower extremity),POA -S\P Right AKA on 11.14.24 Continue Aspirin 81 mg daily and clopidogrel 75 mg daily for a minimum of six m onths -pain management with hydromorphone social worker school and case management consulted Uncontrolled diabetes type 2 POA HbA1C 9.2 continue Lantus and sliding scale Iron deficiency anemia with drop in hemoglobin , POA S/p IV iron x 2 Tsat 6.4% Stool occult blood positive EGD- poor examination, chronic esophagitis + Follow up with gastroenterology as outpatient for a possible repeat EGD . Discharge Instructions: DATE OF ADMISSION: 11.08.24 DATE OF DISCHARGE: 11.20.24 DISPOSITION: IRU CONDITION: Medically stable CONSULTANTS: ORTHOPEDICS, PODIATRY, CARDIOLOGY, INFECTIOUS DISEASE FOLLOW UP APPOINTMENTS: Follow with your primary care doctor in 2 to 3 days after discharge . Follow with Gastroenterology out patient PROCEDURES: S/P Rt AKA IMAGING: report attached to summary MICROBIOLOGY: report attached to summary HOME MEDICATIONS: see med rec NEW MEDICATIONS: See medication reconciliation EMERGENCY INSTRUCTIONS: The patient was instructed to present to the nearest Emergency departmentr or call 911 once their symptoms will return or worsen Home Medications: Reported Medications Tamsulosin HCl (Flomax) 0.4 Mg Cap.er.24h, 0.4 MG PO DAILY, CAPSULE. 11/08/24 Pioglitazone HCl (Pioglitazone HCl) 30 Mg Tablet, 30 MG PO DAILY, TAB 11/08/24 Metformin HCl (Metformin HCl) 1,000 Mg Tablet, 1000 MG PO BID, TAB 11/08/24 Lisinopril (Lisinopril) 5 Mg Tablet, 5 MG PO DAILY, TAB 11/08/24 Finasteride (Finasteride) 1 Mg Tablet, 1 MG PO DAILY, TAB 11/08/24 Ferrous Sulfate (Ferrous Sulfate) 325 Mg (65 Mg Iron) Ectab, 1 TAB PO QODAY for 30 Days, #30 TAB 0 Refills 11/08/24 Clopidogrel Bisulfate (Clopidogrel) 75 Mg Tablet, 75 MG PO DAILY, TAB 11/08/24 Carvedilol (Carvedilol) 3.125 Mg Tablet, 1 TAB PO BID for 30 Days, 11/08/24 Atorvastatin Calcium (Atorvastatin Calcium) 40 Mg Tablet, 1 TAB PO DAILY for 30 Days, #30 TAB 0 Refills 11/08/24 Aspirin (ASPIRIN 81 MG ECTAB) 81 Mg Ectab, 81 MG PO DAILY, TAB.EC 11/08/24 Discontinued Reported Medications Empagliflozin (Jardiance) 25 Mg Tablet, 25 MG PO DAILY, TAB 11/08/24 Time spent arranging discharge: 1-30 minutes ATTESTATION BY PHYSICIAN I have seen and examined the patient. I reviewed the documentation, medical d ecision making, and treatment plan as noted by the resident provider above. I agree with the findings and plan of care. SALVADOR MEDEIROS MD, MD Nov 20, 2024 13:59
--- NOTE | 2024-11-20 16:14 | NUR ---
Nutrition consult per PCM eval Reviewed labs, notes, and medications. Pt with diabetic ulcer, AKA right leg and AKA on left, Pt with nausea 11/20/24, on 75 gm cho, Fe, insulin, steroid, BG 174(H), Ca 7.7(L), elevated CRP, A1C 9.2 per chart review. 100%PO intake, no recent wts, last BM 11/20/24, no edema, well nourished, -3400 ml balance 11/19/24 per nursing. Pt hard of hearing, Pt reported no MVI QD, drinks alcohol daily, nausea this AM, no top dentures, agreeable to finely chopped, going to [place], to be d/c soon, "eats everything bad", agreeable to ensure max qd w/ am tray during visit. Low albumin may be due to recent procedure. RD reviewed MNT for T2DM, Pt receptive, poor compliance suspected. Recommendations: -Provide 60 gm cho + ensure max QD w/ am tray + HH diet + finely chopped -Monitor PO intake -Monitor BM -If no BM >3 days consider stool softener -Consider probiotics QD per diarrhea -Monitor electrolytes -Replenish electrolytes per protocol -Monitor wts -Reweigh as able -Order Vit D, vit b-12, vit A, vit. E (per non-healing wound) labs to rule out deficiencies -Order lipid panel, A1C -Provide b-complex QD -Order B-6 labs per Pt's drinking hx -Texture per OUT PATIENT THERAPIST recs -Recommend Pt to follow up with PCP -Monitor goals of care RD to follow + available for consult per protocol Addendum: 11/20/24 at [address] Amended: Links added.
[2024-11-20] MEDS: GABApentin 100 MG CAPSULE PO SCH (20:24)
--- NOTE | 2024-11-20 23:14 | PN ---
INFECTIOUS DISEASE PROGRESS NOTE Date of Service: Nov 20, 2024 SUBJECTIVE: This is a 74-year-old male patient who was seen and examined at bedside in room 332. Patient is awake and alert. Patient is s/p right [id number] amputation on 08/16/2024. Pending insurance approval to [facility] inpatient rehab unit. PHYSICAL EXAM EYES: Anicteric. Pupils equal and reactive. HENT: No oral thrush seen, moist Oral mucosa. NECK: Supple, no JVD or thyromegaly. LUNGS: Good air entry. No rales, no rhonchi. CARDIOVASCULAR: S1, S2 regular. No murmur heard. ABDOMEN: Soft, non tender, bowel sounds present, no organomegaly. CENTRAL NERVOUS SYSTEM: Awake, alert, oriented x 3. SKIN: No rashes, no swelling. LYMPHATICS: No peripheral lymphadenopathy. MUSCULOSKELETAL: No joint swelling, erythema or tenderness. EXTREMITIES: No cyanosis or clubbing. BACK: No deformity, no pressure ulcer. GENITOURINARY: No dysuria or hematuria. Vital Sign (Last 12 Hours) 11/20/24 11/20/24 11/20/24 11/20/24 11:28 16:29 18:45 19:00 Temp 97.9 97.9 99.0 Pulse 100 113 89 107 Resp 18 18 18 24 B/P (MAP) 138/66 123/70 118/48 Pulse Ox 98 95 96 O2 Delivery Room Air Room Air N/A Room Air Room Air FiO2 21 11/20/24 20:24 B/P (MAP) 118/48 Intake & Output (last 24hrs) 11/19/24 11/19/24 11/20/24 15:00 23:00 07:00 Intake Total 1050 ml Balance 1050 ml LABS: Laboratory: Test 11/20/24 20:25 11/20/24 06:03 11/20/24 04:23 11/19/24 12:45 Range/Units Whole Blood Glucose 183 H 70-110 MG/DL White Blood Count 4.9 4.8-10.8 K/uL Red Blood Count 3.53 L 4.50-6.20 MIL/uL Hemoglobin 9.6 L 14.0-18.0 g/dL Hematocrit 28.9 L 42-54 % Mean Corpuscular Volume 81.9 79-99 fL Mean Corpuscular Hemoglobin 27.2 27.0-33.0 pg Mean Corpuscular Hemoglobin Concent 33.2 32.0-36.0 g/dL Red Cell Distribution Width 16.1 H 11.0-15.5 % Platelet Count 181 130-400 K/uL Mean Platelet Volume 10.5 7.5-10.5 fL Nucleated Red Blood Cells 0.0 0.0-0.19 % Sodium Level 138 136-145 mmol/L Potassium Level 3.6 3.5-5.1 mmol/L Chloride Level 105 101-111 mmol/L Carbon Dioxide Level 23 21-32 mmol/L Blood Urea Nitrogen 10 7-18 mg/dL Creatinine 0.9 0.5-1.3 mg/dL Glomerular Filtration Rate Calc 89 >90 mL/min Random Glucose 183 H 70-105 mg/dL Total Calcium 7.7 L 8.5-10.1 mg/dL Magnesium Level 1.80 1.80-2.40 mg/dL Urine Random Creatinine 75.99 30-135 mg/dL Test 11/19/24 04:05 Range/Units Immature Granulocyte % (Auto) 1.0 0-1 % Neutrophils (%) (Auto) 66.2 40.0-77.0 % Lymphocytes (%) (Auto) 22.6 21.0-51.0 % Monocytes (%) (Auto) 8.0 3.0-13.0 % Eosinophils (%) (Auto) 1.8 0.0-8.0 % Basophils (%) (Auto) 0.4 0.0-5.0 % Neutrophils # (Auto) 3.2 1.8-7.7 K/uL Lymphocytes # (Auto) 1.1 1.0-4.8 K/uL Monocytes # (Auto) 0.4 0.1-1.0 K/uL Eosinophils # (Auto) 0.09 0.00-0.70 K/uL Basophils # (Auto) 0.02 0.00-0.20 K/uL Absolute Immature Granulocyte (auto 0.05 0-1 K/uL Phosphorus Level 2.9 2.5-4.9 mg/dL Total Bilirubin 0.6 0.2-1.0 mg/dL Aspartate Amino Transf (AST/SGOT) 10 10-37 U/L Alanine Aminotransferase (ALT/SGPT) < 6 L 12-78 U/L Alkaline Phosphatase 56 50-136 U/L Total Protein 5.8 L 6.0-8.3 g/dL Albumin 2.0 L 3.5-5.0 g/dL ASSESSMENT: 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 Polymicrobial infection. Anemia. Diabetes mellitus. Peripheral vascular disease, status post peripheral angiogram on 11/10/2024. Debility. PLAN: Discontinue all Antibiotics today. Continue monitoring hemoglobin. Continue antidiabetics. Continue pain management. Pending insurance approval to [facility] inpatient rehab unit. This case was reviewed and discussed with my supervising physician and the above assessment and plan was formulated and agreed upon. ATTESTATION BY PHYSICIAN I have seen and examined the patient. I reviewed the documentation, medical decision making, and treatment plan as noted by the mid-level provider above. I agree with the findings and plan of care. EDUARDO MARIO MD, MIRTA L [facility] Nov 20, 2024 23:14
[2024-11-21 00:31] VITALS: BP 124/59; PULSE 100; RESP 22; TEMP 98.7
[2024-11-21 04:00] VITALS: BP 125/51; PULSE 94; RESP 24; TEMP 97.7
[2024-11-21 06:04] LABS: CHOLESTEROL 61 mg/dL (<200); HDL CHOLESTEROL 32 mg/dL (29-71); LDL DIRECT 26 mg/dL (0-99); TRIGLYCERIDES 103 mg/dL (30-200)
--- NOTE | 2024-11-21 07:03 | PN ---
[facility] PROGRESS NOTE Date of Service: Nov 21, 2024 Time of Service: 07:03 SUBJECTIVE: This is a 74-year-old male with PMH of Left BKA , Rt TMA(5 years ) , PAD, DM, HTN, bowel perforation s/p bowel repair in 07/18 presented to ED with chief complaints of right foot pain. Patient has a chronic open wound to his right foot TMA stump. Pain scale 10/10. Aggravated factors movement, alleviating factors none. There is redness noted with eschar to open wound with minimal drainage. There is no surrounding edema but redness extending to mid leg level . No foul odor noted. Reports having fevers subjective. At the time of presentation , Vitals : T 99.3,HR 104, R 20, BP 143/75/99%RA.He was admitted for further evaluation and management of his wound . 4.17.25: Patient has low grade fevers. He denies pain at the rt TMA site. Wound dressing in place. MRI foot showed rt stump 1 and 2 osteomyelitis .Podiatry recommended possible amputation. LE artery doppler studies pending . ID and Cardiology consults placed. 11.10.25: Patient c/o pain in rt lower extremity . S/p peripheral angiogram by Dr Reilly- JUSTINE, [place] category 6 symptoms (right lower extremity), diffuse 80% stenosis in the proximal and distal right superficial femoral artery, 100% ISR within the stent in the mid right superficial femoral artery status post successful treatment with balloon lithotripsy and drug coated balloon angioplasty, 70% stenosis in the right tibioperoneal artery, and 100% stenosis in the proximal, mid, and distal right peroneal artery status post successful treatment with balloon angioplasty and balloon lithotripsy, resulting in widely patent arteries. There is residual PAD, 100% stenosis in the proximal right anterior tibial artery and 100% stenosis in the proximal right posterior tibial artery.Pending TCOM assessment .Patient tolerated the procedure well . 11.11.25: Patient s/p rt LE peripheral artery angioplasty. Uneventful post procedure course. Hb dropping -asymptomatic: treated with IV iron .TCOM evaluation pending (not till Wednesday as wound center is close on weekend),Ortho evaluation for possible stump revision pending. 11.12.25 : The patient is seen and examined today. No new complaints. His potassium is 3.3 And is being replaced. His hemoglobin went up from 8.6-10.7. The plan is for right above-knee amputation by Dr. Cotter tomorrow. 11.13.24: Patient seen resting in bed. Pending Rt AKA scheduled for later today . Patient has no concerns at this time .Stool occult blood positive . Will consult gastroenterology for drop in hemoglobin and positive stool occult blood . Case management and web content & social media manager on board . 11.14.24: Patient is pending Rt AKA by Dr Cotter today. He is receiving 1 unit of RBC now and is tolerating blood transfusion ,. Case managemnt on board for rehabilitation and placement. He has no concerns at this time . 11.15.24: Patient s/p AKA by Dr cotter. His vitals and labs are stable. Surgical site dressing clean . Pain adequately controlled. Heis in NAD. Case management on board for rehabilitation and placement. 11.16.24: Patient s/p AKA by Dr cotter. Surgical site dressing clean . Pain adequately controlled. Patient c/o vomiting, labs show CO2 14 -patient is on SGLT2 inhibitor- will continue to monitor . Case management on board for rehabilitation and placement. 11.17.24: Patient s/p AKA by Dr cotter. Surgical site dressing clean . Pain adequately controlled.Patient found to have euglycemic DKA with anion gap 20 decreased to 17 after 50 MEQ of NaHCO3 .Patient is asymptomatic .His vomiting subsided . Abdominal xray showed gastric distension. EGD showed chronic esophagitis with limited exam . Case management on board for rehabilitation and placement at inpatient rehab unit .Patient will be shifted to ICU for insulin drip and close monitoring . 11/18/2024. Patient was seen and examined along with RN. In ICU. His anion gap is closed. He is off insulin drip phosphorous was low at one he will be getting IV potassium phosphate with a repeat phosphorus level in 6 hour. He will be downgraded to floor. He does have NAGMA, we will get urine electrolytes and calculate urine anion gap. Likely Q two RTA. 11.19.24: Patient is seen resting in his bed . He stated that he feel sleepy- we will continue to monitor . His metabolic acidosis is corrected . Potassium was 2.6 today morning-after correction the repeat potassium levels are 3.6. He is started on spironolactone . Pending approval for Rehab . 11.21.24: Patient will be discharged today to IRU . He is clinically stable. REVIEW OF SYSTEMS Denies chills fevers Denies SOB, cough Denies chest pain , palpitation Denies vomiting , abdominal pain, constipation , nausea Denies muscle pain, joint pain , weakness PHYSICAL EXAM GENERAL APPEARANCE: The patient is awake, alert, and oriented, in no acute cardiopulmonary distress. NEUROLOGICAL: Motor is 5/5 in bilateral upper extremities .No sensory deficits. HEENT: Face is symmetric. Pupils are equal and reactive. Extraocular movements are intact. NECK: Supple. No JVD. No thyromegaly. No submental, submandibular, pre- /postauricular, occipital or supraclavicular lymphadenopathy. CHEST: Normal chest expansion. No Telemetry. LUNGS: Absence of any rales, rhonchi or any wheezing. CARDIOVASCULAR: Regular. S1 and S2 normal. No appreciable rubs, murmurs or gallops. ABDOMEN: Soft, nontender, and nondistended. There is no rebound, voluntary guarding, or rigidity. : Deferred. No Jaramillo. EXTREMITIES: s/o rt AKA- dressing in place ;left BKA status Vital Signs (last 8hr) Date Time Temp Pulse Resp B/P (MAP) Pulse Ox O2 Delivery O2 Flow Rate FiO2 11/21/24 04:00 97.7 94 24 125/51 98 Room Air 11/21/24 00:31 98.8 100 22 124/59 95 Room Air LABS: Laboratory: Test 11/21/24 05:35 11/21/24 04:57 11/20/24 06:03 11/20/24 04:23 Range/Units Whole Blood Glucose 173 H 70-110 MG/DL Triglycerides Level 103 30-200 mg/dL Cholesterol Level 61 <200 mg/dL LDL Cholesterol 26 0-99 mg/dL HDL Cholesterol 32 29-71 mg/dL White Blood Count 4.9 4.8-10.8 K/uL Red Blood Count 3.53 L 4.50-6.20 MIL/uL Hemoglobin 9.6 L 14.0-18.0 g/dL Hematocrit 28.9 L 42-54 % Mean Corpuscular Volume 81.9 79-99 fL Mean Corpuscular Hemoglobin 27.2 27.0-33.0 pg Mean Corpuscular Hemoglobin Concent 33.2 32.0-36.0 g/dL Red Cell Distribution Width 16.1 H 11.0-15.5 % Platelet Count 181 130-400 K/uL Mean Platelet Volume 10.5 7.5-10.5 fL Nucleated Red Blood Cells 0.0 0.0-0.19 % Sodium Level 138 136-145 mmol/L Potassium Level 3.6 3.5-5.1 mmol/L Chloride Level 105 101-111 mmol/L Carbon Dioxide Level 23 21-32 mmol/L Blood Urea Nitrogen 10 7-18 mg/dL Creatinine 0.9 0.5-1.3 mg/dL Glomerular Filtration Rate Calc 89 >90 mL/min Random Glucose 183 H 70-105 mg/dL Total Calcium 7.7 L 8.5-10.1 mg/dL Magnesium Level 1.80 1.80-2.40 mg/dL Test 11/19/24 12:45 Range/Units Urine Random Creatinine 75.99 30-135 mg/dL Current Medications Medications (Trade) Dose Ordered Sig/Jermain Route PRN Reason Start Time Stop Time Status Last Admin Dose Admin Acetaminophen (TYLenol 325MG TAB) 650 mg Q4H PRN PO TEMPERATURE GREATER THAN 101.5 11/08/24 12:00 12/08/24 11:59 11/14/24 23:07 650 MG Acetaminophen/ Hydrocodone Bitart (NORco 5/325MG) 1 tab Q6H PRN PO MODERATE PAIN (4-6) 11/14/24 20:00 11/16/24 18:09 DC 11/15/24 15:40 1 TAB Aspirin (Aspirin 81mg Ec Tab) 81 mg DAILY PO 11/10/24 09:00 12/10/24 08:59 11/20/24 09:46 81 MG Atorvastatin Calcium (LIPItor 40MG) 40 mg DAILY PO 11/10/24 09:00 12/10/24 08:59 11/20/24 09:46 40 MG Carvedilol (Coreg 3.125MG) 3.125 mg BID PO 11/09/24 21:00 12/09/24 20:59 11/20/24 20:24 3.125 MG Clopidogrel Bisulfate (plaVIX 75MG) 75 mg DAILY PO 11/10/24 09:00 12/10/24 08:59 11/20/24 09:46 75 MG Dextrose 1,000 ml @ 100 mls/hr Q10H IV 11/17/24 12:00 11/18/24 04:59 DC Dextrose (D50w) 50 ml AD PRN IV HYPOGLYCEMIA PROTOCOL 11/10/24 12:30 12/10/24 12:29 Dextrose/Sodium Chloride 1,000 ml @ 0 mls/hr AD IV 11/17/24 12:00 11/17/24 12:45 DC Empaglifozin (Jardiance 25mg) 25 mg DAILY PO 11/10/24 09:00 11/16/24 15:14 DC 11/16/24 09:58 25 MG Famotidine (Pepcid 20mg Vial) 20 mg DAILY IV 11/09/24 09:00 11/16/24 15:19 DC 11/16/24 09:56 20 MG Ferrous Sulfate (Ferrous Sulfate) 325 mg QODAY PO 11/11/24 09:00 12/11/24 08:59 11/19/24 07:44 325 MG Gabapentin (NEURontin 100 mg CAP) 100 mg BID PO 11/20/24 21:00 12/20/24 20:59 11/20/24 20:24 100 MG Glucagon (Glucagon 1mg Kit) 1 mg AD PRN IM HYPOGLYCEMIA PROTOCOL 11/10/24 12:30 12/10/24 12:29 Heparin Sodium (Porcine) (HEParin 5,000 UNIT VIAL) 5,000 unit Q12H SQ 11/08/24 12:30 12/08/24 12:29 11/21/24 00:00 5,000 UNIT Home Med (Home Medication) (Finasteride 1 MG)- HAIR LOSS DAILY PO 11/10/24 09:00 12/10/24 08:59 Hydromorphone HCl (DiLAUDid 0.5MG INJ) 0.5 mg Q4H PRN IVP SEVERE PAIN (7-10) 11/08/24 12:00 11/13/24 11:59 DC 11/11/24 18:34 0.5 MG Hydromorphone HCl (DiLAUDid 0.5MG INJ) 0.5 mg Q4H PRN IVP SEVERE PAIN (7-10) 11/14/24 00:00 11/16/24 18:09 DC 11/16/24 13:21 0.5 MG Insulin Glargine (LANtus 100 UNITS/ML 10 ML VIAL) 15 units Q12H SQ 11/18/24 06:00 12/18/24 05:59 11/21/24 06:38 15 UNITS Insulin Human Regular (humuLIN R 100 UNIT/ML 3ML) INSULIN SLIDING SCAL... ACHS SQ 11/08/24 16:30 12/08/24 16:29 11/20/24 20:31 4 UNIT Insulin Human Regular 100 unit/ Sodium Chloride 101 ml @ 0 mls/hr PROTOCOL IV 11/17/24 12:00 11/18/24 04:59 DC 11/17/24 16:06 4.65 MLS/HR Ipratropium Olema (AtrovENT UD) 0.5 MG Q4H PRN IH SHORTNESS OF BREATH 11/18/24 10:30 12/18/24 10:29 Iron Sucrose (VenoFER) 200 mg ONCE STAT IV 11/09/24 11:20 11/09/24 11:35 DC Lactated Ringer's 1,000 ml @ 100 mls/hr Q10H IV 11/18/24 05:00 11/18/24 08:46 DC 11/18/24 05:06 100 MLS/HR Lactulose (Constulose 20gm/ 30ml Udcup) 20 gm BID PRN PO CONSTIPATION 11/08/24 12:00 12/08/24 11:59 Lisinopril (Prinivil 10mg) 10 mg DAILY PO 11/16/24 09:00 11/16/24 09:53 DC Lisinopril (Prinivil 20mg) 20 mg DAILY PO 11/17/24 09:00 12/17/24 08:59 11/20/24 09:46 20 MG Lisinopril (Prinivil 5mg) 5 mg DAILY PO 11/10/24 09:00 11/15/24 09:21 DC 11/15/24 08:10 5 MG Magnesium Oxide (Mag-Ox) 400 mg BID PO 11/19/24 21:00 11/22/24 07:00 11/20/24 20:23 400 MG Magnesium Sulfate 50 ml @ 0 mls/hr PROTOCOL IV 11/17/24 12:00 11/18/24 07:32 DC 11/18/24 04:41 25 MLS/HR Magnesium Sulfate 50 ml @ 0 mls/hr PROTOCOL IV 11/17/24 13:00 12/17/24 12:59 11/20/24 05:41 25 MLS/HR Magnesium Sulfate 50 ml @ 0 mls/hr PROTOCOL PRN IV low mag level 11/08/24 12:00 11/18/24 07:32 DC 11/11/24 05:34 25 MLS/HR Mannitol (Osmitrol 20% 250ml Bag) 47 gm AD IV 11/17/24 12:00 11/17/24 12:48 DC Metformin HCl (glucoPHAGE) 1,000 mg BIDMEALS PO 11/09/24 17:00 11/16/24 22:14 DC 11/16/24 17:40 1,000 MG Metoclopramide HCl (regLAN 10MG IV) 5 mg TIDAC IVP 11/17/24 11:30 11/18/24 08:31 DC 11/17/24 16:07 5 MG Ondansetron HCl (zoFRAN 4MG INJ) 4 mg Q6H PRN IVP NAUSEA/VOMITING 11/08/24 12:00 12/08/24 11:59 11/16/24 09:56 4 MG Pantoprazole Sodium (PROTonix 40MG INJ) 40 mg DAILY IVP 11/17/24 09:00 12/17/24 08:59 11/20/24 09:45 40 MG Pioglitazone HCl (Actos 30mg) 30 mg DAILY PO 11/10/24 09:00 11/16/24 22:15 DC 11/16/24 09:56 30 MG Piperacillin Sod/ Tazobactam Sod (Zosyn 3.375gm+NS 50ml) 3.375 gm Q8H IVPB 11/08/24 17:30 11/14/24 13:27 DC 11/14/24 00:57 3.375 GM Piperacillin Sod/ Tazobactam Sod (Zosyn 3.375gm+NS 50ml) 3.375 gm Q8H IVPB 11/14/24 13:30 11/16/24 11:00 DC 11/16/24 05:41 3.375 GM Potassium Chloride 20 meq/ Sodium Chloride 1,010 ml @ 0 mls/hr PROTOCOL IV 11/17/24 12:00 11/17/24 12:45 DC Potassium Chloride/Dextrose/ Sod Cl 1,000 ml @ 0 mls/hr AD IV 11/17/24 12:00 11/18/24 04:59 DC 11/18/24 04:43 300 MLS/HR Potassium Phosphate 250 ml @ 42 mls/hr PROTOCOL PRN IV PROTOCOL 11/18/24 05:00 11/18/24 07:33 DC 11/18/24 05:36 42 MLS/HR Potassium Phosphate 250 ml @ 42 mls/hr PROTOCOL PRN IV PROTOCOL 11/18/24 07:30 12/18/24 07:29 Potassium Chloride 100 ml @ 50 mls/hr AD PRN IV POTASSIUM PROTOCOL 11/16/24 15:30 11/16/24 15:19 DC Potassium Chloride 100 ml @ 100 mls/hr AD PRN IV POTASSIUM PROTOCOL 11/08/24 12:00 11/19/24 05:21 DC 11/19/24 05:03 100 MLS/HR Potassium Chloride 100 ml @ 100 mls/hr AD PRN IV POTASSIUM PROTOCOL 11/19/24 05:30 12/19/24 05:29 11/19/24 07:37 100 MLS/HR Potassium Chloride 100 ml @ 0 mls/hr PROTOCOL PRN IV DKA POTASSIUM REPLACEMENT 11/17/24 13:00 11/19/24 05:21 DC 11/17/24 16:07 50 MLS/HR Potassium Chloride (K-Dur/Klor-Con 20meq) 20 meq AD PRN PO POTASSIUM PROTOCOL 11/08/24 12:00 11/16/24 15:14 DC 11/12/24 19:14 20 MEQ Potassium Chloride (K-Dur/Klor-Con 20meq) 20 meq AD PRN PO POTASSIUM PROTOCOL 11/19/24 05:30 12/19/24 05:29 11/20/24 05:43 20 MEQ Potassium Chloride (K-Dur/Klor-Con 20meq) 20 meq DAILY PO 11/20/24 09:00 12/20/24 08:59 11/20/24 09:45 20 MEQ Potassium Chloride (KCl 10% Elixir 20meq/15ml) 20 meq AD PRN PO POTASSIUM PROTOCOL 11/08/24 12:00 11/16/24 15:14 DC Potassium Chloride (KCl 10% Elixir 20meq/15ml) 20 meq AD PRN PO POTASSIUM PROTOCOL 11/19/24 05:30 12/19/24 05:29 Potassium Phos/ Sodium Phos (PHOS-NaK PACKET 1 EACH) 1 packet TID PO 11/18/24 14:00 11/19/24 14:00 DC 11/19/24 14:07 1 PACKET Sodium Bicarbonate (Sodium Bicarbonate) 650 mg BID PO 11/18/24 09:00 11/19/24 07:09 DC 11/18/24 21:09 650 MG Sodium Chloride 1,000 ml @ 100 mls/hr Q10H IV 11/08/24 12:00 11/17/24 12:39 DC 11/17/24 05:38 100 MLS/HR Sodium Chloride 1,000 ml @ 100 mls/hr Q10H IV 11/10/24 12:30 11/10/24 15:29 DC Sodium Chloride (NS 50ml) 50 ml AD IV 11/08/24 21:00 11/08/24 11:59 DC Spironolactone (Aldactone 25mg) 25 mg DAILY PO 11/19/24 09:00 12/19/24 08:59 11/20/24 09:45 25 MG Tamsulosin HCl (FloMAX) 0.4 mg DAILY PO 11/10/24 09:00 12/10/24 08:59 11/20/24 09:45 0.4 MG Vancomycin HCl 250 ml @ 125 mls/hr Q12H IV 11/15/24 12:00 11/16/24 14:00 DC 11/16/24 11:47 125 MLS/HR Vancomycin HCl 250 ml @ 125 mls/hr Q12H IV 11/17/24 00:30 11/17/24 11:42 DC 11/17/24 01:34 125 MLS/HR Vancomycin HCl 250 ml @ 125 mls/hr Q24H IV 11/10/24 12:00 11/12/24 11:49 DC 11/11/24 15:18 125 MLS/HR Vancomycin HCl 500 ml @ 250 mls/hr Q24H IV 11/12/24 12:00 11/15/24 11:42 DC 11/14/24 13:36 250 MLS/HR Vancomycin HCl (Vancomycin Protocol) 1 each AD IV 11/09/24 11:30 11/16/24 13:00 DC Vancomycin HCl (Vancomycin 1g/ 250ml Kit) 1 gm Q12H IV 11/08/24 12:00 11/08/24 11:59 DC DIAGNOSTICS / RADIOLOGY: [ ] DISCHARGE DIAGNOSIS : Sepsis: POA -resolved Rt foot TMA stump osteomyelitis,poa s/p Right AKA by Dr Cotter on 11.14.24 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, drainage POA intractable pain right foot POA Severe PAD Poa Iron deficiency anemia with drop in hemoglobin , POA Uncontrolled diabetes type 2 POA Obesity BMI: 33 Complete Inability to move secondary to physical disability s/p bilateral AKA, : POA Hypomagnesemia, POA Vomiting , not POA Euglycemic DKA secondary to Jardiance and postoperative stress ,resolved , not POA Bed-bound status POA Assessment : DKA: Euglycemic DKA secondary to Jardiance and postoperative stress ; secondary to his comorbidities . Resolved -anion gap is closed. Insulin drip is off. Patient is back to Lantus and sliding scale. Metformin was discontinued SGLT2 was discontinued. Sepsis: POA -resolved Tachycardia, CRP elevated ,subjective fevers at the time of admission completed Zosyn, Vancomycin (pharmacy to dose) ID recommendations appreciated Blood cultures negative Rt foot TMA stump osteomyelitis ,POA,s/p Right AKA by Dr Cotter on 11.14.24 Intractable pain right foot POA wound cultures growing Klebsiella pneumoniae, Enterococcus faecalis, MRSA completed IV Zosyn and IV vancomycin patient underwent rt AKA PAD, Cm category 6 symptoms (right lower extremity),POA -S\P Right AKA on 11.14.24 Continue Aspirin 81 mg daily and clopidogrel 75 mg daily for a minimum of six months -pain management with hydromorphone web content & social media manager and case management consulted Uncontrolled diabetes type 2 POA HbA1C 9.2 continue Lantus and sliding scale Iron deficiency anemia with drop in hemoglobin , POA S/p IV iron x 2 Tsat 6.4% Stool occult blood positive EGD- poor examination, chronic esophagitis + Follow up with gastroenterology as outpatient for a possible repeat EGD . ATTESTATION BY PHYSICIAN I have seen and examined the patient. I reviewed the documentation, medical decision making, and treatment plan as noted by the resident provider above. I agree with the findings and plan of care. RESHMA MEDEIROS MD, MD Nov 21, 2024 07:03
[2024-11-21 07:39] VITALS: PULSE 95; RESP 18; O2SAT 95
[2024-11-21 08:00] VITALS: BP 114/53; PULSE 71; RESP 17; TEMP 98.2; O2SAT 97
[2024-11-21 09:36] LABS: CREATININE 0.9 mg/dL (0.5-1.3); POTASSIUM 3.2 mmol/L (3.5-5.1)
[2024-11-21 10:16] VITALS: O2SAT 97
[2024-11-21 12:00] VITALS: BP 130/61; PULSE 77; RESP 18; TEMP 98.3
--- NOTE | 2024-11-21 12:04 | PN ---
GASTROENTEROLOGY PROGRESS NOTE Date of Visit: Nov 21, 2024 Time of Visit: 12:04 Events / Notes: No acute events overnight. Patient underwent [id number] amputation. Patient has been having nausea and vomiting. Review of Systems: CONSTITUTIONAL: No malaise or change in sensation of wellbeing. ENMT: No rhinorrhea, otorrhea, sinus pain, ear ache. CARDIOVASCULAR: No angina, palpitations, orthopnea or paroxysmal dyspnea. RESPIRATORY: No SOB. GASTROINTESTINAL: No abdominal pain, nausea, vomiting, diarrhea, hematemesis, melena or change in the patient's habitual bowel movements consistency/number. GENITOURINARY: No dysuria, hematuria or change in bladder continence. MUSCULOSKELETAL: No new muscle pain or decrease in muscular strength. No new joint swelling, redness or tenderness. SKIN: No new rash. Physical Exam: GEN: Awake, alert, oriented in person, time and place, and in no acute distress. HEENT: No sinus tenderness. Tympanic membranes were not examined. No rhinorrhea. Oral pharyngeal mucosa is pink, moist and within normal limits. Neck is supple with no cervical lymphadenopathy, thyromegaly or JVD. CHEST: Inspection, palpation and percussion of the chest were unremarkable. Lung auscultation revealed normal breath sounds bilaterally. CARDIAC: PMI is within normal limits. Heart sounds are regular. Normal S1, S2. No gallop or murmur. ABD: Soft, non-tender and not distended. No peritoneal signs on palpation. No organomegaly. Normal bowel sounds. EXT: No cyanosis or clubbing. No edema. SKIN: Intact. No rashes. JOINTS: No evidence of synovitis or acute arthritis. NEURO: Alert and oriented to name, place and person. Cranial nerve examination is unremarkable. No focal motor deficits. Normal speech. Gait is normal. Strength is normal. Vital Signs (last 8hr) Date Time Temp Pulse Resp B/P (MAP) Pulse Ox O2 Delivery O2 Flow Rate FiO2 11/21/24 09:27 114/53 11/21/24 08:00 98.2 71 17 114/53 97 Room Air 11/21/24 07:39 95 18 N/A Room Air 21 Laboratory: [ ] Laboratory: Test 11/21/24 11:25 11/21/24 04:57 11/20/24 06:03 11/20/24 04:23 Range/Units Whole Blood Glucose 257 H 70-110 MG/DL Sodium Level 137 136-145 mmol/L Potassium Level 3.2 L 3.5-5.1 mmol/L Chloride Level 102 101-111 mmol/L Carbon Dioxide Level 24 21-32 mmol/L Blood Urea Nitrogen 12 7-18 mg/dL Creatinine 0.9 0.5-1.3 mg/dL Glomerular Filtration Rate Calc 89 >90 mL/min Random Glucose 172 H 70-105 mg/dL Total Calcium 7.6 L 8.5-10.1 mg/dL Triglycerides Level 103 30-200 mg/dL Cholesterol Level 61 <200 mg/dL LDL Cholesterol 26 0-99 mg/dL HDL Cholesterol 32 29-71 mg/dL White Blood Count 4.9 4.8-10.8 K/uL Red Blood Count 3.53 L 4.50-6.20 MIL/uL Hemoglobin 9.6 L 14.0-18.0 g/dL Hematocrit 28.9 L 42-54 % Mean Corpuscular Volume 81.9 79-99 fL Mean Corpuscular Hemoglobin 27.2 27.0-33.0 pg Mean Corpuscular Hemoglobin Concent 33.2 32.0-36.0 g/dL Red Cell Distribution Width 16.1 H 11.0-15.5 % Platelet Count 181 130-400 K/uL Mean Platelet Volume 10.5 7.5-10.5 fL Nucleated Red Blood Cells 0.0 0.0-0.19 % Magnesium Level 1.80 1.80-2.40 mg/dL Test 11/19/24 12:45 Range/Units Urine Random Creatinine 75.99 30-135 mg/dL Current Medications Medications (Trade) Dose Ordered Sig/Jermain Route PRN Reason Start Time Stop Time Status Last Admin Dose Admin Acetaminophen (TYLenol 325MG TAB) 650 mg Q4H PRN PO TEMPERATURE GREATER THAN 101.5 11/08/24 12:00 12/08/24 11:59 11/14/24 23:07 650 MG Acetaminophen/ Hydrocodone Bitart (NORco 5/325MG) 1 tab Q6H PRN PO MODERATE PAIN (4-6) 11/14/24 20:00 11/16/24 18:09 DC 11/15/24 15:40 1 TAB Aspirin (Aspirin 81mg Ec Tab) 81 mg DAILY PO 11/10/24 09:00 12/10/24 08:59 11/21/24 09:27 81 MG Atorvastatin Calcium (LIPItor 40MG) 40 mg DAILY PO 11/10/24 09:00 12/10/24 08:59 11/21/24 09:28 40 MG Carvedilol (Coreg 3.125MG) 3.125 mg BID PO 11/09/24 21:00 12/09/24 20:59 11/21/24 09:27 3.125 MG Clopidogrel Bisulfate (plaVIX 75MG) 75 mg DAILY PO 11/10/24 09:00 12/10/24 08:59 11/21/24 09:25 75 MG Dextrose 1,000 ml @ 100 mls/hr Q10H IV 11/17/24 12:00 11/18/24 04:59 DC Dextrose (D50w) 50 ml AD PRN IV HYPOGLYCEMIA PROTOCOL 11/10/24 12:30 12/10/24 12:29 Dextrose/Sodium Chloride 1,000 ml @ 0 mls/hr AD IV 11/17/24 12:00 11/17/24 12:45 DC Empaglifozin (Jardiance 25mg) 25 mg DAILY PO 11/10/24 09:00 11/16/24 15:14 DC 11/16/24 09:58 25 MG Famotidine (Pepcid 20mg Vial) 20 mg DAILY IV 11/09/24 09:00 11/16/24 15:19 DC 11/16/24 09:56 20 MG Ferrous Sulfate (Ferrous Sulfate) 325 mg QODAY PO 11/11/24 09:00 12/11/24 08:59 11/21/24 09:28 325 MG Gabapentin (NEURontin 100 mg CAP) 100 mg BID PO 11/20/24 21:00 12/20/24 20:59 11/21/24 09:26 100 MG Glucagon (Glucagon 1mg Kit) 1 mg AD PRN IM HYPOGLYCEMIA PROTOCOL 11/10/24 12:30 12/10/24 12:29 Heparin Sodium (Porcine) (HEParin 5,000 UNIT VIAL) 5,000 unit Q12H SQ 11/08/24 12:30 12/08/24 12:29 11/21/24 00:00 5,000 UNIT Home Med (Home Medication) (Finasteride 1 MG)- HAIR LOSS DAILY PO 11/10/24 09:00 12/10/24 08:59 Hydromorphone HCl (DiLAUDid 0.5MG INJ) 0.5 mg Q4H PRN IVP SEVERE PAIN (7-10) 11/08/24 12:00 11/13/24 11:59 DC 11/11/24 18:34 0.5 MG Hydromorphone HCl (DiLAUDid 0.5MG INJ) 0.5 mg Q4H PRN IVP SEVERE PAIN (7-10) 11/14/24 00:00 11/16/24 18:09 DC 11/16/24 13:21 0.5 MG Insulin Glargine (LANtus 100 UNITS/ML 10 ML VIAL) 15 units Q12H SQ 11/18/24 06:00 12/18/24 05:59 11/21/24 06:38 15 UNITS Insulin Human Regular (humuLIN R 100 UNIT/ML 3ML) INSULIN SLIDING SCAL... ACHS SQ 11/08/24 16:30 12/08/24 16:29 11/20/24 20:31 4 UNIT Insulin Human Regular 100 unit/ Sodium Chloride 101 ml @ 0 mls/hr PROTOCOL IV 11/17/24 12:00 11/18/24 04:59 DC 11/17/24 16:06 4.65 MLS/HR Ipratropium [place] (AtrovENT UD) 0.5 MG Q4H PRN IH SHORTNESS OF BREATH 11/18/24 10:30 12/18/24 10:29 Iron Sucrose (VenoFER) 200 mg ONCE STAT IV 11/09/24 11:20 11/09/24 11:35 DC Lactated Ringer's 1,000 ml @ 100 mls/hr Q10H IV 11/18/24 05:00 11/18/24 08:46 DC 11/18/24 05:06 100 MLS/HR Lactulose (Constulose 20gm/ 30ml Udcup) 20 gm BID PRN PO CONSTIPATION 11/08/24 12:00 12/08/24 11:59 Lisinopril (Prinivil 10mg) 10 mg DAILY PO 11/16/24 09:00 11/16/24 09:53 DC Lisinopril (Prinivil 20mg) 20 mg DAILY PO 11/17/24 09:00 12/17/24 08:59 11/21/24 09:26 20 MG Lisinopril (Prinivil 5mg) 5 mg DAILY PO 11/10/24 09:00 11/15/24 09:21 DC 11/15/24 08:10 5 MG Magnesium Oxide (Mag-Ox) 400 mg BID PO 11/19/24 21:00 11/22/24 07:00 11/21/24 09:26 400 MG Magnesium Sulfate 50 ml @ 0 mls/hr PROTOCOL IV 11/17/24 12:00 11/18/24 07:32 DC 11/18/24 04:41 25 MLS/HR Magnesium Sulfate 50 ml @ 0 mls/hr PROTOCOL IV 11/17/24 13:00 12/17/24 12:59 11/20/24 05:41 25 MLS/HR Magnesium Sulfate 50 ml @ 0 mls/hr PROTOCOL PRN IV low mag level 11/08/24 12:00 11/18/24 07:32 DC 11/11/24 05:34 25 MLS/HR Mannitol (Osmitrol 20% 250ml Bag) 47 gm AD IV 11/17/24 12:00 11/17/24 12:48 DC Metformin HCl (glucoPHAGE) 1,000 mg BIDMEALS PO 11/09/24 17:00 11/16/24 22:14 DC 11/16/24 17:40 1,000 MG Metoclopramide HCl (regLAN 10MG IV) 5 mg TIDAC IVP 11/17/24 11:30 11/18/24 08:31 DC 11/17/24 16:07 5 MG Ondansetron HCl (zoFRAN 4MG INJ) 4 mg Q6H PRN IVP NAUSEA/VOMITING 11/08/24 12:00 12/08/24 11:59 11/16/24 09:56 4 MG Pantoprazole Sodium (PROTonix 40MG INJ) 40 mg DAILY IVP 11/17/24 09:00 12/17/24 08:59 11/21/24 09:25 40 MG Pioglitazone HCl (Actos 30mg) 30 mg DAILY PO 11/10/24 09:00 11/16/24 22:15 DC 11/16/24 09:56 30 MG Piperacillin Sod/ Tazobactam Sod (Zosyn 3.375gm+NS 50ml) 3.375 gm Q8H IVPB 11/08/24 17:30 11/14/24 13:27 DC 11/14/24 00:57 3.375 GM Piperacillin Sod/ Tazobactam Sod (Zosyn 3.375gm+NS 50ml) 3.375 gm Q8H IVPB 11/14/24 13:30 11/16/24 11:00 DC 11/16/24 05:41 3.375 GM Potassium Chloride 20 meq/ Sodium Chloride 1,010 ml @ 0 mls/hr PROTOCOL IV 11/17/24 12:00 11/17/24 12:45 DC Potassium Chloride/Dextrose/ Sod Cl 1,000 ml @ 0 mls/hr AD IV 11/17/24 12:00 11/18/24 04:59 DC 11/18/24 04:43 300 MLS/HR Potassium Phosphate 250 ml @ 42 mls/hr PROTOCOL PRN IV PROTOCOL 11/18/24 05:00 11/18/24 07:33 DC 11/18/24 05:36 42 MLS/HR Potassium Phosphate 250 ml @ 42 mls/hr PROTOCOL PRN IV PROTOCOL 11/18/24 07:30 12/18/24 07:29 Potassium Chloride 100 ml @ 50 mls/hr AD PRN IV POTASSIUM PROTOCOL 11/16/24 15:30 11/16/24 15:19 DC Potassium Chloride 100 ml @ 100 mls/hr AD PRN IV POTASSIUM PROTOCOL 11/08/24 12:00 11/19/24 05:21 DC 11/19/24 05:03 100 MLS/HR Potassium Chloride 100 ml @ 100 mls/hr AD PRN IV POTASSIUM PROTOCOL 11/19/24 05:30 12/19/24 05:29 11/19/24 07:37 100 MLS/HR Potassium Chloride 100 ml @ 0 mls/hr PROTOCOL PRN IV DKA POTASSIUM REPLACEMENT 11/17/24 13:00 11/19/24 05:21 DC 11/17/24 16:07 50 MLS/HR Potassium Chloride (K-Dur/Klor-Con 20meq) 20 meq AD PRN PO POTASSIUM PROTOCOL 11/08/24 12:00 11/16/24 15:14 DC 11/12/24 19:14 20 MEQ Potassium Chloride (K-Dur/Klor-Con 20meq) 20 meq AD PRN PO POTASSIUM PROTOCOL 11/19/24 05:30 12/19/24 05:29 11/20/24 05:43 20 MEQ Potassium Chloride (K-Dur/Klor-Con 20meq) 20 meq DAILY PO 11/20/24 09:00 12/20/24 08:59 11/21/24 09:26 20 MEQ Potassium Chloride (KCl 10% Elixir 20meq/15ml) 20 meq AD PRN PO POTASSIUM PROTOCOL 11/08/24 12:00 11/16/24 15:14 DC Potassium Chloride (KCl 10% Elixir 20meq/15ml) 20 meq AD PRN PO POTASSIUM PROTOCOL 11/19/24 05:30 12/19/24 05:29 Potassium Phos/ Sodium Phos (PHOS-NaK PACKET 1 EACH) 1 packet TID PO 11/18/24 14:00 11/19/24 14:00 DC 11/19/24 14:07 1 PACKET Sodium Bicarbonate (Sodium Bicarbonate) 650 mg BID PO 11/18/24 09:00 11/19/24 07:09 DC 11/18/24 21:09 650 MG Sodium Chloride 1,000 ml @ 100 mls/hr Q10H IV 11/08/24 12:00 11/17/24 12:39 DC 11/17/24 05:38 100 MLS/HR Sodium Chloride 1,000 ml @ 100 mls/hr Q10H IV 11/10/24 12:30 11/10/24 15:29 DC Sodium Chloride (NS 50ml) 50 ml AD IV 11/08/24 21:00 11/08/24 11:59 DC Spironolactone (Aldactone 25mg) 25 mg DAILY PO 11/19/24 09:00 12/19/24 08:59 11/21/24 09:28 25 MG Tamsulosin HCl (FloMAX) 0.4 mg DAILY PO 11/10/24 09:00 12/10/24 08:59 11/21/24 09:26 0.4 MG Vancomycin HCl 250 ml @ 125 mls/hr Q12H IV 11/15/24 12:00 11/16/24 14:00 DC 11/16/24 11:47 125 MLS/HR Vancomycin HCl 250 ml @ 125 mls/hr Q12H IV 11/17/24 00:30 11/17/24 11:42 DC 11/17/24 01:34 125 MLS/HR Vancomycin HCl 250 ml @ 125 mls/hr Q24H IV 11/10/24 12:00 11/12/24 11:49 DC 11/11/24 15:18 125 MLS/HR Vancomycin HCl 500 ml @ 250 mls/hr Q24H IV 11/12/24 12:00 11/15/24 11:42 DC 11/14/24 13:36 250 MLS/HR Vancomycin HCl (Vancomycin Protocol) 1 each AD IV 11/09/24 11:30 11/16/24 13:00 DC Vancomycin HCl (Vancomycin 1g/ 250ml Kit) 1 gm Q12H IV 11/08/24 12:00 11/08/24 11:59 DC Diagnostics / Radiology: [COPY/PASTE HERE IF NO REPORTS PLEASE DELETE SECTION] Assessment: Positive FOBT Acute blood loss anemia PAD Plan: Continue GI prophylaxis Advance diet as tolerated Avoid NSAIDs Antireflux measures Monitor H&H and transfuse as needed Call with questions, concerns or change in clinical status Patient to follow-up at clinic post discharge Thank you for this consult BEBO HERNANDEZ [employer] Nov 21, 2024 12:04
--- NOTE | 2024-11-21 12:51 | NUR ---
[facility] Transportation activated.
--- NOTE | 2024-11-21 14:17 | NUR ---
PICC line PICC line to left upper arm discontinued. Site dry and clean dressing in place. Pressure applied. No bleeding. PICC line catheter intact.
== END 2024-11-21 15:25 | DRG 239 ==
LOC: EDH 08:50 → EDHIP 11:42 → 3BH 14:51 → 2CH 11-17 15:50 → 3AH 11-18 12:05
PROVIDERS: ADMIT Internal Medicine; ATTEND Internal Medicine
PROC: 047K3Z1 Dilation of Right Femoral Artery using Drug-Coated Balloon, Percutaneous Approach (ICD-10-PCS; 2024-11-10)
PROC: 047T3ZZ Dilation of Right Peroneal Artery, Percutaneous Approach (ICD-10-PCS; 2024-11-10)
PROC: 047M3ZZ Dilation of Right Popliteal Artery, Percutaneous Approach (ICD-10-PCS; 2024-11-10)
PROC: 04FK3ZZ Fragmentation of Right Femoral Artery, Percutaneous Approach (ICD-10-PCS; 2024-11-10)
PROC: 04FT3ZZ Fragmentation of Right Peroneal Artery, Percutaneous Approach (ICD-10-PCS; 2024-11-10)
PROC: 30233N1 Transfusion of Nonautologous Red Blood Cells into Peripheral Vein, Percutaneous Approach (ICD-10-PCS; 2024-11-10)
PROC: B4101ZZ Fluoroscopy of Abdominal Aorta using Low Osmolar Contrast (ICD-10-PCS; 2024-11-10)
PROC: B41F1ZZ Fluoroscopy of Right Lower Extremity Arteries using Low Osmolar Contrast (ICD-10-PCS; 2024-11-10)
PROC: 02HV33Z Insertion of Infusion Device into Superior Vena Cava, Percutaneous Approach (ICD-10-PCS; 2024-11-14)
PROC: 0Y6C0Z1 Detachment at Right Upper Leg, High, Open Approach (ICD-10-PCS; principal; 2024-11-14 17:20)
PROC: 0DJ08ZZ Inspection of Upper Intestinal Tract, Via Natural or Artificial Opening Endoscopic (ICD-10-PCS; 2024-11-17)
DX: T82.856A Stenosis of peripheral vascular stent, initial encounter (principal); A41.9 Sepsis, unspecified organism; E11.10 Type 2 diabetes mellitus with ketoacidosis without coma; T87.43 Infection of amputation stump, right lower extremity; L03.115 Cellulitis of right lower limb; D62 Acute posthemorrhagic anemia; E11.52 Type 2 diabetes mellitus with diabetic peripheral angiopathy with gangrene; M86.8X7 Other osteomyelitis, ankle and foot; E11.42 Type 2 diabetes mellitus with diabetic polyneuropathy; E11.622 Type 2 diabetes mellitus with other skin ulcer; E11.69 Type 2 diabetes mellitus with other specified complication; Y83.5 Amputation of limb(s) as the cause of abnormal reaction of the patient, or of later complication, without mention of misadventure at the time of the procedure; Z68.33 Body mass index [BMI] 33.0-33.9, adult; Z89.612 Acquired absence of left leg above knee; D50.9 Iron deficiency anemia, unspecified; E11.621 Type 2 diabetes mellitus with foot ulcer; E83.42 Hypomagnesemia; B96.1 Klebsiella pneumoniae [K. pneumoniae] as the cause of diseases classified elsewhere; E66.01 Morbid (severe) obesity due to excess calories; E78.00 Pure hypercholesterolemia, unspecified; E83.39 Other disorders of phosphorus metabolism; E87.6 Hypokalemia; I10 Essential (primary) hypertension; I48.91 Unspecified atrial fibrillation; K20.90 Esophagitis, unspecified without bleeding; K31.89 Other diseases of stomach and duodenum; L97.519 Non-pressure chronic ulcer of other part of right foot with unspecified severity; Y83.8 Other surgical procedures as the cause of abnormal reaction of the patient, or of later complication, without mention of misadventure at the time of the procedure; Z79.4 Long term (current) use of insulin; Z74.01 Bed confinement status; Z79.84 Long term (current) use of oral hypoglycemic drugs; Z79.82 Long term (current) use of aspirin; Z89.512 Acquired absence of left leg below knee; Z79.02 Long term (current) use of antithrombotics/antiplatelets; Z79.899 Other long term (current) drug therapy; Z83.3 Family history of diabetes mellitus
CPT/HCPCS: 36415; 36430; 36600; 43235; 71045; 73630; 73718; 74018; 75716; 80048; 80051; 80053; 80061; 80076; 80202; 80305; 81001; 82010; 82270; 82306; 82570; 82803; 82948; 83036; 83540; 83550; 83605; 83735; 84100; 84132; 84443; 84446; 84484; 84590; 85014; 85018; 85025; 85027; 85045; 85347; 85610; 85730; 86140; 86850; 86900; 86901; 86923; 87040; 87070; 87076; 87086; 87186; 88307; 88311; 93005; 93926; 93971; 94640; 94664; 96372; 96374; 96375; 96376; 99156; 99157; 99285; C1760; C1769; C1893; C1894; C9764; C9772; G0378; J1100; J1171; J1644; J1756; J1815; J1885; J1940; J2003; J2250; J2270; J2371; J2405; J2470; J2543; J2550; J2704; J2710; J2765; J2795; J3010; J3370; J3475; J3480; J3490; J7030; P9016; Q9967; A4215; A4222; A4223; A4620; A4649; A4930; A6223; C1725; C1887; C2623